=== PATIENT | female | born 1950 | race Caucasian/White ===

== ENCOUNTER → 2022-05-13 14:55 | Outpatient (CLI) | payer OTHER, SELFPAY ==
--- NOTE | 2022-05-13 14:57 | DI.RAD.S_ITS ---
PROCEDURE: XR FEMUR RT MIN 2V INDICATIONS: right leg pain and hip weakness after groundlevel fall TECHNIQUE: 4 views of the femur were acquired. COMPARISON: None. FINDINGS: Bones: Acute right femoral neck fracture is seen with superior migration of proximal femoral shaft in relation to femoral head. No mid to distal femoral fracture. Right hip and right knee joint osteoarthritic changes are seen. No suspicious bony lesions. Soft tissues: No suspicious soft tissue calcifications or masses. IMPRESSION: Acute displaced right femoral neck fracture. No mid to distal right femoral fracture is seen. Dictated by: Kory Ellsworth M.D. on 05/13/2022 at 16:17 Approved by: Kory Ellsworth M.D. on 05/13/2022 at 16:18
--- NOTE | 2022-05-13 14:57 | DI.RAD.S_ITS ---
PROCEDURE: XR HIP W PEL IF DONE RT 2V INDICATIONS: right leg pain and hip weakness after groundlevel fall TECHNIQUE: AP pelvis with lateral view(s) of the right hip(s). COMPARISON: None. FINDINGS: Bones: Acute right femoral neck fracture is seen with superior migration of femoral shaft in relation to femoral head. Bilateral hip joint osteoarthritic changes are seen. No evidence of avascular necrosis of femoral head. Pelvic ring appears intact. No suspicious bony lesions. Soft tissues: The visualized bowel gas pattern is normal. No suspicious soft tissue calcifications. IMPRESSION: Acute displaced right femoral neck fracture as above. Dictated by: Kory Ellsworth M.D. on 05/13/2022 at 16:18 Approved by: Kory Ellsworth M.D. on 05/13/2022 at 16:18
[2022-05-13 16:44] LABS: Alanine Aminotransferase 18 IU/L (<35); Albumin 3.8 g/dL (3.5-5.0); Albumin Globulin Ratio 1.3 (1.0-2.8); Alkaline Phosphatase 126 U/L (38-126); Aspartate Aminotransferase 29 IU/L (14-36); BUN Creatinine Ratio 36.1 (6-22); Bilirubin Total 0.6 mg/dL (0.2-1.3); Blood Urea Nitrogen 26 mg/dL (7-17); Calcium 10.5 mg/dL (8.4-10.2); Carbon Dioxide 33 mmol/L (22-32); Chloride 85 mmol/L (98-107); Estimated Glomerular Filt Rate > 60 mL/min (>60); Globulin 2.9 g/dL (1.7-4.1); Glucose 104 mg/dL (80-110); HEMOLYSIS < 15 (0-50); Potassium 4.1 mmol/L (3.4-5.1); Sodium 127 mmol/L (137-145); Total Protein 6.7 g/dL (6.3-8.2)
== END ==
PROVIDERS: PCP Student in an Organized Health Care Education/Training Program; Referring Provider Family Medicine; Visit Provider Family Medicine
DX: S72.091A Other fracture of head and neck of right femur, initial encounter for closed fracture (principal); I16.0 Hypertensive urgency; M79.604 Pain in right leg; W18.30XA Fall on same level, unspecified, initial encounter
CPT/HCPCS: 36415; 73502; 73552; 80053

== ENCOUNTER 2022-05-16 10:01 | Inpatient (IN) | payer OTHER, SELFPAY ==
[2022-05-16] VITALS (20 sets, daily range): BP systolic 145–218; BP diastolic 68–107; PULSE 71–99; RESP 16–19; TEMP 36.3–36.7; O2SAT 93–97; BMI 20.9; BMI 26.4
--- NOTE | 2022-05-16 10:10 | DI.RAD.S_ITS ---
PROCEDURE: XR HIP W PEL IF DONE RT 2V INDICATIONS: fall 04/25 with right hip pain TECHNIQUE: 2 views of the hip were acquired. COMPARISON: [facility], , XR HIP W PEL IF DONE RT 2V, 05/13/2022, 15:10. FINDINGS: Bones: Right femoral neck fracture with superior migration of the femoral shaft is similar to the prior study on 05/13/2022. The left hip is unchanged. Rightward curvature of the lumbar spine. Soft tissues: No suspicious soft tissue calcifications or masses. Calcifications of the aorta are seen. IMPRESSION: Acute displaced right femoral neck fracture similar to prior study. Dictated by: Syed Leiva M.D. on 05/16/2022 at 10:54 Approved by: Syed Leiva M.D. on 05/16/2022 at 10:56
--- NOTE | 2022-05-16 10:16 | ED_ITS ---
HPI - Fall General Chief Complaint: Fall Stated Complaint: rt hip pain Time Seen by Provider: 05/16/22 10:07 Source: patient Mode of arrival: Wheelchair History of Present Illness HPI Narrative: 72-year-old female presenting with right hip pain in the setting of fall several weeks prior to presentation. Patient reports series initially ambulatory on her hip, and then became unable to ambulate approximately 1-2 weeks after the initial fall. Patient has been attempting to ambulate with family support helping her with transfers. Patient was evaluated in the outpatient setting where x-rays were obtained on 06/10/2022, this did show acute intertrochanteric hip fracture, patient was reportedly in her vehicle when she was called about these results, patient and family elected to go home and it is unclear why this decision was made. Patient reports pain localized to the right hip with attempts at movement. Related Data Home Medications Medication Instructions Recorded Confirmed ibuprofen 200 mg tablet 400 mg PO DAILY 05/13/22 05/16/22 Previous Rx's Medication Instructions Recorded lidocaine 5 % topical patch 1 patch topical DAILY #30 ea 05/13/22 Allergies Allergy/AdvReac Type Severity Reaction Status Date / Time wool Allergy Mild Rash Verified 05/16/22 10:10 codeine AdvReac Intermediate Gastrointestinal Verified 05/16/22 10:10 Upset Patient History Medical History Paralysis Vision disorder Surgical History No pertinent past surgical history Family History Mother Diabetes mellitus Hyperthyroidism Father CAD (coronary artery disease) Social History household members: spouse Smoking Status: Current every day smoker Tobacco: How many years used: 40 quit status: considering quitting (I'm trying ) alcohol intake: current substance use type: does not use Smoking Status: Current every day smoker alcohol intake frequency: holidays/special occasions only Substance Use Type: does not use Exam Narrative Exam Narrative: Vitals reviewed. Nursing note reviewed Constitutional: interactive HENT: Moist mucous membranes EYES: No scleral icterus NECK: no masses CV: Well perfused peripherally, no cyanosis present PULM: Unlabored respirations, symmetric chest rise ABD: Non-distended MS: Right hip with pain on palpation to the lateral and anterior aspect, sensation intact to light touch over the right lower extremity SKIN: Warm and dry. PSYCH: Appropriate affect NEURO: Follows simple commands, moves extremities, interactive with exam Initial Vital Signs Initial Vital Signs: Vital Signs Temperature 97.8 F 05/16/22 10:05 Pulse Rate 94 H 05/16/22 10:05 Respiratory Rate 16 05/16/22 10:05 Blood Pressure 212/107 H 05/16/22 10:05 Pulse Oximetry 97 05/16/22 10:05 Oxygen Delivery Method Room Air 05/16/22 10:05 Course Orders Ordered: ED Orders 05/17/22 05:38 Complete Blood Count AUTO DIFF DAILY Comprehensive Metabolic Panel DAILY Hemoglobin A1C% w Est Avg Glu Routine Magnesium DAILY 05/18/22 05:00 Complete Blood Count AUTO DIFF DAILY Comprehensive Metabolic Panel DAILY Magnesium DAILY 05/19/22 05:00 Complete Blood Count AUTO DIFF DAILY Comprehensive Metabolic Panel DAILY Magnesium DAILY Acetaminophen (Acetaminophen 325 Mg Tablet) 975 mg PO Q8H PRN PRN Reason: Pain, Mild (1-3) Last Admin: 05/17/22 04:49 Dose: 975 mg Documented By: AA Fentanyl (Fentanyl 100 Mcg/2 Ml Inj) 0 mcg IV Q5MIN PRN PRN Reason: Pain, Severe (7-10) Hydromorphone HCl (Hydromorphone 0.5 Mg Inj) 0.5 mg IV Q1H PRN PRN Reason: Pain, Severe (7-10) Hydromorphone HCl (Hydromorphone 2 Mg Inj) 0 mg IV Q5MIN PRN PRN Reason: Pain, Mild (1-3) Lactated Ringer's (Lactated Ringers) 1,000 mls @ 42 mls/hr IV CONT KIMBERLY Last Admin: 05/17/22 09:22 Dose: 42 mls/hr Documented By: Infusion: 05/17/22 09:22 Dose: 42 mls/hr Documented By: Admin: 05/17/22 07:57 Dose: 42 mls/hr Documented By: CG Lactated Ringer's (Lactated Ringers) 1,000 mls @ 120 mls/hr IV CONT KIMBERLY Naloxone HCl (Naloxone 0.4 Mg/Ml Vial) 0.2 mg IV Q2MIN PRN PRN Reason: Opiate Reversal Nicotine (Nicotine 21 Mg Patch) 21 mg TOP DAILY KIMBERLY Last Admin: 05/16/22 15:32 Dose: 21 mg Documented By: VU Ondansetron HCl (Ondansetron 4 Mg/2 Ml Inj) 4 mg IV Q8HR PRN PRN Reason: Nausea And Vomiting Ondansetron HCl (Ondansetron 4 Mg/2 Ml Inj) 4 mg IV NOW PRN PRN Reason: Nausea And Vomiting Oxycodone HCl (Oxycodone Ir 5 Mg Tablet) 5 mg PO Q4HR PRN PRN Reason: Pain, Moderate (4-6) Last Admin: 05/17/22 04:49 Dose: 5 mg Documented By: Admin: 05/16/22 17:45 Dose: 5 mg Documented By: VU Oxycodone HCl (Oxycodone Ir 5 Mg Tablet) 5 mg PO PACUNOW PRN PRN Reason: Mild or moderate pain Discontinued Medications Bupivacaine HCl/Epinephrine Bitart (Bupivacaine 0.25% W/ Epi 30 Ml Vial) 60 ml INJ INTRA-OP ONE Stop: 05/17/22 08:59 Last Admin: 05/17/22 09:02 Dose: 50 ml Documented By: NATACHA Bupivacaine Liposome (Bupivacaine Liposome 266 Mg/20 Ml Vial) 266 mg INJ NOW ONE Stop: 05/17/22 08:56 Last Admin: 05/17/22 08:55 Dose: 266 mg Documented By: NATACHA Epinephrine HCl (Epinephrine 1 Mg/Ml) 1 mg IRR NOW ONE Stop: 05/17/22 09:00 Last Admin: 05/17/22 09:01 Dose: 1 mg Documented By: NATACHA Hydromorphone HCl (Hydromorphone 0.5 Mg Inj) 0.5 mg IV NOW ONE Stop: 05/16/22 10:30 Last Admin: 05/16/22 11:29 Dose: Not Given Documented By: ISIDRO Sodium Chloride (Normal Saline 0.9%) 500 mls @ 1,000 mls/hr IV BOLUS ONE Stop: 05/16/22 12:21 Last Infusion: 05/16/22 13:27 Dose: 0 mls/hr Documented By: Admin: 05/16/22 12:31 Dose: 1,000 mls/hr Documented By: AYAZ Sodium Chloride (Normal Saline 0.9%) 1,000 mls @ 100 mls/hr IV CONT KIMBERLY Last Infusion: 05/16/22 14:22 Dose: 0 mls/hr Documented By: Admin: 05/16/22 13:27 Dose: 100 mls/hr Documented By: AYAZ Vancomycin HCl (Vancomycin) 1,000 mg in 200 mls @ 200 mls/hr IV NOW ONE Stop: 05/17/22 09:00 Last Infusion: 05/17/22 08:54 Dose: 0 mls/hr Documented By: Admin: 05/17/22 08:01 Dose: 200 mls/hr Documented By: ALTAGRACIA Cefazolin Sodium/Dextrose (Ancef) 100 mls @ 200 mls/hr IV NOW ONE Stop: 05/17/22 09:25 Last Infusion: 05/17/22 08:34 Dose: 0 mls/hr Documented By: Admin: 05/17/22 08:24 Dose: 200 mls/hr Documented By: GLORIA Tranexamic Acid 1,000 mg/ (Sodium Chloride) 100 mls @ 200 mls/hr IV INTRA-OP ONE Stop: 05/17/22 09:28 Last Infusion: 05/17/22 08:45 Dose: 0 mls/hr Documented By: Admin: 05/17/22 08:40 Dose: 200 mls/hr Documented By: GLORIA Metoprolol Tartrate (Metoprolol Ir 25 Mg Tablet) 25 mg PO NOW ONE Stop: 05/16/22 14:16 Last Admin: 05/16/22 15:03 Dose: 25 mg Documented By: VU Potassium Chloride (Potassium Chloride 20 Meq Tab) 40 meq PO Q6H [facility] Stop: 05/16/22 22:31 Last Admin: 05/16/22 22:37 Dose: 40 meq Documented By: Admin: 05/16/22 16:35 Dose: 40 meq Documented By: VU Vital Signs Vital signs: Vital Signs - 8 hr 05/16/22 10:05 Temperature 97.8 F Pulse Rate 94 H Respiratory Rate 16 Blood Pressure 212/107 H Pulse Oximetry 97 Oxygen Delivery Method Room Air MDM - Fall Lab Data 05/17/22 05:38 05/17/22 05:38 Labs: Lab Results 05/16/22 05/16/22 05/16/22 Range/Units 11:16 11:16 11:16 WBC 16.7 H (4.5-11.0) X10^3/uL RBC 4.67 (4.0-5.2) X10^6/uL Hgb 13.5 (12.0-16.0) g/dL Hct 40.1 (36-46) % MCV 86.0 (80-100) fL MCH 29.0 (26-34) PG MCHC 33.6 (30-36) % RDW 13.9 (11.6-14.8) % Plt Count 667 H (150-400) X10^3/uL Neut % (Auto) 82.6 H (50-75) % Lymph % (Auto) 11.3 L (25-40) % [place] % (Auto) 4.9 (3-14) % Eos % (Auto) 0.6 L (2-4) % Baso % (Auto) 0.6 (0-2) % Neut # (Auto) 45513 H (1901-1034) /uL Lymph # (Auto) 1900 (1707-1100) /uL [place] # (Auto) 800 (0-900) /uL Eos # (Auto) 100 (0-450) /uL Baso # (Auto) 100 (0-100) /uL Sodium 125 L (137-145) mmol/L Potassium 3.0 L (3.4-5.1) mmol/L Chloride 84 L (98-107) mmol/L Carbon Dioxide 37 H (22-32) mmol/L BUN 23 H (7-17) mg/dL Creatinine 0.61 (0.52-1.04) mg/dL Estimated GFR > 60 (>60) mL/min BUN/Creatinine Ratio 37.7 H (6-22) Glucose 97 (80-110) mg/dL Calcium 10.0 (8.4-10.2) mg/dL Total Bilirubin 0.7 (0.2-1.3) mg/dL AST 29 (14-36) IU/L ALT 16 (<35) IU/L Alkaline Phosphatase 123 (38-126) U/L Total Creatine Kinase 53 (30-135) U/L Total Protein 6.9 (6.3-8.2) g/dL Albumin 4.0 (3.5-5.0) g/dL Globulin 2.9 (1.7-4.1) g/dL Albumin/Globulin Ratio 1.4 (1.0-2.8) SARS-CoV-2 (PCR) (Negative) Influenza A (RT-PCR) (NEGATIVE) Influenza B (RT-PCR) (NEGATIVE) RSV (PCR) (Negative) 05/16/22 Range/Units 11:16 WBC (4.5-11.0) X10^3/uL RBC (4.0-5.2) X10^6/uL Hgb (12.0-16.0) g/dL Hct (36-46) % MCV (80-100) fL MCH (26-34) PG MCHC (30-36) % RDW (11.6-14.8) % Plt Count (150-400) X10^3/uL Neut % (Auto) (50-75) % Lymph % (Auto) (25-40) % [place] % (Auto) (3-14) % Eos % (Auto) (2-4) % Baso % (Auto) (0-2) % Neut # (Auto) (3741-8997) /uL Lymph # (Auto) (7361-4034) /uL [place] # (Auto) (0-900) /uL Eos # (Auto) (0-450) /uL Baso # (Auto) (0-100) /uL Sodium (137-145) mmol/L Potassium (3.4-5.1) mmol/L Chloride (98-107) mmol/L Carbon Dioxide (22-32) mmol/L BUN (7-17) mg/dL Creatinine (0.52-1.04) mg/dL Estimated GFR (>60) mL/min BUN/Creatinine Ratio (6-22) Glucose (80-110) mg/dL Calcium (8.4-10.2) mg/dL Total Bilirubin (0.2-1.3) mg/dL AST (14-36) IU/L ALT (<35) IU/L Alkaline Phosphatase (38-126) U/L Total Creatine Kinase (30-135) U/L Total Protein (6.3-8.2) g/dL Albumin (3.5-5.0) g/dL Globulin (1.7-4.1) g/dL Albumin/Globulin Ratio (1.0-2.8) SARS-CoV-2 (PCR) Negative (Negative) Influenza A (RT-PCR) Flu a negative (NEGATIVE) Influenza B (RT-PCR) Flu b negative (NEGATIVE) RSV (PCR) Negative (Negative) MDM Narrative Medical decision making narrative: 72-year-old female presenting several weeks after fall with progressive difficulty in ability to mobilize, patient has not been able to mobilize i ndependently for at least 1 week, recent x-rays in the outpatient setting showed acute intertrochanteric right hip fracture. On presentation, vital signs notable for hypertension, physical exam notable for alert and interactive 72-year-old female who was in moderate pain, reassuring distal neurovascular exam of the right hip. Pain controlled with IV hydromorphone. Discussed case with Orthopedic surgery on-call, agree with plan for admission and facilitate further management. Discussed case with hospital medicine team who agreed with plan for admission to facilitate further management. Patient is subsequently admitted in stable condition. Discharge Plan Departure Patient Disposition: Admitted As Inpatient Clinical Impression: Closed fracture of right hip Admit Date/Time: 05/16/22 11:30 Admit Provider: Hans Polanco
--- NOTE | 2022-05-16 10:27 | DI.RAD.S_ITS ---
PROCEDURE: XR CHEST 1V INDICATIONS: pre op TECHNIQUE: One view of the chest was acquired. COMPARISON: None. FINDINGS: Surgical changes and devices: None. Lungs and pleura: Lungs are clear. No pleural effusions or pneumothorax. Mediastinum: Mediastinal contours appear normal. Heart size is normal. Bones and chest wall: Rightward curvature of the thoracolumbar spine. No suspicious bony lesions. Overlying soft tissues appear unremarkable. IMPRESSION: No acute cardiopulmonary abnormality. Dictated by: Syed Leiva M.D. on 05/16/2022 at 10:56 Approved by: Syed Leiva M.D. on 05/16/2022 at 10:56
--- NOTE | 2022-05-16 10:31 | PC.NURSE ---
pt fell apr 25. states at first she was able to walk but then needed to use a walker and then eventually had to use wheelchair to get around. pain has been getting worse. seen at [facility] on fridaymay 13 and told to go to the emergency room but wanted a couple days at home before coming in. pt states she feels numbness and tingling in her feet bilaterally but she is unable to lift her right leg off the bed without using her arms to do so. pt instructed to not move her leg while she is here.
[2022-05-16 11:25] LABS: Add Manual Diff / Slide Review NO; Basophils Absolute Auto 100 /uL (0-100); Basophils Percent Auto 0.6 % (0-2); Eosinophils Absolute Auto 100 /uL (0-450); Eosinophils Percent Auto 0.6 % (2-4); Hematocrit 40.1 % (36-46); Hemoglobin 13.5 g/dL (12.0-16.0); Lymphocytes Absolute Auto 1900 /uL (1100-4500); Lymphocytes Percent Auto 11.3 % (25-40); Mean Corpuscular HGB Conc 33.6 % (30-36); Monocytes Absolute Auto 800 /uL (0-900); Monocytes Percent Auto 4.9 % (3-14); Neutrophils Absolute Auto 13800 /uL (1500-7000); Neutrophils Percent Auto 82.6 % (50-75); Platelet Count 667 X10^3/uL (150-400); Red Blood Cell Count 4.67 X10^6/uL (4.0-5.2); Red Cell Distribution Width 13.9 % (11.6-14.8); White Blood Cell Count 16.7 X10^3/uL (4.5-11.0)
[2022-05-16 11:35] LABS: Creatine Kinase 53 U/L (30-135)
[2022-05-16 11:36] LABS: Alanine Aminotransferase 16 IU/L (<35); Albumin Globulin Ratio 1.4 (1.0-2.8); Alkaline Phosphatase 123 U/L (38-126); Aspartate Aminotransferase 29 IU/L (14-36); BUN Creatinine Ratio 37.7 (6-22); Bilirubin Total 0.7 mg/dL (0.2-1.3); Blood Urea Nitrogen 23 mg/dL (7-17); Carbon Dioxide 37 mmol/L (22-32); Chloride 84 mmol/L (98-107); Estimated Glomerular Filt Rate > 60 mL/min (>60); Globulin 2.9 g/dL (1.7-4.1); Glucose 97 mg/dL (80-110); HEMOLYSIS < 15 (0-50); Sodium 125 mmol/L (137-145); Total Protein 6.9 g/dL (6.3-8.2)
[2022-05-16 12:10] LABS: COVID-19 CEPHEID 4-PLEX PCR Negative (Negative); Influenza A - CEPHEID Flu A NEGATIVE (NEGATIVE); Influenza B - CEPHEID Flu B NEGATIVE (NEGATIVE); Respiratory Syncytial Virus Negative (Negative)
[2022-05-16] MEDS: SODIUM CHLORIDE 0.9% 500 ML 1000 ML IV (12:31)
[2022-05-16] MEDS: SODIUM CHLORIDE 0.9% 1,000 ML 100 ML IV (13:27)
--- NOTE | 2022-05-16 13:52 | PC.NURSE ---
Addendum entered by Nahid Calle R.N. 05/16/22 14:03: Provider called this RN back. Provider to put new orders in. Original Note: Pt blood pressure elevated. Pt denies any pain and denies taking any blood pressure medications at home. Attempted 3 times to call provider regarding patient vitals. Left message with coordinator to have provider call.
[2022-05-16 14:05] LABS: Sodium Urine Random 58 mmol/L (30-90)
[2022-05-16 14:11] LABS: Appearance Urine UA CLEAR; Bilirubin Urine UA NEGATIVE (NEGATIVE); Color Urine UA YELLOW; Glucose Urine UA NEGATIVE (Negative); Ketones Urine UA 1+ (NEGATIVE); Leukocyte Esterase Urine UA NEGATIVE (NEGATIVE); Nitrite Urine UA NEGATIVE (Negative); Occult Blood Urine UA NEGATIVE (Negative); Protein Urine UA NEGATIVE (Negative); Specific Gravity Urine UA 1.015 (1.000-1.035); Urobilinogen Urine UA 0.2 E.U./dL (0.2); pH Urine UA 6.5 (4.5-8.0)
[2022-05-16 14:14] LABS: Bacteria Urine None Seen; Culture Indicated Urine Cult Not Indicated; RBC Urine None Seen (0-5/HPF); Urine Comments Microscopic Normal; WBC Urine None Seen (0-5/HPF)
[2022-05-16] MEDS: METOPROLOL IR 25 MG TABLET PO (15:03)
[2022-05-16] MEDS: NICOTINE 21 MG PATCH TOP (15:32)
--- NOTE | 2022-05-16 15:33 | P.CONS_ITS ---
History of Present Illness Consult details Date Patient Seen: 05/16/22 Time Patient Seen: 15:00 Chief complaint: rt hip pain Narrative: 72-year-old female who was admitted today due to right hip pain. Patient gives a history of falling on the 25 of April. Ever since that fall she is had pain and difficulty ambulating. Has been getting around with a walker. Due to the persistent pain to the right hip patient was seen in clinic where x-rays at that time showed a completely displaced femoral neck fracture. That was done on the 13 of May. Due to this finding they were told to go to the emergency room but instead went back home. Patient has continued to have pain to the hip but states that she still has been able to get around using a walker. But due to the continued pain she was brought into the emergency room today and was admitted due to a displaced femoral neck fracture. Patient states that before the fall on the she was ambulating well and did not require any ambulatory devices. Meds Home Medications and Allergies Home Medications Medication Instructions Recorded Confirmed Type ibuprofen 200 mg tablet 400 mg PO DAILY 05/13/22 05/16/22 History lidocaine 5 % topical patch 1 patch topical DAILY #30 ea 05/13/22 05/16/22 Rx Allergies Allergy/AdvReac Type Severity Reaction Status Date / Time wool Allergy Mild Rash Verified 05/16/22 10:10 codeine AdvReac Intermediate Gastrointestinal Verified 05/16/22 10:10 Upset Exam Vital Signs (past 8 hours): - 05/16/22 10:05 05/16/22 10:09 05/16/22 10:09 Temperature 97.8 F Pulse Rate 94 H 96 H Respiratory Rate 16 Blood Pressure 212/107 H 212/107 H Pulse Oximetry 97 96 Oxygen Delivery Method Room Air 05/16/22 10:30 05/16/22 10:30 05/16/22 11:00 Temperature Pulse Rate 88 88 Respiratory Rate Blood Pressure 218/102 H Pulse Oximetry 94 93 Oxygen Delivery Method 05/16/22 11:30 05/16/22 12:00 05/16/22 12:30 Temperature Pulse Rate 88 88 89 Respiratory Rate Blood Pressure Pulse Oximetry 93 95 96 Oxygen Delivery Method 05/16/22 13:00 05/16/22 13:30 05/16/22 13:38 Temperature Pulse Rate 89 93 H Respiratory Rate Blood Pressure 215/102 H Pulse Oximetry 95 95 Oxygen Delivery Method 05/16/22 13:38 05/16/22 13:39 05/16/22 13:39 Temperature Pulse Rate 99 H 96 H Respiratory Rate Blood Pressure 214/103 H Pulse Oximetry 95 95 Oxygen Delivery Method Oxygen Delivery Method Room Air Narrative Exam Narrative: On physical exam this is a frail looking 72-year-old female but is alert and oriented x3 and does not seem to be in any apparent distress. Right lower extremity does show some shortening and malrotation but patient did not have any significant pain with gentle range of motion of the hip. Compartments are soft. No sign of any knee or ankle swelling or instability. Pedal pulses. Left lower extremity free of any abnormalities. No sign of any abnormalities to bilateral upper extremities. Objective Labs 05/16/22 11:16 05/16/22 11:16 Labs: Laboratory Results - last 24 hr 05/16/22 05/16/22 05/16/22 11:16 11:16 11:16 WBC 16.7 H RBC 4.67 Hgb 13.5 Hct 40.1 MCV 86.0 MCH 29.0 MCHC 33.6 RDW 13.9 Plt Count 667 H Neut % (Auto) 82.6 H Lymph % (Auto) 11.3 L [place] % (Auto) 4.9 Eos % (Auto) 0.6 L Baso % (Auto) 0.6 Neut # (Auto) 75037 H Lymph # (Auto) 1900 [place] # (Auto) 800 Eos # (Auto) 100 Baso # (Auto) 100 Sodium 125 L Potassium 3.0 L Chloride 84 L Carbon Dioxide 37 H BUN 23 H Creatinine 0.61 Estimated GFR > 60 BUN/Creatinine Ratio 37.7 H Glucose 97 Calcium 10.0 Total Bilirubin 0.7 AST 29 ALT 16 Alkaline Phosphatase 123 Total Creatine Kinase 53 Total Protein 6.9 Albumin 4.0 Globulin 2.9 Albumin/Globulin Ratio 1.4 Urine Color Urine Appearance Urine pH Ur Specific [place] Urine Protein Urine Glucose (UA) Urine Ketones Urine Occult Blood Urine Nitrate Urine Bilirubin Urine Urobilinogen Ur Leukocyte Esterase Urine RBC Urine WBC Urine Bacteria Ur Culture Indicated? Micro UA Comment Ur Random Sodium SARS-CoV-2 (PCR) Influenza A (RT-PCR) Influenza B (RT-PCR) RSV (PCR) 05/16/22 05/16/22 05/16/22 11:16 13:25 13:25 WBC RBC Hgb Hct MCV MCH MCHC RDW Plt Count Neut % (Auto) Lymph % (Auto) [place] % (Auto) Eos % (Auto) Baso % (Auto) Neut # (Auto) Lymph # (Auto) [place] # (Auto) Eos # (Auto) Baso # (Auto) Sodium Potassium Chloride Carbon Dioxide BUN Creatinine Estimated GFR BUN/Creatinine Ratio Glucose Calcium Total Bilirubin AST ALT Alkaline Phosphatase Total Creatine Kinase Total Protein Albumin Globulin Albumin/Globulin Ratio Urine Color Yellow Urine Appearance Clear Urine pH 6.5 Ur Specific [place] 1.015 Urine Protein Negative Urine Glucose (UA) Negative Urine Ketones 1+ H Urine Occult Blood Negative Urine Nitrate Negative Urine Bilirubin Negative Urine Urobilinogen 0.2 Ur Leukocyte Esterase Negative Urine RBC None seen Urine WBC None seen Urine Bacteria None seen Ur Culture Indicated? Cult not indicated Micro UA Comment Microscopic normal Ur Random Sodium 58 SARS-CoV-2 (PCR) Negative Influenza A (RT-PCR) Flu a negative Influenza B (RT-PCR) Flu b negative RSV (PCR) Negative PFSH Medical History Paralysis Vision disorder Family History Mother Diabetes mellitus Social History household members: spouse Tobacco & Substance Use Smoking Status: Current every day smoker Tobacco: How many years used: 40 quit status: considering quitting (I'm trying ) alcohol intake: current substance use type: does not use Assessment & Plan Assessment & Plan narrative: Patient with a subacute right femoral neck fracture that most likely occurred when she fell on the 25 of April. Due to the injury this is something that would require surgical treatment. Most likely doris arthroplasty. This was discussed with the patient and her who was present in the room today. Once we have a better idea of timeframe patient will then need to be NPO but it is okay for patient to eat today. No plan on any surgical intervention today. Time Spent With Patient Critical Care time: I spent a total of [] minutes of critical care time on this patient's care today; this time is exclusive of procedural time.
--- NOTE | 2022-05-16 16:22 | P.HP_ITS ---
History of Present Illness History of Present Illness Date Patient Seen: 05/16/22 Time Patient Seen: 16:22 Chief complaint: rt hip pain Narrative: This is a 72 year old female with no known PMH who was referred to the ER today by her PCP. Patient had fallen on 04/25/22, went to see PCP due to continued R hip pain on 05/13. Imaging was ordered but at the time there was minimal concern for fracture. XR did reveal a displaced R femoral neck fracture so she was referred here. Her BP at that visit was 180/106. She denies chest pain, palpitations, shortness of breath. She states she cannot walk more than a few blocks but this is primarily due to leg discomfort. When asked to further clarify this, she was unable to specify whether the pain is in her legs, hips, calves, or feet and simply stated it's been so long I can't remember. In the emergency room, the patient was hypertensive, but the remainder of her vital signs were unremarkable. Laboratory evaluation was notable for a mild leukocytosis with WBC 16.7, elevated platelet count at 667, sodium of 125, potassium 3.0, carbon dioxide of 37 assess was unremarkable, urine sodium was 58, COVID, flu, and RSV were negative. Patient was admitted for further management with Orthopedic consultation for her right femoral neck fracture. Patient History Medical History Paralysis Vision disorder Surgical History No pertinent past surgical history Family & Social History Family History Mother Diabetes mellitus Hyperthyroidism Father CAD (coronary artery disease) Social History: household members spouse Safety & Behavioral: Feels Safe in Current Yes Environment Been Physically Hurt or No Threatened By a Person Tobacco & Substance use: Tobacco type cigarettes Smoking Status Current every day smoker alcohol intake current alcohol intake frequency holiday/special occasion Substance Use Type does not use Meds Home Medications and Allergies Home Medications Medication Instructions Recorded Confirmed Type ibuprofen 200 mg tablet 400 mg PO DAILY 05/13/22 05/16/22 History lidocaine 5 % topical patch 1 patch topical DAILY #30 ea 05/13/22 05/16/22 Rx Allergies Allergy/AdvReac Type Severity Reaction Status Date / Time wool Allergy Mild Rash Verified 05/16/22 10:10 codeine AdvReac Intermediate Gastrointestinal Verified 05/16/22 10:10 Upset Review of Systems Review of Systems Narrative: All other systems reviewed with the patient and are negative unless otherwise stated. Exam Vital Signs (past 8 hours): - 05/16/22 10:05 05/16/22 10:09 05/16/22 10:09 Temperature 97.8 F Pulse Rate 94 H 96 H Respiratory Rate 16 Blood Pressure 212/107 H 212/107 H Pulse Oximetry 97 96 Oxygen Delivery Method Room Air Oxygen Flow Rate 05/16/22 10:30 05/16/22 10:30 05/16/22 11:00 Temperature Pulse Rate 88 88 Respiratory Rate Blood Pressure 218/102 H Pulse Oximetry 94 93 Oxygen Delivery Method Oxygen Flow Rate 05/16/22 11:30 05/16/22 12:00 05/16/22 12:30 Temperature Pulse Rate 88 88 89 Respiratory Rate Blood Pressure Pulse Oximetry 93 95 96 Oxygen Delivery Method Oxygen Flow Rate 05/16/22 13:00 05/16/22 13:30 05/16/22 13:38 Temperature Pulse Rate 89 93 H Respiratory Rate Blood Pressure 215/102 H Pulse Oximetry 95 95 Oxygen Delivery Method Oxygen Flow Rate 05/16/22 13:38 05/16/22 13:39 05/16/22 13:39 Temperature Pulse Rate 99 H 96 H Respiratory Rate Blood Pressure 214/103 H Pulse Oximetry 95 95 Oxygen Delivery Method Oxygen Flow Rate 05/16/22 14:35 Temperature 97.7 F Pulse Rate 89 Respiratory Rate 16 Blood Pressure 210/99 H Pulse Oximetry 94 Oxygen Delivery Method Oxygen Flow Rate 0 Oxygen Delivery Method Room Air Oxygen Flow Rate 0 Narrative Exam Narrative: General:? Patient is well developed and well nourished, in no distress at this time. HEENT:? Normocephalic, atraumatic, extraocular muscles intact, oral pharynx is clear and mucous membranes are moist. Neck: supple and symmetric, trachea is midline, no cervical adenopathy. Negative for JVD Chest:? Normal AP diameter and contour without kyphoscoliosis, no tachypnea, equal chest rise bilaterally. Lungs:? CTA b/l no wheezing rhonchi or rales. Cardio:?RRR no m/r/g. Abdomen: S NT ND. No CVA tenderness. Musculoskeletal:? Muscle strength and tone are equal within normal limits, no deformity. Extremities: No edema or joint effusions. No cyanosis or clubbing. Skin:? Pale,? Warm to touch,dry and intact without rashes, ulcerations or petechiae.? Neuro:? Alert and orientated x3,? sensation to touch intact in all extremities, no gross deficits noted of cranial nerves. Psych:? Patient has a well-kept appearance, appropriate affect, mental status attitude thought context and judgment are appropriate for age. Objective ECG Impression: Sinus rhythm with LVH as interpreted by me. No acute ischemia. Labs 05/16/22 11:16 05/16/22 11:16 Labs: Laboratory Results - last 24 hr 05/16/22 05/16/22 05/16/22 11:16 11:16 11:16 WBC 16.7 H RBC 4.67 Hgb 13.5 Hct 40.1 MCV 86.0 MCH 29.0 MCHC 33.6 RDW 13.9 Plt Count 667 H Neut % (Auto) 82.6 H Lymph % (Auto) 11.3 L [place] % (Auto) 4.9 Eos % (Auto) 0.6 L Baso % (Auto) 0.6 Neut # (Auto) 82724 H Lymph # (Auto) 1900 [place] # (Auto) 800 Eos # (Auto) 100 Baso # (Auto) 100 Sodium 125 L Potassium 3.0 L Chloride 84 L Carbon Dioxide 37 H BUN 23 H Creatinine 0.61 Estimated GFR > 60 BUN/Creatinine Ratio 37.7 H Glucose 97 Calcium 10.0 Total Bilirubin 0.7 AST 29 ALT 16 Alkaline Phosphatase 123 Total Creatine Kinase 53 Total Protein 6.9 Albumin 4.0 Globulin 2.9 Albumin/Globulin Ratio 1.4 Urine Color Urine Appearance Urine pH Ur Specific [place] Urine Protein Urine Glucose (UA) Urine Ketones Urine Occult Blood Urine Nitrate Urine Bilirubin Urine Urobilinogen Ur Leukocyte Esterase Urine RBC Urine WBC Urine Bacteria Ur Culture Indicated? Micro UA Comment Ur Random Sodium SARS-CoV-2 (PCR) Influenza A (RT-PCR) Influenza B (RT-PCR) RSV (PCR) 05/16/22 05/16/22 05/16/22 11:16 13:25 13:25 WBC RBC Hgb Hct MCV MCH MCHC RDW Plt Count Neut % (Auto) Lymph % (Auto) [place] % (Auto) Eos % (Auto) Baso % (Auto) Neut # (Auto) Lymph # (Auto) [place] # (Auto) Eos # (Auto) Baso # (Auto) Sodium Potassium Chloride Carbon Dioxide BUN Creatinine Estimated GFR BUN/Creatinine Ratio Glucose Calcium Total Bilirubin AST ALT Alkaline Phosphatase Total Creatine Kinase Total Protein Albumin Globulin Albumin/Globulin Ratio Urine Color Yellow Urine Appearance Clear Urine pH 6.5 Ur Specific [place] 1.015 Urine Protein Negative Urine Glucose (UA) Negative Urine Ketones 1+ H Urine Occult Blood Negative Urine Nitrate Negative Urine Bilirubin Negative Urine Urobilinogen 0.2 Ur Leukocyte Esterase Negative Urine RBC None seen Urine WBC None seen Urine Bacteria None seen Ur Culture Indicated? Cult not indicated Micro UA Comment Microscopic normal Ur Random Sodium 58 SARS-CoV-2 (PCR) Negative Influenza A (RT-PCR) Flu a negative Influenza B (RT-PCR) Flu b negative RSV (PCR) Negative Assessment & Plan Assessment & Plan narrative: 1. R femoral neck fracture, pathologic - appreciate orthopedic consultation, plan for OR timing not clear at the moment - pain control with oral meds for now, IV when NPO 2. Hyponatremia, acute possibly on chronic - recent lab work with PCP showed Na of 127, Na 125 here. Urine sodium at 58, unclear volume status. Consider SIADH. Urine osm pending. - will check TSH, continue IV fluids for now and continue to trend. 3. Hypertensive urgency - some LVH on EKG, no evidence of acute ischemia and otherwise asymptomatic. - start laury/arb after surgery - for now start metoprolol 25 mg BID, will likely need additional agents. She reports controlled pain but elevated BP may be in setting of her fracture. 4. Metabolic alkalosis - suspect probable underlying COPD with hypercarbia given smoking history. May also be from mild dehydration but will continue to follow response to fluids. - No symptoms at this time, consider ABG if confusion or dyspnea. 5. Hypokalemia - repleted with oral, no EKG changes, will continue to follow. 6. Tobacco Use - nicotine patch ordered Code: full, surrogate decision maker is the patient's spouse DVT: SCDs prior to surgery I have utilized all available immediate resources to obtain, update, or review the patient's current medications. I have reviewed patient's primary care previous notes, ER documentations, vitals, labs, and imaging. Discussed with ER provider, and additional history from patient's spouse. Dispo: admitted as inpatient, stay is expected to exceed two midnights. Time Spent With Patient Critical Care time: I spent a total of [] minutes of critical care time on this patient's care today; this time is exclusive of procedural time. Quality VTE Deep Vein Thrombosis/Pulmonary Embolism Present on Admission: No
--- NOTE | 2022-05-16 16:22 | PC.NURSE ---
Addendum entered by Nita Chaudhary R.N. 05/16/22 19:12: Patients blood pressure down to 180s/87 Original Note: Patient admitted for r.sanjay hiip from a fall on 04/25. When getting pass down from the float RN, he states that patient was crawling around on the floor because she was unable to ambulate. She smokes a half pack of cigarettes per day but does not drink. Patient is on a general diet as they will not be able to do her surgery today. She is alert and oriented x4. Her is in the room with her visiting. Patients blood pressure was 224/100s. is aware and 25mg of metoprolol was given. Will recheck her blood pressure in about 45 minutes.
[2022-05-16] MEDS: POTASSIUM CHLORIDE 20 MEQ TAB 40 MEQ PO ×2 (16:35→22:37)
[2022-05-16] MEDS: OXYCODONE IR 5 MG TABLET PO (17:45)
[2022-05-16 17:47] LABS: Blood Urea Nitrogen 18 mg/dL (7-17); Calcium 9.1 mg/dL (8.4-10.2); Carbon Dioxide 36 mmol/L (22-32); Chloride 86 mmol/L (98-107); Estimated Glomerular Filt Rate > 60 mL/min (>60); Glucose 116 mg/dL (80-110); HEMOLYSIS < 15 (0-50); Potassium 2.9 mmol/L (3.4-5.1); Sodium 125 mmol/L (137-145)
[2022-05-17] VITALS (23 sets, daily range): BP systolic 128–199; BP diastolic 67–96; PULSE 65–89; RESP 11–19; TEMP 36.1–37.6; O2SAT 91–99; BMI 26.4
[2022-05-17] MEDS: ACETAMINOPHEN 325 MG TABLET 975 MG PO (04:49)
[2022-05-17] MEDS: OXYCODONE IR 5 MG TABLET PO (04:49)
[2022-05-17 05:56] LABS: Add Manual Diff / Slide Review NO; Basophils Absolute Auto 100 /uL (0-100); Basophils Percent Auto 0.9 % (0-2); Eosinophils Absolute Auto 200 /uL (0-450); Eosinophils Percent Auto 1.8 % (2-4); Hematocrit 36.1 % (36-46); Hemoglobin 12.2 g/dL (12.0-16.0); Lymphocytes Absolute Auto 2200 /uL (1100-4500); Lymphocytes Percent Auto 16.4 % (25-40); Mean Corpuscular HGB Conc 33.9 % (30-36); Mean Corpuscular Hemoglobin 29.1 PG (26-34); Mean Corpuscular Volume 85.9 fL (80-100); Monocytes Absolute Auto 800 /uL (0-900); Neutrophils Absolute Auto 10000 /uL (1500-7000); Neutrophils Percent Auto 74.9 % (50-75); Platelet Count 569 X10^3/uL (150-400); Red Cell Distribution Width 13.7 % (11.6-14.8); White Blood Cell Count 13.3 X10^3/uL (4.5-11.0)
[2022-05-17 06:09] LABS: Alanine Aminotransferase 14 IU/L (<35); Albumin 3.1 g/dL (3.5-5.0); Albumin Globulin Ratio 1.1 (1.0-2.8); Alkaline Phosphatase 98 U/L (38-126); Aspartate Aminotransferase 25 IU/L (14-36); BUN Creatinine Ratio 28.1 (6-22); Bilirubin Total 0.5 mg/dL (0.2-1.3); Blood Urea Nitrogen 16 mg/dL (7-17); Calcium 9.1 mg/dL (8.4-10.2); Carbon Dioxide 32 mmol/L (22-32); Chloride 92 mmol/L (98-107); Estimated Glomerular Filt Rate > 60 mL/min (>60); Globulin 2.7 g/dL (1.7-4.1); Glucose 83 mg/dL (80-110); HEMOLYSIS < 15 (0-50); Magnesium 1.8 mg/dL (1.6-2.3); Potassium 4.3 mmol/L (3.4-5.1); Sodium 128 mmol/L (137-145); Total Protein 5.8 g/dL (6.3-8.2)
[2022-05-17 06:32] LABS: Hemoglobin A1C% w Est Avg Glu 5.3 % (4.0-6.0)
[2022-05-17 07:01] LABS: TSH w/ Reflex to FT4 2.67 uIU/mL (0.47-4.68)
--- NOTE | 2022-05-17 07:49 | PM.PREOP ---
Pre-operative Note COVID-19 COVID-19 status: Negative Interval Note History & Physical reviewed/Exam performed by Physician: Yes Changes to H&P: No
[2022-05-17] MEDS: LACTATED RINGERS 1,000 ML 42 ML IV ×2 (07:57→09:22)
[2022-05-17] MEDS: VANCOMYCIN 1,000 MG/200 ML PIGGYBACK 200 MG IV (08:01)
[2022-05-17] MEDS: CEFAZOLIN 2 GM/100 ML PREMIX 100 ML IV ×3 (08:24→23:43)
--- NOTE | 2022-05-17 08:24 | PM.OP.1 ---
Operative Date/Time/Diagnoses Date of procedure: 05/17/22 Time of procedure: 08:25 Pre-op diagnosis: right hip fracture femoral neck Post-op diagnosis: same Procedure & Clinicians Procedure: right hip Unipolar Same procedure as scheduled: Yes Indications: The patient fell and continued having ongoing right hip pain. It became progressively incapacitating and eventually she came to the emergency room where she was noted to have a right femoral neck fracture. She is brought to the operating room for a right hip partial versus total hip replacement. The risks, benefits and alternatives to surgery were discussed with the patient prior to proceeding. Risks discussed included, but were not limited to, failure to relieve pain, leg length discrepancy, dislocation, stiffness, infection, nerve damage, deep venous thrombosis, pulmonary embolism, stroke, coma, heart attack, permanent paralysis and , as well as the potential need for eventual revision of the prosthetic. Surgeon: Debbie Arauz Ink Technician: Quiana Ochoa Anesthesia Type: Spinal and Sedation Operative Notes Findings: Comminuted right displaced femoral neck fracture, very soft bone, minimal acetabular wear Closure Type: primary Specimen(s): none sent Prosthetic devices, grafts, tissues, transplants, or devices: Arauz and nephew size 13 synergy standard offset, +0, 43 mm head, small distal cement restrictor, 11 mm centralizer Estimated Blood Loss (mL): 150 Blood products transfused: none Procedure in detail: The patient was seen in the pre-operative area, where the patient identified the right hip as the operative site and this was marked with my initials. The patient received pre-operative antibiotics and was taken to the operating room and placed on the operative table in the supine position after satisfactory anesthesia. A multimedia educational specialist out was performed. Patient was placed in the lateral decubitus position and all bony prominences were carefully padded and the arms were appropriately position. The right lower extremity was prepared from the ankle to the iliac crest with ChloroPrep in the usual fashion and draped through sterile drapes. The hip was approached through posterolateral approach. Dissection was carried out down through skin and subcutaneous tissues. The fascia was opened. Gelpi retractors were placed. A Charnley retractor was placed. A small amount of inflamed bursa was resected. The piriformis was identified and protected. The other short external rotators and capsule were carefully stripped from the posterior aspect of the femur. They were tagged and carefully retracted. The femoral neck was brought up and an osteotomy was made of the residual femoral neck approximately 1 fingerbreadth above the lesser trochanter. The head was removed without difficulty. It was carefully sized. There was moderate debris in the capsule. The hip was meticulously irrigated and some capsular debris in bone fragments were meticulously removed. The acetabulum was meticulously irrigated with normal saline. There were [mild] changes in the acetabulum. The acetabulum was carefully protected with an E tape. The canal was opened with a box cutting osteotome, followed by a T-handled reamer and a lateralizing reamer. The tapered reamers were then used, followed by sequential broaching. A trial head and neck were then placed and the hip relocated and checked for leg length and stability. The patient was stable in the position of sleep, of squatting, and could be put through a range of motion with 45 degrees internal rotation without dislocation. At 90 degrees flexion, internal rotation to 80? was possible before dislocation. This was felt to be satisfactory and the appropriate components were opened, and the trials were removed. The femoral canal was sized and a distal cement restrictor was placed. The bone was meticulously cleaned with pulse lavage. The canal was packed with vaginal packing with epinephrine. Antibiotics cement was mixed and carefully pressurized into the femoral canal. The femoral component was placed without difficulty. A repeat trial reduction showed good range of motion and stability. We did a brief Betadine soak after the cement had hardened. Patient had good range of motion and stability. The final head and neck were placed after carefully irrigating the wound. The capsulomuscular flap was then repaired to the greater trochanter though an awl hole using the tag sutures. The short external rotators were repaired with nonabsorbable sutures. A deep drain was placed and brought out anteriorly. The fascia tabatha was closed with Vicryl. A subcutaneous drain was placed. The subcutaneous layer was closed with a barbed suture, and the skin with a running 3-0 V-Lock suture and surgical glue. An Aquacel Ag dressing was applied and the patient was taken to recovery having tolerated the procedure well. Complications: none Post-operative Condition: stable Disposition: Acute Care Plan for aftercare: The patient will be maintained on a standard total hip replacement protocol with weight bearing as tolerated and posterior hip precautions. The patient will receive Aspirin and sequential compression devices for DVT prophylaxis. The patient will be discharged home when safe for the home environment.
[2022-05-17] MEDS: TRANEXAMIC ACID 1,000 MG in SODIUM CHLORIDE 0.9% 100 ML 200 MG IV ×2 (08:40→10:00)
--- NOTE | 2022-05-17 08:48 | SUR.OPER ---
Lateral on padded OR bed. Gel axillary roll. Arms secured on padded armboard with pillow supporting top arm. Padded hip positioner braces x4 - anterior and posterior chest and pelvis. Additional gel pad used anterior pelvis. Gel pad under bottom leg from knee to foot and secured with tape over sheet. Pt positioned per direction and supervision of Dr Arauz.
[2022-05-17] MEDS: BUPIVACAINE LIPOSOME 266 MG/20 ML VIAL INJ (08:55)
[2022-05-17] MEDS: EPINEPHrine 1 MG/ML IRR (09:01)
[2022-05-17] MEDS: BUPIVACAINE 0.25% W/ EPI 30 ML VIAL 60 ML INJ (09:02)
--- NOTE | 2022-05-17 10:24 | SUR.PHASEI ---
Received to PACU after spinal anesthesia. Airway patent, self maintained. Report from GEGE Johnson and CONRAD Dunn.
--- NOTE | 2022-05-17 10:28 | DI.RAD.S_ITS ---
PROCEDURE: XR HIP W PEL IF DONE RT 2V INDICATIONS: postop TECHNIQUE: AP pelvis and lateral view of the right hip acquired. COMPARISON: [facility], [facility], XR HIP W PEL IF DONE RT 2V, 05/16/2022, 10:32. FINDINGS: Bones: Patient is status post right hip arthroplasty, with hardware components in expected positions. The hip joint appears congruent. The visualized bony structures appear intact. Soft tissues: Overlying postoperative changes are noted. No suspicious soft tissue densities. IMPRESSION: Expected appearance of right hip arthroplasty. Dictated by: Vik Blood M.D. on 05/17/2022 at 11:00 Approved by: Vik Blood M.D. on 05/17/2022 at 11:00
[2022-05-17] MEDS: LABETALOL 20 MG/4 ML SYRINGE 5 MG IV (10:54)
--- NOTE | 2022-05-17 11:10 | SUR.PHASEI ---
Report called to Della Solano. Patient transferred to the floor by Emelina Mcintoshures with patient.
--- NOTE | 2022-05-17 12:32 | CM.DANOTE ---
Initial DCP Assessment Note Pt is a 72 yo female, resident at [facility], arrives via w/c w/rt hip pain no known PMH who was referred to the ER today by her PCP. Patient had fallen on 04/25/22, went to see PCP due to continued R hip pain on 05/13. Imaging was ordered but at the time there was minimal concern for fracture. XR did reveal a displaced R femoral neck fracture so she was referred here. Patient went to the OR for hip repair today PCP: Unknown at this time Payer: Blayne SABA Reviewed chart, initial DCP assessment note completed w/information available on the chart, patient in the OR today. 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 No History Provided By Patient,Medical Record Prior Living Arrangements House Household Members spouse Type of transporation used prior to Drives own vehicle admit Independent with ADL's Not Assessed Is patient alert and oriented? Not Assessed Comment Unknown, will need to assess needs post operatively and after therapy evals
[2022-05-17] MEDS: ACETAMINOPHEN 325 MG TABLET 650 MG PO ×3 (13:04→23:44)
[2022-05-17] MEDS: IBUPROFEN 400 MG TABLET PO ×3 (13:04→23:43)
[2022-05-17] MEDS: LACTATED RINGERS 1,000 ML 125 ML IV (14:04)
--- NOTE | 2022-05-17 15:19 | PM.PN.1 ---
Subjective Subjective Interval history: Patient seen shortly after return from OR. Doing well without complaints thus far. Exam Vital Signs (past 8 hours): - 05/17/22 07:52 05/17/22 10:13 05/17/22 10:18 Temperature 99.6 F 97.7 F Pulse Rate 85 78 79 Respiratory Rate 16 12 13 Blood Pressure 191/86 H 128/68 137/67 Pulse Oximetry 97 92 91 Oxygen Delivery Method Room Air Room Air Room Air Oxygen Flow Rate 05/17/22 10:23 05/17/22 10:28 05/17/22 10:38 Temperature 97.7 F Pulse Rate 77 77 77 Respiratory Rate 16 16 Blood Pressure 166/77 H 169/81 H 172/76 H Pulse Oximetry 97 97 Oxygen Delivery Method Nasal Cannula Nasal Cannula Oxygen Flow Rate 2 2 05/17/22 10:58 05/17/22 11:03 05/17/22 11:07 Temperature 97.3 F L Pulse Rate 70 65 65 Respiratory Rate 14 14 11 L Blood Pressure 188/79 H 168/67 H 165/78 H Pulse Oximetry 99 93 93 Oxygen Delivery Method Nasal Cannula Room Air Room Air Oxygen Flow Rate 2 05/17/22 10:43 05/17/22 10:48 05/17/22 10:53 Temperature Pulse Rate 77 76 76 Respiratory Rate 15 Blood Pressure 186/81 H 186/84 H 199/83 H Pulse Oximetry 98 Oxygen Delivery Method Nasal Cannula Oxygen Flow Rate 2 05/17/22 11:35 05/17/22 11:43 05/17/22 11:40 Temperature 97.7 F 97.1 F L Pulse Rate 89 66 Respiratory Rate 16 16 Blood Pressure 194/96 H 172/80 H Pulse Oximetry 94 96 Oxygen Delivery Method Room Air Nasal Cannula Oxygen Flow Rate 0 05/17/22 12:01 05/17/22 13:35 05/17/22 14:25 Temperature Pulse Rate 70 74 72 Respiratory Rate 16 18 18 Blood Pressure 169/78 H 192/72 H 168/84 H Pulse Oximetry 92 93 96 Oxygen Delivery Method Oxygen Flow Rate 0 0 0 Oxygen Delivery Method Room Air,Nasal Cannula Oxygen Flow Rate 0 Narrative Exam Narrative: General:? Patient is well developed and well nourished, in no distress at this time.Slightly groggy. HEENT:? Normocephalic, atraumatic, extraocular muscles intact, oral pharynx is clear and mucous membranes are moist. Neck: supple and symmetric, trachea is midline, no cervical adenopathy. Negative for JVD Chest:? Normal AP diameter and contour without kyphoscoliosis, no tachypnea, equal chest rise bilaterally. Lungs:? CTA b/l no wheezing rhonchi or rales. Cardio:?RRR no m/r/g. Abdomen: S NT ND. No CVA tenderness. Musculoskeletal:? Muscle strength and tone are equal within normal limits, no deformity. Extremities: No edema or joint effusions. No cyanosis or clubbing. Skin:? Pale,? Warm to touch,dry and intact without rashes, ulcerations or petechiae.? Neuro:? Alert and orientated x3,? sensation to touch intact in all extremities, no gross deficits noted of cranial nerves. Psych:? Patient has a well-kept appearance, appropriate affect, mental status attitude thought context and judgment are appropriate for age. Objective Labs 05/17/22 05:38 05/17/22 05:38 Labs: Laboratory Results - last 24 hr 05/16/22 05/17/22 05/17/22 17:28 05:38 05:38 WBC 13.3 H RBC 4.20 Hgb 12.2 Hct 36.1 MCV 85.9 MCH 29.1 MCHC 33.9 RDW 13.7 Plt Count 569 H Neut % (Auto) 74.9 Lymph % (Auto) 16.4 L [place] % (Auto) 6.0 Eos % (Auto) 1.8 L Baso % (Auto) 0.9 Neut # (Auto) 78343 H Lymph # (Auto) 2200 [place] # (Auto) 800 Eos # (Auto) 200 Baso # (Auto) 100 Sodium 125 L 128 L Potassium 2.9 L 4.3 D Chloride 86 L 92 L Carbon Dioxide 36 H 32 BUN 18 H 16 Creatinine 0.58 0.57 Estimated GFR > 60 > 60 BUN/Creatinine Ratio 31.0 H 28.1 H Glucose 116 H 83 Hemoglobin A1c Calcium 9.1 9.1 Magnesium 1.8 Total Bilirubin 0.5 AST 25 ALT 14 Alkaline Phosphatase 98 Total Protein 5.8 L Albumin 3.1 L Globulin 2.7 Albumin/Globulin Ratio 1.1 TSH 05/17/22 05/17/22 05:38 05:38 WBC RBC Hgb Hct MCV MCH MCHC RDW Plt Count Neut % (Auto) Lymph % (Auto) [place] % (Auto) Eos % (Auto) Baso % (Auto) Neut # (Auto) Lymph # (Auto) [place] # (Auto) Eos # (Auto) Baso # (Auto) Sodium Potassium Chloride Carbon Dioxide BUN Creatinine Estimated GFR BUN/Creatinine Ratio Glucose Hemoglobin A1c 5.3 Calcium Magnesium Total Bilirubin AST ALT Alkaline Phosphatase Total Protein Albumin Globulin Albumin/Globulin Ratio TSH 2.67 [facility] Medical History Paralysis Vision disorder Surgical History No pertinent past surgical history Family History Mother Diabetes mellitus Hyperthyroidism Father CAD (coronary artery disease) Social History household members: spouse Smoking Status: Current every day smoker Tobacco: How many years used: 40 quit status: considering quitting (I'm trying ) alcohol intake: current substance use type: does not use Assessment & Plan Assessment & Plan narrative: 1. R femoral neck fracture, pathologic - appreciate orthopedic consultation, plan for OR timing not clear at the moment - pain control with oral meds for now, IV when NPO 2. Hyponatremia, likely chronic - recent lab work with PCP showed Na of 127, Na 125 on admit. Urine sodium at 58, unclear volume status. Likely SIADH. Improved to 128 today. - TSH within normal limits - no additional management necessary at this time. 3. Hypertensive urgency - some LVH on EKG, no evidence of acute ischemia and otherwise asymptomatic. - start lisinopril 10 mg daily today. - prior to surgery started metoprolol 25 mg BID given LVH on EKG. 4. Metabolic alkalosis, improved - suspect probable underlying COPD with hypercarbia given smoking history. May also be from mild dehydration but will continue to follow response to fluids. - No symptoms at this time, consider ABG if confusion or dyspnea. 5. Hypokalemia - repleted with oral, no EKG changes, will continue to follow. 6. Tobacco Use - nicotine patch ordered Code: full, surrogate decision maker is the patient's spouse DVT: SCDs prior to surgery Dispo: inpatient, pending PT/OT but suspect will likely need SNF I have utilized all available immediate resources to obtain, update, or review the patient's current medications. Dispo: admitted as inpatient, stay is expected to exceed two midnights. Time Spent With Patient Critical Care time: I spent a total of [] minutes of critical care time on this patient's care today; this time is exclusive of procedural time. Quality VTE Deep Vein Thrombosis/Pulmonary Embolism Present on Admission: No
[2022-05-17] MEDS: lisinopriL 10 MG TABLET PO (16:13)
--- NOTE | 2022-05-17 19:03 | PC.NURSE ---
Post op ortho: pt sleepy on return from surgery, doesn't have much of an appetite but did eat a little bit. Had spinal back in OR, can move toes now but still has sensation changes from spinal. No pain, scheduled meds have been effective. Repositioned and sleeping, bed alarm is on, however she is using call light.
[2022-05-17] MEDS: DOCUSATE 100 MG CAPSULE PO (21:16)
[2022-05-17] MEDS: ASPIRIN EC 81 MG TABLET PO (21:16)
[2022-05-18] VITALS (13 sets, daily range): BP systolic 108–196; BP diastolic 54–91; PULSE 70–78; RESP 16–20; TEMP 36.1–37.3; O2SAT 91–98
[2022-05-18] MEDS: LABETALOL 20 MG/4 ML SYRINGE 5 MG IV (04:34)
--- NOTE | 2022-05-18 04:55 | PC.NURSE ---
Addendum entered by Lanette Gutierrez R.N. 05/18/22 05:36: BP after Labetalol on Lf arm was 147/81. Patient denies any chest discomfort or SOB Original Note: Patient resting in bed during the night. Has owens w/ clear yellow urine. Tolerating water well and will be SL after fluids complete. HR in the 76. SBP 180s-190s so IVP Labetalol given. Will recheck bp in 30min. Rt hip pain controlled well with Tylenol and Ibuprofen.
[2022-05-18 06:54] LABS: Add Manual Diff / Slide Review NO; Basophils Absolute Auto 0 /uL (0-100); Basophils Percent Auto 0.2 % (0-2); Eosinophils Absolute Auto 0 /uL (0-450); Eosinophils Percent Auto 0.2 % (2-4); Hematocrit 32.6 % (36-46); Hemoglobin 11.1 g/dL (12.0-16.0); Lymphocytes Absolute Auto 1700 /uL (1100-4500); Lymphocytes Percent Auto 7.8 % (25-40); Mean Corpuscular HGB Conc 34.2 % (30-36); Mean Corpuscular Volume 84.9 fL (80-100); Monocytes Absolute Auto 1000 /uL (0-900); Monocytes Percent Auto 4.6 % (3-14); Neutrophils Absolute Auto 19000 /uL (1500-7000); Neutrophils Percent Auto 87.2 % (50-75); Platelet Count 542 X10^3/uL (150-400); Red Blood Cell Count 3.84 X10^6/uL (4.0-5.2); Red Cell Distribution Width 13.6 % (11.6-14.8); White Blood Cell Count 21.7 X10^3/uL (4.5-11.0)
[2022-05-18 07:01] LABS: Alanine Aminotransferase 12 IU/L (<35); Albumin 2.5 g/dL (3.5-5.0); Albumin Globulin Ratio 1.1 (1.0-2.8); Alkaline Phosphatase 86 U/L (38-126); Aspartate Aminotransferase 28 IU/L (14-36); BUN Creatinine Ratio 23.7 (6-22); Bilirubin Total 0.3 mg/dL (0.2-1.3); Blood Urea Nitrogen 14 mg/dL (7-17); Calcium 8.4 mg/dL (8.4-10.2); Carbon Dioxide 30 mmol/L (22-32); Chloride 85 mmol/L (98-107); Estimated Glomerular Filt Rate > 60 mL/min (>60); Globulin 2.3 g/dL (1.7-4.1); Glucose 89 mg/dL (80-110); HEMOLYSIS < 15 (0-50); Magnesium 1.4 mg/dL (1.6-2.3); Potassium 4.3 mmol/L (3.4-5.1); Total Protein 4.8 g/dL (6.3-8.2)
[2022-05-18 07:24] LABS: Sodium 116 mmol/L (137-145)
[2022-05-18] MEDS: lisinopriL 10 MG TABLET PO (08:50)
[2022-05-18] MEDS: ASPIRIN EC 81 MG TABLET PO ×2 (08:50→22:18)
[2022-05-18] MEDS: OXYCODONE IR 5 MG TABLET PO (08:51)
[2022-05-18] MEDS: LIDOCAINE PATCH 1 EACH ADH..PATCH TOP (08:52)
--- NOTE | 2022-05-18 09:34 | P.PN_ITS ---
Subjective Subjective Interval history: This is a 72 year old female with no known PMH who was referred to the ER today by her PCP. Patient had fallen on 04/25/22, went to see PCP due to continued R hip pain on 05/13. Imaging was ordered but at the time there was minimal concern for fracture. XR did reveal a displaced R femoral neck fracture so she was referred to [facility]. Her BP at that visit was 180/106. She denies chest pain, palpitations, shortness of breath. In the emergency room, the patient was hypertensive, but the remainder of her vital signs were unremarkable.? Laboratory evaluation was notable for a mild leukocytosis with WBC 16.7, elevated platelet count at 667, sodium of 125, potassium 3.0, carbon dioxide of 37 assess was unremarkable, urine sodium was 58, COVID, flu, and RSV were negative.? Patient was admitted for further management with Orthopedic consultation for her right femoral neck fracture. Patient is one day post op right hip hemiarthroplasty. Patient is feeling dizzy and a little confused per her admission. Exam Vital Signs (past 8 hours): - 05/18/22 04:34 05/18/22 04:00 05/18/22 05:35 Temperature 98.2 F Pulse Rate 78 78 78 Respiratory Rate 18 Blood Pressure 196/91 H 196/91 H 147/81 H Pulse Oximetry 97 97 Oxygen Flow Rate 0 05/18/22 05:40 Temperature Pulse Rate 78 Respiratory Rate Blood Pressure 147/81 H Pulse Oximetry Oxygen Flow Rate Oxygen Delivery Method Room Air,Nasal Cannula Oxygen Flow Rate 0 Narrative Exam Narrative: General:? Patient is well developed and well nourished, in no distress at this time. HEENT:? Normocephalic, atraumatic, extraocular muscles intact, oral pharynx is clear and mucous membranes are moist. Neck: supple and symmetric, trachea is midline, no cervical adenopathy. Negative for JVD Chest:? Normal AP diameter and contour without kyphoscoliosis, no tachypnea, equal chest rise bilaterally. Lungs:? CTA b/l no wheezing rhonchi or rales. Cardio:?RRR no m/r/g. Abdomen: S NT ND. No CVA tenderness. Musculoskeletal:? Muscle strength and tone are equal within normal limits, no deformity. tenderness right hip. Postop dressing right hip. Extremities: No edema or joint effusions. No cyanosis or clubbing. Skin:? Pale,? Warm to touch,dry and intact without rashes, ulcerations or petechiae.? Neuro:? Alert and orientated x3,? sensation to touch intact in all extremities, no gross deficits noted of cranial nerves. Psych:? Patient has a well-kept appearance, appropriate affect, mental status attitude thought context and judgment are appropriate for age. Objective Labs 05/18/22 05:35 05/18/22 05:35 Labs: Laboratory Results - last 24 hr 05/18/22 05/18/22 05:35 05:35 WBC 21.7 H D RBC 3.84 L Hgb 11.1 L Hct 32.6 L MCV 84.9 MCH 29.0 MCHC 34.2 RDW 13.6 Plt Count 542 H Neut % (Auto) 87.2 H Lymph % (Auto) 7.8 L [place] % (Auto) 4.6 Eos % (Auto) 0.2 L Baso % (Auto) 0.2 Neut # (Auto) 28753 H Lymph # (Auto) 1700 [place] # (Auto) 1000 H Eos # (Auto) 0 Baso # (Auto) 0 Sodium 116 L* D Potassium 4.3 Chloride 85 L Carbon Dioxide 30 BUN 14 Creatinine 0.59 Estimated GFR > 60 BUN/Creatinine Ratio 23.7 H Glucose 89 Calcium 8.4 Magnesium 1.4 L Total Bilirubin 0.3 AST 28 ALT 12 Alkaline Phosphatase 86 Total Protein 4.8 L Albumin 2.5 L Globulin 2.3 Albumin/[facility] 1.1 [facility] Medical History Paralysis Vision disorder Surgical History No pertinent past surgical history Family History Mother Diabetes mellitus Hyperthyroidism Father CAD (coronary artery disease) Social History household members: spouse Smoking Status: Current every day smoker Tobacco: How many years used: 40 quit status: considering quitting (I'm trying ) alcohol intake: current substance use type: does not use Assessment & Plan Assessment & Plan narrative: 1. R femoral neck fracture, pathologic ?- one day post op hemiarthroplasty ?- pain control with oral meds adequate 2. Hyponatremia, acute possibly on chronic. Increased post op consistent with SIADH increased with IV fluids surrounding surgery ?- recent lab work showed Na 116 today. Stop IV fluids, fluid restriction, recheck electrolytes at 1300h today, consider hypertonic saline ?- TSH is normal 3. Hypertensive urgency on presentation, currently controlled. ?- some LVH on EKG, no evidence of acute ischemia and otherwise asymptomatic on presentation ?- started laury/arb after surgery as appropriate, on lisinopril only now ? 4. Metabolic alkalosis ?- suspect probable underlying COPD with hypercarbia given smoking history on presentation. May also be from mild dehydration but will continue to follow response to fluids. ?- No symptoms at this time 5. Hypokalemia ?- repleted with oral, no EKG changes, will continue to follow. 6. Tobacco Use ?- nicotine patch ordered Code: full, surrogate decision maker is the patient's spouse DVT: SCDs prior to surgery/post surgery enoxaparen 40 mg subcut daily added SDM is spouse. ? Time Spent With Patient Critical Care time: I spent a total of [] minutes of critical care time on this patient's care today; this time is exclusive of procedural time. Quality VTE Deep Vein Thrombosis/Pulmonary Embolism Present on Admission: No
[2022-05-18] MEDS: MAGNESIUM SULFATE 2 GM/50 ML PIGGYBACK IV (10:09)
[2022-05-18] MEDS: OXYCODONE IR 10 MG TABLET PO ×2 (10:22→13:41)
--- NOTE | 2022-05-18 11:00 | PM.PNPO.1 ---
Subjective Subjective Date Patient Seen: 05/18/22 Time Patient Seen: 09:30 Interval history: Patient is resting comfortably in bed this morning. She states that her pain is well controlled with medication at this time. She is looking forward to working with physical therapy. States that she would like to go home upon discharge from hospital. Her is available to assist her and she has no stairs to get into her home. Exam Vital Signs (past 8 hours): - 05/18/22 04:34 05/18/22 04:00 05/18/22 05:35 Temperature 98.2 F Pulse Rate 78 78 78 Respiratory Rate 18 Blood Pressure 196/91 H 196/91 H 147/81 H Pulse Oximetry 97 97 Oxygen Flow Rate 0 05/18/22 05:40 05/18/22 08:00 Temperature 97.4 F L Pulse Rate 78 72 Respiratory Rate 18 Blood Pressure 147/81 H 144/74 H Pulse Oximetry 94 Oxygen Flow Rate 0 Oxygen Delivery Method Room Air,Nasal Cannula Oxygen Flow Rate 0 Narrative Exam Narrative: Awake, alert, and oriented. Intraoperative Aquacel clean, dry, and intact. Strength and sensation intact to bilateral lower extremities. Bilateral calf soft, compressible, nontender with no palpable cords or masses. Torrez catheter in place with adequate UOP. Objective Labs 05/18/22 05:35 05/18/22 05:35 Labs: Laboratory Results - last 24 hr 05/18/22 05/18/22 05:35 05:35 WBC 21.7 H D RBC 3.84 L Hgb 11.1 L Hct 32.6 L MCV 84.9 MCH 29.0 MCHC 34.2 RDW 13.6 Plt Count 542 H Neut % (Auto) 87.2 H Lymph % (Auto) 7.8 L [place] % (Auto) 4.6 Eos % (Auto) 0.2 L Baso % (Auto) 0.2 Neut # (Auto) 65078 H Lymph # (Auto) 1700 [place] # (Auto) 1000 H Eos # (Auto) 0 Baso # (Auto) 0 Sodium 116 L* D Potassium 4.3 Chloride 85 L Carbon Dioxide 30 BUN 14 Creatinine 0.59 Estimated GFR > 60 BUN/Creatinine Ratio 23.7 H Glucose 89 Calcium 8.4 Magnesium 1.4 L Total Bilirubin 0.3 AST 28 ALT 12 Alkaline Phosphatase 86 Total Protein 4.8 L Albumin 2.5 L Globulin 2.3 Albumin/Globulin Ratio 1.1 PFSH Medical History Paralysis Vision disorder Surgical History No pertinent past surgical history Family History Mother Diabetes mellitus Hyperthyroidism Father CAD (coronary artery disease) Social History household members: spouse Smoking Status: Current every day smoker Tobacco: How many years used: 40 quit status: considering quitting (I'm trying ) alcohol intake: current substance use type: does not use Assessment & Plan Post-op Postoperative Procedures: Procedures Operation Date: 05/17/22 08:30 Actual Procedure Side Surgeon p Hip Hemiarthroplasty Right Debbie Arauz MD Postoperative day: 1 Postoperative status narrative: Patient progressing as expected after surgery. Postoperative plan narrative: Plan to work with physical therapy today and assess disposition. Patient strongly prefers to go home with her and states that her home has no stairs to enter and is adequately prepared for her postoperative rehabilitation. She will follow up with Orthopedics 2 weeks after surgery. Dressing should remain clean, dry, and intact until this time. Quality VTE Deep Vein Thrombosis/Pulmonary Embolism Present on Admission: No
[2022-05-18] MEDS: ACETAMINOPHEN 325 MG TABLET 650 MG PO (12:51)
[2022-05-18] MEDS: IBUPROFEN 400 MG TABLET PO (12:51)
--- NOTE | 2022-05-18 13:19 | PT.IIE ---
Current Diagnoses Fracture of unspecified part of neck of right femur, initial encounter for closed fracture (05/16/22) Surgery Performed Operation Date: 05/17/22 08:30 Actual Procedures p Hip Hemiarthroplasty(Right) - Debbie Arauz MD Surgical History (Last Reviewed 05/18/22 @ 11:02 by Ivonne Abdalla PA-C) No pertinent past surgical history Medical History (Last Reviewed 05/18/22 @ 11:02 by Ivonne Abdalla PA-C) Paralysis Vision disorder Physical Therapy Inpatient Evaluation/Re-Eval M1 PT/OT-IP Prior Functional Status Start: 05/18/22 13:03 Freq: NEEDED Status: Active Protocol: Document 05/18/22 13:03 [facility] (Rec: 05/18/22 13:19 [facility] [id number]) Medical Review Prior Functional Status Medical History Reviewed Yes Diet/Fluid Consistency Regular Mobility and Gait pt has been ambulating with fww due to fractured R hip Social History Household Members spouse Living Arrangements House Number of Floors (Floors) One Floor Number of Stairs To Enter/Railing? none Home Environment Standard Height Toilet Home Equipment Front Wheel Walker M2 PT-IP Current Condition Start: 05/18/22 13:03 Freq: NEEDED Status: Active Protocol: Document 05/18/22 13:03 [facility] (Rec: 05/18/22 13:19 [facility] [id number]) Physical Therapy Current Condition Current Condition Evaluation Date 05/18/22 Treatment Diagnosis Right total hip replacement following femoral neck fracture Onset Date 04/25/22 M3 PT-IP Subjective Start: 05/18/22 13:03 Freq: NEEDED Status: Active Protocol: Document 05/18/22 13:03 [facility] (Rec: 05/18/22 13:19 [facility] [id number]) Subjective Physical Therapy Visit Type Type Initial Evaluation Visit Start Time 12:00 Visit Stop Time 12:45 Total Visit Minutes 45 Physical Therapy Visit Comments Patient Comments pt reports she would like to work with PT, she has been feeling dizzy, no complaints of pain at rest Therapy Pain Assessment Pain When Pain Assessed During Mobility Pain Present Pain Present Denied Pain M4 PT-IP Mobility and Gait Start: 05/18/22 13:03 Freq: NEEDED Status: Active Protocol: Document 05/18/22 13:03 [facility] (Rec: 05/18/22 13:19 [facility] [id number]) PT-Bed Mobility Assessment Rolling Type of Rolling Roll to Right Level of Assist Moderate Assistance Supine to Sit Supine to Sit Moderate Assistance Sit to Supine Sit to Supine Maximum Assistance Scooting Scooting to Edge of Bed Moderate Assistance Scooting Up and Down in Bed Maximum Assistance PT-Transfer Assessment Sit to and From Stand Sit to and from Stand Moderate Assistance Equipment Transfer Assistive Device Gait Belt,Front Wheeled Walker Orthotic/Prosthetic Devices or Brace: No Comments Mobility Comments Sydni required mod A for help with right leg for bed mobility and transfer to sitting at the edge of the bed . She needs verbal cues to avoid right hip IR. She was mod A for standing with fww. She perfomed sit-stand 2 xms and reported increased dizzyness each time. She requested to return to bed following standing due to increased dizzyness. Sydni was max A for sit to supine and for positioning in bed. Nursing was informed of increased dizzyness with transfer. PT-Balance Assessment Sitting Balance and Reactions Static Sitting Balance Ability Good Dynamic Sitting Balance Ability Good Standing Balance and Reactions Static Standing Balance Ability Fair Dynamic Standing Balance Ability Fair M5 PT-IP Objective Assessments Start: 05/18/22 13:03 Freq: NEEDED Status: Active Protocol: Document 05/18/22 13:03 [facility] (Rec: 05/18/22 13:19 [facility] [id number]) Orientation Orientation/Cognition Level of Alertness Alert Gross Range of Motion Upper Extremity ROM Assessment Within Functional Limits Lower Extremity ROM Assessment Right Impaired Strength Upper Extremity Strength Assessment Within Functional Limits Lower Extremity Strength Assessment Left Impaired M6 PT-IP Treatment Start: 05/18/22 13:03 Freq: NEEDED Status: Active Protocol: Document 05/18/22 13:03 [facility] (Rec: 05/18/22 13:19 [facility] [id number]) Physical Therapy Treatment Exercises Exercises Ankle Pumps,Gluteal Sets,Quad Sets,Heel Slides Knee ROM Measurement 70 Education Education Provided Precautions,Weight Bearing Status,Post-Op Packet,Safety M7 PT-IP Assessment and Plan Start: 05/18/22 13:03 Freq: NEEDED Status: Active Protocol: Document 05/18/22 13:03 [facility] (Rec: 05/18/22 13:19 [facility] [id number]) PT Summary Assessment and Plan Potential Rehabilitation Potential Good Status of Condition at Evaluation Evolving Summary Impairments Pain,ROM,Strength,Balance,Bed Mobility,Transfers,Gait, Activity Tolerance Assessment Summary 72 year old female who fell and fractured her right femoral neck on 04/25/22. She underwent a posterior hip replacement 05/17/22. She has posterior hip precautions for the right hip. She was educated on her posterior hip precautions but did need reminders today not to IR the right hip in sitting. Pt has been dizzy with electrolyte imbalance and today upon standing with FWW her dizzyness increased. She is mod A for bed mobility and transfers. She was able to perform sit-stand x 2 and dizzyness increased. She requested to return to bed at that time. Nursing as informed . Pt was given ice on her right hip and warm blanket was placed. Her call light was left within reach. Goals Bed Mobility Goal Contact Guard Assistance Transfer Goal Contact Guard Assistance Gait Goal Contact Guard Assistance Gait Distance 50 Frequency of Treatment Frequency Of Treatment Twice a Day Treatment Plan Physical Therapy Treatment Plan Bed Mobility Training,Transfer Training,Gait Training, Therapeutic Exercise,Post Op Education Precautions Posterior Hip Precautions No Hip Flexion > 90 degrees,No Hip Internal Rotation,No Hip Adduction Weight Bearing Status Weight Bearing Status Weight Bear as Tolerated Recommendations To Nursing Amount of Assist Needed 1 Person Assist Discharge Recommendations PT Discharge Recommendations Home with Assistance Other Discharge Recommendations pt would like to return home with her upon discharge Transportation Needs at Discharge Private Vehicle
[2022-05-18 13:37] LABS: Carbon Dioxide 30 mmol/L (22-32); Chloride 83 mmol/L (98-107); HEMOLYSIS < 15 (0-50); Potassium 4.1 mmol/L (3.4-5.1)
[2022-05-18 13:39] LABS: Sodium 114 mmol/L (137-145)
--- NOTE | 2022-05-18 14:07 | CM.DPNOTE ---
Discharge Planning Note: 72 year old s/p R GLORIA on 05/17/22. She lives here in [place] in an apartment with her spouse Timmy who is supportive. Her blood count and electrolytes have been abnormal and causing some altered mentation. She is a daily smoker. She is refusing SNF even though she would benefit. PT evaluated today and patient experienced dizziness, see notes. PT recommend home with assistance. They will need some equipment in home will review HH options with them. Plan: Discuss Home Health with patient and spouse. When medically cleared, discharge home to care of spouse. Zoie Snyder RN/DCP
--- NOTE | 2022-05-18 19:40 | PC.NURSE ---
Post-op ortho/Alt lytes: made aware of pt's sodium level x2. Pt has been taking in water in large amts until fluid restriction started. She reports she is dying of thirst by this maurice, again instructed as to why fluid restriction was important. She is unhappy with same. Also received mag rider for mag of 1.4. On attempt to get pt oob she was very shaky and dizzy. Was unable to get to the chair. This could be caused from the low sodium and pt instructed to call with any concerns or signs of low sodium twitching, feeling confused, ect. Pt is still oriented. No sxs of being twitchy or seizures type act seen. Pt is resting quietly at this time.
[2022-05-18 20:39] LABS: BUN Creatinine Ratio 18.9 (6-22); Blood Urea Nitrogen 14 mg/dL (7-17); Calcium 8.5 mg/dL (8.4-10.2); Carbon Dioxide 30 mmol/L (22-32); Chloride 85 mmol/L (98-107); Estimated Glomerular Filt Rate > 60 mL/min (>60); Glucose 72 mg/dL (80-110); HEMOLYSIS < 15 (0-50); Potassium 4.3 mmol/L (3.4-5.1)
[2022-05-18 20:43] LABS: Sodium 116 mmol/L (137-145)
--- NOTE | 2022-05-18 21:40 | DI.RAD.S_ITS ---
PROCEDURE: XR CHEST 1V INDICATIONS: central line placement TECHNIQUE: One view of the chest was acquired. COMPARISON: [facility], CR, XR CHEST 1V, 05/16/2022, 10:32. FINDINGS: Surgical changes and devices: Central line from right-sided internal jugular approach extends into the atrial caval junction and likely into the superior right atrium.. Lungs and pleura: Lungs are clear. No pleural effusions or pneumothorax. Mediastinum: Mediastinal contours appear normal. Heart size is normal. Bones and chest wall: No suspicious bony lesions. Overlying soft tissues appear unremarkable. IMPRESSION: No pneumothorax, unusually low positioning of the central line as noted. Dictated by: Cesar Sterling M.D. on 05/18/2022 at 22:06 Approved by: Cesar Sterling M.D. on 05/18/2022 at 22:07
--- NOTE | 2022-05-18 21:43 | PM.PROC.1 ---
Procedures Date/Time Date of procedure: 05/18/22 Time of procedure: 21:15 Central Line Placement Time out performed: Yes Patient placed on monitor/pulse ox: Yes MD prep: mask, gown and gloves Central line prep: Chlorhexidine scrub and sterile drapes applied Local anesthesia used: lidocaine 1% Amount of anesthesia used (ml): 5 Ultrasound used for placement: Yes Central line lumen inserted: triple Post procedure: sutured in place, good blood return, all ports aspirated, flushed, capped and sterile dressing applied Post procedure x-ray: other (Ordered. Will review.) Patient tolerated procedure: well and no complications Complications: none
--- NOTE | 2022-05-18 21:49 | PC.NURSE ---
Patient with low sodium level. Labs redrawn and results still low was 114 now 116. Central line being placed by and patient being transferred to ICU for NS 3% gtt. Patient awake, oriented and without complaints.
[2022-05-18] MEDS: DOCUSATE 100 MG CAPSULE PO (22:18)
[2022-05-18] MEDS: TRAZODONE 50 MG TABLET 25 MG PO (22:18)
--- NOTE | 2022-05-18 22:35 | DI.RAD.S_ITS ---
PROCEDURE: XR CHEST 1V INDICATIONS: central line placement TECHNIQUE: One view of the chest was acquired. COMPARISON: [facility], , XR CHEST 1V, 05/18/2022, 21:41. [facility], CR, XR CHEST 1V, 05/16/2022, 10:32. FINDINGS: Surgical changes and devices: Central line has been withdrawn to a normal position in the distal SVC.. Lungs and pleura: Lungs are clear. No pleural effusions or pneumothorax. Mediastinum: Mediastinal contours appear normal. Heart size is normal. Bones and chest wall: No suspicious bony lesions. Overlying soft tissues appear unremarkable. IMPRESSION: No pneumothorax central repositioning. Normal tip position this time. Dictated by: Cesar Sterling M.D. on 05/18/2022 at 23:00 Approved by: Cesar Sterling M.D. on 05/18/2022 at 23:00
[2022-05-18] MEDS: SODIUM CHLORIDE 3 % 500 ML 20 ML IV (23:17)
[2022-05-19] VITALS (25 sets, daily range): BP systolic 90–158; BP diastolic 49–80; PULSE 74–91; RESP 12–33; TEMP 36.5–37.2; O2SAT 92–99
--- NOTE | 2022-05-19 01:47 | PM.CN.EICU ---
History of Present Illness Consult details IF CAMERA ACTIVATED, patient seen via real-time interactive audiovisual communication: Camera activated Date Patient Seen: 05/19/22 Chief complaint: rt hip pain Consent obtained for tele-polystyrene bead molder care: Yes Patient Location: ICU Provider location (State): [place] Other participants/roles: REMIGIO Samuel Narrative: 72 y.o. female who is POD #2 from R hip hemiarthroplasty due to a mechanical fall. Patient has a history of chronic hypoNa+, admission Na+ was 125; value had been 127 @ PCP. PMHx also notable for active tobacco abuse and COPD. Upgraded to ICU status 3/4 PM for worsening hypoNa+ of 116. Started on 3% NaCl by REMIGIO Samuel at 20 mL/hr with serial sodiums. Patient did not have a seizure or any mental status change. FORMERLY [facility], [facility] Medical History Paralysis Vision disorder Surgical History No pertinent past surgical history Family History Mother Diabetes mellitus Hyperthyroidism Father CAD (coronary artery disease) Social History household members: spouse Smoking Status: Current every day smoker Tobacco: How many years used: 40 quit status: considering quitting (I'm trying ) alcohol intake: current substance use type: does not use Current Medications Current Medications Medications: Home Medications ibuprofen 200 mg tablet 400 mg PO DAILY 05/13/22 [History Confirmed 05/16/22] lidocaine 5 % topical patch 1 patch topical DAILY #30 ea 05/13/22 [Rx Confirmed 05/16/22] oxycodone 5 mg tablet 5 mg PO Q4-6H PRN Pain, Moderate (4-6) #40 tabs 05/18/22 [Rx] Visit Medications (administered) Generic Name Dose Route Start Last Admin Trade Name Freq PRN Reason Stop Dose Admin Acetaminophen 650 mg 05/17/22 12:01 05/18/22 23:51 Acetaminophen 325 Mg Tablet PO Not Given Q6HR KIMBERLY Aspirin 81 mg 05/17/22 21:00 05/18/22 22:18 Aspirin Ec 81 Mg Tablet PO 81 mg BID KIMBERLY Administration Docusate Sodium 100 mg 05/17/22 21:00 05/18/22 22:18 Docusate 100 Mg Capsule PO 100 mg BID KIMBERLY Administration Sodium Chloride 500 mls @ 20 mls/hr 05/18/22 21:00 05/18/22 23:17 Hypertonic Saline 3% IV 20 mls/hr CONT KIMBERLY Administration Labetalol HCl 5 mg 05/17/22 10:05 05/18/22 04:34 Labetalol 20 Mg/4 Ml Syringe IV 5 mg PRN PRN Administration SBP>180 Protocol Lidocaine 1 each 05/18/22 09:00 05/18/22 08:52 Lidocaine Patch 1 Each Adh..Patch TOP 1 each DAILY KIMBERLY Administration Lidocaine 1 each 05/17/22 21:00 05/18/22 22:21 Remove Lidocaine Patch TOP Not Given BEDTIME KIMBERLY Lisinopril 10 mg 05/17/22 15:20 05/18/22 08:50 Lisinopril 10 Mg Tablet PO 10 mg DAILY KIMBERLY Administration Oxycodone HCl 10 mg 05/17/22 12:01 05/18/22 13:41 Oxycodone Ir 10 Mg Tablet PO 10 mg Q3HR PRN Administration Pain, Severe (7-10) Oxycodone HCl 5 mg 05/17/22 12:01 05/18/22 08:51 Oxycodone Ir 5 Mg Tablet PO 5 mg Q3HR PRN Administration Pain, Moderate (4-6) Trazodone HCl 25 mg 05/18/22 21:00 05/18/22 22:18 Trazodone 50 Mg Tablet PO 25 mg BEDTIME KIMBERLY Administration Review of Systems Review of Systems Narrative: Not performed as patient was sleeping Exam Vital Signs (past 8 hours): - 05/18/22 20:00 05/18/22 22:05 05/18/22 22:05 Temperature 99.2 F Pulse Rate 71 77 Respiratory Rate 20 Blood Pressure 108/54 L 110/58 L Pulse Oximetry 91 92 Oxygen Delivery Method Oxygen Flow Rate 0 05/18/22 22:06 05/18/22 22:06 05/18/22 22:27 Temperature Pulse Rate 76 Respiratory Rate Blood Pressure 114/61 Pulse Oximetry 92 Oxygen Delivery Method Room Air Oxygen Flow Rate 05/18/22 23:00 05/18/22 23:29 05/18/22 23:33 Temperature 97.0 F L Pulse Rate 72 74 Respiratory Rate Blood Pressure Pulse Oximetry 96 91 Oxygen Delivery Method Oxygen Flow Rate 05/18/22 23:33 05/19/22 00:00 05/19/22 00:00 Temperature Pulse Rate 77 Respiratory Rate Blood Pressure 118/57 L 134/70 Pulse Oximetry 98 Oxygen Delivery Method Oxygen Flow Rate 05/19/22 00:00 Temperature Pulse Rate Respiratory Rate Blood Pressure Pulse Oximetry Oxygen Delivery Method Oxygen Flow Rate 2 Oxygen Delivery Method Room Air Oxygen Flow Rate 2 Const General: comfortable Resp Effort & Inspection: normal respiratory effort (on RA ) Objective Labs 05/18/22 05:35 05/18/22 20:32 Labs: Laboratory Results - last 24 hr 05/18/22 05/18/22 05/18/22 05:35 05:35 13:18 WBC 21.7 H D RBC 3.84 L Hgb 11.1 L Hct 32.6 L MCV 84.9 MCH 29.0 MCHC 34.2 RDW 13.6 Plt Count 542 H Neut % (Auto) 87.2 H Lymph % (Auto) 7.8 L [place] % (Auto) 4.6 Eos % (Auto) 0.2 L Baso % (Auto) 0.2 Neut # (Auto) 01475 H Lymph # (Auto) 1700 [place] # (Auto) 1000 H Eos # (Auto) 0 Baso # (Auto) 0 Sodium 116 L* D 114 L* Potassium 4.3 4.1 Chloride 85 L 83 L Carbon Dioxide 30 30 BUN 14 Creatinine 0.59 Estimated GFR > 60 BUN/Creatinine Ratio 23.7 H Glucose 89 Calcium 8.4 Magnesium 1.4 L Total Bilirubin 0.3 AST 28 ALT 12 Alkaline Phosphatase 86 Total Protein 4.8 L Albumin 2.5 L Globulin 2.3 Albumin/Globulin Ratio 1.1 05/18/22 20:32 WBC RBC Hgb Hct MCV MCH MCHC RDW Plt Count Neut % (Auto) Lymph % (Auto) Cecil % (Auto) Eos % (Auto) Baso % (Auto) Neut # (Auto) Lymph # (Auto) Cecil # (Auto) Eos # (Auto) Baso # (Auto) Sodium 116 L* Potassium 4.3 Chloride 85 L Carbon Dioxide 30 BUN 14 Creatinine 0.74 Estimated GFR > 60 BUN/Creatinine Ratio 18.9 Glucose 72 L Calcium 8.5 Magnesium Total Bilirubin AST ALT Alkaline Phosphatase Total Protein Albumin Globulin Albumin/Globulin Ratio Assessment & Plan Assessment and plan (1) Closed fracture of right hip: Qualifiers: Encounter type: sequela Qualified Code(s): S72.001S - Fracture of unspecified part of neck of right femur, sequela Status: Acute Plan: -As per orthopedics (2) Tobacco abuse: Status: Acute Plan: -Consider nicotine patch (3) Hyponatremia: Problem details: Acute on chronic. TSH was normal. Given random urine Na+ of 58, suspect SIADH Status: Acute Plan: -Check AM cortisol -Spoke w/ REMIGIO Jimmie; she plans to check Na+ after 5 hours of 3% NaCl @ 20 mL/hr Time Spent With Patient Critical Care time: I spent a total of 15 minutes of time on this patient's care today.
[2022-05-19 04:57] LABS: Add Manual Diff / Slide Review NO; Basophils Absolute Auto 100 /uL (0-100); Basophils Percent Auto 0.4 % (0-2); Eosinophils Absolute Auto 100 /uL (0-450); Eosinophils Percent Auto 0.9 % (2-4); Hematocrit 35.5 % (36-46); Hemoglobin 11.9 g/dL (12.0-16.0); Lymphocytes Absolute Auto 2000 /uL (1100-4500); Lymphocytes Percent Auto 11.8 % (25-40); Mean Corpuscular HGB Conc 33.6 % (30-36); Mean Corpuscular Hemoglobin 28.6 PG (26-34); Mean Corpuscular Volume 85.1 fL (80-100); Monocytes Absolute Auto 600 /uL (0-900); Monocytes Percent Auto 3.5 % (3-14); Neutrophils Absolute Auto 13700 /uL (1500-7000); Neutrophils Percent Auto 83.4 % (50-75); Platelet Count 668 X10^3/uL (150-400); Red Blood Cell Count 4.18 X10^6/uL (4.0-5.2); Red Cell Distribution Width 13.9 % (11.6-14.8); White Blood Cell Count 16.5 X10^3/uL (4.5-11.0)
[2022-05-19 05:18] LABS: Alanine Aminotransferase 11 IU/L (<35); Albumin 2.6 g/dL (3.5-5.0); Alkaline Phosphatase 88 U/L (38-126); Aspartate Aminotransferase 29 IU/L (14-36); BUN Creatinine Ratio 24.1 (6-22); Bilirubin Total 0.4 mg/dL (0.2-1.3); Blood Urea Nitrogen 13 mg/dL (7-17); Calcium 8.8 mg/dL (8.4-10.2); Carbon Dioxide 31 mmol/L (22-32); Chloride 95 mmol/L (98-107); Estimated Glomerular Filt Rate > 60 mL/min (>60); Globulin 2.5 g/dL (1.7-4.1); Glucose 65 mg/dL (80-110); HEMOLYSIS 29 (0-50); Magnesium 2.1 mg/dL (1.6-2.3); Potassium 4.1 mmol/L (3.4-5.1); Sodium 127 mmol/L (137-145); Total Protein 5.1 g/dL (6.3-8.2)
[2022-05-19] MEDS: DEXTROSE 5% WATER 1,000 ML 200 ML IV (07:17)
[2022-05-19] MEDS: DESMOPRESSIN 4 MCG/ML AMPUL 1 MCG IV (07:37)
--- NOTE | 2022-05-19 09:01 | PM.PN.1 ---
Subjective Subjective Interval history: This is a 72 year old female with no known PMH who was referred to the ER today by her PCP. Patient had fallen on 04/25/22, went to see PCP due to continued R hip pain on 05/13. Imaging was ordered but at the time there was minimal concern for fracture. XR did reveal a displaced R femoral neck fracture so she was referred to [facility]. Her BP at that visit was 180/106. She denies chest pain, palpitations, shortness of breath. In the emergency room, the patient was hypertensive, but the remainder of her vital signs were unremarkable.? Laboratory evaluation was notable for a mild leukocytosis with WBC 16.7, elevated platelet count at 667, sodium of 125, potassium 3.0, carbon dioxide of 37 assess was unremarkable, urine sodium was 58, COVID, flu, and RSV were negative.? Patient was admitted for further management with Orthopedic consultation for her right femoral neck fracture. Patient is two days post op right hip hemiarthroplasty. Patient's dizziness and confusion has subsided from yesterday. In the interim patient was given 3% feeling had correction of her hyponatremia to a level that was too high this morning at 127. Already this morning in regards that lab, patient provided D5W intravenously and desmopressin. Tele concession cashier treatment is appreciated. Will be monitored throughout the day for chemistry panel to ensure stabilization of the sodium. Exam Vital Signs (past 8 hours): - 05/19/22 02:00 05/19/22 02:00 05/19/22 03:00 Pulse Rate 79 81 Respiratory Rate Blood Pressure 122/59 L Pulse Oximetry 95 95 Oxygen Delivery Method 05/19/22 04:50 05/19/22 07:00 05/19/22 08:00 Pulse Rate 91 H Respiratory Rate 15 Blood Pressure 141/73 H Pulse Oximetry 96 Oxygen Delivery Method Nasal Cannula 05/19/22 08:00 Pulse Rate 86 Respiratory Rate 16 Blood Pressure Pulse Oximetry 93 Oxygen Delivery Method Oxygen Delivery Method Nasal Cannula Oxygen Flow Rate 2 Narrative Exam Narrative: General:? Patient is well developed and well nourished, in no distress at this time. HEENT:? Normocephalic, atraumatic, extraocular muscles intact, oral pharynx is clear and mucous membranes are moist. Neck: supple and symmetric, trachea is midline, no cervical adenopathy. Negative for JVD Chest:? Normal AP diameter and contour without kyphoscoliosis, no tachypnea, equal chest rise bilaterally. Lungs:? CTA b/l no wheezing rhonchi or rales. Cardio:?RRR no m/r/g. Abdomen: S NT ND. No CVA tenderness. Musculoskeletal:? Muscle strength and tone are equal within normal limits, no deformity. tenderness right hip. Postop dressing right hip. Extremities: No edema or joint effusions. No cyanosis or clubbing. And trimmed nails of the feet. Tenderness right hip. Skin:? Pale,? Warm to touch,dry and intact without rashes, ulcerations or petechiae.? Neuro:? Alert and orientated x3,? sensation to touch intact in all extremities, no gross deficits noted of cranial nerves. Psych:? Patient has a well-kept appearance, appropriate affect, mental status attitude thought context and judgment are appropriate for age. Objective Labs 05/19/22 04:20 05/19/22 04:20 Labs: Laboratory Results - last 24 hr 05/18/22 05/18/22 05/19/22 13:18 20:32 04:20 WBC 16.5 H RBC 4.18 Hgb 11.9 L Hct 35.5 L MCV 85.1 MCH 28.6 MCHC 33.6 RDW 13.9 Plt Count 668 H Neut % (Auto) 83.4 H Lymph % (Auto) 11.8 L [place] % (Auto) 3.5 Eos % (Auto) 0.9 L Baso % (Auto) 0.4 Neut # (Auto) 51077 H Lymph # (Auto) 2000 [place] # (Auto) 600 Eos # (Auto) 100 Baso # (Auto) 100 Sodium 114 L* 116 L* Potassium 4.1 4.3 Chloride 83 L 85 L Carbon Dioxide 30 30 BUN 14 Creatinine 0.74 Estimated GFR > 60 BUN/Creatinine Ratio 18.9 Glucose 72 L Calcium 8.5 Magnesium Total Bilirubin AST ALT Alkaline Phosphatase Total Protein Albumin Globulin Albumin/Globulin Ratio 05/19/22 04:20 WBC RBC Hgb Hct MCV MCH MCHC RDW Plt Count Neut % (Auto) Lymph % (Auto) [place] % (Auto) Eos % (Auto) Baso % (Auto) Neut # (Auto) Lymph # (Auto) [place] # (Auto) Eos # (Auto) Baso # (Auto) Sodium 127 L D Potassium 4.1 Chloride 95 L Carbon Dioxide 31 BUN 13 Creatinine 0.54 Estimated GFR > 60 BUN/Creatinine Ratio 24.1 H Glucose 65 L Calcium 8.8 Magnesium 2.1 Total Bilirubin 0.4 AST 29 ALT 11 Alkaline Phosphatase 88 Total Protein 5.1 L Albumin 2.6 L Globulin 2.5 Albumin/Globulin Ratio 1.0 PFSH Medical History Paralysis Vision disorder Surgical History No pertinent past surgical history Family History Mother Diabetes mellitus Hyperthyroidism Father CAD (coronary artery disease) Social History household members: spouse Smoking Status: Current every day smoker Tobacco: How many years used: 40 quit status: considering quitting (I'm trying ) alcohol intake: current substance use type: does not use Assessment & Plan Assessment & Plan narrative: 1. R femoral neck fracture, pathologic ?- one day post op hemiarthroplasty ?- pain control with oral meds adequate 2. Hyponatremia, acute possibly on chronic. Increased post op consistent with SIADH increased with IV fluids surrounding surgery ?- recent lab work showed Na 116 today. Stop IV fluids, fluid restriction, recheck electrolytes? at 1300h today, consider hypertonic saline, post initation of hypertonic saline, measured Na this am 127 nd therfore given IV D5W and desmopressin, electrolytes being followed. ?- TSH is normal 3. Hypertensive urgency on presentation, currently controlled. ?- some LVH on EKG, no evidence of acute ischemia and otherwise asymptomatic on presentation ?- started laury/arb after surgery as appropriate, on lisinopril only now ? 4. Metabolic alkalosis on initial assessment by hospitalist ?- suspect probable underlying COPD with hypercarbia given smoking history on presentation. May also be from mild dehydration but will continue to follow response to fluids. ?- No symptoms at this time 5. Hypokalemia ?- repleted with oral, no EKG changes, will continue to follow. 6. Tobacco Use ?- nicotine patch not ordered, and if patient is having symptoms Code: full, surrogate decision maker is the patient's spouse DVT: SCDs prior to surgery/post surgery enoxaparen 40 mg subcut daily added SDM is spouse. Time Spent With Patient Critical Care time: I spent a total of [] minutes of critical care time on this patient's care today; this time is exclusive of procedural time. Quality VTE Deep Vein Thrombosis/Pulmonary Embolism Present on Admission: No
[2022-05-19 09:11] LABS: Sodium 123 mmol/L (137-145)
--- NOTE | 2022-05-19 09:40 | P.TELICUPN_ITS ---
Subjective Subjective IF CAMERA ACTIVATED, patient seen via real-time interactive audiovisual communication: Camera activated Date Patient Seen: 05/19/22 Consent obtained for tele-watchmaker apprentice care: Yes Patient Location: ICU Provider location (State): [place] Other participants/roles: Bedside RN, hospitalist, and Kimberly Samuel Interval history: Recieved 100 mL HTS. Repeat Na 127. Ordered 1 liter D5W bolus and 2 mcg of DDAVP. Repeat Na down to 123. UOP ~2 liters overnight. Patient is awake and following commands. No complaints. Current Medications Current Medications Medications: Home Medications ibuprofen 200 mg tablet 400 mg PO DAILY 05/13/22 [History Confirmed 05/16/22] lidocaine 5 % topical patch 1 patch topical DAILY #30 ea 05/13/22 [Rx Confirmed 05/16/22] oxycodone 5 mg tablet 5 mg PO Q4-6H PRN Pain, Moderate (4-6) #40 tabs 05/18/22 [Rx] Visit Medications (administered) Generic Name Dose Route Start Last Admin Trade Name Freq PRN Reason Stop Dose Admin Acetaminophen 650 mg 05/17/22 12:01 05/19/22 06:40 Acetaminophen 325 Mg Tablet PO Not Given Q6HR KIMBERLY Aspirin 81 mg 05/17/22 21:00 05/18/22 22:18 Aspirin Ec 81 Mg Tablet PO 81 mg BID KIMBERLY Administration Docusate Sodium 100 mg 05/17/22 21:00 05/19/22 08:00 Docusate 100 Mg Capsule PO Not Given BID KIMBERLY Dextrose 1,000 mls @ 200 mls/hr 05/19/22 07:06 05/19/22 07:17 Dextrose 5% Water IV 05/19/22 12:05 200 mls/hr CONT ONE Administration Labetalol HCl 5 mg 05/17/22 10:05 05/18/22 04:34 Labetalol 20 Mg/4 Ml Syringe IV 5 mg PRN PRN Administration SBP>180 Protocol Lidocaine 1 each 05/18/22 09:00 05/18/22 08:52 Lidocaine Patch 1 Each Adh..Patch TOP 1 each DAILY KIMBERLY Administration Lidocaine 1 each 05/17/22 21:00 05/18/22 22:21 Remove Lidocaine Patch TOP Not Given BEDTIME KIMBERLY Lisinopril 10 mg 05/17/22 15:20 05/18/22 08:50 Lisinopril 10 Mg Tablet PO 10 mg DAILY KIMBERLY Administration Oxycodone HCl 10 mg 05/17/22 12:01 05/18/22 13:41 Oxycodone Ir 10 Mg Tablet PO 10 mg Q3HR PRN Administration Pain, Severe (7-10) Oxycodone HCl 5 mg 05/17/22 12:01 05/18/22 08:51 Oxycodone Ir 5 Mg Tablet PO 5 mg Q3HR PRN Administration Pain, Moderate (4-6) Trazodone HCl 25 mg 05/18/22 21:00 05/18/22 22:18 Trazodone 50 Mg Tablet PO 25 mg BEDTIME KIMBERLY Administration Objective Labs 05/19/22 04:20 05/19/22 08:56 Labs: Laboratory Results - last 24 hr 05/18/22 05/18/22 05/19/22 13:18 20:32 04:20 WBC 16.5 H RBC 4.18 Hgb 11.9 L Hct 35.5 L MCV 85.1 MCH 28.6 MCHC 33.6 RDW 13.9 Plt Count 668 H Neut % (Auto) 83.4 H Lymph % (Auto) 11.8 L [place] % (Auto) 3.5 Eos % (Auto) 0.9 L Baso % (Auto) 0.4 Neut # (Auto) 47992 H Lymph # (Auto) 2000 [place] # (Auto) 600 Eos # (Auto) 100 Baso # (Auto) 100 Sodium 114 L* 116 L* Potassium 4.1 4.3 Chloride 83 L 85 L Carbon Dioxide 30 30 BUN 14 Creatinine 0.74 Estimated GFR > 60 BUN/Creatinine Ratio 18.9 Glucose 72 L Calcium 8.5 Magnesium Total Bilirubin AST ALT Alkaline Phosphatase Total Protein Albumin Globulin Albumin/Globulin Ratio 05/19/22 05/19/22 04:20 08:56 WBC RBC Hgb Hct MCV MCH MCHC RDW Plt Count Neut % (Auto) Lymph % (Auto) [place] % (Auto) Eos % (Auto) Baso % (Auto) Neut # (Auto) Lymph # (Auto) [place] # (Auto) Eos # (Auto) Baso # (Auto) Sodium 127 L D 123 L Potassium 4.1 Chloride 95 L Carbon Dioxide 31 BUN 13 Creatinine 0.54 Estimated GFR > 60 BUN/Creatinine Ratio 24.1 H Glucose 65 L Calcium 8.8 Magnesium 2.1 Total Bilirubin 0.4 AST 29 ALT 11 Alkaline Phosphatase 88 Total Protein 5.1 L Albumin 2.6 L Globulin 2.5 Albumin/Globulin Ratio 1.0 Exam Vital Signs (past 8 hours): - 05/19/22 02:00 05/19/22 02:00 05/19/22 03:00 Pulse Rate 79 81 Respiratory Rate Blood Pressure 122/59 L Pulse Oximetry 95 95 Oxygen Delivery Method 05/19/22 04:50 05/19/22 07:00 05/19/22 08:00 Pulse Rate 91 H Respiratory Rate 15 Blood Pressure 141/73 H Pulse Oximetry 96 Oxygen Delivery Method Nasal Cannula 05/19/22 08:00 Pulse Rate 86 Respiratory Rate 16 Blood Pressure Pulse Oximetry 93 Oxygen Delivery Method Oxygen Delivery Method Nasal Cannula Oxygen Flow Rate 2 Narrative Exam Narrative: NAD. Awake and following commands. Quality TeleICU VTE Deep Vein Thrombosis/Pulmonary Embolism Present on Admission: No Assessment & Plan Assessment and plan (1) Hyponatremia: Problem details: Acute on chronic. TSH was normal. Given random urine Na+ of 58, suspect SIADH Status: Acute Plan: -- Considered multifactorial due to osmostat reset, SIADH, and hypovolemia. -- Na shot up to 127 but down to 123 -- D5W decrease to 50 mL/hr -- Repeat Na 11 am -- Cont trending Na every 4 hours -- Monitor UOP; if UOP more than 200 mL then may need additional DDAVP vs increase D5W infusion rate -- Goal Na 122-124 by 8 pm tonight (2) Closed fracture of right hip: Qualifiers: Encounter type: sequela Qualified Code(s): S72.001S - Fracture of unspecified part of neck of right femur, sequela Status: Acute Plan: -- s/p right hemiarthroplasty POD 3 -- Pain control -- PT/OT consultation -- Fall precaution (3) Asymptomatic hypertensive urgency: Status: Acute Plan: -- Goal SBP < 140 -- On lisinopril Time Spent With Patient Critical Care time: I spent a total of 35 minutes of critical care time on this patient's care today; this time is exclusive of procedural time.
[2022-05-19 11:07] LABS: Cortisol AM (Before 10AM) 17.8 ug/dL (4.46-22.7)
[2022-05-19] MEDS: ASPIRIN EC 81 MG TABLET PO ×2 (11:13→20:54)
[2022-05-19] MEDS: lisinopriL 10 MG TABLET PO (11:14)
[2022-05-19] MEDS: ENOXAPARIN 40 MG/0.4 ML SYRINGE SUBCUT (11:14)
[2022-05-19 11:19] LABS: Sodium 122 mmol/L (137-145)
--- NOTE | 2022-05-19 11:32 | P.PN_ITS ---
Subjective Subjective Interval history: Patient is postoperative day 2. Of a hip hemiarthroplasty. Patient has yet to get out of bed due to medical issues. Exam Vital Signs (past 8 hours): - 05/19/22 04:50 05/19/22 07:00 05/19/22 08:00 Temperature Pulse Rate 91 H Respiratory Rate 15 Blood Pressure 141/73 H Pulse Oximetry 96 Oxygen Delivery Method Nasal Cannula 05/19/22 08:00 05/19/22 08:00 05/19/22 09:00 Temperature 99.0 F Pulse Rate 86 82 Respiratory Rate 16 15 Blood Pressure Pulse Oximetry 93 93 Oxygen Delivery Method 05/19/22 10:00 05/19/22 10:00 05/19/22 11:00 Temperature Pulse Rate 77 80 Respiratory Rate 21 16 Blood Pressure 115/69 Pulse Oximetry 95 96 Oxygen Delivery Method Oxygen Delivery Method Nasal Cannula Oxygen Flow Rate 2 Narrative Exam Narrative: Patient's dressing is clean and dry. Able to dorsiflex and plantar flex the toes and ankles. Palpable pedal pulses. Nontender to palpation to the posterior aspect bilateral calves. Objective Labs 05/19/22 04:20 05/19/22 11:00 Labs: Laboratory Results - last 24 hr 05/18/22 05/18/22 05/19/22 13:18 20:32 04:20 WBC 16.5 H RBC 4.18 Hgb 11.9 L Hct 35.5 L MCV 85.1 MCH 28.6 MCHC 33.6 RDW 13.9 Plt Count 668 H Neut % (Auto) 83.4 H Lymph % (Auto) 11.8 L [place] % (Auto) 3.5 Eos % (Auto) 0.9 L Baso % (Auto) 0.4 Neut # (Auto) 66403 H Lymph # (Auto) 2000 [place] # (Auto) 600 Eos # (Auto) 100 Baso # (Auto) 100 Sodium 114 L* 116 L* Potassium 4.1 4.3 Chloride 83 L 85 L Carbon Dioxide 30 30 BUN 14 Creatinine 0.74 Estimated GFR > 60 BUN/Creatinine Ratio 18.9 Glucose 72 L Calcium 8.5 Magnesium Total Bilirubin AST ALT Alkaline Phosphatase Total Protein Albumin Globulin Albumin/Globulin Ratio Cortisol AM Sample 05/19/22 05/19/22 05/19/22 04:20 08:56 08:56 WBC RBC Hgb Hct MCV MCH MCHC RDW Plt Count Neut % (Auto) Lymph % (Auto) [place] % (Auto) Eos % (Auto) Baso % (Auto) Neut # (Auto) Lymph # (Auto) [place] # (Auto) Eos # (Auto) Baso # (Auto) Sodium 127 L D 123 L Potassium 4.1 Chloride 95 L Carbon Dioxide 31 BUN 13 Creatinine 0.54 Estimated GFR > 60 BUN/Creatinine Ratio 24.1 H Glucose 65 L Calcium 8.8 Magnesium 2.1 Total Bilirubin 0.4 AST 29 ALT 11 Alkaline Phosphatase 88 Total Protein 5.1 L Albumin 2.6 L Globulin 2.5 Albumin/Globulin Ratio 1.0 Cortisol AM Sample 17.8 05/19/22 11:00 WBC RBC Hgb Hct MCV MCH MCHC RDW Plt Count Neut % (Auto) Lymph % (Auto) [place] % (Auto) Eos % (Auto) Baso % (Auto) Neut # (Auto) Lymph # (Auto) [place] # (Auto) Eos # (Auto) Baso # (Auto) Sodium 122 L Potassium Chloride Carbon Dioxide BUN Creatinine Estimated GFR BUN/Creatinine Ratio Glucose Calcium Magnesium Total Bilirubin AST ALT Alkaline Phosphatase Total Protein Albumin Globulin Albumin/Globulin Ratio Cortisol AM Sample FORMERLY [facility] Medical History Paralysis Vision disorder Surgical History No pertinent past surgical history Family History Mother Diabetes mellitus Hyperthyroidism Father CAD (coronary artery disease) Social History household members: spouse Smoking Status: Current every day smoker Tobacco: How many years used: 40 quit status: considering quitting (I'm trying ) alcohol intake: current substance use type: does not use Assessment & Plan Post-op Postoperative Procedures: Procedures Operation Date: 05/17/22 08:30 Actual Procedure Side Surgeon p Hip Hemiarthroplasty Right Debbie Arauz MD Postoperative day: 2 Postoperative status narrative: Patient postoperative day 2. Of a right hip hemiarthroplasty. When patient is medically cleared they can start working on getting her up and getting her moving with physical therapy. Quality VTE Deep Vein Thrombosis/Pulmonary Embolism Present on Admission: No
[2022-05-19 13:40] LABS: BUN Creatinine Ratio 22.9 (6-22); Blood Urea Nitrogen 11 mg/dL (7-17); Carbon Dioxide 30 mmol/L (22-32); Chloride 91 mmol/L (98-107); Estimated Glomerular Filt Rate > 60 mL/min (>60); Glucose 96 mg/dL (80-110); HEMOLYSIS < 15 (0-50); Potassium 3.7 mmol/L (3.4-5.1); Sodium 120 mmol/L (137-145)
--- NOTE | 2022-05-19 15:44 | CM.DPNOTE ---
Discharge Planning Notes: Patient in ICU related to Na+ issues. Spouse not in during meeting with patient. Discussed HH with patient, she was initially resistive. Follow up when spouse in room. Patient states son lives with them and could be helpful as well. She has somewhat altered mentation at this time possibly due to decreased Na+ Plan: Follow up with patient/spouse regarding HH if patient returns home (refuses SNF) Zoie Snyder RN/DCP
[2022-05-19 16:42] LABS: BUN Creatinine Ratio 24.5 (6-22); Blood Urea Nitrogen 12 mg/dL (7-17); Calcium 8.3 mg/dL (8.4-10.2); Carbon Dioxide 30 mmol/L (22-32); Chloride 90 mmol/L (98-107); Estimated Glomerular Filt Rate > 60 mL/min (>60); Glucose 79 mg/dL (80-110); HEMOLYSIS 27 (0-50); Potassium 4.3 mmol/L (3.4-5.1); Sodium 121 mmol/L (137-145)
[2022-05-19] MEDS: OXYCODONE IR 5 MG TABLET PO (16:55)
[2022-05-19] MEDS: ACETAMINOPHEN 325 MG TABLET 650 MG PO (16:55)
--- NOTE | 2022-05-19 20:51 | PM.ICURNDS ---
- :: This patient was seen via real time interactive two-way audiovisual telecommunication. patient is resting comfrtably in bed. repeat bmp just drawn, last one was 121 , and remains within limits. should continue to trend Na and add salt tabs if neccesary, cont fluid restriction.
[2022-05-19] MEDS: TRAZODONE 50 MG TABLET 25 MG PO (20:53)
[2022-05-19] MEDS: DOCUSATE 100 MG CAPSULE PO (20:53)
[2022-05-19 21:09] LABS: BUN Creatinine Ratio 24.1 (6-22); Blood Urea Nitrogen 13 mg/dL (7-17); Carbon Dioxide 31 mmol/L (22-32); Chloride 90 mmol/L (98-107); Estimated Glomerular Filt Rate > 60 mL/min (>60); Glucose 75 mg/dL (80-110); HEMOLYSIS < 15 (0-50); Potassium 4.1 mmol/L (3.4-5.1); Sodium 121 mmol/L (137-145)
--- NOTE | 2022-05-19 21:37 | PC.NURSE ---
Addendum entered by Rose Marie Ward R.N. 05/20/22 06:06: Patient removing oxygen multiple times despite being informed of low saturations. O2 sat staying above 85% at present time. Original Note: Patient with decreasing O2 sat to 60's while asleep. Patient placed on 2L n/c with O2 sats increasing to 95-99%. will decrease if no further desatting noted throughout shift.
[2022-05-20] VITALS (32 sets, daily range): BP systolic 88–178; BP diastolic 51–81; PULSE 70–90; RESP 7–45; TEMP 36.2; O2SAT 90–98
[2022-05-20 00:53] LABS: BUN Creatinine Ratio 24.5 (6-22); Blood Urea Nitrogen 13 mg/dL (7-17); Carbon Dioxide 31 mmol/L (22-32); Chloride 89 mmol/L (98-107); Estimated Glomerular Filt Rate > 60 mL/min (>60); Glucose 70 mg/dL (80-110); Sodium 120 mmol/L (137-145)
[2022-05-20 00:55] LABS: Calcium 7.9 mg/dL (8.4-10.2); HEMOLYSIS < 15 (0-50); Potassium 3.9 mmol/L (3.4-5.1)
[2022-05-20] MEDS: OXYCODONE IR 10 MG TABLET PO ×4 (02:15→18:33)
[2022-05-20 05:16] LABS: BUN Creatinine Ratio 26.1 (6-22); Blood Urea Nitrogen 12 mg/dL (7-17); Calcium 7.8 mg/dL (8.4-10.2); Carbon Dioxide 32 mmol/L (22-32); Chloride 91 mmol/L (98-107); Estimated Glomerular Filt Rate > 60 mL/min (>60); Glucose 72 mg/dL (80-110); HEMOLYSIS < 15 (0-50); Potassium 3.8 mmol/L (3.4-5.1); Sodium 120 mmol/L (137-145)
--- NOTE | 2022-05-20 08:41 | P.PN_ITS ---
Subjective Subjective Interval history: Patient feels well and is eager to proceed with physical therapy and get on with the postop rehabilitation. No new concerns from nursing or the patient. Exam Vital Signs (past 8 hours): - 05/20/22 01:00 05/20/22 01:00 05/20/22 02:00 Pulse Rate 81 82 Respiratory Rate 18 25 H Blood Pressure 178/81 H Pulse Oximetry 98 93 05/20/22 02:02 05/20/22 02:02 05/20/22 03:00 Pulse Rate 82 Respiratory Rate 20 Blood Pressure 126/68 137/60 Pulse Oximetry 94 05/20/22 03:00 05/20/22 04:00 05/20/22 04:00 Pulse Rate 79 78 Respiratory Rate 14 11 L Blood Pressure 114/55 L Pulse Oximetry 97 98 05/20/22 05:00 05/20/22 05:00 05/20/22 06:00 Pulse Rate 78 Respiratory Rate 13 Blood Pressure 122/58 L 177/80 H Pulse Oximetry 92 05/20/22 06:00 05/20/22 07:00 05/20/22 07:00 Pulse Rate 83 86 Respiratory Rate 15 15 Blood Pressure 160/79 H Pulse Oximetry 93 93 Oxygen Delivery Method Nasal Cannula Oxygen Flow Rate 2 Narrative Exam Narrative: General:? Patient is well developed and well nourished, in no distress at this time. HEENT:? Normocephalic, atraumatic, extraocular muscles intact, oral pharynx is clear and mucous membranes are moist. Neck: supple and symmetric, trachea is midline, no cervical adenopathy. Negative for JVD Chest:? Normal AP diameter and contour without kyphoscoliosis, no tachypnea, equal chest rise bilaterally. Lungs:? CTA b/l no wheezing rhonchi or rales. Cardio:?RRR no m/r/g. Abdomen: S NT ND. No CVA tenderness. Musculoskeletal:? Muscle strength and tone are equal within normal limits, no deformity. tenderness right hip. Postop dressing right hip. Extremities: No edema or joint effusions. No cyanosis or clubbing.? And trimmed nails of the feet.? Tenderness right hip. Skin:? Pale,? Warm to touch,dry and intact without rashes, ulcerations or petechiae.? Neuro:? Alert and orientated x3,? sensation to touch intact in all extremities, no gross deficits noted of cranial nerves. Psych:? Patient has a well-kept appearance, appropriate affect, mental status attitude thought context and judgment are appropriate for age. Objective Labs 05/19/22 04:20 05/20/22 05:00 Labs: Laboratory Results - last 24 hr 05/19/22 05/19/22 05/19/22 08:56 08:56 11:00 Sodium 123 L 122 L Potassium Chloride Carbon Dioxide BUN Creatinine Estimated GFR BUN/Creatinine Ratio Glucose Calcium Cortisol AM Sample 17.8 05/19/22 05/19/22 05/19/22 13:00 16:15 20:42 Sodium 120 L 121 L 121 L Potassium 3.7 4.3 4.1 Chloride 91 L 90 L 90 L Carbon Dioxide 30 30 31 BUN 11 12 13 Creatinine 0.48 L 0.49 L 0.54 Estimated GFR > 60 > 60 > 60 BUN/Creatinine Ratio 22.9 H 24.5 H 24.1 H Glucose 96 79 L 75 L Calcium 8.0 L 8.3 L 8.0 L Cortisol AM Sample 05/20/22 05/20/22 00:30 05:00 Sodium 120 L 120 L Potassium 3.9 3.8 Chloride 89 L 91 L Carbon Dioxide 31 32 BUN 13 12 Creatinine 0.53 0.46 L Estimated GFR > 60 > 60 BUN/Creatinine Ratio 24.5 H 26.1 H Glucose 70 L 72 L Calcium 7.9 L 7.8 L Cortisol AM Sample FORMERLY [facility], [facility] Medical History Paralysis Vision disorder Surgical History No pertinent past surgical history Family History Mother Diabetes mellitus Hyperthyroidism Father CAD (coronary artery disease) Social History household members: spouse Smoking Status: Current every day smoker Tobacco: How many years used: 40 quit status: considering quitting (I'm trying ) alcohol intake: current substance use type: does not use Assessment & Plan Assessment & Plan narrative: 1. R femoral neck fracture ?- day 3 post op hemiarthroplasty ?- pain control with oral meds adequate -proceed with postop physical therapy 2. Hyponatremia, acute possibly on chronic. Increased post op consistent with SI ADH increased with IV fluids surrounding surgery ?- recent lab work showed Na 120 today. Initiated on sodium chloride tablets today. ?- TSH is normal -receiving BMP lab tests every 4 hours. 3. Hypertensive urgency on presentation, currently improved controlled at 160/79. ?- some LVH on EKG, no evidence of acute ischemia and otherwise asymptomatic on presentation ?- started laury/arb after surgery as appropriate, on lisinopril only now. We will start arb medication with amlodipine. ? 4. Metabolic alkalosis on initial assessment by hospitalist ?- suspect probable underlying COPD with hypercarbia given smoking history on presentation. May also be from mild dehydration but will continue to follow response to fluids. ?- No symptoms at this time 5. Hypokalemia ?- repleted with oral, no EKG changes, will continue to follow. Stable today with potassium 3.8. 6. Tobacco Use ?- nicotine patch not ordered, and if patient is having symptoms consider ordering. Code: full, surrogate decision maker is the patient's spouse DVT: SCDs prior to surgery/post surgery enoxaparen 40 mg subcut daily added SDM is spouse. Time Spent With Patient Critical Care time: I spent a total of [] minutes of critical care time on this patient's care today; this time is exclusive of procedural time. Quality VTE Deep Vein Thrombosis/Pulmonary Embolism Present on Admission: No
--- NOTE | 2022-05-20 08:52 | PM.PN.1 ---
Exam Vital Signs (past 8 hours): - 05/20/22 01:00 05/20/22 01:00 05/20/22 02:00 Pulse Rate 81 82 Respiratory Rate 18 25 H Blood Pressure 178/81 H Pulse Oximetry 98 93 05/20/22 02:02 05/20/22 02:02 05/20/22 03:00 Pulse Rate 82 Respiratory Rate 20 Blood Pressure 126/68 137/60 Pulse Oximetry 94 05/20/22 03:00 05/20/22 04:00 05/20/22 04:00 Pulse Rate 79 78 Respiratory Rate 14 11 L Blood Pressure 114/55 L Pulse Oximetry 97 98 05/20/22 05:00 05/20/22 05:00 05/20/22 06:00 Pulse Rate 78 Respiratory Rate 13 Blood Pressure 122/58 L 177/80 H Pulse Oximetry 92 05/20/22 06:00 05/20/22 07:00 05/20/22 07:00 Pulse Rate 83 86 Respiratory Rate 15 15 Blood Pressure 160/79 H Pulse Oximetry 93 93 Oxygen Delivery Method Nasal Cannula Oxygen Flow Rate 2 Objective Labs 05/19/22 04:20 05/20/22 05:00 Labs: Laboratory Results - last 24 hr 05/19/22 05/19/22 05/19/22 08:56 08:56 11:00 Sodium 123 L 122 L Potassium Chloride Carbon Dioxide BUN Creatinine Estimated GFR BUN/Creatinine Ratio Glucose Calcium Cortisol AM Sample 17.8 05/19/22 05/19/22 05/19/22 13:00 16:15 20:42 Sodium 120 L 121 L 121 L Potassium 3.7 4.3 4.1 Chloride 91 L 90 L 90 L Carbon Dioxide 30 30 31 BUN 11 12 13 Creatinine 0.48 L 0.49 L 0.54 Estimated GFR > 60 > 60 > 60 BUN/Creatinine Ratio 22.9 H 24.5 H 24.1 H Glucose 96 79 L 75 L Calcium 8.0 L 8.3 L 8.0 L Cortisol AM Sample 05/20/22 05/20/22 00:30 05:00 Sodium 120 L 120 L Potassium 3.9 3.8 Chloride 89 L 91 L Carbon Dioxide 31 32 BUN 13 12 Creatinine 0.53 0.46 L Estimated GFR > 60 > 60 BUN/Creatinine Ratio 24.5 H 26.1 H Glucose 70 L 72 L Calcium 7.9 L 7.8 L Cortisol AM Sample PFSH Medical History Paralysis Vision disorder Surgical History No pertinent past surgical history Family History Mother Diabetes mellitus Hyperthyroidism Father CAD (coronary artery disease) Social History household members: spouse Smoking Status: Current every day smoker Tobacco: How many years used: 40 quit status: considering quitting (I'm trying ) alcohol intake: current substance use type: does not use Assessment & Plan Time Spent With Patient Critical Care time: I spent a total of [] minutes of critical care time on this patient's care today; this time is exclusive of procedural time. Quality VTE Deep Vein Thrombosis/Pulmonary Embolism Present on Admission: No
[2022-05-20] MEDS: lisinopriL 10 MG TABLET PO (09:03)
[2022-05-20] MEDS: DOCUSATE 100 MG CAPSULE PO ×2 (09:04→21:05)
[2022-05-20] MEDS: AMLODIPINE 5 MG TABLET PO (09:04)
[2022-05-20] MEDS: ENOXAPARIN 40 MG/0.4 ML SYRINGE SUBCUT (09:04)
[2022-05-20] MEDS: ASPIRIN EC 81 MG TABLET PO ×2 (09:04→21:05)
[2022-05-20] MEDS: SODIUM CHLORIDE 1,000 MG TABLET 1000 MG PO ×2 (09:04→21:05)
[2022-05-20] MEDS: polyethylene glycoL 3350 17 GM POWD.PACK PO (09:05)
[2022-05-20] MEDS: LIDOCAINE PATCH 1 EACH ADH..PATCH TOP (09:05)
--- NOTE | 2022-05-20 09:27 | P.TELICUPN_ITS ---
Subjective Subjective IF CAMERA ACTIVATED, patient seen via real-time interactive audiovisual communication: Camera activated Date Patient Seen: 05/20/22 Consent obtained for tele-pharmaceutical officer care: Yes Patient Location: ICU Provider location (State): [place] Other participants/roles: Tracey MARTINES Interval history: No acute issues overnight. Na 120. Patient is sitting up in bed eating breakfast. Ordered 1 gram salt tablet BID. Current Medications Current Medications Medications: Home Medications ibuprofen 200 mg tablet 400 mg PO DAILY 05/13/22 [History Confirmed 05/16/22] lidocaine 5 % topical patch 1 patch topical DAILY #30 ea 05/13/22 [Rx Confirmed 05/16/22] oxycodone 5 mg tablet 5 mg PO Q4-6H PRN Pain, Moderate (4-6) #40 tabs 05/18/22 [Rx] Visit Medications (administered) Generic Name Dose Route Start Last Admin Trade Name Freq PRN Reason Stop Dose Admin Acetaminophen 650 mg 05/17/22 12:01 05/20/22 06:04 Acetaminophen 325 Mg Tablet PO Not Given Q6HR KIMBERLY Amlodipine Besylate 5 mg 05/20/22 09:00 05/20/22 09:04 Amlodipine 5 Mg Tablet PO 5 mg DAILY KIMBERLY Administration Aspirin 81 mg 05/17/22 21:00 05/20/22 09:04 Aspirin Ec 81 Mg Tablet PO 81 mg BID KIMBERLY Administration Docusate Sodium 100 mg 05/17/22 21:00 05/20/22 09:04 Docusate 100 Mg Capsule PO 100 mg BID KIMBERLY Administration Enoxaparin Sodium 40 mg 05/19/22 09:00 05/20/22 09:04 Enoxaparin 40 Mg/0.4 Ml Syringe SUBCUT 40 mg DAILY KIMBERLY Administration Labetalol HCl 5 mg 05/17/22 10:05 05/18/22 04:34 Labetalol 20 Mg/4 Ml Syringe IV 5 mg PRN PRN Administration SBP>180 Protocol Lidocaine 1 each 05/18/22 09:00 05/20/22 09:05 Lidocaine Patch 1 Each Adh..Patch TOP 1 each DAILY KIMBERLY Administration Lidocaine 1 each 05/17/22 21:00 05/19/22 20:54 Remove Lidocaine Patch TOP Not Given BEDTIME KIMBERLY Lisinopril 10 mg 05/17/22 15:20 05/20/22 09:03 Lisinopril 10 Mg Tablet PO 10 mg DAILY KIMBERLY Administration Oxycodone HCl 10 mg 05/17/22 12:01 05/20/22 09:05 Oxycodone Ir 10 Mg Tablet PO 10 mg Q3HR PRN Administration Pain, Severe (7-10) Oxycodone HCl 5 mg 05/17/22 12:01 05/19/22 16:55 Oxycodone Ir 5 Mg Tablet PO 5 mg Q3HR PRN Administration Pain, Moderate (4-6) Polyethylene Glycol 17 gm 05/17/22 12:01 05/20/22 09:05 Polyethylene Glycol 3350 17 Gm Powd.Pack PO 17 gm DAILY PRN Administration Constipation Sodium Chloride 1,000 mg 05/20/22 07:25 05/20/22 09:04 Sodium Chloride 1,000 Mg Tablet PO 1,000 mg BID KIMBERLY Administration Trazodone HCl 25 mg 05/18/22 21:00 05/19/22 20:53 Trazodone 50 Mg Tablet PO 25 mg BEDTIME KIMBERLY Administration Objective Labs 05/19/22 04:20 05/20/22 05:00 Labs: Laboratory Results - last 24 hr 05/19/22 05/19/22 05/19/22 08:56 11:00 13:00 Sodium 122 L 120 L Potassium 3.7 Chloride 91 L Carbon Dioxide 30 BUN 11 Creatinine 0.48 L Estimated GFR > 60 BUN/Creatinine Ratio 22.9 H Glucose 96 Calcium 8.0 L Cortisol AM Sample 17.8 05/19/22 05/19/22 05/20/22 16:15 20:42 00:30 Sodium 121 L 121 L 120 L Potassium 4.3 4.1 3.9 Chloride 90 L 90 L 89 L Carbon Dioxide 30 31 31 BUN 12 13 13 Creatinine 0.49 L 0.54 0.53 Estimated GFR > 60 > 60 > 60 BUN/Creatinine Ratio 24.5 H 24.1 H 24.5 H Glucose 79 L 75 L 70 L Calcium 8.3 L 8.0 L 7.9 L Cortisol AM Sample 05/20/22 05:00 Sodium 120 L Potassium 3.8 Chloride 91 L Carbon Dioxide 32 BUN 12 Creatinine 0.46 L Estimated GFR > 60 BUN/Creatinine Ratio 26.1 H Glucose 72 L Calcium 7.8 L Cortisol AM Sample Exam Vital Signs (past 8 hours): - 05/20/22 02:00 05/20/22 02:02 05/20/22 02:02 Pulse Rate 82 82 Respiratory Rate 25 H 20 Blood Pressure 126/68 Pulse Oximetry 93 94 05/20/22 03:00 05/20/22 03:00 05/20/22 04:00 Pulse Rate 79 Respiratory Rate 14 Blood Pressure 137/60 114/55 L Pulse Oximetry 97 05/20/22 04:00 05/20/22 05:00 05/20/22 05:00 Pulse Rate 78 78 Respiratory Rate 11 L 13 Blood Pressure 122/58 L Pulse Oximetry 98 92 05/20/22 06:00 05/20/22 06:00 05/20/22 07:00 Pulse Rate 83 Respiratory Rate 15 Blood Pressure 177/80 H 160/79 H Pulse Oximetry 93 05/20/22 07:00 Pulse Rate 86 Respiratory Rate 15 Blood Pressure Pulse Oximetry 93 Oxygen Delivery Method Nasal Cannula Oxygen Flow Rate 2 Narrative Exam Narrative: NAD Sitting up eating breakfast. Quality TeleICU VTE Deep Vein Thrombosis/Pulmonary Embolism Present on Admission: No Assessment & Plan Assessment and plan (1) Hyponatremia: Problem details: Acute on chronic. TSH was normal. Given random urine Na+ of 58, suspect SIADH Status: Acute Plan: -- Na 120 -- On fluid restriction <1.5 liters daily -- Added salt tablet 1 gram BID -- Trend BMP every 4 hours -- If Na remains unchange then will consider HTS 20cc X 1 hr (2) Closed fracture of right hip: Qualifiers: Encounter type: sequela Qualified Code(s): S72.001S - Fracture of unspecified part of neck of right femur, sequela Status: Acute Plan: -- Pain control -- Seek early mobility -- PT/OT -- On lovenox 40 mg SQ daily (3) Asymptomatic hypertensive urgency: Status: Acute Plan: -- On lisinopril 10 mg daily -- Goal SBP < 140 -- Pain control as above Time Spent With Patient Critical Care time: I spent a total of 32 minutes of critical care time on this patient's care today; this time is exclusive of procedural time.
--- NOTE | 2022-05-20 09:29 | DIET.CONS2 ---
Dietary Inpatient Consultation Note Admission Date: 05/16/2022 11:30 Nursing requests higher sodium food choices for pt. Pt states she is a healthy eater and dislikes salty foods. Pt may benefit from salt tablet Rx in place of high sodium foods for better compliance. Diet: 05/17/22 Lunch General (Regular) Diet Diet Modifications: General (Regular) Diet Diet Modifications: 05/18/22 Lunch Fluid Restriction Diet Diet Modifications: May Advance Diet as Tolerated: No Safety Tray needed?: No Total fluid amount: 1,000 Amount allotted to patient trays: 0 Free water included in total: Yes Fluid in addition to trays: [id number] amount: 600 [id number] amount: 400 Fluid Restriction Diet Diet Modifications: Total fluid amount: 1,000 Amount allotted to patient trays: 500 Free water included in total: Yes Fluid in addition to trays: 5254-5117 amount: 250 [id number] amount: 250 Nutrition Percent Meal Consumed 50% 05/19/22 17:41 Percent Meal Consumed 25% 05/19/22 13:30 Percent Meal Consumed 5 05/19/22 09:44 Electronically Signed by: Shavonne Calero 05/20/22 09:29 Clinical Dietitian [address] [address]
[2022-05-20 09:43] LABS: BUN Creatinine Ratio 21.7 (6-22); Blood Urea Nitrogen 10 mg/dL (7-17); Calcium 8.1 mg/dL (8.4-10.2); Carbon Dioxide 31 mmol/L (22-32); Chloride 90 mmol/L (98-107); Estimated Glomerular Filt Rate > 60 mL/min (>60); Glucose 76 mg/dL (80-110); HEMOLYSIS < 15 (0-50); Potassium 3.7 mmol/L (3.4-5.1); Sodium 121 mmol/L (137-145)
--- NOTE | 2022-05-20 11:14 | PT.IPTN ---
Current Diagnoses Hypo-osmolality and hyponatremia (05/16/22) Hypertensive urgency (05/16/22) Fracture of unspecified part of neck of right femur, initial encounter for closed fracture (05/16/22) Fracture of unspecified part of neck of right femur, sequela (05/16/22) Tobacco use (05/16/22) Surgery Performed Operation Date: 05/17/22 08:30 Actual Procedures p Hip Hemiarthroplasty(Right) - Debbie Arauz MD Physical Therapy Treatment Note M2 PT-IP Current Condition Start: 05/18/22 13:03 Freq: NEEDED Status: Active Protocol: Document 05/20/22 10:54 SP (Rec: 05/20/22 11:42 SP [id number]) Physical Therapy Current Condition Current Condition Evaluation Date 05/18/22 Treatment Diagnosis Right total hip replacement following femoral neck fracture Onset Date 04/25/22 M3 PT-IP Subjective Start: 05/18/22 13:03 Freq: NEEDED Status: Active Protocol: Document 05/20/22 10:54 SP (Rec: 05/20/22 11:42 SP [id number]) Subjective Physical Therapy Visit Type Type Treatment Note Visit Start Time 10:54 Visit Stop Time 11:14 Total Visit Minutes 20 Notes Vitals during tx: elevated supine: BP 121/64 HR 89 SaO2 93% on RA Seated up in bed: BP 172/74 Supine: 163/74 HR 87 SaO2 93% on RA Number of COUNTER TENDER Visits 1 Physical Therapy Visit Comments Patient Comments Pt willing to work with therapy. Patient Goals Hoping to sit up without dizziness Therapy Pain Assessment Pain When Pain Assessed During Mobility Pain Present Pain Present Pain Reported Location right hip Scale Used low-mid during mobility Description With Movement Pain Behaviors Facial Grimacing Pain Management Techniques Distraction,Modification of Treatment,Re-positioning, Timing of Activity with Medications M4 PT-IP Mobility and Gait Start: 05/18/22 13:03 Freq: NEEDED Status: Active Protocol: Document 05/20/22 10:54 SP (Rec: 05/20/22 11:42 SP [id number]) PT-Bed Mobility Assessment Supine to Sit Supine to Sit Maximum Assistance,1 Person Assistance Sit to Supine Sit to Supine Moderate Assistance,Maximum Assistance,1 Person Assistance ,Bedrails Scooting Scooting to Edge of Bed Maximum Assistance Scooting Up and Down in Bed Maximum Assistance PT-Transfer Assessment Comments Mobility Comments Pleasant woman, she did not recall R hip precautions. reviewed HOs, verbalized understanding. Instructed pt in post-op exercies: AP AROM, Heel slides AAROM first couple reps, able self perform 3 reps, QS & GS 5 sec hold x5, hip abd AROM small range good tolerance report low-mid R hip pain but ok. HOB flat>sit Max A for trunk righting support self LEs to EOB self w/tactile cues each LE. Max A for trunk support initial scoot toward EOB, unable complete fully due to progressed dizziness it's rolling. Min A for sitting balance and heavy BUE self support on bed while maintaining precautions no >90 deg hip flexion. Noted increase in BP 172/74 ( systolic increased by 50), COUNTER TENDER assisted pt return to supine Max A for trunk and BLE support center in bed and notified nursing, reduced more once supine 163/74. Max A x2 scoot up in bed. Nursing requested modified supine to R for skin integrity safety, COUNTER TENDER provided 2 pillows between BLEs to maintain precautions no crossing legs. Pt had call light and all needs in reach, nurse in room when left. Gait Assessment Comments Gait Comments Unable to complete at this time. Stair Climbing Assessment Comments Stair Climbing Comments no stair to assess PT-Balance Assessment Sitting Balance and Reactions Static Sitting Balance Ability Fair Dynamic Sitting Balance Ability Poor Comments Other Balance Tests/Deviations/Treatment Sitting balance Mod> CGA. : M5 PT-IP Objective Assessments Start: 05/18/22 13:03 Freq: NEEDED Status: Active Protocol: Document 05/18/22 13:03 AMH (Rec: 05/18/22 13:19 AMH [id number]) Orientation Orientation/Cognition Level of Alertness Alert Gross Range of Motion Upper Extremity ROM Assessment Within Functional Limits Lower Extremity ROM Assessment Right Impaired Strength Upper Extremity Strength Assessment Within Functional Limits Lower Extremity Strength Assessment Left Impaired M6 PT-IP Treatment Start: 05/18/22 13:03 Freq: NEEDED Status: Active Protocol: Document 05/20/22 10:54 SP (Rec: 05/20/22 11:42 SP [id number]) Physical Therapy Treatment Exercises Exercises Ankle Pumps,Gluteal Sets,Quad Sets,Heel Slides,Supine Hip Abduction Knee ROM Measurement AROM L knee flexion approx 70 deg. Education Education Provided Precautions,Weight Bearing Status,Post-Op Packet,Safety M7 PT-IP Assessment and Plan Start: 05/18/22 13:03 Freq: NEEDED Status: Active Protocol: Document 05/20/22 10:54 SP (Rec: 05/20/22 11:42 SP [id number]) PT Summary Assessment and Plan Potential Rehabilitation Potential Good Status of Condition at Evaluation Evolving Summary Impairments Pain,ROM,Strength,Balance,Bed Mobility,Transfers,Gait, Activity Tolerance Progress Towards Goals Slow Progress due to Pain,Slow Progress due to Medical Issues,Slow Progress due to Activity Tolerance Assessment Summary Pt required positive encouragement for mobility and good response to premedication. Pt limited in mobility due to hypertension w / Symptoms of dizziness progressively worsened. Max A x1 for bed mobility, Mod>CGA sitting balance in bed. Pt will require SNF for progressed strength and mobility. Will continue to asses progress. Goals Bed Mobility Goal Contact Guard Assistance Transfer Goal Contact Guard Assistance Gait Goal Contact Guard Assistance Gait Distance 50 Frequency of Treatment Frequency Of Treatment Twice a Day Treatment Plan Physical Therapy Treatment Plan Bed Mobility Training,Transfer Training,Gait Training, Therapeutic Exercise,Post Op Education Other Recommendations and Next Treatment post op ex, review precautions Focus , bed mob, transfers and gait w/ FWW chair follow if able Precautions Posterior Hip Precautions No Hip Flexion > 90 degrees,No Hip Internal Rotation,No Hip Adduction Other Precautions Pt no recall of precautions, reviewed post op packet HEP and precautions. Weight Bearing Status Weight Bearing Status Weight Bear as Tolerated Recommendations To Nursing Amount of Assist Needed 1 Person Assist Discharge Recommendations PT Discharge Recommendations SNF Rehab Other Discharge Recommendations pt would like to return home with her upon discharge Transportation Needs at Discharge Private Vehicle,Wheelchair/ Cabulance
--- NOTE | 2022-05-20 11:45 | PM.PNPO.1 ---
Subjective Subjective Date Patient Seen: 05/20/22 Time Patient Seen: 07:30 Interval history: Patient is resting comfortably in bed this morning. She states that she is having no pain, but when she does it is well controlled with medication. She complains that it is hard to get comfortable in her hospital bed and did not sleep much last night. For this reason she is unsure she will have enough energy to work with physical therapy today. Exam Vital Signs (past 8 hours): - 05/20/22 04:00 05/20/22 04:00 05/20/22 05:00 Pulse Rate 78 Respiratory Rate 11 L Blood Pressure 114/55 L 122/58 L Pulse Oximetry 98 Oxygen Delivery Method 05/20/22 05:00 05/20/22 06:00 05/20/22 06:00 Pulse Rate 78 83 Respiratory Rate 13 15 Blood Pressure 177/80 H Pulse Oximetry 92 93 Oxygen Delivery Method 05/20/22 07:00 05/20/22 07:00 05/20/22 07:00 Pulse Rate 86 Respiratory Rate 15 Blood Pressure 160/79 H Pulse Oximetry 93 Oxygen Delivery Method Room Air 05/20/22 08:00 05/20/22 08:00 05/20/22 09:00 Pulse Rate 90 89 Respiratory Rate 19 24 Blood Pressure 169/80 H Pulse Oximetry 92 92 Oxygen Delivery Method 05/20/22 09:01 05/20/22 09:01 05/20/22 10:00 Pulse Rate 90 Respiratory Rate 35 H Blood Pressure 134/71 117/55 L Pulse Oximetry 94 Oxygen Delivery Method 05/20/22 10:00 05/20/22 10:56 05/20/22 10:56 Pulse Rate 82 85 Respiratory Rate 14 15 Blood Pressure 121/64 Pulse Oximetry 95 94 Oxygen Delivery Method 05/20/22 11:00 05/20/22 11:00 05/20/22 11:07 Pulse Rate 85 87 Respiratory Rate 19 41 H Blood Pressure 174/72 H Pulse Oximetry 94 94 Oxygen Delivery Method 05/20/22 11:07 Pulse Rate Respiratory Rate Blood Pressure 163/74 H Pulse Oximetry Oxygen Delivery Method Oxygen Delivery Method Room Air Oxygen Flow Rate 2 Narrative Exam Narrative: Pleasant 72-year-old female. Awake, alert, and oriented. Well-healing wound to right anterior hip clean and dry with no surrounding erythema, swelling, or discharge. Strength and sensation intact to bilateral extremities. Bilateral calves soft and compressible with no palpable cords or masses, some mild pain with palpation. Objective Labs 05/19/22 04:20 05/20/22 09:00 Labs: Laboratory Results - last 24 hr 05/19/22 05/19/22 05/19/22 13:00 16:15 20:42 Sodium 120 L 121 L 121 L Potassium 3.7 4.3 4.1 Chloride 91 L 90 L 90 L Carbon Dioxide 30 30 31 BUN 11 12 13 Creatinine 0.48 L 0.49 L 0.54 Estimated GFR > 60 > 60 > 60 BUN/Creatinine Ratio 22.9 H 24.5 H 24.1 H Glucose 96 79 L 75 L Calcium 8.0 L 8.3 L 8.0 L 05/20/22 05/20/22 05/20/22 00:30 05:00 09:00 Sodium 120 L 120 L 121 L Potassium 3.9 3.8 3.7 Chloride 89 L 91 L 90 L Carbon Dioxide 31 32 31 BUN 13 12 10 Creatinine 0.53 0.46 L 0.46 L Estimated GFR > 60 > 60 > 60 BUN/Creatinine Ratio 24.5 H 26.1 H 21.7 Glucose 70 L 72 L 76 L Calcium 7.9 L 7.8 L 8.1 L PFSH Medical History Paralysis Vision disorder Surgical History No pertinent past surgical history Family History Mother Diabetes mellitus Hyperthyroidism Father CAD (coronary artery disease) Social History household members: spouse Smoking Status: Current every day smoker Tobacco: How many years used: 40 quit status: considering quitting (I'm trying ) alcohol intake: current substance use type: does not use Assessment & Plan Post-op Postoperative Procedures: Procedures Operation Date: 05/17/22 08:30 Actual Procedure Side Surgeon p Hip Hemiarthroplasty Right Debbie Arauz MD Postoperative day: 3 Postoperative status narrative: Patient is slow to progress after right hip hemiarthroplasty due to multiple medical issues requiring ICU admission and treatment. Postoperative plan narrative: Appreciate continued management of existing medical issues by ICU team. Plan to work with physical therapy when able and cleared to participate. Quality VTE Deep Vein Thrombosis/Pulmonary Embolism Present on Admission: No
[2022-05-20 13:57] LABS: BUN Creatinine Ratio 21.7 (6-22); Blood Urea Nitrogen 10 mg/dL (7-17); Calcium 8.4 mg/dL (8.4-10.2); Carbon Dioxide 30 mmol/L (22-32); Chloride 91 mmol/L (98-107); Estimated Glomerular Filt Rate > 60 mL/min (>60); Glucose 80 mg/dL (80-110); HEMOLYSIS 26 (0-50); Sodium 123 mmol/L (137-145)
[2022-05-20] MEDS: ACETAMINOPHEN 325 MG TABLET 650 MG PO ×2 (14:08→18:33)
--- NOTE | 2022-05-20 14:54 | PT.IPTN ---
Current Diagnoses Hypo-osmolality and hyponatremia (05/16/22) Hypertensive urgency (05/16/22) Fracture of unspecified part of neck of right femur, initial encounter for closed fracture (05/16/22) Fracture of unspecified part of neck of right femur, sequela (05/16/22) Tobacco use (05/16/22) Surgery Performed Operation Date: 05/17/22 08:30 Actual Procedures p Hip Hemiarthroplasty(Right) - Debbie Arauz MD Physical Therapy Treatment Note M2 PT-IP Current Condition Start: 05/18/22 13:03 Freq: NEEDED Status: Active Protocol: Document 05/20/22 10:54 SP (Rec: 05/20/22 11:42 SP [id number]) Physical Therapy Current Condition Current Condition Evaluation Date 05/18/22 Treatment Diagnosis Right total hip replacement following femoral neck fracture Onset Date 04/25/22 M3 PT-IP Subjective Start: 05/18/22 13:03 Freq: NEEDED Status: Active Protocol: Document 05/20/22 14:42 BC (Rec: 05/20/22 14:54 BC [id number]) Subjective Physical Therapy Visit Type Type Treatment Note Visit Start Time 13:55 Visit Stop Time 14:20 Total Visit Minutes 25 Physical Therapy Visit Comments Patient Comments Pt initially not agreeable but nsng support and encouragement. Patient Goals To be more comfortable Therapy Pain Assessment Pain When Pain Assessed During Mobility Pain Present Pain Present Pain Reported Location right hip Intensity 4 Description Aching M4 PT-IP Mobility and Gait Start: 05/18/22 13:03 Freq: NEEDED Status: Active Protocol: Document 05/20/22 14:42 BC (Rec: 05/20/22 14:54 BC [id number]) PT-Bed Mobility Assessment Supine to Sit Supine to Sit Minimal Assistance,1 Person Assistance Sit to Supine Sit to Supine Bedrails Scooting Scooting to Edge of Bed Moderate Assistance PT-Transfer Assessment Sit to and From Stand Sit to and from Stand Minimal Assistance Equipment Transfer Assistive Device Gait Belt,Front Wheeled Walker Orthotic/Prosthetic Devices or Brace: No Transfers Transfer Destination Chair Transfer Technique Stand Pivot Transfer Ability Level of Assist Minimal Assistance Comments Mobility Comments Pt does not recall hip precautions. Needs assist for transfer and THP safety. Once seated EOB her bp is stable at 111/80. Pt denies dizziness. Pt needs min A for bed mobility, sit to stand transfer x3 reps and stand pivot transfer. She is WB through RLE without buckling in leg. She states I can't really feel where my R leg is Gait Assessment Gait Gait Assistance Required: Contact Guard Assist,Minimum Assistance Distance (Feet) 5 Assistive Devices Assistive Device Gait Belt,Front Wheeled Walker Gait Deviations General Gait Pattern Decreased Stride Length, Decreased Feet Clearance, Flexed Trunk,Step-to Gait Factors Limiting Gait Function Factors Limiting Gait Function Decreased Activity Tolerance, Decreased Strength,Limited Range of Motion,Pain,Poor Balance Comments Gait Comments Gait with chair follow ~5' before Pt reports fatigue. She was able to ambulate with step to gait pattern. Cues and assist for walker mgmt. Pt maintaining her own balance and strength during RLE stance phases. Stair Climbing Assessment Comments Stair Climbing Comments no stair to assess PT-Balance Assessment Sitting Balance and Reactions Static Sitting Balance Ability Fair Dynamic Sitting Balance Ability Poor Standing Balance and Reactions Static Standing Balance Ability Fair Dynamic Standing Balance Ability Fair Comments Other Balance Tests/Deviations/Treatment Sitting balance SBA : M5 PT-IP Objective Assessments Start: 05/18/22 13:03 Freq: NEEDED Status: Active Protocol: Document 05/18/22 13:03 [facility] (Rec: 05/18/22 13:19 [facility] [id number]) Orientation Orientation/Cognition Level of Alertness Alert Gross Range of Motion Upper Extremity ROM Assessment Within Functional Limits Lower Extremity ROM Assessment Right Impaired Strength Upper Extremity Strength Assessment Within Functional Limits Lower Extremity Strength Assessment Left Impaired M6 PT-IP Treatment Start: 05/18/22 13:03 Freq: NEEDED Status: Active Protocol: Document 05/20/22 14:42 BC (Rec: 05/20/22 14:54 [id number]) Physical Therapy Treatment Education Education Provided Precautions,Weight Bearing Status,Safety Other Treatments Other Treatment Performed Reviewed THPs during bed and sit<>stand transfers. Educated on WBAT on RLE during gait and step to gait pattern . M7 PT-IP Assessment and Plan Start: 05/18/22 13:03 Freq: NEEDED Status: Active Protocol: Document 05/20/22 14:42 BC (Rec: 05/20/22 14:54 [id number]) PT Summary Assessment and Plan Potential Rehabilitation Potential Good Status of Condition at Evaluation Evolving Summary Impairments Pain,ROM,Strength,Balance,Bed Mobility,Transfers,Gait, Activity Tolerance Progress Towards Goals Progressing Toward Goals Assessment Summary Pt agreeable to PT with nsng support/encouragement. BP is stable sitting up at 111/80. She denies dizziness. Pt was able to transfer sit<>stand x3 reps with min A and VC's on technique. Once standing she completed stand pivot transfer to recliner. Rested for several minutes and then able to ambulate 5' with FWW and chair follow. At end of session Pt remained in recliner with all needs in reach and nsng aware. Recommend transfer back via stand pivot with FWW and 1PA. Discharge recommendation remains SNF for daily therapy. Goals Bed Mobility Goal Contact Guard Assistance Transfer Goal Contact Guard Assistance Gait Goal Contact Guard Assistance Gait Distance 50 Frequency of Treatment Frequency Of Treatment Twice a Day Treatment Plan Physical Therapy Treatment Plan Bed Mobility Training,Transfer Training,Gait Training, Therapeutic Exercise,Post Op Education Other Recommendations and Next Treatment post op ex, review precautions Focus , bed mob, transfers and gait w/ FWW chair follow if able Precautions Posterior Hip Precautions No Hip Flexion > 90 degrees,No Hip Internal Rotation,No Hip Adduction Other Precautions Pt does not recall THPs Weight Bearing Status Weight Bearing Status Weight Bear as Tolerated Recommendations To Nursing Amount of Assist Needed 1 Person Assist Discharge Recommendations PT Discharge Recommendations SNF Rehab Other Discharge Recommendations pt would like to return home with her upon discharge Transportation Needs at Discharge Private Vehicle,Wheelchair/ Cabulance
[2022-05-20 17:30] LABS: BUN Creatinine Ratio 20.4 (6-22); Blood Urea Nitrogen 11 mg/dL (7-17); Calcium 8.3 mg/dL (8.4-10.2); Carbon Dioxide 29 mmol/L (22-32); Chloride 90 mmol/L (98-107); Estimated Glomerular Filt Rate > 60 mL/min (>60); Glucose 84 mg/dL (80-110); HEMOLYSIS 18 (0-50); Potassium 3.9 mmol/L (3.4-5.1); Sodium 120 mmol/L (137-145)
--- NOTE | 2022-05-20 17:51 | PM.EVENT ---
Event Note Event Note (Rapid Response, Code, or fall): Repeat Na 120 -> start hypertonic saline 20 cc/hr X 1 hr. Cont trending BMP every 4 hours. D/w bedside RN and pharmacist.
[2022-05-20] MEDS: SODIUM CHLORIDE 3% IV (18:33)
--- NOTE | 2022-05-20 20:15 | PM.ICURNDS ---
- Date Patient Seen: 05/20/22 Time Patient Seen: 20:15 :: This patient was seen via real time interactive two-way audiovisual telecommunication. Note: NO acute issues today. Na level drifted down to 120 from 123. Received 20 mL of hypertonic saline. Pending repeat BMP at 9 pm. Follow up results. Goal Na 126 by tomorrow morning. D/w RN at bedside.
[2022-05-20] MEDS: TRAZODONE 50 MG TABLET 25 MG PO (21:05)
[2022-05-20 21:07] LABS: BUN Creatinine Ratio 18.2 (6-22); Blood Urea Nitrogen 10 mg/dL (7-17); Calcium 8.2 mg/dL (8.4-10.2); Carbon Dioxide 30 mmol/L (22-32); Chloride 90 mmol/L (98-107); Estimated Glomerular Filt Rate > 60 mL/min (>60); Glucose 89 mg/dL (80-110); HEMOLYSIS < 15 (0-50); Potassium 3.7 mmol/L (3.4-5.1); Sodium 121 mmol/L (137-145)
--- NOTE | 2022-05-20 21:17 | PC.NURSE ---
Addendum entered by Rose Marie Ward R.N. 05/20/22 21:25: Dr. Gaston calling back and new orders noted. will continue to monitor NA. Original Note: results of na called to Dr. Gsaton awaiting return phone call.
[2022-05-20 21:34] LABS: Osmolality Urine 242 mOsmol/kg (.)
[2022-05-21] VITALS (18 sets, daily range): BP systolic 81–163; BP diastolic 47–86; PULSE 65–88; RESP 9–30; TEMP 36–36.9; O2SAT 92–96
[2022-05-21] MEDS: ACETAMINOPHEN 325 MG TABLET 650 MG PO ×3 (00:06→17:45)
[2022-05-21] MEDS: OXYCODONE IR 10 MG TABLET PO (00:06)
[2022-05-21 01:19] LABS: Blood Urea Nitrogen 9 mg/dL (7-17); Calcium 8.2 mg/dL (8.4-10.2); Carbon Dioxide 30 mmol/L (22-32); Chloride 93 mmol/L (98-107); Estimated Glomerular Filt Rate > 60 mL/min (>60); Glucose 69 mg/dL (80-110); HEMOLYSIS < 15 (0-50); Potassium 3.6 mmol/L (3.4-5.1); Sodium 123 mmol/L (137-145)
[2022-05-21 05:28] LABS: BUN Creatinine Ratio 19.6 (6-22); Blood Urea Nitrogen 10 mg/dL (7-17); Calcium 8.6 mg/dL (8.4-10.2); Carbon Dioxide 29 mmol/L (22-32); Chloride 93 mmol/L (98-107); Estimated Glomerular Filt Rate > 60 mL/min (>60); Glucose 75 mg/dL (80-110); HEMOLYSIS < 15 (0-50); Potassium 3.7 mmol/L (3.4-5.1); Sodium 124 mmol/L (137-145)
[2022-05-21] MEDS: ENOXAPARIN 40 MG/0.4 ML SYRINGE SUBCUT (08:58)
[2022-05-21] MEDS: polyethylene glycoL 3350 17 GM POWD.PACK PO (08:58)
[2022-05-21] MEDS: DOCUSATE 100 MG CAPSULE PO (08:59)
[2022-05-21] MEDS: ASPIRIN EC 81 MG TABLET PO ×2 (08:59→20:27)
[2022-05-21] MEDS: AMLODIPINE 5 MG TABLET PO (08:59)
[2022-05-21] MEDS: lisinopriL 10 MG TABLET PO (08:59)
[2022-05-21] MEDS: SODIUM CHLORIDE 1,000 MG TABLET 1000 MG PO ×3 (08:59→20:27)
--- NOTE | 2022-05-21 09:18 | PT.IPTN ---
Current Diagnoses Hypo-osmolality and hyponatremia (05/16/22) Hypertensive urgency (05/16/22) Fracture of unspecified part of neck of right femur, initial encounter for closed fracture (05/16/22) Fracture of unspecified part of neck of right femur, sequela (05/16/22) Tobacco use (05/16/22) Surgery Performed Operation Date: 05/17/22 08:30 Actual Procedures p Hip Hemiarthroplasty(Right) - Debbie Arauz MD Physical Therapy Treatment Note M2 PT-IP Current Condition Start: 05/18/22 13:03 Freq: NEEDED Status: Active Protocol: Document 05/21/22 08:50 SP (Rec: 05/21/22 11:59 SP [id number]) Physical Therapy Current Condition Current Condition Evaluation Date 05/18/22 Treatment Diagnosis Right total hip replacement following femoral neck fracture Onset Date 04/25/22 M3 PT-IP Subjective Start: 05/18/22 13:03 Freq: NEEDED Status: Active Protocol: Document 05/21/22 08:50 SP (Rec: 05/21/22 11:59 SP [id number]) Subjective Physical Therapy Visit Type Type Treatment Note Visit Start Time 08:50 Visit Stop Time 09:18 Total Visit Minutes 28 Notes Vitals: supine 117/66 HR 85 SaO2 93% onRA Nurse provided assist for Cardiac lines as needed during mobilitiy and providing meds when arrived. arrived end tx, set up CGT to assess if pt mobilize with , states has a w/c she can utilize for mobility if needed car into house. Number of BENEFITS PROCESSOR Visits 2 Physical Therapy Visit Comments Patient Comments Pt agreeable to working with therapy. Patient Goals WAnted to go home with to assist her. Therapy Pain Assessment Pain When Pain Assessed During Mobility Pain Present Pain Present Pain Reported Location right hip Scale Used none- low R hip Description With Movement Pain Behaviors Facial Grimacing Pain Management Techniques Distraction,Modification of Treatment,Re-positioning, Timing of Activity with Medications M4 PT-IP Mobility and Gait Start: 05/18/22 13:03 Freq: NEEDED Status: Active Protocol: Document 05/21/22 08:50 SP (Rec: 05/21/22 11:59 SP [id number]) PT-Bed Mobility Assessment Supine to Sit Supine to Sit Contact Guard Assistance, Minimal Assistance,1 Person Assistance Scooting Scooting to Edge of Bed Contact Guard Assistance Scooting Up and Down in Bed Maximum Assistance PT-Transfer Assessment Sit to and From Stand Sit to and from Stand Contact Guard Assistance, Minimal Assistance,1 Person Assistance,Use of Upper Extremities Equipment Transfer Assistive Device Gait Belt,Front Wheeled Walker Orthotic/Prosthetic Devices or Brace: No Transfers Transfer Destination Chair Transfer Technique Stand Pivot Transfer Ability Level of Assist Contact Guard Assistance, Minimal Assistance,1 Person Assistance,Use of Upper Extremities Comments Mobility Comments Pt did not recall precautions, provided HO to read stated not fully understanding why needing to be aware after education, requires Max cues for maintaining. HOB flat heavy BUE on bed to come to sitting and scoot to EOB CG/ Min A for trunk support. STS hand over hand and verbal cues for proper hand placement, SPT bed>chair, cued full back and proper hand placement slow descent Min A. Pt stated unable to progress further, really tired and can't do any more. BENEFITS PROCESSOR recommending SNF vs HHPT 07/10 with to assist available for pm tx. WIll continue to assess progress. Gait Assessment Gait Gait Assistance Required: Contact Guard Assist,Minimum Assistance Distance (Feet) 3 Assistive Devices Assistive Device Gait Belt,Front Wheeled Walker Orthotic/Prosthetic Devices or Brace: No Gait Deviations General Gait Pattern Antalgic,Decreased Stride Length,Decreased Feet Clearance,Flexed Trunk,Narrow Based Gait,Step-to Gait Factors Limiting Gait Function Factors Limiting Gait Function Decreased Activity Tolerance, Decreased Strength,Difficulty Following Directions,Limited Range of Motion,Pain,Poor Balance,Poor Safety Awareness Comments Gait Comments cued upright posture, wt shfit between BLEs for stabililty awareness pre gait. FWW full pivot with her. Stair Climbing Assessment Comments Stair Climbing Comments no stair to assess PT-Balance Assessment Sitting Balance and Reactions Static Sitting Balance Ability Good Dynamic Sitting Balance Ability Fair Standing Balance and Reactions Static Standing Balance Ability Fair Dynamic Standing Balance Ability Poor Device Used FWW M5 PT-IP Objective Assessments Start: 05/18/22 13:03 Freq: NEEDED Status: Active Protocol: Document 05/18/22 13:03 [facility] (Rec: 05/18/22 13:19 [facility] [id number]) Orientation Orientation/Cognition Level of Alertness Alert Gross Range of Motion Upper Extremity ROM Assessment Within Functional Limits Lower Extremity ROM Assessment Right Impaired Strength Upper Extremity Strength Assessment Within Functional Limits Lower Extremity Strength Assessment Left Impaired M6 PT-IP Treatment Start: 05/18/22 13:03 Freq: NEEDED Status: Active Protocol: Document 05/21/22 08:50 SP (Rec: 05/21/22 11:59 SP [id number]) Physical Therapy Treatment Exercises Exercises Ankle Pumps,Gluteal Sets,Quad Sets,Heel Slides,Supine Hip Abduction Knee ROM Measurement AROM L knee flexion approx 50 deg. Education Education Provided Precautions,Weight Bearing Status,Post-Op Packet,Safety Other Treatments Other Treatment Performed Reviewed THPs during bed and sit<>stand transfers. Educated on WBAT on RLE during gait and step to gait pattern . M7 PT-IP Assessment and Plan Start: 05/18/22 13:03 Freq: NEEDED Status: Active Protocol: Document 05/21/22 08:50 SP (Rec: 05/21/22 11:59 SP [id number]) PT Summary Assessment and Plan Potential Rehabilitation Potential Good Status of Condition at Evaluation Evolving Summary Impairments Pain,ROM,Strength,Balance,Bed Mobility,Transfers,Gait, Activity Tolerance Progress Towards Goals Progressing Toward Goals,Slow Progress due to Pain,Slow Progress due to Activity Tolerance Assessment Summary Pt poor/no recall to precautions and why needed to maintain, Max verbal/tactil cues for mobility positioning HP and body positioning w/ FWW CG/ MIn A. Low endurance/ strength standing w/ FWW at this time, unable progress passed transfers. bed mob CG/ Min A. BENEFITS PROCESSOR recommending SNF vs HHPT 07/10 with to assist available for pm tx. REcommend nursing provide transfer support to BSC to increase functional activity tolerance between PT treaments . TIme spent provided feedback to nursing, pt and end tx importance of mobility and not tolerating, recommend snf for increasd time spent with therapists to progress before going home. Goals Bed Mobility Goal Contact Guard Assistance Transfer Goal Contact Guard Assistance Gait Goal Contact Guard Assistance Gait Distance 50 Frequency of Treatment Frequency Of Treatment Twice a Day Treatment Plan Physical Therapy Treatment Plan Bed Mobility Training,Transfer Training,Gait Training, Therapeutic Exercise,Post Op Education Other Recommendations and Next Treatment CGT with at 1330 today Focus , check precautions, bed mob, tranfers, gait further distance w/ FWW chair follow if able/tolerate. Precautions Posterior Hip Precautions No Hip Flexion > 90 degrees,No Hip Internal Rotation,No Hip Adduction Other Precautions Pt does not recall THPs Weight Bearing Status Weight Bearing Status Weight Bear as Tolerated Recommendations To Nursing Amount of Assist Needed 1 Person Assist Discharge Recommendations PT Discharge Recommendations Home with 24/ Assist Available,Home Health,SNF Rehab,Home vs SNF Other Discharge Recommendations pt would like to return home with her upon discharge, depends on CGT 1330 if safe/able Equipment Needed for Home Before check if need of shower chair. Discharge Pt has FWW and w/c to use. Transportation Needs at Discharge Private Vehicle,Wheelchair/ Cabulance
--- NOTE | 2022-05-21 10:22 | PC.NURSE ---
Day shift: Clarified fluid restriction order with Dr. Polanco: 1,000 mL a day is the limit, 600 [id number] and 400 [id number]
--- NOTE | 2022-05-21 10:42 | PM.PNPO.1 ---
Subjective Subjective Date Patient Seen: 05/21/22 Time Patient Seen: 10:43 Interval history: Patient denies pain. No fever chills. No nausea vomiting. Exam Vital Signs (past 8 hours): - 05/21/22 03:00 05/21/22 03:00 05/21/22 04:00 Temperature 97.3 F L Pulse Rate 67 Respiratory Rate 9 L Blood Pressure 97/54 L 142/67 H Pulse Oximetry 95 Oxygen Delivery Method 05/21/22 04:00 05/21/22 05:00 05/21/22 05:00 Temperature Pulse Rate 73 79 Respiratory Rate 11 L 21 Blood Pressure 131/69 Pulse Oximetry 94 94 Oxygen Delivery Method 05/21/22 06:00 05/21/22 06:00 05/21/22 07:00 Temperature Pulse Rate 79 Respiratory Rate 14 Blood Pressure 163/74 H 120/63 Pulse Oximetry 94 Oxygen Delivery Method 05/21/22 07:00 05/21/22 08:56 05/21/22 08:59 Temperature 97.7 F Pulse Rate 83 86 Respiratory Rate 13 Blood Pressure 117/66 Pulse Oximetry 94 Oxygen Delivery Method 05/21/22 09:42 05/21/22 09:00 05/21/22 09:00 Temperature Pulse Rate 87 Respiratory Rate 30 H Blood Pressure 145/70 H Pulse Oximetry 92 Oxygen Delivery Method Room Air 05/21/22 10:00 Temperature Pulse Rate 76 Respiratory Rate 16 Blood Pressure Pulse Oximetry Oxygen Delivery Method Oxygen Delivery Method Room Air Oxygen Flow Rate 2 Narrative Exam Narrative: 72-year-old female sitting in bedside chair in no apparent distress. Dressing is clean, dry and intact. Motor functions intact bilateral lower extremities. Sensation grossly intact to light touch bilateral lower extremities. Const General: cooperative and comfortable Orientation: alert Resp Effort & Inspection: normal respiratory effort and able to speak in complete sentences Objective Labs 05/19/22 04:20 05/21/22 05:00 Labs: Laboratory Results - last 24 hr 05/16/22 05/20/22 05/20/22 13:25 13:16 17:06 Sodium 123 L 120 L Potassium 4.0 3.9 Chloride 91 L 90 L Carbon Dioxide 30 29 BUN 10 11 Creatinine 0.46 L 0.54 Estimated GFR > 60 > 60 BUN/Creatinine Ratio 21.7 20.4 Glucose 80 84 Calcium 8.4 8.3 L Urine Osmolality 242 05/20/22 05/21/22 05/21/22 20:46 01:03 05:00 Sodium 121 L 123 L 124 L Potassium 3.7 3.6 3.7 Chloride 90 L 93 L 93 L Carbon Dioxide 30 30 29 BUN 10 9 10 Creatinine 0.55 0.53 0.51 L Estimated GFR > 60 > 60 > 60 BUN/Creatinine Ratio 18.2 17.0 19.6 Glucose 89 69 L 75 L Calcium 8.2 L 8.2 L 8.6 Urine Osmolality PFS Medical History Paralysis Vision disorder Surgical History No pertinent past surgical history Family History Mother Diabetes mellitus Hyperthyroidism Father CAD (coronary artery disease) Social History household members: spouse Smoking Status: Current every day smoker Tobacco: How many years used: 40 quit status: considering quitting (I'm trying ) alcohol intake: current substance use type: does not use Assessment & Plan Post-op Postoperative Procedures: Procedures Operation Date: 05/17/22 08:30 Actual Procedure Side Surgeon p Hip Hemiarthroplasty Right Debbie Arauz MD Postoperative day: 4 Postoperative status narrative: Patient progressing slowly status post right hip hemiarthroplasty secondary to multiple medical issues requiring ICU admission Postoperative plan narrative: Weight-bearing as tolerated, posterior hip precautions Follow-up with Earnestine Saunders [facility] Orth[facility] 2 weeks Quality VTE Deep Vein Thrombosis/Pulmonary Embolism Present on Admission: No
--- NOTE | 2022-05-21 14:45 | P.PN_ITS ---
Subjective Subjective Interval history: Patient with controlled pain today, no complaints, sodium improved to 124. If dropping again will need repeat studies. Exam Vital Signs (past 8 hours): - 05/21/22 07:00 05/21/22 07:00 05/21/22 08:56 Temperature 97.7 F Pulse Rate 83 Respiratory Rate 13 Blood Pressure 120/63 Pulse Oximetry 94 Oxygen Delivery Method Oxygen Flow Rate 05/21/22 08:59 05/21/22 09:42 05/21/22 09:00 Temperature Pulse Rate 86 Respiratory Rate Blood Pressure 117/66 145/70 H Pulse Oximetry Oxygen Delivery Method Room Air Oxygen Flow Rate 05/21/22 09:00 05/21/22 10:00 05/21/22 11:00 Temperature Pulse Rate 87 76 76 Respiratory Rate 30 H 16 24 Blood Pressure Pulse Oximetry 92 Oxygen Delivery Method Oxygen Flow Rate 05/21/22 12:00 05/21/22 12:00 Temperature 98.4 F Pulse Rate 76 78 Respiratory Rate 11 L 22 Blood Pressure 111/56 L Pulse Oximetry 96 Oxygen Delivery Method Oxygen Flow Rate 0 Oxygen Delivery Method Room Air Oxygen Flow Rate 0 Narrative Exam Narrative: General:? Patient is well developed and well nourished, in no distress at this time. HEENT:? Normocephalic, atraumatic, extraocular muscles intact, oral pharynx is clear and mucous membranes are moist. Neck: supple and symmetric, trachea is midline, no cervical adenopathy. Negative for JVD Chest:? Normal AP diameter and contour without kyphoscoliosis, no tachypnea, equal chest rise bilaterally. Lungs:? CTA b/l no wheezing rhonchi or rales. Cardio:?RRR no m/r/g. Abdomen: S NT ND. No CVA tenderness. Musculoskeletal:? Muscle strength and tone are equal within normal limits, no deformity. tenderness right hip. Postop dressing right hip. Extremities: No edema or joint effusions. No cyanosis or clubbing.? And trimmed nails of the feet.? Tenderness right hip. Skin:? Pale,? Warm to touch,dry and intact without rashes, ulcerations or petechiae.? Neuro:? Alert and orientated x3,? sensation to touch intact in all extremities, no gross deficits noted of cranial nerves. Psych:? Patient has a well-kept appearance, appropriate affect, mental status attitude thought context and judgment are appropriate for age. Objective Labs 05/19/22 04:20 05/21/22 05:00 Labs: Laboratory Results - last 24 hr 05/16/22 05/20/22 05/20/22 13:25 17:06 20:46 Sodium 120 L 121 L Potassium 3.9 3.7 Chloride 90 L 90 L Carbon Dioxide 29 30 BUN 11 10 Creatinine 0.54 0.55 Estimated GFR > 60 > 60 BUN/Creatinine Ratio 20.4 18.2 Glucose 84 89 Calcium 8.3 L 8.2 L Urine Osmolality 242 05/21/22 05/21/22 01:03 05:00 Sodium 123 L 124 L Potassium 3.6 3.7 Chloride 93 L 93 L Carbon Dioxide 30 29 BUN 9 10 Creatinine 0.53 0.51 L Estimated GFR > 60 > 60 BUN/Creatinine Ratio 17.0 19.6 Glucose 69 L 75 L Calcium 8.2 L 8.6 Urine Osmolality PFSH Medical History Paralysis Vision disorder Surgical History No pertinent past surgical history Family History Mother Diabetes mellitus Hyperthyroidism Father CAD (coronary artery disease) Social History household members: spouse Smoking Status: Current every day smoker Tobacco: How many years used: 40 quit status: considering quitting (I'm trying ) alcohol intake: current substance use type: does not use Assessment & Plan Assessment & Plan narrative: 1. R femoral neck fracture ?- s/p hemiarthroplasty ?- pain control with oral meds adequate -proceed with postop physical therapy 2. Hyponatremia, acute possibly on chronic. Increased post op consistent with SI ADH increased with IV fluids surrounding surgery ?- recent lab work showed Na 124 today. Initiated on sodium chloride tablets, fluid restriction ?- TSH is normal - continue BMP q12 today. 3. Hypertensive urgency on presentation, currently improved controlled at 160/79. ?- some LVH on EKG, no evidence of acute ischemia and otherwise asymptomatic on presentation ?- continue lisinopril and amlodipine. ? 4. Metabolic alkalosis on initial assessment by hospitalist ?- suspect probable underlying COPD with hypercarbia given smoking history on presentation. May also be from mild dehydration but will continue to follow response to fluids. ?- No symptoms at this time 5. Hypokalemia ?- repleted with oral, no EKG changes, will continue to follow. Stable today with potassium 3.8. 6. Tobacco Use ?- nicotine patch not ordered, and if patient is having symptoms consider ordering. Code: full, surrogate decision maker is the patient's spouse DVT: SCDs prior to surgery/post surgery enoxaparen 40 mg subcut daily added SDM is spouse. Time Spent With Patient Critical Care time: I spent a total of [] minutes of critical care time on this patient's care today; this time is exclusive of procedural time. Quality VTE Deep Vein Thrombosis/Pulmonary Embolism Present on Admission: No
--- NOTE | 2022-05-21 15:21 | PT.IPTN ---
Current Diagnoses Hypo-osmolality and hyponatremia (05/16/22) Hypertensive urgency (05/16/22) Fracture of unspecified part of neck of right femur, initial encounter for closed fracture (05/16/22) Fracture of unspecified part of neck of right femur, sequela (05/16/22) Tobacco use (05/16/22) Surgery Performed Operation Date: 05/17/22 08:30 Actual Procedures p Hip Hemiarthroplasty(Right) - Debbie Arauz MD Physical Therapy Treatment Note M2 PT-IP Current Condition Start: 05/18/22 13:03 Freq: NEEDED Status: Active Protocol: Document 05/21/22 08:50 SP (Rec: 05/21/22 11:59 SP [id number]) Physical Therapy Current Condition Current Condition Evaluation Date 05/18/22 Treatment Diagnosis Right total hip replacement following femoral neck fracture Onset Date 04/25/22 M3 PT-IP Subjective Start: 05/18/22 13:03 Freq: NEEDED Status: Active Protocol: Document 05/21/22 14:44 LJ (Rec: 05/21/22 15:21 LJ [id number]) Subjective Physical Therapy Visit Type Type Treatment Note Visit Start Time 14:00 Visit Stop Time 14:30 Total Visit Minutes 30 Notes in room. Initial CGT Number of [employer] Visits 2 Physical Therapy Visit Comments Patient Comments Pt agreeable to working with therapy. Patient Goals WAnted to go home with to assist her. Therapy Pain Assessment Pain When Pain Assessed During Mobility Pain Present Pain Present Pain Reported Location right hip Scale Used none- low R hip Description With Movement Pain Behaviors Facial Grimacing Pain Management Techniques Distraction,Modification of Treatment,Re-positioning, Timing of Activity with Medications M4 PT-IP Mobility and Gait Start: 05/18/22 13:03 Freq: NEEDED Status: Active Protocol: Document 05/21/22 14:44 LJ (Rec: 05/21/22 15:21 LJ [id number]) PT-Bed Mobility Assessment Supine to Sit Supine to Sit Contact Guard Assistance, Minimal Assistance,1 Person Assistance Scooting Scooting to Edge of Bed Contact Guard Assistance Scooting Up and Down in Bed Maximum Assistance PT-Transfer Assessment Sit to and From Stand Sit to and from Stand Contact Guard Assistance, Minimal Assistance,1 Person Assistance,Use of Upper Extremities Equipment Transfer Assistive Device Gait Belt,Front Wheeled Walker Orthotic/Prosthetic Devices or Brace: No Transfers Transfer Destination Bed,Bedside Commode Transfer Technique ambulated Transfer Ability Level of Assist Contact Guard Assistance, Minimal Assistance,1 Person Assistance,Use of Upper Extremities Comments Mobility Comments Pt unable to recall precautions despite cueing. Min-CGA sit>stand from chair. Took 3 steps to bed using FWW with CGA. Therapist managing lines. Pt sat on bed SBA then scooted back on bed. Pt wanting to lay down. Therapist instructed pt to stand and scoot to foot of bed to simulate setup at home where she could sit in a WC. Pt sidestepped to foot of bed then sat. Pt sidestepped again toward HOB and sat. Pt sat on EOB several minutes discussing need to be able to ambulate far enough at home to be able to make it to a BSC. Pt then instructed to stand and sidestep to foot of bed again and transfer to BSC to simulate home situation. assisting CGA-Johnnie. Pt sat on BSC several minutes then instructed to stand again and sidestep to HOB. Pt again assisted by and therapist managing lines. Pt had BM while sidestepping back to HOB. Pt stopped assisting at this time. Pt sat on bed Johnnie and nsg entered room. MaxA x2 to get pt back into bed. She was unable to lift LEs. Pt was scooted to HOB MaxA x2. Nsg in room cleaning up pt and BM on floor and BSC. Gait Assessment Gait Gait Assistance Required: Contact Guard Assist,Minimum Assistance Distance (Feet) 8 Assistive Devices Assistive Device Gait Belt,Front Wheeled Walker Orthotic/Prosthetic Devices or Brace: No Gait Deviations General Gait Pattern Antalgic,Decreased Stride Length,Decreased Feet Clearance,Flexed Trunk,Narrow Based Gait,Step-to Gait Factors Limiting Gait Function Factors Limiting Gait Function Decreased Activity Tolerance, Decreased Strength,Difficulty Following Directions,Limited Range of Motion,Pain,Poor Balance,Poor Safety Awareness Comments Gait Comments Uses FWW with flexed trunk. Demonstrates impulsivity with sit>stand>gait without pausing to get balance pre gait Stair Climbing Assessment Comments Stair Climbing Comments no stair to assess PT-Balance Assessment Sitting Balance and Reactions Static Sitting Balance Ability Good Dynamic Sitting Balance Ability Fair Standing Balance and Reactions Static Standing Balance Ability Fair Dynamic Standing Balance Ability Poor Device Used FWW M5 PT-IP Objective Assessments Start: 05/18/22 13:03 Freq: NEEDED Status: Active Protocol: Document 05/18/22 13:03 AMH (Rec: 05/18/22 13:19 AMH [id number]) Orientation Orientation/Cognition Level of Alertness Alert Gross Range of Motion Upper Extremity ROM Assessment Within Functional Limits Lower Extremity ROM Assessment Right Impaired Strength Upper Extremity Strength Assessment Within Functional Limits Lower Extremity Strength Assessment Left Impaired M6 PT-IP Treatment Start: 05/18/22 13:03 Freq: NEEDED Status: Active Protocol: Document 05/21/22 14:44 LJ (Rec: 05/21/22 15:21 LJ [id number]) Physical Therapy Treatment Education Education Provided Precautions,Weight Bearing Status,Post-Op Packet,Safety Other Treatments Other Treatment Performed Emphasized precautions but pt and unaware when she is not adhering to them M7 PT-IP Assessment and Plan Start: 05/18/22 13:03 Freq: NEEDED Status: Active Protocol: Document 05/21/22 14:44 LJ (Rec: 05/21/22 15:21 LJ [id number]) PT Summary Assessment and Plan Potential Rehabilitation Potential Good Status of Condition at Evaluation Evolving Summary Impairments Pain,ROM,Strength,Balance,Bed Mobility,Transfers,Gait, Activity Tolerance Progress Towards Goals Progressing Toward Goals,Slow Progress due to Pain,Slow Progress due to Activity Tolerance Assessment Summary Pt and unable to recall precautions. Low tolerance for mobility. Discussed importance of pt being able to mobilize at home more than she is doing at the hospital. stating he in has many responsibilities and appears he is not home much of the day. She will need SNF at this time to improve functional mobility, strength, and gait. Will conduct CGT tomorrow at 1330. Goals Bed Mobility Goal Contact Guard Assistance Transfer Goal Contact Guard Assistance Gait Goal Contact Guard Assistance Gait Distance 50 Frequency of Treatment Frequency Of Treatment Twice a Day Treatment Plan Physical Therapy Treatment Plan Bed Mobility Training,Transfer Training,Gait Training, Therapeutic Exercise,Post Op Education Other Recommendations and Next Treatment CGT with at 1330 Focus tomorrow, check precautions, bed mob, tranfers, gait further distance w/ FWW chair follow if able/tolerate. Precautions Posterior Hip Precautions No Hip Flexion > 90 degrees,No Hip Internal Rotation,No Hip Adduction Other Precautions Pt does not recall THPs Weight Bearing Status Weight Bearing Status Weight Bear as Tolerated Recommendations To Nursing Amount of Assist Needed 1 Person Assist Discharge Recommendations PT Discharge Recommendations SNF Rehab Other Discharge Recommendations pt unsafe to return home with PLOF and memory Equipment Needed for Home Before attempted to fit Discharge shower chair in bath tub but unable due to small bath tub. Transportation Needs at Discharge Private Vehicle,Wheelchair/ Cabulance
[2022-05-21] MEDS: TRAZODONE 50 MG TABLET 25 MG PO (20:26)
[2022-05-22] VITALS: BP 149/74; PULSE 78; RESP 20; TEMP 36.4; O2SAT 95
[2022-05-22 04:00] VITALS: BP 168/83; PULSE 86; RESP 18; TEMP 36.7; O2SAT 98
[2022-05-22 05:22] LABS: BUN Creatinine Ratio 21.6 (6-22); Blood Urea Nitrogen 11 mg/dL (7-17); Calcium 8.8 mg/dL (8.4-10.2); Carbon Dioxide 30 mmol/L (22-32); Chloride 97 mmol/L (98-107); Estimated Glomerular Filt Rate > 60 mL/min (>60); Glucose 64 mg/dL (80-110); HEMOLYSIS < 15 (0-50); Potassium 3.5 mmol/L (3.4-5.1); Sodium 130 mmol/L (137-145)
[2022-05-22] MEDS: ACETAMINOPHEN 325 MG TABLET 650 MG PO (06:03)
--- NOTE | 2022-05-22 07:14 | PM.PNPO.1 ---
Subjective Subjective Date Patient Seen: 05/22/22 Time Patient Seen: 07:14 Interval history: Lying in bed, comfortable. Would like to go home with son and rather than SNF. Exam Vital Signs (past 8 hours): - 05/22/22 00:00 05/22/22 04:00 Temperature 97.5 F L 98.0 F Pulse Rate 78 86 Respiratory Rate 20 18 Blood Pressure 149/74 H 168/83 H Pulse Oximetry 95 98 Oxygen Delivery Method Room Air Oxygen Flow Rate 0 Narrative Exam Narrative: 5/5 strength in hip flexors, quadriceps, hamstrings, DF, PF, EHL on right. Calf soft, compressible, nontender and without palpable cords or masses. Aquacel dressing CDI. Objective Labs 05/19/22 04:20 05/22/22 04:20 Labs: Laboratory Results - last 24 hr 05/22/22 04:20 Sodium 130 L Potassium 3.5 Chloride 97 L Carbon Dioxide 30 BUN 11 Creatinine 0.51 L Estimated GFR > 60 BUN/Creatinine Ratio 21.6 Glucose 64 L Calcium 8.8 PFSH Medical History Paralysis Vision disorder Surgical History No pertinent past surgical history Family History Mother Diabetes mellitus Hyperthyroidism Father CAD (coronary artery disease) Social History household members: spouse Smoking Status: Current every day smoker Tobacco: How many years used: 40 quit status: considering quitting (I'm trying ) alcohol intake: current substance use type: does not use Assessment & Plan Post-op Assessment and plan (1) Status post hip hemiarthroplasty: Assessment and Plan narrative: Follow up w/ orthopedic surgery 10-14 days postop. Leave Aquacel dressing in place until f/u in office. WBAT to right leg, posterior hip precautions. Currently receiving both ASA 81 mg BID and enoxaparin; discharge VTE prophylaxis per hospitalist service. Postoperative Procedures: Procedures Operation Date: 05/17/22 08:30 Actual Procedure Side Surgeon p Hip Hemiarthroplasty Right Debbie Arauz MD Postoperative day: 5 Quality VTE Deep Vein Thrombosis/Pulmonary Embolism Present on Admission: No
--- NOTE | 2022-05-22 07:58 | PT.IPTN ---
Current Diagnoses Hypo-osmolality and hyponatremia (05/16/22) Hypertensive urgency (05/16/22) Fracture of unspecified part of neck of right femur, initial encounter for closed fracture (05/16/22) Fracture of unspecified part of neck of right femur, sequela (05/16/22) Tobacco use (05/16/22) Presence of unspecified artificial hip joint (05/16/22) Surgery Performed Operation Date: 05/17/22 08:30 Actual Procedures p Hip Hemiarthroplasty(Right) - Debbie Arauz MD Physical Therapy Treatment Note M2 PT-IP Current Condition Start: 05/18/22 13:03 Freq: NEEDED Status: Active Protocol: Document 05/22/22 07:38 SP (Rec: 05/22/22 08:17 SP [id number]) Physical Therapy Current Condition Current Condition Evaluation Date 05/18/22 Treatment Diagnosis Right total hip replacement following femoral neck fracture Onset Date 04/25/22 M3 PT-IP Subjective Start: 05/18/22 13:03 Freq: NEEDED Status: Active Protocol: Document 05/22/22 07:38 SP (Rec: 05/22/22 08:17 SP [id number]) Subjective Physical Therapy Visit Type Type Treatment Note Visit Start Time 07:38 Visit Stop Time 07:58 Total Visit Minutes 20 Notes HYpertensive initially: Supine 175/81 HR 83 95% onRA postmobility: 158/78 w/ + SOB. Number of AMMONIUM NITRATE CRYSTALLIZER Visits 3 Physical Therapy Visit Comments Patient Comments Pt agreeable to working with therapy Patient Goals WAnted to go home with to assist her but with decreased endurance today agreeable to SNF get stronger. Therapy Pain Assessment Pain When Pain Assessed During Mobility Pain Present Pain Present Denied Pain M4 PT-IP Mobility and Gait Start: 05/18/22 13:03 Freq: NEEDED Status: Active Protocol: Document 05/22/22 07:38 SP (Rec: 05/22/22 08:17 SP [id number]) PT-Bed Mobility Assessment Supine to Sit Supine to Sit Contact Guard Assistance, Minimal Assistance,1 Person Assistance Scooting Scooting to Edge of Bed Contact Guard Assistance, Moderate Assistance PT-Transfer Assessment Sit to and From Stand Sit to and from Stand Contact Guard Assistance, Minimal Assistance,1 Person Assistance,Use of Upper Extremities Equipment Transfer Assistive Device Gait Belt,Front Wheeled Walker Orthotic/Prosthetic Devices or Brace: No Transfers Transfer Destination Chair Transfer Technique ambulated Transfer Ability Level of Assist Contact Guard Assistance, Minimal Assistance,1 Person Assistance,Use of Upper Extremities Comments Mobility Comments Pt couldn't recall precautions , cues maintain throughout mobility. Instructed post op ex wtih verbal and visual with HOs and demo to complete properly. Sup>sit HOB flat CG/ Min A trunk righting, scoot EOB CG>Mod via transfer pad, tired out partial way required added support. Needed seated rest EOB, STS CG/ MIn A cues proper hand placement throughout, SPT bed>Chair cue back up fully with FWW Min A slow sit. Required seated rest breath/ tiring recovery. 3 x STS before tired and needed rest, cues for full stand /sit and use BUEs on chair arms. Gait to sink and back w/ FWW CG/Min A noted little trunk sways but no LOB. Pt returned to chair + SOB and stated I am really tired and can't do anymore. Pt had call light and all needs in reach with chair alarm donned before left . AMMONIUM NITRATE CRYSTALLIZER discussed with pt, reviewed last tx notes and discussion AMMONIUM NITRATE CRYSTALLIZER Merle martino am and had challenge with his own stabililty/stand tolerance while trying to assist her and why AMMONIUM NITRATE CRYSTALLIZER had to provided needed assist during tx, pt reported didnt realize he wasn't able to help her as thought, pt stated welcoming to go to SNF to get stronger before going home. AMMONIUM NITRATE CRYSTALLIZER continues to will require SNF for further strengthening and increase independance in mobililty. Gait Assessment Gait Gait Assistance Required: Contact Guard Assist,Minimum Assistance Distance (Feet) 10 Assistive Devices Assistive Device Gait Belt,Front Wheeled Walker Orthotic/Prosthetic Devices or Brace: No Gait Deviations General Gait Pattern Antalgic,Decreased Stride Length,Decreased Feet Clearance,Flexed Trunk,Narrow Based Gait,Step-to Gait Factors Limiting Gait Function Factors Limiting Gait Function Decreased Activity Tolerance, Decreased Strength,Difficulty Following Directions,Limited Range of Motion,Pain,Poor Balance,Poor Safety Awareness, Respiratory Distress Comments Gait Comments Pt Stair Climbing Assessment Comments Stair Climbing Comments no stair to assess PT-Balance Assessment Sitting Balance and Reactions Static Sitting Balance Ability Good Dynamic Sitting Balance Ability Fair Standing Balance and Reactions Static Standing Balance Ability Good Dynamic Standing Balance Ability Fair Device Used FWW M5 PT-IP Objective Assessments Start: 05/18/22 13:03 Freq: NEEDED Status: Active Protocol: Document 03/04/23 13:03 AMH (Rec: 05/18/22 13:19 AMH [id number]) Orientation Orientation/Cognition Level of Alertness Alert Gross Range of Motion Upper Extremity ROM Assessment Within Functional Limits Lower Extremity ROM Assessment Right Impaired Strength Upper Extremity Strength Assessment Within Functional Limits Lower Extremity Strength Assessment Left Impaired M6 PT-IP Treatment Start: 05/18/22 13:03 Freq: NEEDED Status: Active Protocol: Document 05/22/22 07:38 SP (Rec: 05/22/22 08:17 SP [id number]) Physical Therapy Treatment Exercises Exercises Ankle Pumps,Gluteal Sets,Quad Sets,Heel Slides,Supine Hip Abduction Knee ROM Measurement AROM L knee flexion approx 90 deg. Education Education Provided Precautions,Weight Bearing Status,Post-Op Packet,Safety Other Treatments Other Treatment Performed Emphasized precautions but pt unaware when she is not adhering to them M7 PT-IP Assessment and Plan Start: 05/18/22 13:03 Freq: NEEDED Status: Active Protocol: Document 05/22/22 07:38 SP (Rec: 05/22/22 08:17 SP [id number]) PT Summary Assessment and Plan Potential Rehabilitation Potential Good Status of Condition at Evaluation Evolving Summary Impairments Pain,ROM,Strength,Balance,Bed Mobility,Transfers,Gait, Activity Tolerance Progress Towards Goals Progressing Toward Goals,Slow Progress due to Pain,Slow Progress due to Activity Tolerance Assessment Summary Pt require CG- Mod A for bedmob, CG/ MIn A for STS and SPT bed>chair and short distance gait w/ FWW, low endurance standing mobiltiy and requires frequent rest. Poor recall to HEP, precautions and cues to maintain. She will need SNF to progress strength and functional mobility. Goals Bed Mobility Goal Contact Guard Assistance Transfer Goal Contact Guard Assistance Gait Goal Contact Guard Assistance Gait Distance 50 Frequency of Treatment Frequency Of Treatment Twice a Day Treatment Plan Physical Therapy Treatment Plan Bed Mobility Training,Transfer Training,Gait Training, Therapeutic Exercise,Post Op Education Other Recommendations and Next Treatment CGT with at 1330 Focus tomorrow05/22, check precautions , bed mob, tranfers, gait further distance w/ FWW chair follow if able/tolerate. Precautions Posterior Hip Precautions No Hip Flexion > 90 degrees,No Hip Internal Rotation,No Hip Adduction Other Precautions Pt does not recall THPs Weight Bearing Status Weight Bearing Status Weight Bear as Tolerated Recommendations To Nursing Amount of Assist Needed 1 Person Assist Discharge Recommendations PT Discharge Recommendations SNF Rehab Other Discharge Recommendations pt unsafe to return home with PLOF and memory Transportation Needs at Discharge Private Vehicle,Wheelchair/ Cabulance
[2022-05-22 08:00] VITALS: BP 114/58; PULSE 78; RESP 21; TEMP 36.4; O2SAT 95
[2022-05-22 08:32] VITALS: BP 140/58; PULSE 78
[2022-05-22] MEDS: SODIUM CHLORIDE 1,000 MG TABLET 1000 MG PO (08:32)
[2022-05-22] MEDS: AMLODIPINE 5 MG TABLET PO (08:32)
[2022-05-22] MEDS: lisinopriL 10 MG TABLET PO (08:32)
[2022-05-22] MEDS: ASPIRIN EC 81 MG TABLET PO (08:32)
[2022-05-22] MEDS: ENOXAPARIN 40 MG/0.4 ML SYRINGE SUBCUT (08:33)
[2022-05-22] MEDS: POTASSIUM CHLORIDE 20 MEQ TAB 40 MEQ PO (09:40)
--- NOTE | 2022-05-22 10:24 | PM.DS.1 ---
History of Present Illness History of Present Illness Date Patient Seen: 05/22/22 Time Patient Seen: 10:24 Chief complaint: rt hip pain Narrative: This is a 72 year old female with no known PMH who was referred to the ER today by her PCP. Patient had fallen on 04/25/22, went to see PCP due to continued R hip pain on 05/13. Imaging was ordered but at the time there was minimal concern for fracture. XR did reveal a displaced R femoral neck fracture so she was referred here. Her BP at that visit was 180/106. She denies chest pain, palpitations, shortness of breath. She states she cannot walk more than a few blocks but this is primarily due to leg discomfort. When asked to further clarify this, she was unable to specify whether the pain is in her legs, hips, calves, or feet and simply stated it's been so long I can't remember. In the emergency room, the patient was hypertensive, but the remainder of her vital signs were unremarkable. Laboratory evaluation was notable for a mild leukocytosis with WBC 16.7, elevated platelet count at 667, sodium of 125, potassium 3.0, carbon dioxide of 37 assess was unremarkable, urine sodium was 58, COVID, flu, and RSV were negative. Patient was admitted for further management with Orthopedic consultation for her right femoral neck fracture. Discharge Providers Provider Date of admission: 05/16/22 11:30 Discharge Date: 05/22/22 Primary care physician: Doctor Gio MD Consults: 05/16/22 11:52 Consult to Orthopedic Surgery Routine Comment: Consulting Provider: Fracisco Foy Reason for consultation: femoral neck fracture Has provider been notified: Yes 05/17/22 12:01 Consult to Discharge Planning Routine Comment: Consult to Physical Therapy Evaluate & Treat Comment: Physician Instructions: post op GLORIA protocol 05/18/22 20:52 Consult to Physician Routine Comment: Consulting Provider: Justin Sarabia Reason for consultation: Central line placement for severe hyponatremia Has provider been notified: Yes 05/18/22 20:53 Consult to Tele-predictive maintenance specialist Routine Comment: Consulting Provider: Mary Tele-intensivists Reason for consultation: [employer]r [employer]per services Discharge provider: Hans Polanco DO Summary Hospital Course Discharge Diagnosis: 1. R femoral neck fracture 2. Hyponatremia, acute possibly on chronic. Increased post op consistent with SIADH increased with IV fluids surrounding surgery. 3. Hypertensive urgency on presentation, currently improved controlled at 160/79. 4. Metabolic alkalosis 5. Hypokalemia 6. Tobacco Use Hospital Course: This is a 72 year old female with no known PMH who presented to the emergency room with a R femoral nek fracture. Initial labs were notable for a mild hyponatremia, likely SIADH based on urine sodium and osmloality. She received fluids as a part of usual care during her R hemiarthroplasty with orthopedic surgery. After surgery patient developed worsening hyponatremia requiring transfer to the ICU for hypertonic saline. She had improvement in her sodium to 124 with hypertonic boluses. Fluid restriction and salt tablets were started, and patient continued to improve, to 130 on the day of discharge. She was also found to have hypertension, and was started on amlodipine and lisinopril with improvement. I recommend patient follow up with her primary care providers as an outpatient for further evaluation of a possible underlying etiology for her SIADH. I would also recommend outpatient pulmonary function testing given metabolic alkalosis present on admission. She was advised to restrict free water intake at home to at most 1 to 1.5L per day. Patient refused SNF placement after PT / OT evaluations reccommended such, so patient was discharged home with home health. Time Spent with Patient Time spent: Greater than 30 minutes Exam Vital Signs (past 8 hours): - 05/22/22 04:00 05/22/22 07:00 05/22/22 08:00 Temperature 98.0 F 97.5 F L Pulse Rate 86 78 Respiratory Rate 18 21 Blood Pressure 168/83 H 114/58 L Pulse Oximetry 98 95 Oxygen Delivery Method Room Air Oxygen Flow Rate 0 05/22/22 08:32 Temperature Pulse Rate 78 Respiratory Rate Blood Pressure 140/58 L Pulse Oximetry Oxygen Delivery Method Oxygen Flow Rate Oxygen Delivery Method Room Air Oxygen Flow Rate 0 Narrative Exam Narrative: General:? Patient is well developed and well nourished, in no distress at this time. HEENT:? Normocephalic, atraumatic, extraocular muscles intact, oral pharynx is clear and mucous membranes are moist. Neck: supple and symmetric, trachea is midline, no cervical adenopathy. Negative for JVD Chest:? Normal AP diameter and contour without kyphoscoliosis, no tachypnea, equal chest rise bilaterally. Lungs:? CTA b/l no wheezing rhonchi or rales. Cardio:?RRR no m/r/g. Abdomen: S NT ND. No CVA tenderness. Musculoskeletal:? Muscle strength and tone are equal within normal limits, no deformity. tenderness right hip. Postop dressing right hip. Extremities: No edema or joint effusions. No cyanosis or clubbing.? And trimmed nails of the feet.? Tenderness right hip. Skin:? Pale,? Warm to touch,dry and intact without rashes, ulcerations or petechiae.? Neuro:? Alert and orientated x3,? sensation to touch intact in all extremities, no gross deficits noted of cranial nerves. Psych:? Patient has a well-kept appearance, appropriate affect, mental status attitude thought context and judgment are appropriate for age. Objective Labs 05/19/22 04:20 05/22/22 04:20 Labs: Laboratory Results - last 24 hr 05/22/22 04:20 Sodium 130 L Potassium 3.5 Chloride 97 L Carbon Dioxide 30 BUN 11 Creatinine 0.51 L Estimated GFR > 60 BUN/Creatinine Ratio 21.6 Glucose 64 L Calcium 8.8 PFSH Medical History Paralysis Vision disorder Surgical History No pertinent past surgical history Family History Mother Diabetes mellitus Hyperthyroidism Father CAD (coronary artery disease) Social History household members: spouse Smoking Status: Current every day smoker Tobacco: How many years used: 40 quit status: considering quitting (I'm trying ) alcohol intake: current substance use type: does not use Discharge Plan Discharge Plan Patient Disposition: Home Health Service Provider Discharge Comment: You were admitted to the hospital with a hip fracture that was repaired by orthopedic surgery. Please follow up with them in the clinic per their instructions. I do recommend you check in with your primary care provider for your low sodium levels to further evaluate for possible underlying conditions that can pre-dispose you to low sodium. Continue to limit water intake to only 1-1.5 L per day. Discharge orders & Medications Prescriptions: New acetaminophen 325 mg Tablet 650 mg PO Q6HR Qty: 120 0RF oxycodone 5 mg Tablet 5 mg PO Q4-6H PRN (Reason: Pain, Moderate (4-6)) Qty: 40 0RF ondansetron 4 mg Tablet,Disintegrating 4 mg PO Q4HR PRN (Reason: Nausea) Qty: 10 0RF amlodipine [Norvasc] 5 mg Tablet 5 mg PO DAILY 30 Days Qty: 30 0RF aspirin 81 mg Tablet,Delayed Release (Dr/Ec) 81 mg PO BID 40 Days Qty: 80 0RF lisinopril 10 mg Tablet 10 mg PO DAILY 30 Days Qty: 30 0RF sodium chloride 1,000 mg Tablet,Soluble 1,000 mg PO TID 30 Days Qty: 90 0RF Continued ibuprofen 200 mg tablet 400 mg PO DAILY lidocaine 5 % adhesive patch,medicated 1 patch topical DAILY Qty: 30 0RF Rx Instructions: leave on most painful area for up to 12 hrs Follow up/Referrals: Doctor Powers MD [Primary Care Provider] - Debbie Arauz MD [Physician] - 05/29/22 1:20 pm (Appt:05/29 @ 1:20 check in @ 1:00 w/ AJay thibodeaux @ [facility] ) Diet/Activity/Treatments Diet: Diet as Tolerated Activity: Up and walking, weight-bearing as tolerated. Posterior hip precautions. Cold/Heat Therapy: Ice to hip as needed Skin/Wound/Dressing Care Report to your healthcare provider any signs of infection, such as:: chills, fever, night sweats, increased pain, unusual drainage and unusual redness Dressing: May shower with Aquacel dressing on. Keep dressing clean, dry, and intact until 2 week follow-up orthopedics. If dressing becomes wet please call our office for dressing change. Visit Report/Discharge Packet Instructions: DI for Hip Replacement Stand Alone Forms: Patient Portal/API, Stroke Signs & Symptoms, Surgery Discharge Discharge Data Primary Care Provider: Doctor Gio Quality VTE Deep Vein Thrombosis/Pulmonary Embolism Present on Admission: No
--- NOTE | 2022-05-22 11:40 | CM.DPC ---
DCP Discharge Home with HH Per MD, pt medically stable to d/c today. Per Ortho PA, pt medically stable to discharge today and pt confirms her preference is home with spouse and son and HH. Per BARREL ROLLER, pt able to transfer and ambulate with walker and yesterday spouse was bedside for some CG training but some noted concerns for pt and spouse to recall precautions from her hip surgery. BARREL ROLLER feels pt would benefit from SNF for safety for precautions and pt expressing possible willingness for SNF stay. Pt has [facility] for insurance and would need auth for SNF and would need [employer] contracted SNF. SW made initial referral to [facility], and [facility] as they are contracted with pt's insurance for review. SW met bedside with pt and explained role and discussed discharge options and SNF and pt confirms that she does not want to d/c to SNF and preference is home with spouse and son assist and HH. Pt shown HH Choice list via paper and ipad and pt has no HH preference and spouse will be bedside later today for further CG training with PT. DULCE MARIA made [facility] referral based on Vendor Calendar and called [facility] with new referral and [facility] and orders completed and scanned. Plan: Patient to d/c home via spouse POV this afternoon with new [facility] referral made. WEI Vega
[2022-05-22 12:00] VITALS: BP 98/63; PULSE 80; RESP 20; TEMP 36.3; O2SAT 95
--- NOTE | 2022-05-22 13:30 | PT.IPTN ---
Current Diagnoses Hypo-osmolality and hyponatremia (05/16/22) Hypertensive urgency (05/16/22) Fracture of unspecified part of neck of right femur, initial encounter for closed fracture (05/16/22) Fracture of unspecified part of neck of right femur, sequela (05/16/22) Tobacco use (05/16/22) Presence of unspecified artificial hip joint (05/16/22) Surgery Performed Operation Date: 05/17/22 08:30 Actual Procedures p Hip Hemiarthroplasty(Right) - Debbie Arauz MD Physical Therapy Treatment Note M2 PT-IP Current Condition Start: 05/18/22 13:03 Freq: NEEDED Status: Active Protocol: Document 05/22/22 13:17 SP (Rec: 05/22/22 13:51 SP [id number]) Physical Therapy Current Condition Current Condition Evaluation Date 05/18/22 Treatment Diagnosis Right total hip replacement following femoral neck fracture Onset Date 04/25/22 M3 PT-IP Subjective Start: 05/18/22 13:03 Freq: NEEDED Status: Active Protocol: Document 05/22/22 13:17 SP (Rec: 05/22/22 13:51 SP [id number]) Subjective Physical Therapy Visit Type Type Treatment Note Visit Start Time 13:17 Visit Stop Time 13:30 Total Visit Minutes 13 Notes CGT with Pt and completed. Number of DIRECTOR OF ONLINE MERCHANDISING Visits 4 Physical Therapy Visit Comments Patient Comments Pt agreeable to working with therapy Patient Goals WAnted to go home with and son to assist her Therapy Pain Assessment Pain When Pain Assessed During Mobility Pain Present Pain Present Denied Pain M4 PT-IP Mobility and Gait Start: 05/18/22 13:03 Freq: NEEDED Status: Active Protocol: Document 05/22/22 13:17 SP (Rec: 05/22/22 13:51 SP [id number]) PT-Transfer Assessment Sit to and From Stand Sit to and from Stand Contact Guard Assistance, Minimal Assistance,1 Person Assistance,Use of Upper Extremities Equipment Transfer Assistive Device Gait Belt,Front Wheeled Walker Orthotic/Prosthetic Devices or Brace: No Transfers Transfer Destination Chair,Wheelchair Transfer Technique ambulated w/ FWW Transfer Ability Level of Assist Contact Guard Assistance, Minimal Assistance,1 Person Assistance,Use of Upper Extremities Comments Mobility Comments Pt not recall precautions, recalls 2/3, missed no hip flexion>90 deg, DIRECTOR OF ONLINE MERCHANDISING referred to HOs for recall. Pt impulsive STS, Mod cues and ed importance use gait belt unstead of grabbing pt arm to assist mobility. Assist don gait belt pt trunk . DIRECTOR OF ONLINE MERCHANDISING and redirected pt safety hand placement not pull from FWW but push from chair and reach back sit, need at times hand over hand cues. STS CGA SPT approx 4 ft w/FWW chair>w/c cues for pivot full w/ FWW until feel chair behind knees then reach, pt stated wasnt sure when to sit oh need feel chair. DIRECTOR OF ONLINE MERCHANDISING cued give support at gait belt due to forgets and stands back watching her. Pt rested in w/c then, STS/ SPT use FWW back to chair with all same safety cues to pt and . stated has busy schedule and will out of the house but son in w/c can help pt if needed, pt agreed thinks son is capable. DIRECTOR OF ONLINE MERCHANDISING continued recommendation SNF vs 07/10 HHPT but pt/ adament going home and she can stay in w/c while out . states has BSC and shower bench to large in bathroom Pt will just wash up until steadier on feet to stand shower. Gait Assessment Gait Gait Assistance Required: Contact Guard Assist,Minimum Assistance Distance (Feet) 10 Assistive Devices Assistive Device Gait Belt,Front Wheeled Walker Orthotic/Prosthetic Devices or Brace: No Gait Deviations General Gait Pattern Antalgic,Decreased Stride Length,Decreased Feet Clearance,Flexed Trunk,Narrow Based Gait,Step-to Gait Factors Limiting Gait Function Factors Limiting Gait Function Decreased Activity Tolerance, Decreased Strength,Difficulty Following Directions,Limited Range of Motion,Pain,Poor Balance,Poor Safety Awareness, Respiratory Distress Comments Gait Comments see mobility comments: step over step patterning w/ FWW, little trunk sways, no LOB cued contact/ min support needed via gait belt. Stair Climbing Assessment Comments Stair Climbing Comments no stair to assess PT-Balance Assessment Sitting Balance and Reactions Static Sitting Balance Ability Good Dynamic Sitting Balance Ability Fair Standing Balance and Reactions Static Standing Balance Ability Good Dynamic Standing Balance Ability Fair Device Used FWW M5 PT-IP Objective Assessments Start: 05/18/22 13:03 Freq: NEEDED Status: Active Protocol: Document 05/18/22 13:03 [facility] (Rec: 05/18/22 13:19 [facility] [id number]) Orientation Orientation/Cognition Level of Alertness Alert Gross Range of Motion Upper Extremity ROM Assessment Within Functional Limits Lower Extremity ROM Assessment Right Impaired Strength Upper Extremity Strength Assessment Within Functional Limits Lower Extremity Strength Assessment Left Impaired M6 PT-IP Treatment Start: 05/18/22 13:03 Freq: NEEDED Status: Active Protocol: Document 05/22/22 13:17 SP (Rec: 05/22/22 13:51 SP [id number]) Physical Therapy Treatment Education Education Provided Precautions,Weight Bearing Status,Post-Op Packet,Safety Other Treatments Other Treatment Performed Emphasized precautions but pt unaware when she is not adhering to them. recalled 2/3 precautions, see mobility comments. M7 PT-IP Assessment and Plan Start: 05/18/22 13:03 Freq: NEEDED Status: Active Protocol: Document 05/22/22 13:17 SP (Rec: 05/22/22 13:51 SP [id number]) PT Summary Assessment and Plan Potential Rehabilitation Potential Good Status of Condition at Evaluation Evolving Summary Impairments Pain,ROM,Strength,Balance,Bed Mobility,Transfers,Gait, Activity Tolerance Progress Towards Goals Progressing Toward Goals,Slow Progress due to Activity Tolerance Assessment Summary Pt refused bed mob with trng. Pt requires max cues for safety mobility with FWW, requires cues for safety support via gait belt and cuing pt maintaining precautions. Pt requries Cg/ Min A w/FWW. Pt/ refuse SNF recommendation, prefer HHPT w/07/10. Goals Bed Mobility Goal Contact Guard Assistance Transfer Goal Contact Guard Assistance Gait Goal Contact Guard Assistance Gait Distance 50 Frequency of Treatment Frequency Of Treatment Twice a Day Treatment Plan Physical Therapy Treatment Plan Bed Mobility Training,Transfer Training,Gait Training, Therapeutic Exercise,Post Op Education Other Recommendations and Next Treatment bed mob, tranfers, gait Focus further distance w/ FWW chair follow if able/tolerate. Precautions Posterior Hip Precautions No Hip Flexion > 90 degrees,No Hip Internal Rotation,No Hip Adduction Other Precautions Pt does not recall THPs, see mobility comments Weight Bearing Status Weight Bearing Status Weight Bear as Tolerated Recommendations To Nursing Amount of Assist Needed Standby Assistance Discharge Recommendations PT Discharge Recommendations Home with 07/10 Assist Available,Home Health,SNF Rehab Other Discharge Recommendations Pt unsafemobility, cues to pt and due to memory. Transportation Needs at Discharge Private Vehicle,Wheelchair/ Cabulance
--- NOTE | 2022-05-22 13:48 | PC.NURSE ---
patient dc teaching done by nurse at bedside with spouse present. All questions and concerns were addressed. Patient aware of new medications sent to pharm. Patient leaves in stable condition alert and orientated, VSS. IV removed w/ no difficulty. Escorted via wheelchair to private vehicle, accompanied by spouse.
== END 2022-05-22 13:45 | disposition home health service (06) | DRG 522 ==
LOC: ED 10:15 → AC 11:49 → ICU 05-18 21:56
PROVIDERS: Emergency Medicine; Internal Medicine Critical Care Medicine; Internal Medicine Pulmonary Disease; Neuromusculoskeletal Medicine, Sports Medicine; Nurse Practitioner Family; Orthopaedic Surgery; Admitting Provider Internal Medicine; Emergency Provider Emergency Medicine; Referring Provider Emergency Medicine; Visit Provider Internal Medicine
PROC: 0SRR0JZ Replacement of Right Hip Joint, Femoral Surface with Synthetic Substitute, Open Approach (ICD-10-PCS; CPT 27125; principal; 2022-05-17 08:30)
DX: S72.001A Fracture of unspecified part of neck of right femur, initial encounter for closed fracture (principal); E87.3 Alkalosis; E22.2 Syndrome of inappropriate secretion of antidiuretic hormone; I16.0 Hypertensive urgency; F17.210 Nicotine dependence, cigarettes, uncomplicated; E87.6 Hypokalemia; W18.30XA Fall on same level, unspecified, initial encounter; Z20.822 Contact with and (suspected) exposure to COVID-19
CPT/HCPCS: 0241U; 36415; 71045; 73502; 73552; 80048; 80051; 80053; 81001; 82533; 82550; 83036; 83735; 83935; 84295; 84300; 84443; 85025; 93005; 97110; 97116; 97161; 97530; 99284; 99291; C1776; C9290; J0171; J0690; J1100; J1650; J2405; J2704; J3010; J3475

== ENCOUNTER 2022-06-12 13:31 | Observation (INO) | payer OTHER, SELFPAY ==
[2022-05-16 14:56] VITALS: BMI 26.4
[2022-06-12] VITALS (48 sets, daily range): BP systolic 77–218; BP diastolic 43–110; PULSE 75–91; RESP 9–44; TEMP 36.3; O2SAT 88–100; BMI 20.2
--- NOTE | 2022-06-12 | DI.RAD.S_ITS ---
PROCEDURE: XR HIP RT 1V INDICATIONS: POST REDUCTION TECHNIQUE: 1 views of the hip were acquired. COMPARISON: [facility], CR, XR HIP W PEL IF DONE RT 2V, 06/12/2022, 14:17. FINDINGS: Bones: Single view demonstrates AP anatomic alignment of previous right hip arthroplasty dislocation. Hardware appears intact. No visualized fracture. No suspicious bony lesions. The visualized pelvic ring appears intact. Soft tissues: No suspicious soft tissue calcifications or masses. IMPRESSION: Apparent reduction with good anatomic alignment evaluated on only AP view. Dictated by: Lalitha Serna M.D. on 06/12/2022 at 18:44 Approved by: Lalitha Serna M.D. on 06/12/2022 at 18:44
--- NOTE | 2022-06-12 14:15 | DI.RAD.S_ITS ---
PROCEDURE: XR HIP W PEL IF DONE RT 2V INDICATIONS: fall 2 days ago .right hip pain TECHNIQUE: AP pelvis and lateral view of the right hip acquired. COMPARISON: [facility], CR, XR HIP W PEL IF DONE RT 2V, 05/17/2022, 10:18. [facility], CR, XR HIP W PEL IF DONE RT 2V, 05/16/2022, 10:32. FINDINGS: Bones: Patient is status post right hip arthroplasty. There is interval superior and anterior dislocation of right femoral head compartment in relation to right acetabulum. No gross acute fracture is seen. Soft tissues: No suspicious soft tissue densities. IMPRESSION: Prior right hip arthroplasty with superior and anterior dislocation at right hip joint as above. No gross hardware loosening is seen. No acute fracture is noted. Dictated by: Kory Ellsworth M.D. on 06/12/2022 at 14:34 Approved by: Kory Ellsworth M.D. on 06/12/2022 at 14:36
--- NOTE | 2022-06-12 14:47 | PC.NURSE ---
INSTRUMENTATION INSTRUCTOR Note: Terence called this INSTRUMENTATION INSTRUCTOR stating that they need a stretcher for the pt. general maintenance technician throught it was not good for the pt to get back into a wheelchair because of broken hip. This INSTRUMENTATION INSTRUCTOR brought over a spare stretcher from ER and got the pt into [place] till further examination.
--- NOTE | 2022-06-12 15:41 | ED.LOWEXIN ---
HPI - Extremity Injury (Lower) General Chief Complaint: Extremity Injury, Lower Stated Complaint: t-2 rt hip post op injury Time Seen by Provider: 06/12/22 15:25 Source: patient Mode of arrival: Family Vehicle History of Present Illness HPI Narrative: This is a 72-year-old female with complaint of right hip pain. Patient states 2 days ago she bent over and felt pain. She is been trying to walk on it she states it is painful. She has some chronic numbness tingling in both feet she states no new changes. Patient states no recent falls or injuries. She had her hip replaced by Dr. Arauz here May 14. She has not had any prior dislocations. She states she takes medication for blood pressure, she denies current blood thinners such as aspirin or Plavix or warfarin. Patient states she is had no other cardiac surgeries. No stents. She states no known medical allergies other than codeine she states makes her nauseated and vomit. Patient states she is never been hospitalized except for when she delivered her babies and had her hip replacement. Patient states she occasional alcohol, positive for tobacco, no T illicit. Patient states her last meal was at was PBJ, coffee cream and sugar. Related Data Home Medications Medication Instructions Recorded Confirmed ibuprofen 200 mg tablet 400 mg PO DAILY 05/13/22 05/16/22 Previous Rx's Medication Instructions Recorded lidocaine 5 % topical patch 1 patch topical DAILY #30 ea 05/13/22 acetaminophen 325 mg tablet 650 mg PO Q6HR #120 tabs 05/18/22 ondansetron 4 mg disintegrating 4 mg PO Q4HR PRN Nausea #10 tabs 05/18/22 tablet oxycodone 5 mg tablet 5 mg PO Q4-6H PRN Pain, Moderate 05/18/22 (4-6) #40 tabs amlodipine 5 mg tablet (Norvasc) 5 mg PO DAILY 30 days #30 tabs 05/22/22 aspirin 81 mg tablet,delayed 81 mg PO BID 40 days #80 tabs 05/22/22 release lisinopril 10 mg tablet 10 mg PO DAILY 30 days #30 tabs 05/22/22 sodium chloride 1,000 mg soluble 1,000 mg PO TID 30 days #90 tabs 05/22/22 tablet Allergies Allergy/AdvReac Type Severity Reaction Status Date / Time wool Allergy Mild Rash Verified 05/16/22 10:10 codeine AdvReac Intermediate Gastrointestinal Verified 05/16/22 10:10 Upset Review of Systems Review of Systems ROS Unobtainable: All systems reviewed & are unremarkable except as noted in HPI and below Patient History Medical History Paralysis Vision disorder Surgical History No pertinent past surgical history Family History Mother Diabetes mellitus Hyperthyroidism Father CAD (coronary artery disease) Social History household members: spouse Smoking Status: Current every day smoker Tobacco: How many years used: 40 quit status: considering quitting (I'm trying ) alcohol intake: current substance use type: does not use Smoking Status: Current every day smoker tobacco type: cigarettes alcohol intake frequency: holidays/special occasions only Substance Use Type: does not use Exam Narrative Exam Narrative: GENERAL: Alert and oriented x three, elderly female in mild distress. HEENT: Head normocephalic, atraumatic, EOMI, pupils reactive, face symmetric, moist mucous membranes NECK: Supple, full range of motion CARDIOVASCULAR: Regular rate and rhythm without murmurs, rubs or gallops. RESPIRATORY: Breath sounds equal bilaterally, no wheezes rales or rhonchi. ABDOMEN: Soft, nontender. Normoactive bowel sounds all 4 quadrants. No guarding or rebound, rigidity, no mass : No CVA tenderness EXTREMITIES: Decreased range of motion of the right hip no obvious bruising or skin breakdown, patient does not have movement of the hip but has normal movement at the knee and foot. Patient is shortened and externally rotated on the right. She has cap refill less than 2 seconds bilaterally. She does have a little abrasion over the dorsum of her foot but no more erythema or drainage. No clubbing or edema. Neurovascularly intact NEUROLOGICAL: Cranial nerves II through XII grossly intact. Moving all extremities SKIN: Warm, dry, no petechiae, no rashes or lesions other than noted above. Initial Vital Signs Initial Vital Signs: Vital Signs Temperature 97.3 F L 06/12/22 14:10 Pulse Rate 85 06/12/22 14:10 Respiratory Rate 20 06/12/22 14:10 Blood Pressure 116/62 06/12/22 14:10 Pulse Oximetry 98 06/12/22 14:10 Oxygen Delivery Method Room Air 06/12/22 14:10 Procedures Orthopedic Joint Reduction Joint #1: Side: right Joint Reduction Location: hip Analgesia: procedural sedation Technique used: traction/counter-traction and other (Patient was fully flexed almost to the chest with internal external rotation and traction, once or twice there felt like some movement into the joint but then popped back out.) Post-reduction neuro exam: intact and no change Post-reduction vascular: intact and no change Post Reduction X-Ray Obtained: Yes Post Reduction X-Ray Results: not reduced Procedural Sedation Consent signed: Yes Time out performed: Yes Indication: fracture/dislocation reduction ASA Class: II Mallampati Airway Classification: Class II (dentures in place) Time of Last PO Intake: 12:00 Preparation: environmental monitoring technician applied, pulse oximeter, capnometry used, supplemental O2 applied, suction/airway equipment at bedside and IV secured IV Propofol dose (mg): 100 ED Sedation Level: Moderate (Concious) Patient Tolerated Procedure: Well Complications: hypotension (Patient had some hypoventilation and hypoxia required chin thrust with some BVM, patient also had a drop in blood pressure likely from the propofol improved with small amount of fluid and normalized after 1 recheck) Course Orders Ordered: ED Orders 06/12/22 14:15 XR hip w pel if done RT 2V Stat 06/12/22 16:00 COVID19 -Nasal RAPID Stat 06/12/22 17:09 XR hip LT 1V Stat Morphine Sulfate (Morphine 2 Mg/Ml Inj) 2 mg IV Q2HR PRN PRN Reason: Pain, Moderate (4-6) Last Admin: 06/12/22 19:16 Dose: 2 mg Discontinued Medications Lidocaine (Lidocaine Patch 1 Each Adh..Patch) 1 each TOP NOW ONE Stop: 06/12/22 15:26 Last Admin: 06/12/22 15:59 Dose: Not Given Documented By: JAYDA Oxycodone/Acetaminophen (Oxycodone/Acetaminophen 5/325 Tablet) 1 tab PO NOW ONE Stop: 06/12/22 15:26 Last Admin: 06/12/22 15:59 Dose: Not Given Documented By: JAYDA Propofol (Propofol 200 Mg/20 Ml Vial) 45 mg 1 mg/kg (45 mg) IV NOW ONE Stop: 06/12/22 16:32 Last Admin: 06/12/22 17:01 Dose: 45 mg Documented By: GAURAV Vital Signs Vital signs: Vital Signs - 8 hr 06/12/22 14:10 06/12/22 15:48 06/12/22 15:49 Temperature 97.3 F L Pulse Rate 85 89 89 Respiratory Rate 20 Blood Pressure 116/62 Pulse Oximetry 98 96 97 Oxygen Delivery Method Room Air Oxygen Flow Rate 06/12/22 15:49 06/12/22 16:00 06/12/22 16:00 Temperature Pulse Rate 89 Respiratory Rate Blood Pressure 180/81 H 170/77 H Pulse Oximetry 96 Oxygen Delivery Method Oxygen Flow Rate 06/12/22 16:30 06/12/22 16:30 06/12/22 16:55 Temperature Pulse Rate 89 77 Respiratory Rate 18 Blood Pressure 164/78 H Pulse Oximetry 97 Oxygen Delivery Method Room Air Oxygen Flow Rate 06/12/22 16:45 06/12/22 16:45 06/12/22 16:50 Temperature Pulse Rate 89 88 Respiratory Rate 15 Blood Pressure 153/78 H Pulse Oximetry 97 97 Oxygen Delivery Method Oxygen Flow Rate 06/12/22 16:50 06/12/22 16:55 06/12/22 16:55 Temperature Pulse Rate 86 Respiratory Rate 17 Blood Pressure 147/74 H 158/77 H Pulse Oximetry 97 Oxygen Delivery Method Oxygen Flow Rate 06/12/22 17:00 06/12/22 17:00 06/12/22 17:06 Temperature Pulse Rate 87 Respiratory Rate 19 Blood Pressure 169/82 H 95/55 L Pulse Oximetry 98 Oxygen Delivery Method Oxygen Flow Rate 06/12/22 17:06 06/12/22 17:09 06/12/22 17:09 Temperature Pulse Rate 78 75 Respiratory Rate 44 H 33 H Blood Pressure 77/43 L Pulse Oximetry 95 88 L Oxygen Delivery Method Ambu Bag Oxygen Flow Rate 2 06/12/22 17:10 06/12/22 17:10 06/12/22 17:11 Temperature Pulse Rate 79 78 Respiratory Rate 27 H 28 H Blood Pressure 123/65 Pulse Oximetry 100 100 Oxygen Delivery Method Oxygen Flow Rate 06/12/22 17:11 06/12/22 17:15 06/12/22 17:15 Temperature Pulse Rate 77 Respiratory Rate 29 H Blood Pressure 119/61 110/60 Pulse Oximetry 99 Oxygen Delivery Method Oxygen Flow Rate 06/12/22 17:20 06/12/22 17:20 06/12/22 17:25 Temperature Pulse Rate 78 79 Respiratory Rate 19 17 Blood Pressure 112/60 Pulse Oximetry 92 93 Oxygen Delivery Method Room Air Oxygen Flow Rate 06/12/22 17:25 06/12/22 17:30 06/12/22 17:30 Temperature Pulse Rate 83 Respiratory Rate 31 H Blood Pressure 127/65 132/60 Pulse Oximetry 94 Oxygen Delivery Method Oxygen Flow Rate 06/12/22 17:35 06/12/22 17:35 06/12/22 17:40 Temperature Pulse Rate 80 80 Respiratory Rate 18 18 Blood Pressure 137/68 Pulse Oximetry 97 96 Oxygen Delivery Method Oxygen Flow Rate 06/12/22 17:40 06/12/22 17:46 06/12/22 17:46 Temperature Pulse Rate 83 Respiratory Rate 25 H Blood Pressure 132/68 155/70 H Pulse Oximetry 99 Oxygen Delivery Method Oxygen Flow Rate 06/12/22 17:50 06/12/22 17:50 06/12/22 18:00 Temperature Pulse Rate 83 Respiratory Rate 18 Blood Pressure 156/73 H 173/79 H Pulse Oximetry 95 Oxygen Delivery Method Oxygen Flow Rate 06/12/22 18:00 06/12/22 18:05 06/12/22 18:05 Temperature Pulse Rate 87 85 Respiratory Rate 24 16 Blood Pressure 156/70 H Pulse Oximetry 97 94 Oxygen Delivery Method Oxygen Flow Rate 06/12/22 18:10 06/12/22 18:10 06/12/22 18:15 Temperature Pulse Rate 87 90 Respiratory Rate 24 28 H Blood Pressure 187/85 H Pulse Oximetry 97 95 Oxygen Delivery Method Oxygen Flow Rate 06/12/22 18:15 06/12/22 18:20 06/12/22 18:20 Temperature Pulse Rate 89 Respiratory Rate 13 Blood Pressure 182/101 H 180/83 H Pulse Oximetry 97 Oxygen Delivery Method Oxygen Flow Rate 06/12/22 18:23 06/12/22 18:23 06/12/22 18:25 Temperature Pulse Rate 79 79 Respiratory Rate 22 19 Blood Pressure 117/58 L Pulse Oximetry 94 100 Oxygen Delivery Method Oxygen Flow Rate 06/12/22 18:25 06/12/22 18:30 06/12/22 18:32 Temperature Pulse Rate 82 80 Respiratory Rate 20 9 L Blood Pressure 126/63 Pulse Oximetry 100 100 Oxygen Delivery Method Oxygen Flow Rate 06/12/22 18:32 06/12/22 18:35 06/12/22 18:35 Temperature Pulse Rate 76 Respiratory Rate 15 Blood Pressure 218/98 H 174/77 H Pulse Oximetry 100 Oxygen Delivery Method Oxygen Flow Rate 06/12/22 18:40 06/12/22 18:40 06/12/22 18:45 Temperature Pulse Rate 83 87 Respiratory Rate 39 H 39 H Blood Pressure 214/98 H Pulse Oximetry 100 96 Oxygen Delivery Method Oxygen Flow Rate 06/12/22 18:45 06/12/22 18:50 06/12/22 18:50 Temperature Pulse Rate 85 Respiratory Rate 29 H Blood Pressure 173/65 H 142/66 H Pulse Oximetry 97 Oxygen Delivery Method Oxygen Flow Rate 06/12/22 18:55 06/12/22 18:55 06/12/22 19:00 Temperature Pulse Rate 84 Respiratory Rate 23 Blood Pressure 156/74 H 171/110 H Pulse Oximetry 96 Oxygen Delivery Method Oxygen Flow Rate 06/12/22 19:00 06/12/22 19:05 06/12/22 19:05 Temperature Pulse Rate 86 89 Respiratory Rate 33 H 34 H Blood Pressure 169/91 H Pulse Oximetry 95 96 Oxygen Delivery Method Oxygen Flow Rate MDM - Extremity Injury (Lower) Lab Data Labs: Lab Results 06/12/22 Range/Units 16:00 SARS-CoV-2 (PCR) Negative (Negative) Point of Care Testing Test Results Not applicable Imaging Data Extremity x-ray #1: Radiologist's Impression: [address] [address] XRay Report Signed Patient: Sydni Jones MR#: [id number] : 1950 Acct:[id number] Age/Sex: 72 / F Date of Service: 06/12/22 Loc: ED Accession Number: [id number] ?? Procedure: XR hip w pel if done RT 2V Ordering Provider: Marilyn Sol D.O. PROCEDURE:? XR HIP W PEL IF DONE RT 2V ? INDICATIONS:? fall 2 days ago .right hip pain ? TECHNIQUE:? AP pelvis and lateral view of the right hip acquired.? ? COMPARISON:? [facility], [facility], XR HIP W PEL IF DONE RT 2V, 05/17/2022, 10:18.? [facility], CR, XR HIP W PEL IF DONE RT 2V, 05/16/2022, 10:32. ? FINDINGS:? ? Bones:? Patient is status post right hip arthroplasty.? There is interval superior and anterior dislocation of right femoral head compartment in relation to right acetabulum.? No gross acute fracture is seen. ? Soft tissues:? No suspicious soft tissue densities.? ? ? IMPRESSION:? Prior right hip arthroplasty with superior and anterior dislocation at right hip joint as above.? No gross hardware loosening is seen.? No acute fracture is noted.? ? Dictated by: Kory Ellsworth M.D. on 06/12/2022 at 14:34 ? ? Approved by: Kory Ellsworth M.D. on 06/12/2022 at 14:36?? MDM Narrative Medical decision making narrative: This is a 72-year-old female who presents with complaint of right hip pain for 2 days after bending over and feeling pain. She does not endorse any sort of fall. She had hemiarthroplasty every 28 MI at our facility with Dr. Arauz. Patient is neurovascularly intact. It has been [address] Arauz, Dr. Ellsworth who is on-call was in the OR she kindly reviewed patient's films. She feels patient is appropriate for attempted reduction here in the department by myself. Discussed that if it was not going in to contact Dr. Ellsworth and will go from there. Attempted procedural sedation and reduction. Patient was difficult to get relaxed enough for the procedure without developing apnea and requiring chin lift and patient did have some hypotension from the propofol. Was given a small fluid bolus recovered after 1 blood pressure. Several attempts without any success there was some movement but it seemed to pop in and out. Patient is felt to probably require deeper sedation then appropriate in the emergency department and I spoke with Dr. Delgadillo who is on-call with Orthopedic surgery. He is reviewing images he will speak with Dr. Arauz call back with plan. Updated patient and family. Dr. Ellsworth will attempt reduction in the department, Dr. Sarabia from anesthesia is present to perform. Patient was reduced successfully in the department. Plan to observe if patient's appropriate for discharge home after observation can DC home per Dr. Ellsworth with hip dislocation precautions. Discussed can do a knee immobilizer if needed to help encouraged patient not to move in ways that would incur recurrent dislocation. Dr. Ellsworth also notes that the patient requires observation overnight after anesthesia. Patient is requiring 1-2 L of oxygen afterwards. On recheck patient is neurovascularly intact but is having more pain than pre procedure. Discussed with Dr. Ellsworth: if patient continues to be neurovascularly intact does not require additional imaging. Discussed with Dr. York/Bart and accepted for observation with neurochecks overnight and to be seen by orthopedic surgery tomorrow. Discharge Plan Departure Patient Disposition: Admitted as Observation Clinical Impression: Closed dislocation of right hip Activity Restrictions/Additional Instructions: Follow-up with orthopedic surgery. Follow-up with orthopedic surgery, call to set up an appointment in the next week. Who going to want to avoid movements such as bending of the hip with flexion of the knee and/or rotation at the same time. Continue to wear your knee immobilizer until your follow-up with orthopedic surgery this will help prevent recurrent dislocation.? Your doctor will give you safety precautions to keep your hip centred in its socket during the healing period. Be sure to follow these precautions. Keep your knees and toes pointed forward when you sit in a chair, walk, or stand. Do not sit with your legs crossed. Do not bend at the waist more than 90?. Be careful when leaning or when moving in bed to keep your legs as straight ahead as possible. If you have a hip brace, wear it as directed. Do not remove it unless your doctor says you can. If you remove the brace to shower, be extremely careful. Follow hip precautions to limit hip movement. Rest your hip as much as you can. You will need to change your activities to avoid movements that irritate the hip. If your hip is swollen, put ice or a cold pack on it for 10 to 20 minutes at a time. Try to do this every 1 to 2 hours for the next 3 days (when you are awake) or until the swelling goes down. Put a thin cloth between the ice and your skin. Please return for recurrent symptoms, increasing pain, numbness, tingling or weakness or other new or concerning changes. Prescriptions: No Action ibuprofen 200 mg tablet 400 mg PO DAILY lidocaine 5 % adhesive patch,medicated 1 patch topical DAILY Qty: 30 0RF Rx Instructions: leave on most painful area for up to 12 hrs acetaminophen 325 mg Tablet 650 mg PO Q6HR Qty: 120 0RF oxycodone 5 mg Tablet 5 mg PO Q4-6H PRN (Reason: Pain, Moderate (4-6)) Qty: 40 0RF ondansetron 4 mg Tablet,Disintegrating 4 mg PO Q4HR PRN (Reason: Nausea) Qty: 10 0RF amlodipine [Norvasc] 5 mg Tablet 5 mg PO DAILY 30 Days Qty: 30 0RF aspirin 81 mg Tablet,Delayed Release (Dr/Ec) 81 mg PO BID 40 Days Qty: 80 0RF lisinopril 10 mg Tablet 10 mg PO DAILY 30 Days Qty: 30 0RF sodium chloride 1,000 mg Tablet,Soluble 1,000 mg PO TID 30 Days Qty: 90 0RF Referrals: Miscellaneous,Doctor, MD [Primary Care Provider] -
[2022-06-12 16:22] LABS: COVID19 -Nasal RAPID Negative (Negative)
[2022-06-12] MEDS: propofoL 200 MG/20 ML VIAL 45 MG IV (17:01)
--- NOTE | 2022-06-12 17:09 | DI.RAD.S_ITS ---
PROCEDURE: XR HIP LT 1V INDICATIONS: post reduction TECHNIQUE: 1 views of the hip were acquired. COMPARISON: [facility], [facility], XR HIP W PEL IF DONE RT 2V, 06/12/2022, 14:17. FINDINGS: Single view of the pelvis demonstrates continued dislocation of the right hip arthroplasty superiorly. Hardware appears intact. No gross osseous fracture. IMPRESSION: Relatively unchanged appearance of right hip dislocation. Dictated by: Lalitha Serna M.D. on 06/12/2022 at 17:25 Approved by: Lalitha Serna M.D. on 06/12/2022 at 17:26
--- NOTE | 2022-06-12 18:36 | PM.CN ---
History of Present Illness Consult details Date Patient Seen: 06/12/22 Time Patient Seen: 18:10 Chief complaint: t-2 rt hip post op injury Reason for consult: Right hip pain Requesting provider: Marilyn Sol Narrative: Ms. Jones is 3 1/2 weeks post right hip hemiarthroplasty for femoral neck fx. She was bending down to put on pants today and sustained right hip dislocation. ER assessed the patient and attampted close reduction w/o success. Orthopedic service was consulted. Meds Home Medications and Allergies Home Medications Medication Instructions Recorded Confirmed Type ibuprofen 200 mg tablet 400 mg PO DAILY 05/13/22 05/16/22 History lidocaine 5 % topical patch 1 patch topical DAILY #30 ea 05/13/22 05/16/22 Rx acetaminophen 325 mg tablet 650 mg PO Q6HR #120 tabs 05/18/22 Rx ondansetron 4 mg disintegrating 4 mg PO Q4HR PRN Nausea #10 tabs 05/18/22 Rx tablet oxycodone 5 mg tablet 5 mg PO Q4-6H PRN Pain, Moderate 05/18/22 Rx (4-6) #40 tabs amlodipine 5 mg tablet (Norvasc) 5 mg PO DAILY 30 days #30 tabs 05/22/22 Rx aspirin 81 mg tablet,delayed 81 mg PO BID 40 days #80 tabs 05/22/22 Rx release lisinopril 10 mg tablet 10 mg PO DAILY 30 days #30 tabs 05/22/22 Rx sodium chloride 1,000 mg soluble 1,000 mg PO TID 30 days #90 tabs 05/22/22 Rx tablet Allergies Allergy/AdvReac Type Severity Reaction Status Date / Time wool Allergy Mild Rash Verified 05/16/22 10:10 codeine AdvReac Intermediate Gastrointestinal Verified 05/16/22 10:10 Upset Exam Vital Signs (past 8 hours): - 06/12/22 14:10 06/12/22 15:48 06/12/22 15:49 Temperature 97.3 F L Pulse Rate 85 89 89 Respiratory Rate 20 Blood Pressure 116/62 Pulse Oximetry 98 96 97 Oxygen Delivery Method Room Air Oxygen Flow Rate 06/12/22 15:49 06/12/22 16:00 06/12/22 16:00 Temperature Pulse Rate 89 Respiratory Rate Blood Pressure 180/81 H 170/77 H Pulse Oximetry 96 Oxygen Delivery Method Oxygen Flow Rate 06/12/22 16:30 06/12/22 16:30 06/12/22 16:55 Temperature Pulse Rate 89 77 Respiratory Rate 18 Blood Pressure 164/78 H Pulse Oximetry 97 Oxygen Delivery Method Room Air Oxygen Flow Rate 06/12/22 16:45 06/12/22 16:45 06/12/22 16:50 Temperature Pulse Rate 89 88 Respiratory Rate 15 Blood Pressure 153/78 H Pulse Oximetry 97 97 Oxygen Delivery Method Oxygen Flow Rate 06/12/22 16:50 06/12/22 16:55 06/12/22 16:55 Temperature Pulse Rate 86 Respiratory Rate 17 Blood Pressure 147/74 H 158/77 H Pulse Oximetry 97 Oxygen Delivery Method Oxygen Flow Rate 06/12/22 17:00 06/12/22 17:00 06/12/22 17:06 Temperature Pulse Rate 87 Respiratory Rate 19 Blood Pressure 169/82 H 95/55 L Pulse Oximetry 98 Oxygen Delivery Method Oxygen Flow Rate 06/12/22 17:06 06/12/22 17:09 06/12/22 17:09 Temperature Pulse Rate 78 75 Respiratory Rate 44 H 33 H Blood Pressure 77/43 L Pulse Oximetry 95 88 L Oxygen Delivery Method Ambu Bag Oxygen Flow Rate 2 06/12/22 17:10 06/12/22 17:10 06/12/22 17:11 Temperature Pulse Rate 79 78 Respiratory Rate 27 H 28 H Blood Pressure 123/65 Pulse Oximetry 100 100 Oxygen Delivery Method Oxygen Flow Rate 06/12/22 17:11 06/12/22 17:15 06/12/22 17:15 Temperature Pulse Rate 77 Respiratory Rate 29 H Blood Pressure 119/61 110/60 Pulse Oximetry 99 Oxygen Delivery Method Oxygen Flow Rate 06/12/22 17:20 06/12/22 17:20 06/12/22 17:25 Temperature Pulse Rate 78 79 Respiratory Rate 19 17 Blood Pressure 112/60 Pulse Oximetry 92 93 Oxygen Delivery Method Room Air Oxygen Flow Rate 06/12/22 17:25 06/12/22 17:30 06/12/22 17:30 Temperature Pulse Rate 83 Respiratory Rate 31 H Blood Pressure 127/65 132/60 Pulse Oximetry 94 Oxygen Delivery Method Oxygen Flow Rate 06/12/22 17:35 06/12/22 17:35 06/12/22 17:40 Temperature Pulse Rate 80 80 Respiratory Rate 18 18 Blood Pressure 137/68 Pulse Oximetry 97 96 Oxygen Delivery Method Oxygen Flow Rate 06/12/22 17:40 06/12/22 17:46 06/12/22 17:46 Temperature Pulse Rate 83 Respiratory Rate 25 H Blood Pressure 132/68 155/70 H Pulse Oximetry 99 Oxygen Delivery Method Oxygen Flow Rate Oxygen Delivery Method Room Air Oxygen Flow Rate 2 Extrem Other: Right leg is shortened and internally rotated. well perfused and neurologically intact on exam. Objective Imaging x-ray: My impression: AP pelvis x-ray: dislocated right hip hemiarthroplasty Labs Labs: Laboratory Results - last 24 hr 06/12/22 16:00 SARS-CoV-2 (PCR) Negative PFSH Medical History Paralysis Vision disorder Surgical History No pertinent past surgical history Family History Mother Diabetes mellitus Hyperthyroidism Father CAD (coronary artery disease) Social History household members: spouse Tobacco & Substance Use Smoking Status: Current every day smoker Tobacco: How many years used: 40 quit status: considering quitting (I'm trying ) alcohol intake: current substance use type: does not use Assessment & Plan Assessment & Plan narrative: After discussing with patient risks and benefits of closed reduction under sedation, informed consent was obtained. Patient was close reducted in the ER under anesthesia. Patient will be discharged to home once criteria is met for discharge. Patient will be placed into a knee immobilizer and follow strict hip precautions.
--- NOTE | 2022-06-12 18:42 | PM.OP.1 ---
Operative Date/Time/Diagnoses Date of procedure: 06/12/22 Time of procedure: 18:30 Pre-op diagnosis: 1. Right hip dislocation s/p hemiarthroplasty Post-op diagnosis: same Procedure & Clinicians Procedure: Right hip close reduction under anesthesia Same procedure as scheduled: Yes Indications: Ms. Jones is 3 1/2 weeks s/p right hip hemiarthroplasty. She sustained dislocation today after bending down to put on pants. She has x-ray showing dislocation of her right hip. Patient is reduced under anesthesia emergently. Surgeon: Sukhi Marcum Click Yes if Unassisted: No Anesthesia Type: General Operative Notes Estimated Blood Loss (mL): 0 Procedure in detail: Patient was identified in the preoperative area. Informed consent was obtained and placed in the chart. The affected leg was marked. General anesthesia was given to the patient. Patient's affected hip was flexed internally rotated and was then put in traction. While in traction the hip was slowly extended external rotated. A clunk was felt during this maneuver. X-ray was used to confirm the hip was reduced in the desired position. Patient tolerated the procedure well I was placed into abduction pillow. Patient was woken up from anesthesia w/o issues. There were no complications. Complications: none Post-operative Condition: stable Plan for aftercare: Discharge to home
[2022-06-12] MEDS: MORPHINE 2 MG/ML INJ IV (19:16)
--- NOTE | 2022-06-12 21:15 | PM.HP.1 ---
History of Present Illness History of Present Illness Date Patient Seen: 06/12/22 Time Patient Seen: 20:00 Chief complaint: t-2 rt hip post op injury Narrative: Ms. Jones is a 72W with PMH recent right hip replacement in April 2022, hyponatremia, hypertension who presents to the hospital with right hip pain. She states she felt pain two days ago in her hip when she bent over. She was trying to walk on her leg but with significant difficulty. She has chronic bilateral leg numbness. In the ED workup was done, vitals notable for afebrile, blood pressure 110s/80s. Hip xray showed right hip dislocation. This was attempted to be reduced in the ED, but unable to be done. Orthopedic surgery was consulted and reduced her hip in the OR. Afterwards she did have periods of low oxygen sats and was placed on nasal cannula. She had hiop pain afterwards. ED discussed with orthopedic surgery who did not recommend imaging but recommended observation for pain control. [facility] Medical History Paralysis Vision disorder Surgical History No pertinent past surgical history Family History Mother Diabetes mellitus Hyperthyroidism Father CAD (coronary artery disease) Social History household members: spouse Smoking Status: Current every day smoker Tobacco: How many years used: 40 quit status: considering quitting (I'm trying ) alcohol intake: current substance use type: does not use Meds Home Medications and Allergies Home Medications Medication Instructions Recorded Confirmed Type ibuprofen 200 mg tablet 400 mg PO DAILY 05/13/22 06/12/22 History lidocaine 5 % topical patch 1 patch topical DAILY #30 ea 05/13/22 06/12/22 Rx acetaminophen 325 mg tablet 650 mg PO Q6HR #120 tabs 05/18/22 06/12/22 Rx ondansetron 4 mg disintegrating 4 mg PO Q4HR PRN Nausea #10 tabs 05/18/22 06/12/22 Rx tablet oxycodone 5 mg tablet 5 mg PO Q4-6H PRN Pain, Moderate 05/18/22 06/12/22 Rx (4-6) #40 tabs amlodipine 5 mg tablet (Norvasc) 5 mg PO DAILY 30 days #30 tabs 05/22/22 06/12/22 Rx aspirin 81 mg tablet,delayed 81 mg PO BID 40 days #80 tabs 05/22/22 06/12/22 Rx release lisinopril 10 mg tablet 10 mg PO DAILY 30 days #30 tabs 05/22/22 06/12/22 Rx sodium chloride 1,000 mg soluble 1,000 mg PO TID 30 days #90 tabs 05/22/22 06/12/22 Rx tablet Allergies Allergy/AdvReac Type Severity Reaction Status Date / Time wool Allergy Mild Rash Verified 05/16/22 10:10 codeine AdvReac Intermediate Gastrointestinal Verified 05/16/22 10:10 Upset Review of Systems Review of Systems Narrative: 14 systems reviewed and negative aside from what is noted in HPI Exam Vital Signs (past 8 hours): - 06/12/22 14:10 06/12/22 15:48 06/12/22 15:49 Temperature 97.3 F L Pulse Rate 85 89 89 Respiratory Rate 20 Blood Pressure 116/62 Pulse Oximetry 98 96 97 Oxygen Delivery Method Room Air Oxygen Flow Rate 06/12/22 15:49 06/12/22 16:00 06/12/22 16:00 Temperature Pulse Rate 89 Respiratory Rate Blood Pressure 180/81 H 170/77 H Pulse Oximetry 96 Oxygen Delivery Method Oxygen Flow Rate 06/12/22 16:30 06/12/22 16:30 06/12/22 16:55 Temperature Pulse Rate 89 77 Respiratory Rate 18 Blood Pressure 164/78 H Pulse Oximetry 97 Oxygen Delivery Method Room Air Oxygen Flow Rate 06/12/22 16:45 06/12/22 16:45 06/12/22 16:50 Temperature Pulse Rate 89 88 Respiratory Rate 15 Blood Pressure 153/78 H Pulse Oximetry 97 97 Oxygen Delivery Method Oxygen Flow Rate 06/12/22 16:50 06/12/22 16:55 06/12/22 16:55 Temperature Pulse Rate 86 Respiratory Rate 17 Blood Pressure 147/74 H 158/77 H Pulse Oximetry 97 Oxygen Delivery Method Oxygen Flow Rate 06/12/22 17:00 06/12/22 17:00 06/12/22 17:06 Temperature Pulse Rate 87 Respiratory Rate 19 Blood Pressure 169/82 H 95/55 L Pulse Oximetry 98 Oxygen Delivery Method Oxygen Flow Rate 06/12/22 17:06 06/12/22 17:09 06/12/22 17:09 Temperature Pulse Rate 78 75 Respiratory Rate 44 H 33 H Blood Pressure 77/43 L Pulse Oximetry 95 88 L Oxygen Delivery Method Ambu Bag Oxygen Flow Rate 2 06/12/22 17:10 06/12/22 17:10 06/12/22 17:11 Temperature Pulse Rate 79 78 Respiratory Rate 27 H 28 H Blood Pressure 123/65 Pulse Oximetry 100 100 Oxygen Delivery Method Oxygen Flow Rate 06/12/22 17:11 06/12/22 17:15 06/12/22 17:15 Temperature Pulse Rate 77 Respiratory Rate 29 H Blood Pressure 119/61 110/60 Pulse Oximetry 99 Oxygen Delivery Method Oxygen Flow Rate 06/12/22 17:20 06/12/22 17:20 06/12/22 17:25 Temperature Pulse Rate 78 79 Respiratory Rate 19 17 Blood Pressure 112/60 Pulse Oximetry 92 93 Oxygen Delivery Method Room Air Oxygen Flow Rate 06/12/22 17:25 06/12/22 17:30 06/12/22 17:30 Temperature Pulse Rate 83 Respiratory Rate 31 H Blood Pressure 127/65 132/60 Pulse Oximetry 94 Oxygen Delivery Method Oxygen Flow Rate 06/12/22 17:35 06/12/22 17:35 06/12/22 17:40 Temperature Pulse Rate 80 80 Respiratory Rate 18 18 Blood Pressure 137/68 Pulse Oximetry 97 96 Oxygen Delivery Method Oxygen Flow Rate 06/12/22 17:40 06/12/22 17:46 06/12/22 17:46 Temperature Pulse Rate 83 Respiratory Rate 25 H Blood Pressure 132/68 155/70 H Pulse Oximetry 99 Oxygen Delivery Method Oxygen Flow Rate 06/12/22 17:50 06/12/22 17:50 06/12/22 18:00 Temperature Pulse Rate 83 Respiratory Rate 18 Blood Pressure 156/73 H 173/79 H Pulse Oximetry 95 Oxygen Delivery Method Oxygen Flow Rate 06/12/22 18:00 06/12/22 18:05 06/12/22 18:05 Temperature Pulse Rate 87 85 Respiratory Rate 24 16 Blood Pressure 156/70 H Pulse Oximetry 97 94 Oxygen Delivery Method Oxygen Flow Rate 06/12/22 18:10 06/12/22 18:10 06/12/22 18:15 Temperature Pulse Rate 87 90 Respiratory Rate 24 28 H Blood Pressure 187/85 H Pulse Oximetry 97 95 Oxygen Delivery Method Oxygen Flow Rate 06/12/22 18:15 06/12/22 18:20 06/12/22 18:20 Temperature Pulse Rate 89 Respiratory Rate 13 Blood Pressure 182/101 H 180/83 H Pulse Oximetry 97 Oxygen Delivery Method Oxygen Flow Rate 06/12/22 18:23 06/12/22 18:23 06/12/22 18:25 Temperature Pulse Rate 79 79 Respiratory Rate 22 19 Blood Pressure 117/58 L Pulse Oximetry 94 100 Oxygen Delivery Method Oxygen Flow Rate 06/12/22 18:25 06/12/22 18:30 06/12/22 18:32 Temperature Pulse Rate 82 80 Respiratory Rate 20 9 L Blood Pressure 126/63 Pulse Oximetry 100 100 Oxygen Delivery Method Oxygen Flow Rate 06/12/22 18:32 06/12/22 18:35 06/12/22 18:35 Temperature Pulse Rate 76 Respiratory Rate 15 Blood Pressure 218/98 H 174/77 H Pulse Oximetry 100 Oxygen Delivery Method Oxygen Flow Rate 06/12/22 18:40 06/12/22 18:40 06/12/22 18:45 Temperature Pulse Rate 83 87 Respiratory Rate 39 H 39 H Blood Pressure 214/98 H Pulse Oximetry 100 96 Oxygen Delivery Method Oxygen Flow Rate 06/12/22 18:45 06/12/22 18:50 06/12/22 18:50 Temperature Pulse Rate 85 Respiratory Rate 29 H Blood Pressure 173/65 H 142/66 H Pulse Oximetry 97 Oxygen Delivery Method Oxygen Flow Rate 06/12/22 18:55 06/12/22 18:55 06/12/22 19:00 Temperature Pulse Rate 84 Respiratory Rate 23 Blood Pressure 156/74 H 171/110 H Pulse Oximetry 96 Oxygen Delivery Method Oxygen Flow Rate 06/12/22 19:00 06/12/22 19:05 06/12/22 19:05 Temperature Pulse Rate 86 89 Respiratory Rate 33 H 34 H Blood Pressure 169/91 H Pulse Oximetry 95 96 Oxygen Delivery Method Oxygen Flow Rate 06/12/22 19:10 06/12/22 19:16 06/12/22 19:16 Temperature Pulse Rate 91 H Respiratory Rate 33 H Blood Pressure 164/92 H 121/75 Pulse Oximetry 94 Oxygen Delivery Method Oxygen Flow Rate 06/12/22 19:20 06/12/22 19:20 06/12/22 19:30 Temperature Pulse Rate 91 H 89 Respiratory Rate 25 H 19 Blood Pressure 185/84 H Pulse Oximetry 90 L 88 L Oxygen Delivery Method Oxygen Flow Rate 06/12/22 19:37 06/12/22 19:40 06/12/22 19:40 Temperature Pulse Rate 87 86 Respiratory Rate 28 H 16 Blood Pressure 138/69 Pulse Oximetry 94 95 Oxygen Delivery Method Nasal Cannula Oxygen Flow Rate 2 06/12/22 20:00 06/12/22 20:00 06/12/22 20:20 Temperature Pulse Rate 86 84 Respiratory Rate 21 17 Blood Pressure 150/74 H Pulse Oximetry 96 97 Oxygen Delivery Method Nasal Cannula Oxygen Flow Rate 2 06/12/22 20:20 06/12/22 20:30 06/12/22 20:50 Temperature 97.3 F L Pulse Rate 85 89 Respiratory Rate 19 16 Blood Pressure 144/67 H 164/78 H Pulse Oximetry 96 97 Oxygen Delivery Method Oxygen Flow Rate 2 Oxygen Delivery Method Nasal Cannula Oxygen Flow Rate 2 Narrative Exam Narrative: GEN: no acute distress HEENT: moist mucous membranes, PERRL NECK: trachea midline, no JVD PULM: clear bilaterally, no wheezes, rhonchi, rales CV: regular rate and rhythm, no murmurs ABD: soft, nontender, nondistended, no organomegaly EXT: warm and well perfused, with no edema NEURO: awake, alert, oriented, with no focal deficits Objective Labs Labs: Laboratory Results - last 24 hr 06/12/22 16:00 SARS-CoV-2 (PCR) Negative Assessment & Plan Assessment & Plan narrative: 1. Hip pain s/p closed reduction of dislocated hip -reduced in OR by orthopedic surgeon -neurovascularly intact -knee immobilizer per ortho -activity as tolerated -ortho rec obs patient due to pain -PT consult in AM -ordered pain medications for pain control 2. History of R hip fracture -PT consult in AM -continue pain medications 3. History of hyponatremia -possibly secondary to SIADH -currently asymptomatic I have discussed plan and obtained history from the patient. I have discussed plan of care with bedside nurse and ED physician. I have reviewed labs, xray imaging. Quality VTE Deep Vein Thrombosis/Pulmonary Embolism Present on Admission: No MIPS - Meds 'Current medications' to include all prescriptions, [id number] products, herbals, cannabis/cannabidiol products, and vitamin/mineral/dietary (nutritional) supplements. I have utilized all available resources to obtain, update, or review the patient?s current medications. [If Yes, STOP here]: Yes
--- NOTE | 2022-06-12 22:19 | PC.NURSE ---
Admitted to room 223, oriented to her room. Instructed to call for assistance if she needed to get up OOB. Call light with in reach & bed alarm activated. Denies pain @ this time. Will cont. POC & monitor.
--- NOTE | 2022-06-13 01:25 | PC.NURSE ---
C/O pain due to her knee brace. Requested to take her knee brace off & declined Oxycodone 5 mg. States'I don't need any pain pill now, after the brace out I have no pain. Requested to take off her oxygen, in RA SPO2 93-96%. Will cont. POC & monitor.
[2022-06-13 05:01] LABS: Hematocrit 31.2 % (36-46); Hemoglobin 10.6 g/dL (12.0-16.0); Mean Corpuscular HGB Conc 33.8 % (30-36); Mean Corpuscular Hemoglobin 29.6 PG (26-34); Mean Corpuscular Volume 87.5 fL (80-100); Platelet Count 516 X10^3/uL (150-400); Red Blood Cell Count 3.57 X10^6/uL (4.0-5.2); Red Cell Distribution Width 15.4 % (11.6-14.8); White Blood Cell Count 9.2 X10^3/uL (4.5-11.0)
[2022-06-13 05:06] LABS: BUN Creatinine Ratio 18.8 (6-22); Blood Urea Nitrogen 9 mg/dL (7-17); Carbon Dioxide 28 mmol/L (22-32); Chloride 102 mmol/L (98-107); Estimated Glomerular Filt Rate > 60 mL/min (>60); Glucose 79 mg/dL (80-110); HEMOLYSIS 42 (0-50); Potassium 3.6 mmol/L (3.4-5.1); Sodium 132 mmol/L (137-145)
[2022-06-13 06:00] VITALS: BP 183/86; PULSE 96; RESP 18; TEMP 36.4; O2SAT 96
[2022-06-13] MEDS: SODIUM CHLORIDE 0.9% FLUSH 10 ML IV (08:19)
[2022-06-13] MEDS: LIDOCAINE PATCH 1 EACH ADH..PATCH TOP (08:19)
[2022-06-13 09:02] VITALS: BP 181/90; PULSE 91; RESP 17; TEMP 36.7; O2SAT 95
[2022-06-13] MEDS: OXYCODONE IR 5 MG TABLET PO (11:39)
[2022-06-13 12:00] VITALS: BP 181/90; PULSE 91; RESP 17; TEMP 36.6; O2SAT 95
--- NOTE | 2022-06-13 12:13 | CM.DANOTE ---
DCP Assessment: Patient is a 72 yr old famale who had dislocated her recent surgical hip repair. Hip was relocated and patient stayed overnight to manage pain. CM met with patient and her at the bedside and explained role. patient stated understanding and was A&O x4 during meeting. Patients states she is independent at her baseline but has been needing help with dressing from her and when she attempted to do it herself her hip dislocated. Patient lives in a single level home here in [place] with her . Currently uses [facility], PT and OT services and would like to continue with that. CM periodontal assistant Marjorie called Miguel Angel with [facility] to let him know patient looks to be DC home today. patients states he will be providing transportation home for the patient today when she is medically ready for DC. Insurance: [employer] MCR and selfpay Plan HOme with and resumption of [facility] PT and OT Dai alegria RNsurveyor mine Discharge Planning/Care Management CM Discharge Assessment Start: 06/13/22 12:07 Freq: Status: Active Protocol: Document 06/13/22 12:07 (Rec: 06/13/22 12:12 [id number]) Discharge Planning Assessment Assigned Business Technology Architect Dai Alegria RNmanager fast food DPOA/Assigned Designee Name Timmy brand- Spouse Advance Directives? No History Provided By Patient,Family Member,Medical Record Has Patient been admitted in last 30 Yes days? Comment Patient was last here forGLF with FX hip surgery and Dc 05/22- readmitted this time for dislocation of surgical hip Prior Living Arrangements Apartment/Condo Household Members spouse Type of transporation used prior to Relies on Others admit Independent with ADL's No: need assistance with dressing Is patient alert and oriented? Yes Caregiver for Another No Community Services used prior to Physical Therapy,Occupational admission: Therapy,Home Health Nurse DME Already Rented / Owned Wheelchair,FWW / Walker Patient/Family Preference Home with Home Health Barriers to Discharge No Comment plan to DC home with [facility] reinstated Discharge Plan Home with Home Health Community Services Physical Therapy,Occupational Therapy,Home Health Nurse Transportation Arrangement Patients will provide transport home in there van Referrals Initiated Home Health If patient plan is home with home health Yes: resumption of HH : Has signed face to face form been completed? Medicare Choice List Provided Yes Medicare choice list reviewed on patient electronic tablet with SNF/HH Preference [facility] Whiteboard Updated in Patient Room with Yes name and ext. # of Business Technology Architect Review Status In Process Next Review Type Continued Stay Review
--- NOTE | 2022-06-13 12:25 | CM.DPNOTE ---
Spoke to Miguel Angel and he emailed me back that no new order is needed for this patient. The RN is scheduled to see pt. 06/14 the date pt. is to be discharged. He will keep her on their RN schedule. Marjorie Correa CM Assist.
[2022-06-13 12:45] VITALS: BP 110/70; PULSE 67
--- NOTE | 2022-06-13 14:00 | PT.IIE ---
Current Diagnoses Unspecified dislocation of right hip, initial encounter (06/12/22) Surgical History (Last Reviewed 06/12/22 @ 21:15 by Onofre Arriaga MD) No pertinent past surgical history Medical History (Last Reviewed 06/12/22 @ 21:15 by Onofre Arriaga MD) Paralysis Vision disorder Physical Therapy Inpatient Evaluation/Re-Eval M1 PT/OT-IP Prior Functional Status Start: 06/13/22 08:13 Freq: NEEDED Status: Active Protocol: Document 06/13/22 11:33 TH (Rec: 06/13/22 11:59 TH [id number]) Medical Review Prior Functional Status Medical History Reviewed Yes: Close hip dislocation right, s/p right hip hemiarthroplasty, DM, CAD Mobility and Gait IND with walker since hip surgery Activities of Daily Living and IADL's IND, needs help with dressing lower half of body since hip surgery Prior Functional Level (Other details) IND Social History Household Members spouse Living Arrangements Apartment/Condo Number of Floors (Floors) One Floor Number of Stairs To Enter/Railing? No steps to entrance Home Environment High Toilet,Tub/Shower Home Equipment Front Wheel Walker,Shower Seat without Backrest Employment Status Retired Additional Social History Comment Pt will have at home to assist. She is aware she will need assist with dressing and other ADLs M1 PT/OT-IP Prior Functional Status Start: 06/13/22 10:25 Freq: NEEDED Status: Active Protocol: Document 06/13/22 11:33 TH (Rec: 06/13/22 11:59 TH [id number]) Medical Review Prior Functional Status Medical History Reviewed Yes: Close hip dislocation right, s/p right hip hemiarthroplasty, DM, CAD Mobility and Gait IND with walker since hip surgery Activities of Daily Living and IADL's IND, needs help with dressing lower half of body since hip surgery Prior Functional Level (Other details) IND Social History Household Members spouse Living Arrangements Apartment/Condo Number of Floors (Floors) One Floor Number of Stairs To Enter/Railing? No steps to entrance Home Environment High Toilet,Tub/Shower Home Equipment Front Wheel Walker,Shower Seat without Backrest Employment Status Retired Additional Social History Comment Pt will have at home to assist. She is aware she will need assist with dressing and other ADLs M2 PT-IP Current Condition Start: 06/13/22 08:13 Freq: NEEDED Status: Active Protocol: Document 06/13/22 11:33 TH (Rec: 06/13/22 11:59 TH [id number]) Physical Therapy Current Condition Current Condition Evaluation Date 06/13/22 Treatment Diagnosis S/p right hip reduction after r hip dislocation M3 PT-IP Subjective Start: 06/13/22 08:13 Freq: NEEDED Status: Active Protocol: Document 06/13/22 11:33 TH (Rec: 06/13/22 11:59 TH [id number]) Subjective Physical Therapy Visit Type Type Initial Evaluation Visit Start Time 10:30 Visit Stop Time 11:00 Total Visit Minutes 30 Notes Pt's present Physical Therapy Visit Comments Patient Comments Pt reported r knee immobilizer very uncomfortable Patient Goals Go home Therapy Pain Assessment Pain When Pain Assessed During Mobility Pain Present Pain Present Pain Reported Location right hip Intensity 4 Scale Used Numeric (0 - 10) Description Aching Pain Behaviors Facial Grimacing Pain Management Techniques Timing of Activity with Medications M4 PT-IP Mobility and Gait Start: 06/13/22 08:13 Freq: NEEDED Status: Active Protocol: Document 06/13/22 11:33 TH (Rec: 06/13/22 11:59 TH [id number]) PT-Bed Mobility Assessment Rolling Level of Assist Independent Supine to Sit Supine to Sit Independent Scooting Scooting to Edge of Bed Contact Guard Assistance PT-Transfer Assessment Sit to and From Stand Sit to and from Stand Contact Guard Assistance Equipment Transfer Assistive Device Front Wheeled Walker Transfers Transfer Destination Chair Transfer Technique Turn steps to the right 180 degrees ro hgelp maintain precuations Transfer Ability Level of Assist Contact Guard Assistance Comments Mobility Comments Required MOD cuing for ER RLE with turning right / recommmended pt turn right when turning to chair to prevent IR if turning to the left Gait Assessment Gait Gait Assistance Required: Standby Assistance Distance (Feet) 6 Able to Maintain Weight Bearing Status Yes During Gait Assistive Devices Assistive Device Front Wheeled Walker Orthotic/Prosthetic Devices or Brace: Yes Gait Deviations General Gait Pattern Antalgic Comments Gait Comments Pt required cues to remember precautions Stair Climbing Assessment Comments Stair Climbing Comments No stairs at home PT-Balance Assessment Sitting Balance and Reactions Static Sitting Balance Ability Normal Dynamic Sitting Balance Ability Good Standing Balance and Reactions Static Standing Balance Ability Normal Dynamic Standing Balance Ability Good M5 PT-IP Objective Assessments Start: 06/13/22 08:13 Freq: NEEDED Status: Active Protocol: Document 06/13/22 11:33 TH (Rec: 06/13/22 11:59 TH [id number]) Orientation Orientation/Cognition Level of Alertness Alert Orientation Name,Place,Situation Safety Awareness Understands Safety Issues Comments Requires reminding for no IR R HIP Gross Range of Motion Upper Extremity ROM Assessment Within Functional Limits Lower Extremity ROM Assessment Right Impaired Strength Upper Extremity Strength Assessment Within Functional Limits Lower Extremity Strength Assessment Right Impaired M6 PT-IP Treatment Start: 06/13/22 08:13 Freq: NEEDED Status: Active Protocol: Document 06/13/22 11:33 TH (Rec: 06/13/22 11:59 TH [id number]) Physical Therapy Treatment Exercises Exercises Ankle Pumps Equipment Issued Equipment Type and Company Knee immobilizer/ per nursing a new order was placed for Hip abduction brace: pt will need eduction for don/doff brace M7 PT-IP Assessment and Plan Start: 06/13/22 08:13 Freq: NEEDED Status: Active Protocol: Document 06/13/22 11:33 TH (Rec: 06/13/22 11:59 TH [id number]) PT Summary Assessment and Plan Potential Rehabilitation Potential Excellent Status of Condition at Evaluation Stable Summary Impairments Pain Assessment Summary Pt surinder need HHPT to ensure raymond is able to perform bed mobility,transfers and gait with precautions. Pt requiring cues for no R hip IR . She is aware of no bendinig past 90 and no crossing legs. Goals Bed Mobility Goal Independent Transfer Goal Independent Gait Goal Independent Gait Distance 50 feet Days to Meet Goals 5 Frequency of Treatment Frequency Of Treatment Twice a Day Treatment Plan Physical Therapy Treatment Plan Bed Mobility Training,Transfer Training,Gait Training, Therapeutic Exercise,Balance Retraining Precautions Posterior Hip Precautions No Hip Flexion > 90 degrees Other Precautions Must wear hip abduction brace Recommendations To Nursing Amount of Assist Needed 1 Person Assist Discharge Recommendations PT Discharge Recommendations Home Health Other Discharge Recommendations May need assistance for transfer into car with Post. hip precautions Transportation Needs at Discharge Private Vehicle,Wheelchair/ Cabulance
--- NOTE | 2022-06-13 14:36 | PM.DS.1 ---
History of Present Illness History of Present Illness Date Patient Seen: 06/13/22 Time Patient Seen: 12:00 Chief complaint: t-2 rt hip post op injury Narrative: Ms. Jones is a 72W with PMH recent right hip replacement in April 2022, hyponatremia, hypertension who presents to the hospital with right hip pain. She states she felt pain two days ago in her hip when she bent over. She was trying to walk on her leg but with significant difficulty. She has chronic bilateral leg numbness. In the ED workup was done, vitals notable for afebrile, blood pressure 110s/80s. Hip xray showed right hip dislocation. This was attempted to be reduced in the ED, but unable to be done. Orthopedic surgery was consulted and reduced her hip in the OR. Afterwards she did have periods of low oxygen sats and was placed on nasal cannula. She had hiop pain afterwards. ED discussed with orthopedic surgery who did not recommend imaging but recommended observation for pain control. Discharge Providers Provider Date of admission: 06/12/22 19:35 Discharge Date: 06/13/22 Primary care physician: Doctor Gio MD Consults: 06/12/22 21:05 Consult to Physical Therapy Evaluate & Treat Comment: Physician Instructions: Evaluate and Treat 06/13/22 07:19 Consult to Orthopedic Surgery Urgent Comment: Consulting Provider: Sukhi Marcum Reason for consultation: hip dislocation 06/13/22 10:18 Consult to Occupational Therapy Evaluate & Treat Comment: Physician Instructions: Evaluate and treat Discharge provider: Ross York DO Summary Hospital Course Discharge Diagnosis: 1. Hip pain s/p closed reduction of dislocated hip -reduced in OR by orthopedic surgeon -neurovascularly intact -knee immobilizer per ortho -activity as tolerated -ortho rec obs patient due to pain -cleared for home by PT -ordered pain medications for pain control, sent home with po oxycodone PRN 2. History of R hip fracture -continue pain medications -PT placed hip brace 3. History of hyponatremia -possibly secondary to SIADH -currently asymptomatic Hospital Course: Underwent recent right hip replacement with Dr. Trixie roy and discharged home, however after bending down to tie shoes at home she dislocated the hip. Taken to the OR and hip was put back into place. After waking up patient in too much pain to go home. She was admitted for one night and given pain meds. PT evaluated and a hip brace was placed. She was discharged home with a script for oxy PRN. Time Spent with Patient Time spent: Greater than 30 minutes Exam Vital Signs (past 8 hours): - 06/13/22 08:19 06/13/22 09:02 06/13/22 12:00 Temperature 98.0 F 97.9 F Pulse Rate 91 H 91 H Respiratory Rate 17 17 Blood Pressure 181/90 H 181/90 H Pulse Oximetry 95 95 Oxygen Delivery Method Room Air Oxygen Flow Rate 0 0 06/13/22 12:45 Temperature Pulse Rate 67 Respiratory Rate Blood Pressure 110/70 Pulse Oximetry Oxygen Delivery Method Oxygen Flow Rate Fraction of Inspired Oxygen 28 SaO2/FiO2 Ratio 350 Oxygen Delivery Method Room Air Oxygen Flow Rate 0 Narrative Exam Narrative: GEN: no acute distress HEENT: moist mucous membranes, PERRL NECK: trachea midline, no JVD PULM: clear bilaterally, no wheezes, rhonchi, rales CV: regular rate and rhythm, no murmurs ABD: soft, nontender, nondistended, no organomegaly EXT: warm and well perfused, with no edema NEURO: awake, alert, oriented, with no focal deficits Objective Labs 06/13/22 04:41 06/13/22 04:41 Labs: Laboratory Results - last 24 hr 06/12/22 06/13/22 06/13/22 16:00 04:41 04:41 WBC 9.2 RBC 3.57 L Hgb 10.6 L Hct 31.2 L MCV 87.5 MCH 29.6 MCHC 33.8 RDW 15.4 H Plt Count 516 H Sodium 132 L Potassium 3.6 Chloride 102 Carbon Dioxide 28 BUN 9 Creatinine 0.48 L Estimated GFR > 60 BUN/Creatinine Ratio 18.8 Glucose 79 L Calcium 9.0 SARS-CoV-2 (PCR) Negative [facility] Medical History Paralysis Vision disorder Surgical History No pertinent past surgical history Family History Mother Diabetes mellitus Hyperthyroidism Father CAD (coronary artery disease) Social History household members: spouse Smoking Status: Current every day smoker Tobacco: How many years used: 40 quit status: considering quitting (I'm trying ) alcohol intake: current substance use type: does not use Discharge Plan Discharge Plan Patient Disposition: Home Discharge orders & Medications Prescriptions: Continued ibuprofen 200 mg tablet 400 mg PO DAILY lidocaine 5 % adhesive patch,medicated 1 patch topical DAILY Qty: 30 0RF Rx Instructions: leave on most painful area for up to 12 hrs acetaminophen 325 mg Tablet 650 mg PO Q6HR Qty: 120 0RF ondansetron 4 mg Tablet,Disintegrating 4 mg PO Q4HR PRN (Reason: Nausea) Qty: 10 0RF amlodipine [Norvasc] 5 mg Tablet 5 mg PO DAILY 30 Days Qty: 30 0RF aspirin 81 mg Tablet,Delayed Release (Dr/Ec) 81 mg PO BID 40 Days Qty: 80 0RF lisinopril 10 mg Tablet 10 mg PO DAILY 30 Days Qty: 30 0RF sodium chloride 1,000 mg Tablet,Soluble 1,000 mg PO TID 30 Days Qty: 90 0RF oxycodone 5 mg Tablet 5 mg PO Q4-6H PRN (Reason: Pain, Moderate (4-6)) Qty: 20 0RF Follow up/Referrals: Sukhi Marcum MD [Physician] - Miscellaneous,MD Lila [Primary Care Provider] - Visit Report/Discharge Packet Instructions: DI for Hip Dislocation -- Adult, How to Prevent Falls, DI for Prescription Opioid Use Stand Alone Forms: Patient Portal/API, Stroke Signs & Symptoms Discharge Data Primary Care Provider: Doctor Gio Attending Provider: Onofre Arriaga Admit Date/Time: 06/12/22 19:35 Discharges patient from system. Discharge Date/Time: 06/13/22 15:03 Quality VTE Deep Vein Thrombosis/Pulmonary Embolism Present on Admission: No
--- NOTE | 2022-06-13 15:00 | OT.IP.EVAL ---
Current Diagnoses Unspecified dislocation of right hip, initial encounter (06/12/22) Past Medical History (Last Reviewed 06/12/22 @ 21:15 by Onofre Arriaga MD) Paralysis Vision disorder Surgical History (Last Reviewed 06/12/22 @ 21:15 by Onofre Arriaga MD) No pertinent past surgical history Occupational Therapy Inpatient Evaluation/Re-Eval M1 PT/OT-IP Prior Functional Status Start: 06/13/22 08:13 Freq: NEEDED Status: Discharge Protocol: Document 06/13/22 11:33 TH (Rec: 06/13/22 11:59 TH [id number]) Medical Review Prior Functional Status Medical History Reviewed Yes: Close hip dislocation right, s/p right hip hemiarthroplasty, DM, CAD Mobility and Gait IND with walker since hip surgery Activities of Daily Living and IADL's IND, needs help with dressing lower half of body since hip surgery Prior Functional Level (Other details) IND Social History Household Members spouse Living Arrangements Apartment/Condo Number of Floors (Floors) One Floor Number of Stairs To Enter/Railing? No steps to entrance Home Environment High Toilet,Tub/Shower Home Equipment Front Wheel Walker,Shower Seat without Backrest Employment Status Retired Additional Social History Comment Pt will have at home to assist. She is aware she will need assist with dressing and other ADLs M1 PT/OT-IP Prior Functional Status Start: 06/13/22 10:25 Freq: NEEDED Status: Discharge Protocol: Document 06/13/22 15:11 [facility] (Rec: 06/13/22 15:36 [facility] [id number]) Medical Review Prior Functional Status Medical History Reviewed Yes: Close hip dislocation right, s/p right hip hemiarthroplasty, DM, CAD Mobility and Gait IND with walker since hip surgery Activities of Daily Living and IADL's IND, needs help with dressing lower half of body since hip surgery Prior Functional Level (Other details) IND Social History Household Members spouse Living Arrangements Apartment/Condo Number of Floors (Floors) One Floor Number of Stairs To Enter/Railing? No steps to entrance Home Equipment Front Wheel Walker,Shower Seat without Backrest Employment Status Retired Additional Social History Comment Pt will have at home to assist. She is aware she will need assist with dressing and other ADLs M2 OT-IP Current Condition Start: 06/13/22 10:25 Freq: Status: Discharge Protocol: Document 06/13/22 15:11 [facility] (Rec: 06/13/22 15:36 [facility] [id number]) Occupational Therapy Current Condition Current Condition Evaluation Date 06/13/22 Treatment Diagnosis S/p closed reduction after right hip dislocation Diagnosis Onset Date 06/12/22 Post Operative Precautions Posterior Hip Precautions No Hip Flexion > 90 degrees,No Hip Internal Rotation,No Hip Adduction Other Precautions Right abduction brace to be set at 20 degrees for abduction and 0-80 degrees for flexion. M3 OT- IP Subjective and Pain Start: 06/13/22 10:25 Freq: Status: Discharge Protocol: Document 06/13/22 15:11 [facility] (Rec: 06/13/22 15:36 [facility] [id number]) OT- Subjective Occupational Therapy Visit Type Type Initial Evaluation Visit Start Time 10:27 Visit Stop Time 15:00 Total Visit Minutes 83 Notes Pt seen for a split treatment from [id number] and [id number] for abduction brace fitting and ADL training. 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 OT ADL-Grooming Comments OT Grooming Comments Not performed. OT ADL-Oral Care Comments Oral Care Comments Not performd no issues anticipated. OT ADL-Dressing General Eval Upper Body Dressing Ability Minimal Assistance Lower Body Dressing Ability Maximum Assistance Comments OT Dressing Comments Assist to help straighten her shirt in the back. Dependent for LB dressing for abduction brace and LB dressing needs. Pt's has been assist her with her needs. OT ADL-Toileting General Evaluation Toileting Ability Moderate Assistance Areas Needing Assistance Perform Perineal Hygiene Comments OT Toileting Comments Pt needing assist for pants management needs. Educated maybe best not to wear a brief or just wear gowns for now as pt is suppose to wear the brace at all times except for showering needs. OT ADL-Bathing Comments OT Bathing Comments Not performed. Pt states just sponges off at this time. M5 OT- IP IADL's Start: 06/13/22 10:25 Freq: Status: Discharge Protocol: Document 06/13/22 15:11 [facility] (Rec: 06/13/22 15:36 [facility] [id number]) OT-Instrumental Activities of Daily Living Home Safety Awareness Awareness of Need for Assistance at Home Decreased Awareness Home Safety Comments Pt is a bit insistent on how she moves and does her ADl and mobility needs. M6 OT- IP Functional Cognition Start: 06/13/22 10:25 Freq: Status: Discharge Protocol: Document 06/13/22 15:11 [facility] (Rec: 06/13/22 15:36 [facility] [id number]) Cognitive Factors Limiting Selfcare Function Cognitive Ability Level of Alertness Alert Patient Orientation Name,Place,Situation Attention Span Ability Capable of Focused Attention, Capable of Sustained Attention Ability to Follow Commands Able to Follow One Step Commands Safety Awareness Underestimates Need for Assistance Cognitive Comments Cognitive Assessment Comments Pt able to follow commands for ADl and mobility needs. Pt however insistent on she move n the bed and when up on her feet and needing cues to slow down and take her time. M7 OT- IP Mobility and Balance Start: 06/13/22 10:25 Freq: Status: Discharge Protocol: Document 06/13/22 15:11 [facility] (Rec: 06/13/22 15:36 [facility] [id number]) OT- Bed Mobility Assessment Supine to Sit Supine to Sit Assist Minimal Assistance Sit to Supine Sit to Supine Assist Minimal Assistance OT-Transfer Assessment Sit to and From Stand Sit to and from Stand Contact Guard Assistance Transfers Transfer Ability Minimal Assistance Technique Transfer Destination Bed,Bedside Commode,Wheelchair Transfer Technique Stand Step Pivot Devices Transfer Assistive Devices Front Wheeled Walker Comments Mobility Comments Pt able to get in and out of the bed with a little assist to help move her leg into and out of the bed. CGA to [employer]OKO to stand with FWW. OT- Balance Assessment Sitting Balance and Reactions Static Sitting Balance Ability Good Dynamic Sitting Balance Ability Fair Standing Balance and Reactions Static Standing Balance Ability Good Dynamic Standing Balance Ability Fair M8 OT- IP Objective Assessments Start: 06/13/22 10:25 Freq: Status: Discharge Protocol: Document 06/13/22 15:11 [facility] (Rec: 06/13/22 15:36 [facility] [id number]) OT-Muscle Tone Assessment Muscle Tone WNL Yes M9 OT- IP Assessment and Plan Start: 06/13/22 10:25 Freq: Status: Discharge Protocol: Document 06/13/22 15:11 [facility] (Rec: 06/13/22 15:36 [facility] [id number]) OT Summary Assessment and Plan Potential Rehabilitation Potential Good Analytic Complexity at Evaluation Moderate Summary OT Impairments Pain,Balance,Functional Mobility,Dressing,Toileting, Bathing,Toilet Transfers, Shower Transfers Progress Towards Goals Progressing Toward Goals Assessment Summary Pt MOD complexity and main barrier as to follow her hip precautions, LB dressing needs and now has been issued a abductor brace set at 20 degrees abduction and 0-80 degrees for flexion. Bank Teller able to come by however still needing adjustments as pt is small is size via heght and weight however her hips and femur seems to be a larger size. Bank Teller states to go to pt's house tomorrow to make proper adjustments. Pt to go home with her and home health. Goals Dressing Goal Moderate Assistance Toileting Goal Standby Assistance Toilet Transfer Goal Standby Assistance Days to Meet Goals 3 Frequency of Treatment Frequency Of Treatment Once a Day Treatment Plan OT Treatment Plan ADL Training,Functional Cognition Training,Functional Mobility,Patient/Family Education,Discharge Planning Discharge Recommendations OT Discharge Recommendations Home with 07/10 Assist Available,Home Health Home Equipment Needs possibly tub bench
== END 2022-06-13 15:03 | disposition home or self-care (01) ==
LOC: ED 19:32 → AC 19:36
PROVIDERS: Admitting Provider Internal Medicine; Emergency Provider Emergency Medicine; Visit Provider Internal Medicine
DX: T84.020A Dislocation of internal right hip prosthesis, initial encounter (principal); Z20.822 Contact with and (suspected) exposure to COVID-19
CPT/HCPCS: 27266; 27265; 36415; 73501; 73502; 80048; 85027; 87635; 94760; 96374; 97161; 97166; 97535; 99152; 99153; 99284; 99285; C9803; G0378; J0330; J2270; J2704

== ENCOUNTER 2022-08-10 17:44 | Inpatient (IN) | payer OTHER, SELFPAY ==
[2022-08-10 17:48] VITALS: BP 177/88; PULSE 83; RESP 19; TEMP 36.6; O2SAT 98; BMI 19.0
--- NOTE | 2022-08-10 17:59 | DI.RAD.S_ITS ---
PROCEDURE: XR HIP W PEL IF DONE LT 2V INDICATIONS: fall,hip pain TECHNIQUE: AP pelvis with lateral view(s) of the left hip(s). COMPARISON: [facility], CR, XR HIP W PEL IF DONE RT 2V, 06/12/2022, 14:17. FINDINGS: Bones: There is an intertrochanteric left hip fracture with varus deformity. There is mild medial rotation of the femoral head without definite femoroacetabular dislocation. No visible pelvic fractures. Right hip arthroplasty component appears grossly intact. Soft tissues: The visualized bowel gas pattern is normal. No suspicious soft tissue calcifications. Heavy vascular calcification is seen. IMPRESSION: Intertrochanteric left hip fracture without definite dislocation. Dictated by: Vesna Wiggins M.D. on 08/10/2022 at 17:51 Approved by: Vesan Wiggins M.D. on 08/10/2022 at 17:52
--- NOTE | 2022-08-10 18:06 | ED_ITS ---
HPI - General Adult General Chief complaint: Extremity Injury, Lower Stated complaint: Fall Time Seen by Provider: 08/10/22 18:02 Source: patient and family Mode of arrival: EMS Limitations: no limitations History of Present Illness HPI narrative: Patient is a 72-year-old male who is here for evaluation of a left hip injury. States that approximately noon today she lost her balance and fell over and landed on her left hip. No other injuries from the event. She is not on blood thinners. She is not been able to stand or walk since then. Because her symptoms were not improving she decided to come into the emergency department for evaluation. Prior to the fall she did not have chest pain or shortness of b reath nor headache. Related Data Home Medications Medication Instructions Recorded Confirmed ibuprofen 200 mg tablet 400 mg PO DAILY 05/13/22 06/12/22 Previous Rx's Medication Instructions Recorded lidocaine 5 % topical patch 1 patch topical DAILY #30 ea 05/13/22 acetaminophen 325 mg tablet 650 mg PO Q6HR #120 tabs 05/18/22 ondansetron 4 mg disintegrating 4 mg PO Q4HR PRN Nausea #10 tabs 05/18/22 tablet oxycodone 5 mg tablet 5 mg PO Q4-6H PRN Pain, Moderate 06/13/22 (4-6) #20 tabs compression stocking #1 ea 06/25/22 amlodipine 5 mg tablet 5 mg PO DAILY #90 tabs 07/16/22 Allergies Allergy/AdvReac Type Severity Reaction Status Date / Time wool Allergy Mild Rash Verified 08/10/22 18:01 codeine AdvReac Intermediate Gastrointestinal Verified 08/10/22 18:01 Upset Review of Systems Constitutional Constitutional: Reports system reviewed and no additional complaints, except as documented Cardiovascular Cardiovascular: Reports system reviewed and no additional complaints, except as documented Respiratory Respiratory: Reports system reviewed and no additional complaints, except as documented Gastrointestinal Gastrointestinal: Reports system reviewed and no additional complaints, except as documented Genitourinary Genitourinary: Reports system reviewed and no additional complaints, except as documented Integumentary/Breasts Skin/Breast: Reports system reviewed and no additional complaints, except as documented Hematologic/Lymphatic On Anticoagulants: No Patient History Medical History COPD (chronic obstructive pulmonary disease) History of fracture of right hip Hypertension, essential Paralysis Vision disorder Surgical History (Updated 08/10/22 @ 21:[address]) History of repair of hip fracture No pertinent past surgical history Family History Mother Diabetes mellitus Hyperthyroidism Father CAD (coronary artery disease) Social History household members: spouse and children Smoking Status: Current every day smoker Tobacco: How many years used: 40 quit status: considering quitting (I'm trying ) alcohol intake: current Smoking Status: Current every day smoker tobacco type: cigarettes alcohol intake frequency: holidays/special occasions only Substance Use Type: does not use Exam Initial Vital Signs Initial Vital Signs: Vital Signs Temperature 97.8 F 08/10/22 17:48 Pulse Rate 83 08/10/22 17:48 Respiratory Rate 19 08/10/22 17:48 Blood Pressure 177/88 H 08/10/22 17:48 Pulse Oximetry 98 08/10/22 17:48 Oxygen Delivery Method Room Air 08/10/22 17:48 HENMT Head: normal to inspection and atraumatic Resp Effort & Inspection: normal respiratory effort Auscultation: clear to auscultation bilaterally Cardio Rate: regular rate Rhythm: regular rhythm GI Inspection: normal to inspection and non-distended Back/Spine/Pelvis Cervical Spine: No cervical spinal tenderness Neuro General: patient alert, patient awake, patient oriented x3 and moves all extremities Extrem General: normal to inspection and capillary refill normal Other: Discomfort with palpation of the left hip. Course Orders Ordered: ED Orders 08/10/22 17:59 XR hip w pel if done LT 2V Stat 08/10/22 19:15 Basic Metabolic Panel Stat Complete Blood Count AUTO DIFF Stat Acetaminophen (Acetaminophen 325 Mg Tablet) 650 mg PO Q6H PRN PRN Reason: Fever/Mild Pain (1-3) Amlodipine Besylate (Amlodipine 5 Mg Tablet) 5 mg PO DAILY [facility] Diclofenac Sodium (Diclofenac 1% Gel 100 Gm) 1 applic TOP QID PRN PRN Reason: Pain, Mild (1-10 Hydromorphone HCl (Hydromorphone 0.5 Mg Inj) 0.5 mg IV Q4H PRN PRN Reason: Pain, Severe (4-10) Last Admin: 08/10/22 21:14 Dose: 0.5 mg Documented By: QUE Sodium Chloride (Normal Saline 0.9%) 1,000 mls @ 125 mls/hr IV CONT KIMBERLY Last Infusion: 08/10/22 20:41 Dose: 0 mls/hr Documented By: Admin: 08/10/22 19:38 Dose: 125 mls/hr Documented By: ISIDRO Dextrose/Sodium Chloride (Dextrose 5%-0.9% Ns) 1,000 mls @ 100 mls/hr IV CONT KIMBERLY Last Admin: 08/10/22 23:00 Dose: Not Given Documented By: QUE Dextrose/Sodium Chloride (Dextrose 5%-0.9% Ns) 1,000 mls @ 100 mls/hr IV CONT KIMBERLY Last Admin: 08/10/22 21:13 Dose: 100 mls/hr Documented By: QUE Labetalol HCl (Labetalol 20 Mg/4 Ml Syringe) 10 mg IV Q4HR PRN; Protocol PRN Reason: Hypertension Lidocaine (Lidocaine Patch 1 Each Adh..Patch) 1 each TOP DAILY PRN PRN Reason: Pain, 1-10 Naloxone HCl (Naloxone 0.4 Mg/Ml Vial) 0.2 mg IV Q2MIN PRN PRN Reason: Opiate Reversal Nicotine (Nicotine 14 Patch) 14 mg TOP DAILY [facility] Ondansetron HCl (Ondansetron 4 Mg/2 Ml Inj) 4 mg IV Q4HR PRN PRN Reason: Nausea And Vomiting Ondansetron HCl (Ondansetron 4 Mg Odt) 4 mg PO Q4HR PRN PRN Reason: Nausea And Vomiting Pantoprazole Sodium (Pantoprazole Dr 20 Mg Tablet) 20 mg PO 0600 [facility] Sennosides (Sennosides 8.6 Mg Tablet) 17.2 mg PO BEDTIME [facility] Last Admin: 08/10/22 21:15 Dose: Not Given Documented By: QUE Discontinued Medications Morphine Sulfate (Morphine 2 Mg/Ml Inj) 2 mg IV NOW ONE Stop: 08/10/22 19:35 Last Admin: 08/10/22 19:38 Dose: 2 mg Documented By: ISIDRO Potassium Chloride (Potassium Chloride 20 Meq Tab) 40 meq PO NOW ONE Stop: 08/10/22 20:39 Last Admin: 08/10/22 21:13 Dose: 40 meq Documented By: QUE Medical Decision Making Lab Data Lab results reviewed: Yes I reviewed the patient's lab results. 08/10/22 19:15 08/10/22 19:15 Labs: Lab Results 08/10/22 08/10/22 08/10/22 Range/Units 19:15 19:15 19:15 WBC 22.3 H (4.5-11.0) X10^3/uL RBC 4.12 (4.0-5.2) X10^6/uL Hgb 11.7 L (12.0-16.0) g/dL Hct 34.5 L (36-46) % MCV 83.8 (80-100) fL MCH 28.4 (26-34) PG MCHC 33.8 (30-36) % RDW 13.6 (11.6-14.8) % Plt Count 538 H (150-400) X10^3/uL Neut % (Auto) 85.4 H (50-75) % Lymph % (Auto) 9.3 L (25-40) % Arthur % (Auto) 4.4 (3-14) % Eos % (Auto) 0.2 L (2-4) % Baso % (Auto) 0.7 (0-2) % Neut # (Auto) 18573 H (0489-5327) /uL Lymph # (Auto) 2100 (6725-0350) /uL Arthur # (Auto) 1000 H (0-900) /uL Eos # (Auto) 0 (0-450) /uL Baso # (Auto) 100 (0-100) /uL Sodium 121 L 120 L (137-145) mmol/L Potassium 3.2 L 3.2 L (3.4-5.1) mmol/L Chloride 79 L 79 L (98-107) mmol/L Carbon Dioxide 37 H 38 H (22-32) mmol/L BUN 28 H 28 H (7-17) mg/dL Creatinine 0.94 0.96 (0.52-1.04) mg/dL Estimated GFR > 60 > 60 (>60) mL/min BUN/Creatinine Ratio 29.8 H 29.2 H (6-22) Glucose 124 H 125 H (80-110) mg/dL Lactate (0.7-2.1) mmol/L Calcium 9.6 9.5 (8.4-10.2) mg/dL Magnesium 1.9 (1.6-2.3) mg/dL Total Bilirubin 0.2 (0.2-1.3) mg/dL Conjugated Bilirubin 0.0 (0.0-0.3) md/dL Unconjugated Bilirubin 0.1 (0.0-1.1) mg/dL AST 33 (14-36) IU/L ALT 19 (<35) IU/L Alkaline Phosphatase 111 (38-126) U/L NT-Pro-B Natriuret Pep (<125) pg/mL Total Protein 6.1 L (6.3-8.2) g/dL Albumin 3.5 (3.5-5.0) g/dL Globulin 2.6 (1.7-4.1) g/dL Albumin/Globulin Ratio 1.3 (1.0-2.8) Procalcitonin (<0.5) ng/mL 08/10/22 08/10/22 08/10/22 Range/Units 19:15 19:15 19:15 WBC (4.5-11.0) X10^3/uL RBC (4.0-5.2) X10^6/uL Hgb (12.0-16.0) g/dL Hct (36-46) % MCV (80-100) fL MCH (26-34) PG MCHC (30-36) % RDW (11.6-14.8) % Plt Count (150-400) X10^3/uL Neut % (Auto) (50-75) % Lymph % (Auto) (25-40) % Arthur % (Auto) (3-14) % Eos % (Auto) (2-4) % Baso % (Auto) (0-2) % Neut # (Auto) (0707-1702) /uL Lymph # (Auto) (6060-8167) /uL Arthur # (Auto) (0-900) /uL Eos # (Auto) (0-450) /uL Baso # (Auto) (0-100) /uL Sodium (137-145) mmol/L Potassium (3.4-5.1) mmol/L Chloride (98-107) mmol/L Carbon Dioxide (22-32) mmol/L BUN (7-17) mg/dL Creatinine (0.52-1.04) mg/dL Estimated GFR (>60) mL/min BUN/Creatinine Ratio (6-22) Glucose (80-110) mg/dL Lactate 1.0 (0.7-2.1) mmol/L Calcium (8.4-10.2) mg/dL Magnesium (1.6-2.3) mg/dL Total Bilirubin (0.2-1.3) mg/dL Conjugated Bilirubin (0.0-0.3) md/dL Unconjugated Bilirubin (0.0-1.1) mg/dL AST (14-36) IU/L ALT (<35) IU/L Alkaline Phosphatase (38-126) U/L NT-Pro-B Natriuret Pep 7980 H (<125) pg/mL Total Protein (6.3-8.2) g/dL Albumin (3.5-5.0) g/dL Globulin (1.7-4.1) g/dL Albumin/Globulin Ratio (1.0-2.8) Procalcitonin 0.13 (<0.5) ng/mL Imaging Data Extremity x-ray #1: Radiologist's Impression: PROCEDURE:? XR HIP W PEL IF DONE LT 2V ? INDICATIONS:? fall,hip pain ? TECHNIQUE:? AP pelvis with lateral view(s) of the left hip(s).? ? COMPARISON:? [facility], CR, XR HIP W PEL IF DONE RT 2V, 06/12/2022, 14:17. ? FINDINGS:? ? Bones:? There is an intertrochanteric left hip fracture with varus deformity.? There is mild medial rotation of the femoral head without definite femoroacetabular dislocation.? No visible pelvic fractures.? Right hip arthroplasty component appears grossly intact. ? Soft tissues:? The visualized bowel gas pattern is normal.? No suspicious soft tissue calcifications.? Heavy vascular calcification is seen. ? ? IMPRESSION:? Intertrochanteric left hip fracture without definite dislocation. [facility] Narrative Medical decision making narrative: Patient has an intertrochanteric left hip fracture. No other injuries reported by the patient nor found on exam. No neck pain. Did not hit her head. Discussed the case with Dr. Ellsworth on-call for Orthopedic surgery who will see the patient after admission. Discussed the case with the [employer] Bayron the night hospitalist who will admit for further evaluation and treatment. I did discuss the findings of the x-ray with the patient and her . They understand the need for admission. Discharge Plan Departure Patient Disposition: Admitted As Inpatient Clinical Impression: Closed intertrochanteric fracture of left hip Admit Date/Time: 08/10/22 19:19 Admit Provider: Misa Verma
[2022-08-10 19:26] LABS: Add Manual Diff / Slide Review NO; Basophils Absolute Auto 100 /uL (0-100); Basophils Percent Auto 0.7 % (0-2); Eosinophils Absolute Auto 0 /uL (0-450); Eosinophils Percent Auto 0.2 % (2-4); Hematocrit 34.5 % (36-46); Hemoglobin 11.7 g/dL (12.0-16.0); Lymphocytes Absolute Auto 2100 /uL (1100-4500); Lymphocytes Percent Auto 9.3 % (25-40); Mean Corpuscular HGB Conc 33.8 % (30-36); Mean Corpuscular Hemoglobin 28.4 PG (26-34); Mean Corpuscular Volume 83.8 fL (80-100); Monocytes Absolute Auto 1000 /uL (0-900); Monocytes Percent Auto 4.4 % (3-14); Neutrophils Absolute Auto 19000 /uL (1500-7000); Neutrophils Percent Auto 85.4 % (50-75); Platelet Count 538 X10^3/uL (150-400); Red Blood Cell Count 4.12 X10^6/uL (4.0-5.2); Red Cell Distribution Width 13.6 % (11.6-14.8); White Blood Cell Count 22.3 X10^3/uL (4.5-11.0)
[2022-08-10] MEDS: MORPHINE 2 MG/ML INJ IV (19:38)
[2022-08-10] MEDS: SODIUM CHLORIDE 0.9% 1,000 ML 125 ML IV (19:38)
[2022-08-10 19:44] LABS: BUN Creatinine Ratio 29.8 (6-22); Blood Urea Nitrogen 28 mg/dL (7-17); Calcium 9.6 mg/dL (8.4-10.2); Carbon Dioxide 37 mmol/L (22-32); Chloride 79 mmol/L (98-107); Estimated Glomerular Filt Rate > 60 mL/min (>60); Glucose 124 mg/dL (80-110); HEMOLYSIS < 15 (0-50); Potassium 3.2 mmol/L (3.4-5.1); Sodium 121 mmol/L (137-145)
--- NOTE | 2022-08-10 19:46 | P.HP_ITS ---
History of Present Illness History of Present Illness Date Patient Seen: 08/10/22 Time Patient Seen: 19:47 Chief complaint: Fall Narrative: Ms. Jones is a 72W with H recent right hip replacement in April 2022, hyponatremia, hypertension, right hip fracture repair 05/17/[address] Davonte roy, who reports that she normally ambulates at home with a walker most of the time, around noon today she lost her balance and fell landing on left hip was brought into the ED via EMS, she has no pain while lying in bed but pain with movement. On admit patient unable to accurately contribute to HPI/ROS due to confusion, which does not appear to be her baseline per previous chart notes. Denies chest pain, shortness in breath, headache, changes in vision, difficulty swallowing, speech impairment, weakness, numbness, tingling, head injury, LOC, fever, body aches, chills, cough, recent exposure to illness, abdominal pain, nausea, vomiting, urinary incontinence/retention, dysuria, frequency, urgency, hematuria, bowel changes, constipation, incontinence, melena, rashes, recent changes to medication, illness, or trauma. No recent TBI, intracranial surgery, hemorrhage, or intracranial neoplasm. On admit patient continues to be slightly hypertensive temp 97.8?, 177/88, 83, 19, 98% on room air. And confused believes that this is her 2nd left hip fract ure, despite reeducation several times. Attempted several times to correct her she continues to be slightly confused. Does have WBC 22 with a left shift neutrophils 1900, mono 1000, HGB 11/HCT 34, PLT 538(chronic), acute on chronic hyponatremia 121, Cl 79, BUN 28, potassium 3.2, bicarb 37. Patient admitted for ground level fall resulting in pathologic left hip fracture, mild encephalopathy, neutrophilic leukocytosis, hypokalemia, moderate hyponatremia. [facility] Medical History COPD (chronic obstructive pulmonary disease) History of fracture of right hip Hypertension, essential Paralysis Vision disorder Surgical History (Updated 08/10/22 @ 21:[address]) History of repair of hip fracture No pertinent past surgical history Family History Mother Diabetes mellitus Hyperthyroidism Father CAD (coronary artery disease) Social History Smoking Status: Current every day smoker Tobacco: How many years used: 40 quit status: considering quitting (I'm trying ) alcohol intake: current Meds Home Medications and Allergies Home Medications Medication Instructions Recorded Confirmed Type ibuprofen 200 mg tablet 400 mg PO DAILY 05/13/22 06/12/22 History lidocaine 5 % topical patch 1 patch topical DAILY #30 ea 05/13/22 06/12/22 Rx acetaminophen 325 mg tablet 650 mg PO Q6HR #120 tabs 05/18/22 06/12/22 Rx ondansetron 4 mg disintegrating 4 mg PO Q4HR PRN Nausea #10 tabs 05/18/22 06/12/22 Rx tablet oxycodone 5 mg tablet 5 mg PO Q4-6H PRN Pain, Moderate 06/13/22 Rx (4-6) #20 tabs compression stocking #1 ea 06/25/22 Rx amlodipine 5 mg tablet 5 mg PO DAILY #90 tabs 07/16/22 07/16/22 Rx Allergies Allergy/AdvReac Type Severity Reaction Status Date / Time wool Allergy Mild Rash Verified 08/10/22 18:01 codeine AdvReac Intermediate Gastrointestinal Verified 08/10/22 18:01 Upset Review of Systems Review of Systems Narrative: All 12 point systems reviewed with the patient and are negative except otherwise documented. Exam Vital Signs (past 8 hours): - 08/10/22 17:48 Temperature 97.8 F Pulse Rate 83 Respiratory Rate 19 Blood Pressure 177/88 H Pulse Oximetry 98 Oxygen Delivery Method Room Air Oxygen Delivery Method Room Air Narrative Exam Narrative: General: Patient is a chronically ill-appearing, thin frail elderly female in no distress at this time. HEENT: Normocephalic, atraumatic, extraocular muscles intact, oral pharynx is clear and mucous membranes are moist. Neck is supple and symmetric, trachea is midline, no adenopathy, no thyroid enlargement, nontender, no masses palpated. Negative for JVD Chest: Normal AP diameter and contour without kyphoscoliosis, no nasal flaring, retractions, or tachypneic labored Lungs: Auscultation of all lung bajwa are clear without adventitious sounds, wheezes, rhonchi, or rales. Cardio: S1 & S2 with regular rate and rhythm without murmur, rubs, or gallops, no carotid bruit, no cardiac pulsations present. Abdomen: Soft nontender, negative for organomegaly, or masses. Bowel sounds are present in all 4 quadrants without guarding or rebound, no CVA tenderness. Musculoskeletal: Muscle strength and tone are equal within normal limits, no deformity, crepitus, effusions, cyanosis, clubbing or edema present. intact radial and pedal pulses are normal. Left Leg: Shortened with abrasion to left knee, internally rotated. Skin: Warm dry and intact without rashes, ulcerations or petechiae. Neuro: Alert and orientated to self, mild confusion, sensation to touch intact, no gross deficits noted of cranial nerves. Psych: Patient chronically ill-appearing, mild confusion. Objective Labs 08/10/22 19:15 08/10/22 19:15 Labs: Laboratory Results - last 24 hr 08/10/22 08/10/22 19:15 19:15 WBC 22.3 H RBC 4.12 Hgb 11.7 L Hct 34.5 L MCV 83.8 MCH 28.4 MCHC 33.8 RDW 13.6 Plt Count 538 H Neut % (Auto) 85.4 H Lymph % (Auto) 9.3 L [place] % (Auto) 4.4 Eos % (Auto) 0.2 L Baso % (Auto) 0.7 Neut # (Auto) 97242 H Lymph # (Auto) 2100 [place] # (Auto) 1000 H Eos # (Auto) 0 Baso # (Auto) 100 Sodium 121 L Potassium 3.2 L Chloride 79 L Carbon Dioxide 37 H BUN 28 H Creatinine 0.94 Estimated GFR > 60 BUN/Creatinine Ratio 29.8 H Glucose 124 H Calcium 9.6 Assessment & Plan Assessment & Plan narrative: Ms. Jones is a 72W with H recent right hip replacement in April 2022, hyponatremia, hypertension, right hip fracture repair 05/17/[address] Davonte roy, who presented to the ED after a ground level fall at home resulting in left hip fracture, patient was also found to have neutrophilic leukocytosis, mild hypokalemia and moderate hyponatremia on admission. Ground level fall, resulting in pathological left hip fracture, acute, present on admission * Patient had right hip fracture repair on 05/17/[address] Arauz * Patient is a half a pack a day smoker and has been advised of the increased risk of osteoporosis * Torrez placed * NPO at midnight, BS q.6 while NPO * Pain management, ice, Voltaren, lidocaine * Dr. Ellsworth orthopedics to consult tomorrow and take to the OR. * PT, OT, D/C consult scheduled for 08/12 following surgery * Patient lives with her and son. Hyponatremia, acute on chronic, present on admission * Patient's baseline Na + 120-130, suspect possible SIADH * Patient is currently asymptomatic. * Will initiate D5 NS at 100 cc/HR * Ordered urine sodium, urine osmolality * If patient's sodium worsens: consider fluid restriction, oral salt tabs, possiby adding Lasix. * Goal: increase Na+ initially- 4-6 mEq in 1st 24 hours to prevent the risk of osmotic demyelination syndrome, Na+ @[id number], but no >160. If >130 start D5W infusion. Hypokalemia, mild, present on admission * Potassium 3.2 * Ordered 40 mEq p.o. now * Trend electrolytes Encephalopathy, with neutrophilic leukocytosis, acute, present on admission * Suspect possible UTI Urine culture & blood culture ordered, procalcitonin, lactate, CXR * WBC 22, neutrophils 1900, mono 1000 * Monitor for signs of sepsis * If laboratory findings are all negative and confusion continues consider head MRI-in case patient hit her head when she fell. Tobacco abuse, acute on chronic, present on admission * half a pack a day smoker and has been advised of the increased risk of osteoporosis * Likely underlying COPD due to smoking history * Patient education regarding tobacco cessation * Nicotine patch ordered Malnutrition,moderate, acute on chronic, present on admission * BMI 19 * patient's malnutrition places them at high risk for medical and surgical complications in relation to acute illness/chronic illness. This increases the difficulty in complexity of medical management and increases the chances poor outcomes such as mortality and morbidity as well as impaired wound healing, and immune suppression. * dietary consult ordered to evaluate and implement steps to improve caloric intake and nutrition. Hypertension, essential, acute on chronic, present on admission * Elevated blood pressure on admission 177/88 * Holding amiodarone p.o. while NPO * Labetalol 10q4 give for> 180/100 x 30 min * ordered Mag, BNP Code status: Full Surrogate decision maker: Timmy Jones spouse COVID PCR:pending DVT/VTE prophylaxis: Holding VTE due to surgery, SCDs only on right Disposition: Estimated length of stay to be greater than 2 midnights as patient will be going to the OR for left hip fracture repair. I have utilized all available immediate resources to obtain, update, or review the patient's current medications. I confirmed that the patient's advanced care plan is present, Code status is documented and/or surrogate decision maker is listed in the patient's medical record. I have personally reviewed patient's chart notes from PCP, specialists, diagnostic imaging, and laboratory results.
[2022-08-10 20:13] LABS: Alanine Aminotransferase 19 IU/L (<35); Albumin 3.5 g/dL (3.5-5.0); Albumin Globulin Ratio 1.3 (1.0-2.8); Alkaline Phosphatase 111 U/L (38-126); Aspartate Aminotransferase 33 IU/L (14-36); BUN Creatinine Ratio 29.2 (6-22); Bilirubin Total 0.2 mg/dL (0.2-1.3); Bilirubin Unconjugated 0.1 mg/dL (0.0-1.1); Blood Urea Nitrogen 28 mg/dL (7-17); Calcium 9.5 mg/dL (8.4-10.2); Carbon Dioxide 38 mmol/L (22-32); Chloride 79 mmol/L (98-107); Estimated Glomerular Filt Rate > 60 mL/min (>60); Globulin 2.6 g/dL (1.7-4.1); Glucose 125 mg/dL (80-110); HEMOLYSIS < 15 (0-50); Magnesium 1.9 mg/dL (1.6-2.3); Potassium 3.2 mmol/L (3.4-5.1); Sodium 120 mmol/L (137-145); Total Protein 6.1 g/dL (6.3-8.2)
[2022-08-10 20:43] VITALS: BP 140/89; PULSE 83; RESP 18; TEMP 36.1; O2SAT 100
[2022-08-10 21:04] LABS: NT-proBNP (BNP-Adult 18+) 7980 pg/mL (<125)
[2022-08-10] MEDS: POTASSIUM CHLORIDE 20 MEQ TAB 40 MEQ PO (21:13)
[2022-08-10] MEDS: DEXTROSE 5%-0.9% NS 1,000 ML 100 ML IV (21:13)
[2022-08-10] MEDS: HYDROMORPHONE 0.5 MG INJ IV (21:14)
--- NOTE | 2022-08-10 21:49 | DI.RAD.S_ITS ---
PROCEDURE: XR CHEST 1V INDICATIONS: leukocytosis TECHNIQUE: One view of the chest was acquired. COMPARISON: [facility], CR, XR CHEST 1V, 05/18/2022, 22:38. [facility], CR, XR CHEST 1V, 05/18/2022, 21:41. FINDINGS: Surgical changes and devices: None. Lungs and pleura: Lungs are clear. No pleural effusions or pneumothorax. Mediastinum: Mediastinal contours appear normal. Heart size is normal. Bones and chest wall: No suspicious bony lesions. Scoliosis. Overlying soft tissues appear unremarkable. IMPRESSION: No acute cardiopulmonary abnormality. Dictated by: Jordon Diaz M.D. on 08/10/2022 at 22:17 Approved by: Jordon Diaz M.D. on 08/10/2022 at 22:18
[2022-08-10 21:55] VITALS: BMI 17.6
[2022-08-10 22:17] LABS: Procalcitonin 0.13 ng/mL (<0.5)
[2022-08-10 23:59] LABS: Sodium Urine Random 37 mmol/L (30-90)
[2022-08-11] VITALS (21 sets, daily range): BP systolic 93–230; BP diastolic 55–102; PULSE 62–81; RESP 11–17; TEMP 36.2–37.2; O2SAT 92–97
--- NOTE | 2022-08-11 | DI.RAD.S_ITS ---
PROCEDURE: XR HIP W PEL IF DONE LT 2V INDICATIONS: IM NAILING TECHNIQUE: Five intraoperative fluoroscopic spot views of the hip were acquired. COMPARISON: , , XR HIP W PEL IF DONE LT 2V, 08/10/2022, 18:01. FINDINGS: Intraoperative fluoroscopy demonstrates a near anatomic alignment of an intertrochanteric left hip fracture. There are femoral neck screws and an intramedullary femoral diamond. Hardware appears appropriate. No unexpected fractures. IMPRESSION: Intraoperative fluoroscopy for left hip pinning. Dictated by: Vesna Wiggins M.D. on 08/11/2022 at 13:17 Approved by: Vesna Wiggins M.D. on 08/11/2022 at 13:18
[2022-08-11 01:51] LABS: MRSA (Nasal) PCR Not Detected (Not Detect)
[2022-08-11] MEDS: LABETALOL 20 MG/4 ML SYRINGE 10 MG IV ×2 (03:28→12:54)
[2022-08-11 04:56] LABS: INR 0.9 (0.9-1.3); Prothrombin Time 10.4 SECONDS (10.1-12.7)
[2022-08-11 04:59] LABS: PTT Partial Thromboplastin Tim 25 SECONDS (26-36)
[2022-08-11 05:02] LABS: Alanine Aminotransferase 16 IU/L (<35); Albumin 3.1 g/dL (3.5-5.0); Albumin Globulin Ratio 1.3 (1.0-2.8); Alkaline Phosphatase 91 U/L (38-126); Aspartate Aminotransferase 27 IU/L (14-36); BUN Creatinine Ratio 31.7 (6-22); Bilirubin Total 0.4 mg/dL (0.2-1.3); Blood Urea Nitrogen 19 mg/dL (7-17); Carbon Dioxide 35 mmol/L (22-32); Chloride 90 mmol/L (98-107); Estimated Glomerular Filt Rate > 60 mL/min (>60); Globulin 2.3 g/dL (1.7-4.1); Glucose 135 mg/dL (80-110); HEMOLYSIS < 15 (0-50); Magnesium 1.9 mg/dL (1.6-2.3); Potassium 2.9 mmol/L (3.4-5.1); Sodium 127 mmol/L (137-145); Total Protein 5.4 g/dL (6.3-8.2)
[2022-08-11 05:07] LABS: Add Manual Diff / Slide Review NO; Basophils Absolute Auto 100 /uL (0-100); Basophils Percent Auto 0.5 % (0-2); Eosinophils Absolute Auto 100 /uL (0-450); Eosinophils Percent Auto 1.1 % (2-4); Hematocrit 30.8 % (36-46); Hemoglobin 10.4 g/dL (12.0-16.0); Lymphocytes Absolute Auto 2500 /uL (1100-4500); Lymphocytes Percent Auto 20.6 % (25-40); Mean Corpuscular HGB Conc 33.9 % (30-36); Mean Corpuscular Hemoglobin 28.5 PG (26-34); Mean Corpuscular Volume 84.2 fL (80-100); Monocytes Absolute Auto 700 /uL (0-900); Monocytes Percent Auto 5.7 % (3-14); Neutrophils Absolute Auto 8800 /uL (1500-7000); Neutrophils Percent Auto 72.1 % (50-75); Platelet Count 470 X10^3/uL (150-400); Red Blood Cell Count 3.66 X10^6/uL (4.0-5.2); Red Cell Distribution Width 13.6 % (11.6-14.8); White Blood Cell Count 12.2 X10^3/uL (4.5-11.0)
[2022-08-11] MEDS: POTASSIUM CHLORIDE IN WATER 10 MEQ/100 ML PIGGYBACK 100 MEQ IV ×4 (05:54→09:09)
[2022-08-11 06:57] LABS: COVID19 - ADMIT (NP swab/PCR) Negative (Negative)
[2022-08-11] MEDS: DEXTROSE 5%-0.9% NS 1,000 ML 100 ML IV (07:20)
[2022-08-11] MEDS: LACTATED RINGERS 1,000 ML 42 ML IV ×2 (10:00→11:22)
--- NOTE | 2022-08-11 10:09 | SUR.HOLD ---
Patient to holding area from room 226 with PACU nurse in stable condition; AAO X 3; owens catheter draining willie urine to bedside bag; Potassium Chloride infusing to IV pump. Patient chronically hypertensive at 195/99; notified Anesthesiology. Patient asymptomatic
--- NOTE | 2022-08-11 10:49 | PM.CN ---
History of Present Illness Consult details Date Patient Seen: 08/11/22 Time Patient Seen: 10:49 Chief complaint: Fall Reason for consult: left hip fracture Requesting provider: Timmy Petersen Narrative: Ms. Jones is a 72 yo F who sustained a fall and fractured her left hip. She has a displaced angulated left femur intertrochanteric fracture. Orthopedic service was consulted. Meds Home Medications and Allergies Home Medications Medication Instructions Recorded Confirmed Type ibuprofen 200 mg tablet 400 mg PO DAILY 05/13/22 06/12/22 History lidocaine 5 % topical patch 1 patch topical DAILY #30 ea 05/13/22 06/12/22 Rx acetaminophen 325 mg tablet 650 mg PO Q6HR #120 tabs 05/18/22 06/12/22 Rx ondansetron 4 mg disintegrating 4 mg PO Q4HR PRN Nausea #10 tabs 05/18/22 06/12/22 Rx tablet oxycodone 5 mg tablet 5 mg PO Q4-6H PRN Pain, Moderate 06/13/22 Rx (4-6) #20 tabs compression stocking #1 ea 06/25/22 Rx amlodipine 5 mg tablet 5 mg PO DAILY #90 tabs 07/16/22 07/16/22 Rx Allergies Allergy/AdvReac Type Severity Reaction Status Date / Time wool Allergy Mild Rash Verified 08/10/22 18:01 codeine AdvReac Intermediate Gastrointestinal Verified 08/10/22 18:01 Upset Review of Systems Review of Systems ROS: Yes All systems reviewed with the patient and are negative except as otherwise documented Exam Vital Signs (past 8 hours): - 08/11/22 03:28 08/11/22 03:58 08/11/22 07:44 Temperature 97.8 F Pulse Rate 81 65 72 Respiratory Rate 17 Blood Pressure 230/102 H 166/80 H 195/86 H Pulse Oximetry 97 Oxygen Delivery Method Oxygen Flow Rate 0 08/11/22 07:00 08/11/22 10:08 Temperature 98.9 F Pulse Rate 79 Respiratory Rate 16 Blood Pressure 195/99 H Pulse Oximetry 97 Oxygen Delivery Method Room Air Room Air Oxygen Flow Rate Oxygen Delivery Method Room Air Oxygen Flow Rate 0 Extrem Other: left leg is shortened and internally rotated. neurovascularly intact with well perfused toes. Able to move ankle and toes, sensation intact. Objective Labs 08/11/22 04:10 08/11/22 04:10 Labs: Laboratory Results - last 24 hr 08/10/22 08/10/22 08/10/22 19:15 19:15 19:15 WBC 22.3 H RBC 4.12 Hgb 11.7 L Hct 34.5 L MCV 83.8 MCH 28.4 MCHC 33.8 RDW 13.6 Plt Count 538 H Neut % (Auto) 85.4 H Lymph % (Auto) 9.3 L [place] % (Auto) 4.4 Eos % (Auto) 0.2 L Baso % (Auto) 0.7 Neut # (Auto) 99991 H Lymph # (Auto) 2100 [place] # (Auto) 1000 H Eos # (Auto) 0 Baso # (Auto) 100 PT INR APTT Sodium 121 L 120 L Potassium 3.2 L 3.2 L Chloride 79 L 79 L Carbon Dioxide 37 H 38 H BUN 28 H 28 H Creatinine 0.94 0.96 Estimated GFR > 60 > 60 BUN/Creatinine Ratio 29.8 H 29.2 H Glucose 124 H 125 H Lactate Calcium 9.6 9.5 Magnesium 1.9 Total Bilirubin 0.2 Conjugated Bilirubin 0.0 Unconjugated Bilirubin 0.1 AST 33 ALT 19 Alkaline Phosphatase 111 NT-Pro-B Natriuret Pep Total Protein 6.1 L Albumin 3.5 Globulin 2.6 Albumin/Globulin Ratio 1.3 Procalcitonin Ur Random Sodium Nasal Screen MRSA (PCR) SARS-CoV-2 (PCR) 08/10/22 08/10/22 08/10/22 19:15 19:15 19:15 WBC RBC Hgb Hct MCV MCH MCHC RDW Plt Count Neut % (Auto) Lymph % (Auto) [place] % (Auto) Eos % (Auto) Baso % (Auto) Neut # (Auto) Lymph # (Auto) [place] # (Auto) Eos # (Auto) Baso # (Auto) PT INR APTT Sodium Potassium Chloride Carbon Dioxide BUN Creatinine Estimated GFR BUN/Creatinine Ratio Glucose Lactate 1.0 Calcium Magnesium Total Bilirubin Conjugated Bilirubin Unconjugated Bilirubin AST ALT Alkaline Phosphatase NT-Pro-B Natriuret Pep 7980 H Total Protein Albumin Globulin Albumin/Globulin Ratio Procalcitonin 0.13 Ur Random Sodium Nasal Screen MRSA (PCR) SARS-CoV-2 (PCR) 08/10/22 08/11/22 08/11/22 23:44 00:15 04:10 WBC 12.2 H RBC 3.66 L Hgb 10.4 L Hct 30.8 L MCV 84.2 MCH 28.5 MCHC 33.9 RDW 13.6 Plt Count 470 H Neut % (Auto) 72.1 Lymph % (Auto) 20.6 L [place] % (Auto) 5.7 Eos % (Auto) 1.1 L Baso % (Auto) 0.5 Neut # (Auto) 8800 H Lymph # (Auto) 2500 [place] # (Auto) 700 Eos # (Auto) 100 Baso # (Auto) 100 PT INR APTT Sodium Potassium Chloride Carbon Dioxide BUN Creatinine Estimated GFR BUN/Creatinine Ratio Glucose Lactate Calcium Magnesium Total Bilirubin Conjugated Bilirubin Unconjugated Bilirubin AST ALT Alkaline Phosphatase NT-Pro-B Natriuret Pep Total Protein Albumin Globulin Albumin/Globulin Ratio Procalcitonin Ur Random Sodium 37 Nasal Screen MRSA (PCR) Not detected SARS-CoV-2 (PCR) 08/11/22 08/11/22 08/11/22 04:10 04:10 06:00 WBC RBC Hgb Hct MCV MCH MCHC RDW Plt Count Neut % (Auto) Lymph % (Auto) [place] % (Auto) Eos % (Auto) Baso % (Auto) Neut # (Auto) Lymph # (Auto) [place] # (Auto) Eos # (Auto) Baso # (Auto) PT 10.4 INR 0.9 APTT 25 L Sodium 127 L Potassium 2.9 L Chloride 90 L Carbon Dioxide 35 H BUN 19 H Creatinine 0.60 Estimated GFR > 60 BUN/Creatinine Ratio 31.7 H Glucose 135 H Lactate Calcium 9.0 Magnesium 1.9 Total Bilirubin 0.4 Conjugated Bilirubin Unconjugated Bilirubin AST 27 ALT 16 Alkaline Phosphatase 91 NT-Pro-B Natriuret Pep Total Protein 5.4 L Albumin 3.1 L Globulin 2.3 Albumin/Globulin Ratio 1.3 Procalcitonin Ur Random Sodium Nasal Screen MRSA (PCR) SARS-CoV-2 (PCR) Negative [facility] Medical History COPD (chronic obstructive pulmonary disease) History of fracture of right hip Hypertension, essential Paralysis Vision disorder Surgical History (Updated 08/10/22 @ 21:[address]-) History of repair of hip fracture No pertinent past surgical history Family History Mother Diabetes mellitus Hyperthyroidism Father CAD (coronary artery disease) Social History household members: spouse and children Tobacco & Substance Use Smoking Status: Current every day smoker Tobacco: How many years used: 40 quit status: considering quitting (I'm trying ) alcohol intake: current Assessment & Plan Assessment & Plan narrative: Ms. Jones has a displaced left femur displaced and angulated intertrochanteric fracture. Risks for surgery was discussed. Surgery risks include but not limited to bleeding, need for blood transfusion, need for additional surgery, wound infection, hardware complications, nerve/blood vessel injury, even . Patient understands and would like to proceed with surgery. I scheduled her for left femur open reduction internal fixation with a cephalomedullary device as emergency surgery today.
--- NOTE | 2022-08-11 10:53 | PM.OP.1 ---
Operative Date/Time/Diagnoses Date of procedure: 08/11/22 Time of procedure: 11:00 Pre-op diagnosis: left femur intertrochanteric fracture Post-op diagnosis: same Procedure & Clinicians Procedure: left femur open reduction internal fixation with intramedullar nailing Same procedure as scheduled: Yes Indications: Ms. Jones sustained a left hip fracture after fall. She is not able to ambulate due to her injury. After risks and benefits of surgery was discussed, patient elected to proceed with surgery. Surgeon: Sukhi Marcum Click Yes if Unassisted: Yes Anesthesia Type: General Operative Notes Closure Type: primary Prosthetic devices, grafts, tissues, transplants, or devices: [employer]uz [employer]hew Proximal femur Intertan intramedullary nail to proximal and distal locking screws and lag screws Applied: catheter Estimated Blood Loss (mL): 100 Blood products transfused: none Procedure in detail: Patient was seen in the preoperative area. Risks and benefits of the surgery was discussed with the patient. Informed consent was obtained from the patient and placed in the chart. Surgical site was marked. Patient was taken to the operative room. General anesthesia was administered. Prophylactic antibiotic was given to the patient less than 30 min before the incision was made. Patient was placed into a supine position on the fracture table. Patient's hip was then prepped and draped in the sterile fashion. Time-out was performed at this time. Using the fracture table, a closed reduction maneuver was performed to the right proximal femur fracture. This was done by distracting internally rotating and adducting the left hip. After the fracture reduction was completed and confirmed with AP and lateral C-arm imaging, Patient's hip was then prepped and draped in the sterile fashion. A 3 in incision just proximal to the greater trochanter was made on the lateral aspect of the patient's hip. Starting guidewire was inserted through the incision onto the greater trochanter. The guidewire was driven into the intramedullary canal and confirmed with AP and lateral C-arm imaging. The canal opening Reamer was used to open the canal from the proximal to distal fashion. A 10 mm 125 degree nail was assembled on the back table and inserted into the mid intramedullary canal from a proximal distal fashion. The lateral targeting guide was used to place the cephalomedullary device by placing a lateral incision after targeting guide was used to measure the location of the incision. The fascia was incised in line with skin incision the targeting guide was inserted and docked onto the lateral aspect of the lateral cortex of the proximal femur and a guidewire was drilled through the lateral cortex into the femoral head through the femoral neck in the center location on both AP and lateral imaging. Depth gauge was used to measure the length of the cephalomedullary device a 85 mm cephalomedullary piece was chosen and placed through the lateral cortex into the femoral head through the IM nail. A compression screw was then placed into the proximal femur through the femoral neck after drilling and measuring through the lateral targeting jig. The compression screw was placed manually and tight purchase was achieved using hand tightening. A distal locking screw was then placed using the same targeting guide after drilling in bicortical fashion. Depth gauge was used to measure the length. 27.5 mm screw was inserted. After all the hardware was placed, AP and lateral C-arm imaging was used to confirm placement of the hardware and reduction of the fracture. Good placement of the hardware and good reduction of the fracture was confirmed. The wound was then irrigated with sterile normal saline. The deep fascia was closed with 1-0 Vicryl, subcutaneous tissue was closed with 2-0 Vicryl and skin was closed with skin geo. Sterile dressing was applied the patient's skin and patient was woken up from sedation and transferred to recovery room stable condition. Complications: none Post-operative Condition: stable Disposition: PACU Plan for aftercare: Admit to inpatient hospital
[2022-08-11] MEDS: CEFAZOLIN 2 GM/100 ML PREMIX 100 ML IV (11:15)
--- NOTE | 2022-08-11 11:33 | SUR.OPER ---
Supine on padded Kimball table with bilateral legs secured in padded positioning boots and suspended in positioning spars, operative leg in traction per surgeon. Head on one pillow. Arm on non-operative side secured on padded armboard <90 degrees abduction. Arm on operative side padded and resting across chest then secured with tape over sheet. Padded perineal post in place per surgeon.
[2022-08-11] MEDS: BUPIVACAINE LIPOSOME 266 MG/20 ML VIAL INJ (11:46)
[2022-08-11] MEDS: BUPIVACAINE 0.5% (PF) 10 ML VIAL INJ (11:46)
[2022-08-11] MEDS: MORPHINE 2 MG/ML INJ 0.5 MG IV (13:45)
[2022-08-11 13:48] LABS: Hematocrit 30.9 % (36-46); Hemoglobin 10.3 g/dL (12.0-16.0)
[2022-08-11 14:00] LABS: HEMOLYSIS < 15 (0-50); Potassium 4.5 mmol/L (3.4-5.1)
--- NOTE | 2022-08-11 14:09 | CM.DANOTE ---
DCP: Patient is a 72yo F here recovering from left hip fracture. Surgery was 08.11.22. Patient recently fractured right hip in May 2022. Payer: [facility] Medicare and self pay PCP: Dr. Grant WASHINGTONW team entered room and introduced self and roles. Patient had just returned from surgery and was A/Ox4 however slightly sleepy. Patient was accompanied by spouse, Timmy ([phone]). Patient lives at home with spouse and son, Soham. Does not drive at baseline. Lives in apartment with no steps to get into home. Spouse reports since the initial hip fracture him and son have been helping take care of patient. Patient was in a wheelchair up until a few days ago. Patient was using walker when she fell and broke her left hip. Patient's son, Soham, lives with them and is able to help some needs, such as meal prep and shopping, but he is currently disabled. Spouse says son may not be able to help with physical assist. Patient adamantly denies wanting to go to a SNF. Patient wants to return home and resume services with [facility]. Spouse wants to be there for initial PT/OT evaluation. Spouse does martial arts training and will be here Friday/Friday morning around 0830. This author called [facility] to inform them of the plan to reinstate services and spoke with Rhonda ([phone]). This author informed Rhonda that patient may be here another day or so. She verbalized understanding and plans on reinstating services upon d/c. Dr. Velasquez talked to patient late afternoon and discussed possibility of patient going to SNF. Spouse was not in room and patient indicated she would stay open minded. Plan: when medically stable to d/c, patient will return home with family assistance and restart [facility]. CM team will fax over f2f and d/c summary to [facility] when available. Pending PT/OT recommendation, either will transport in POV or wheelchair van. WEI Gallegos Discharge Planning/Care Management CM Discharge Assessment Start: 08/11/22 14:03 Freq: Status: Active Protocol: Document 08/11/22 14:03 (Rec: 08/11/22 14:09 [id number]) Discharge Planning Assessment Assigned Travel Journalist WEI Gallegos DPCALLY/Assigned Designee Name Timmy Jones (spouse) Contact Information [phone] Advance Directives? No History Provided By Patient,Family Member,Medical Record Has Patient been admitted in last 30 No days? Comment patient was here 05/16/22 and for right hip fracture. Prior Living Arrangements Apartment/Condo Household Members spouse,children Type of transporation used prior to Relies on Others admit Independent with ADL's No: see comment Is patient alert and oriented? Yes Needs Assistance With Meal Prep,Home Chores / Shopping Comment prior to first hip fracture in May 2022, she reports being independent with ADLs. Since May hip fracture, she has needed asssitance from spouse and son. DME Already Rented / Owned Wheelchair,FWW / Walker Patient/Family Preference Home with Home Health Comment plan to DC home with [facility] reinstated Discharge Plan Home with Home Health Transportation Arrangement Pending patient progress. If able, patient will transport home with spouse. If needed, d /c shoe lay out planner will set up wheelchair transport. Referrals Initiated Home Health If patient plan is home with home health Yes: resumption of HH : Has signed face to face form been completed? SNF/HH Preference [facility]art [facility]. Whiteboard Updated in Patient Room with Yes name and ext. # of Travel Journalist Review Status In Process Next Review Type Continued Stay Review
--- NOTE | 2022-08-11 15:27 | P.PN_ITS ---
Subjective Subjective Interval history: 72-year-old female who has a history of COPD and hypertension as well as had a mechanical fall and sustained a right hip fracture status post ORIF May 17, 2022, presented to the emergency department yesterday after a mechanical fall. She was found to have a left femur intertrochanteric fracture. She was taken to the operating room today for ORIF with intramedullary nailing. Currently, she reports she feels groggy from the anesthetic she received. She denies any pain. No shortness of breath. Social work has met with her and she has hold them that she is not willing to consider a long-term facility for rehab and prefers to go home. Exam Vital Signs (past 8 hours): - 08/11/22 07:44 08/11/22 10:08 08/11/22 12:54 Temperature 97.8 F 98.9 F Pulse Rate 72 79 73 Respiratory Rate 17 16 Blood Pressure 195/86 H 195/99 H 204/100 H Pulse Oximetry 97 97 Oxygen Delivery Method Room Air Oxygen Flow Rate 0 08/11/22 12:46 08/11/22 12:50 08/11/22 12:55 Temperature 98.1 F Pulse Rate 71 72 72 Respiratory Rate 13 11 L 12 Blood Pressure 197/100 H 204/100 H 212/100 H Pulse Oximetry 94 94 95 Oxygen Delivery Method Room Air Room Air Room Air Oxygen Flow Rate 08/11/22 13:00 08/11/22 13:05 08/11/22 14:19 Temperature Pulse Rate 62 62 72 Respiratory Rate 11 L 11 L Blood Pressure 177/81 H 187/85 H 188/76 H Pulse Oximetry 97 95 Oxygen Delivery Method Room Air Room Air Oxygen Flow Rate 08/11/22 13:20 08/11/22 13:50 08/11/22 14:15 Temperature 97.2 F L 97.3 F L 97.6 F Pulse Rate 65 67 67 Respiratory Rate 16 16 16 Blood Pressure 205/87 H 191/85 H 187/83 H Pulse Oximetry 96 94 92 Oxygen Delivery Method Oxygen Flow Rate 0 0 0 08/11/22 15:20 Temperature 97.8 F Pulse Rate 68 Respiratory Rate 16 Blood Pressure 188/84 H Pulse Oximetry 96 Oxygen Delivery Method Oxygen Flow Rate 0 Oxygen Delivery Method Room Air Oxygen Flow Rate 0 Narrative Exam Narrative: GEN: Middle-aged female, drowsy but oriented x 3, NAD HEENT:NC, Face symmetric CHEST: Respiratory excursions symmetric, CTAB CV: RRR, no M/R/G ABD: Soft, NT/ND, BT present in all 4 quadrants, no organomegaly or masses EXTR: warm, well perfused, no C/C/E SKIN: warm and dry, no rash NEURO: Drowsy but oriented x 3, nonfocal Objective Labs 08/11/22 13:36 08/11/22 13:36 Labs: Laboratory Results - last 24 hr 08/10/22 08/10/22 08/10/22 19:15 19:15 19:15 WBC 22.3 H RBC 4.12 Hgb 11.7 L Hct 34.5 L MCV 83.8 MCH 28.4 MCHC 33.8 RDW 13.6 Plt Count 538 H Neut % (Auto) 85.4 H Lymph % (Auto) 9.3 L [place] % (Auto) 4.4 Eos % (Auto) 0.2 L Baso % (Auto) 0.7 Neut # (Auto) 29685 H Lymph # (Auto) 2100 [place] # (Auto) 1000 H Eos # (Auto) 0 Baso # (Auto) 100 PT INR APTT Sodium 121 L 120 L Potassium 3.2 L 3.2 L Chloride 79 L 79 L Carbon Dioxide 37 H 38 H BUN 28 H 28 H Creatinine 0.94 0.96 Estimated GFR > 60 > 60 BUN/Creatinine Ratio 29.8 H 29.2 H Glucose 124 H 125 H Lactate Calcium 9.6 9.5 Magnesium 1.9 Total Bilirubin 0.2 Conjugated Bilirubin 0.0 Unconjugated Bilirubin 0.1 AST 33 ALT 19 Alkaline Phosphatase 111 NT-Pro-B Natriuret Pep Total Protein 6.1 L Albumin 3.5 Globulin 2.6 Albumin/Globulin Ratio 1.3 Procalcitonin Ur Random Sodium Nasal Screen MRSA (PCR) SARS-CoV-2 (PCR) 08/10/22 08/10/22 08/10/22 19:15 19:15 19:15 WBC RBC Hgb Hct MCV MCH MCHC RDW Plt Count Neut % (Auto) Lymph % (Auto) [place] % (Auto) Eos % (Auto) Baso % (Auto) Neut # (Auto) Lymph # (Auto) [place] # (Auto) Eos # (Auto) Baso # (Auto) PT INR APTT Sodium Potassium Chloride Carbon Dioxide BUN Creatinine Estimated GFR BUN/Creatinine Ratio Glucose Lactate 1.0 Calcium Magnesium Total Bilirubin Conjugated Bilirubin Unconjugated Bilirubin AST ALT Alkaline Phosphatase NT-Pro-B Natriuret Pep 7980 H Total Protein Albumin Globulin Albumin/Globulin Ratio Procalcitonin 0.13 Ur Random Sodium Nasal Screen MRSA (PCR) SARS-CoV-2 (PCR) 08/10/22 08/11/22 08/11/22 23:44 00:15 04:10 WBC 12.2 H RBC 3.66 L Hgb 10.4 L Hct 30.8 L MCV 84.2 MCH 28.5 MCHC 33.9 RDW 13.6 Plt Count 470 H Neut % (Auto) 72.1 Lymph % (Auto) 20.6 L [place] % (Auto) 5.7 Eos % (Auto) 1.1 L Baso % (Auto) 0.5 Neut # (Auto) 8800 H Lymph # (Auto) 2500 [place] # (Auto) 700 Eos # (Auto) 100 Baso # (Auto) 100 PT INR APTT Sodium Potassium Chloride Carbon Dioxide BUN Creatinine Estimated GFR BUN/Creatinine Ratio Glucose Lactate Calcium Magnesium Total Bilirubin Conjugated Bilirubin Unconjugated Bilirubin AST ALT Alkaline Phosphatase NT-Pro-B Natriuret Pep Total Protein Albumin Globulin Albumin/Globulin Ratio Procalcitonin Ur Random Sodium 37 Nasal Screen MRSA (PCR) Not detected SARS-CoV-2 (PCR) 08/11/22 08/11/22 08/11/22 04:10 04:10 06:00 WBC RBC Hgb Hct MCV MCH MCHC RDW Plt Count Neut % (Auto) Lymph % (Auto) [place] % (Auto) Eos % (Auto) Baso % (Auto) Neut # (Auto) Lymph # (Auto) [place] # (Auto) Eos # (Auto) Baso # (Auto) PT 10.4 INR 0.9 APTT 25 L Sodium 127 L Potassium 2.9 L Chloride 90 L Carbon Dioxide 35 H BUN 19 H Creatinine 0.60 Estimated GFR > 60 BUN/Creatinine Ratio 31.7 H Glucose 135 H Lactate Calcium 9.0 Magnesium 1.9 Total Bilirubin 0.4 Conjugated Bilirubin Unconjugated Bilirubin AST 27 ALT 16 Alkaline Phosphatase 91 NT-Pro-B Natriuret Pep Total Protein 5.4 L Albumin 3.1 L Globulin 2.3 Albumin/Globulin Ratio 1.3 Procalcitonin Ur Random Sodium Nasal Screen MRSA (PCR) SARS-CoV-2 (PCR) Negative 08/11/22 08/11/22 13:36 13:36 WBC RBC Hgb 10.3 L Hct 30.9 L MCV MCH MCHC RDW Plt Count Neut % (Auto) Lymph % (Auto) [place] % (Auto) Eos % (Auto) Baso % (Auto) Neut # (Auto) Lymph # (Auto) [place] # (Auto) Eos # (Auto) Baso # (Auto) PT INR APTT Sodium Potassium 4.5 D Chloride Carbon Dioxide BUN Creatinine Estimated GFR BUN/Creatinine Ratio Glucose Lactate Calcium Magnesium Total Bilirubin Conjugated Bilirubin Unconjugated Bilirubin AST ALT Alkaline Phosphatase NT-Pro-B Natriuret Pep Total Protein Albumin Globulin Albumin/Globulin Ratio Procalcitonin Ur Random Sodium Nasal Screen MRSA (PCR) SARS-CoV-2 (PCR) [facility] Medical History COPD (chronic obstructive pulmonary disease) History of fracture of right hip Hypertension, essential Paralysis Vision disorder Surgical History (Updated 08/10/22 @ 21:[address]) History of repair of hip fracture No pertinent past surgical history Family History Mother Diabetes mellitus Hyperthyroidism Father CAD (coronary artery disease) Social History household members: spouse and children Smoking Status: Current every day smoker Tobacco: How many years used: 40 quit status: considering quitting (I'm trying ) alcohol intake: current Assessment & Plan Assessment & Plan narrative: 1. Left intertrochanteric hip fracture, postop day 0. From ORIF with intramedullary nailing Patient is doing well presently. Continue routine postoperative care. I did ask the patient to reconsider her thoughts about long-term facility placement as she is not fully recovered her strength from her prior hip fracture and will now be more reliant on that leg due to her current fracture. She is at a very high risk for fall which would result in potentially catastrophic complications for her. She will work with physical therapy and if they feel she is unsafe for home discharge, she states she will consider long-term. 2. Gait instability/ground level fall PT/OT consult pending. 3. Hyponatremia Sodium is improved and up to 127 today. It does appear she has some mild chronic hyponatremia with a baseline between 127 and 132. 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 4. Hypokalemia Potassium was 3.2 on arrival. Despite potassium repletion, it dropped to 2.9 this morning. She received additional repletion and her potassium this afternoon is now 4.5. 5. COPD No evidence of exacerbation. She does have a 40 pack-year smoking history. Will need to monitor for impaired respiratory status and/or encephalopathy potentially due to respiratory acidosis. She does appear to have some hypercarbia since arrival that is new compared to prior admission. 6. Tobacco dependence Nicotine patch as needed 7. Likely osteoporosis Patient will need an outpatient workup, but is high risk given to pathologic fractures in the past several months, petite stature, and ongoing tobacco dependence. 8. Normocytic anemia, acute on chronic blood loss secondary to hip fractures Prior to her fracture in May of this year, she had a normal hemoglobin. At discharge from the hospital her hemoglobin was 10.6. It was up to 11.7 on admission and is down to 10.3 this afternoon. Will continue to monitor. 9. Thrombocytosis It late count has been elevated since May. It was 667 in May of this year after her fracture. On admission last evening it was 538. Today it was improved at 470. It may be an acute phase reactant. 10. Hypertension Blood pressure significantly elevated this afternoon at 188/84. Will resume her usual home medications. Code status Full Surrogate decision maker Spouse, Timmy Jones Prophylaxis Aspirin 81 mg b.i.d. ordered per Orthopedic surgery Disposition Pending recommendations from therapies and patient's decision regarding long-term facility versus home with home health
[2022-08-11] MEDS: lisinopriL 10 MG TABLET PO (16:29)
[2022-08-11] MEDS: AMLODIPINE 5 MG TABLET PO (16:30)
[2022-08-11] MEDS: SODIUM CHLORIDE 0.9% 1,000 ML 75 ML IV (18:56)
[2022-08-11] MEDS: CEFAZOLIN VIAL 1 GM in SODIUM CHLORIDE 0.9% 100 ML IV (20:10)
[2022-08-11] MEDS: HYDROMORPHONE 0.5 MG INJ IV (23:54)
[2022-08-12] VITALS (7 sets, daily range): BP systolic 105–146; BP diastolic 52–66; PULSE 65–78; RESP 16–19; TEMP 36.3–36.9; O2SAT 93–98
[2022-08-12] MEDS: HYDROMORPHONE 0.5 MG INJ IV ×3 (01:59→22:13)
[2022-08-12] MEDS: CEFAZOLIN VIAL 1 GM in SODIUM CHLORIDE 0.9% 100 ML IV (03:19)
[2022-08-12 05:20] LABS: Add Manual Diff / Slide Review NO; Basophils Absolute Auto 100 /uL (0-100); Basophils Percent Auto 0.6 % (0-2); Eosinophils Absolute Auto 100 /uL (0-450); Eosinophils Percent Auto 0.4 % (2-4); Hemoglobin 9.4 g/dL (12.0-16.0); Lymphocytes Absolute Auto 2500 /uL (1100-4500); Lymphocytes Percent Auto 17.7 % (25-40); Mean Corpuscular HGB Conc 33.7 % (30-36); Mean Corpuscular Hemoglobin 28.6 PG (26-34); Monocytes Absolute Auto 800 /uL (0-900); Monocytes Percent Auto 5.7 % (3-14); Neutrophils Absolute Auto 10700 /uL (1500-7000); Neutrophils Percent Auto 75.6 % (50-75); Platelet Count 409 X10^3/uL (150-400); Red Blood Cell Count 3.29 X10^6/uL (4.0-5.2); Red Cell Distribution Width 13.8 % (11.6-14.8); White Blood Cell Count 14.2 X10^3/uL (4.5-11.0)
[2022-08-12] MEDS: OXYCODONE IR 5 MG TABLET PO ×3 (05:28→20:20)
[2022-08-12 05:34] LABS: Alanine Aminotransferase 14 IU/L (<35); Albumin 2.6 g/dL (3.5-5.0); Albumin Globulin Ratio 1.2 (1.0-2.8); Alkaline Phosphatase 75 U/L (38-126); Aspartate Aminotransferase 22 IU/L (14-36); Blood Urea Nitrogen 19 mg/dL (7-17); Calcium 8.8 mg/dL (8.4-10.2); Carbon Dioxide 30 mmol/L (22-32); Chloride 94 mmol/L (98-107); Estimated Glomerular Filt Rate > 60 mL/min (>60); Globulin 2.2 g/dL (1.7-4.1); Glucose 84 mg/dL (80-110); HEMOLYSIS < 15 (0-50); Sodium 126 mmol/L (137-145); Total Protein 4.8 g/dL (6.3-8.2)
[2022-08-12 05:38] LABS: Bilirubin Total < 0.1 mg/dL (0.2-1.3)
--- NOTE | 2022-08-12 06:25 | PC.NURSE ---
Credit And Loan Collections Supervisor Note-At beginning of shift patient was drowsy and forgetful, difficulty following directions, incontinent of small loose stool. By morning mentation cleared, A/Ox4. Lt hip and foot pain tx with IV Dilaudid and oxycodone per prn orders. Drsg CDI. CMS intact, does have decreased movement r/t pain.
[2022-08-12] MEDS: DOCUSATE 100 MG CAPSULE PO ×2 (08:13→20:20)
[2022-08-12] MEDS: AMLODIPINE 5 MG TABLET PO (08:13)
[2022-08-12] MEDS: ASPIRIN EC 81 MG TABLET PO ×2 (08:13→20:20)
[2022-08-12] MEDS: lisinopriL 10 MG TABLET PO (08:13)
[2022-08-12] MEDS: SODIUM CHLORIDE 0.9% 1,000 ML 75 ML IV (10:36)
--- NOTE | 2022-08-12 10:41 | OT.IP.EVAL ---
Current Diagnoses Fracture of unspecified part of neck of left femur, initial encounter for closed fracture (08/10/22) Surgery Performed Operation Date: 08/11/22 11:45 Actual Procedures p Intramedullary Nailing Femur(Left) - Sukhi Marcum MD Past Medical History (Last Reviewed 08/11/22 @ 10:50 by Sukhi Marcum MD) COPD (chronic obstructive pulmonary disease) History of fracture of right hip Hypertension, essential Paralysis Vision disorder Surgical History (Last Updated 08/10/22 @ 21:40 by Misa Verma [facility]) History of repair of hip fracture No pertinent past surgical history Occupational Therapy Inpatient Evaluation/Re-Eval M1 PT/OT-IP Prior Functional Status Start: 08/12/22 08:59 Freq: NEEDED Status: Active Protocol: Document 08/12/22 12:38 CGR (Rec: 08/12/22 13:03 CGR [id number]) Medical Review Prior Functional Status Medical History Reviewed Yes Communication Pt is an effective verbal communicator Mobility and Gait Pt was MOD I prior to her recent R hip fx and dislocation. Pt used a FWW at baseline and states that she was now ambulating at the home with a FWW since the R hip fx and dislocation. Activities of Daily Living and IADL's Pt states that prior to the R hip fx, pt was MOD I for ADLs. Since the R hip fx and dislocation pt's spouse has been assisting with dressing and she does sponge baths at the sink. Pt states that she was reaching down to pull up her socks when she dislocated her R hip. Social History Household Members spouse,children Living Arrangements Apartment/Condo Number of Floors (Floors) One Floor Number of Stairs To Enter/Railing? no stairs to enter their bottom floor apt. Home Environment High Toilet,Tub/Shower Home Equipment Front Wheel Walker,Bedside Commode,Hand Held Shower, Steam Shovel Runner Employment Status Retired Additional Social History Comment Pt lives in an apt with her and son. Son does all of the cooking. M2 OT-IP Current Condition Start: 08/12/22 12:38 Freq: Status: Active Protocol: Document 08/12/22 12:38 CGR (Rec: 08/12/22 13:03 CGR [id number]) Occupational Therapy Current Condition Current Condition Evaluation Date 08/12/22 Treatment Diagnosis L hip fx, UTI, ORIF and IM nailing 08/11 L hip Diagnosis Onset Date 08/10/22 Post Operative Precautions Posterior Hip Precautions No Hip Flexion > 90 degrees,No Hip Internal Rotation,No Hip Adduction Other Precautions Pt still with posterior hip precautions to the R hip. Weight Bearing Status Weight Bearing Status Weight Bear as Tolerated Allowed Weight Bearing Amount (enter % WBAT to BLE or #) (%) M3 OT- IP Subjective and Pain Start: 08/12/22 12:38 Freq: Status: Active Protocol: Document 08/12/22 12:38 CGR (Rec: 08/12/22 13:03 CGR [id number]) OT- Subjective Occupational Therapy Visit Type Type Initial Evaluation Visit Start Time 10:08 Visit Stop Time 10:41 Total Visit Minutes 33 Notes co-eval with p.t. OT Pain Assessment Pain When Pain Assessed During Mobility Pain Present Pain Present Pain Reported Location right hip Intensity 8 Scale Used Numeric (0 - 10) Management Techniques Distraction,Modification of Treatment,Re-positioning, Timing of Activity with Medications M4 OT- IP ADL's Start: 08/12/22 12:38 Freq: Status: Active Protocol: Document 08/12/22 12:38 CGR (Rec: 08/12/22 13:03 CGR [id number]) OT [id number] Comments OT Self-Feeding Comments not meal time OT ADL-Grooming Comments OT Grooming Comments not performed OT ADL-Oral Care Comments Oral Care Comments not performed OT ADL-Dressing Comments OT Dressing Comments not performed OT ADL-Toileting General Evaluation Toileting Ability Total Assistance Comments OT Toileting Comments pt has a owens OT ADL-Bathing Comments OT Bathing Comments not performed M5 OT- IP IADL's Start: 08/12/22 12:38 Freq: Status: Active Protocol: Document 08/12/22 12:38 CGR (Rec: 08/12/22 13:03 CGR [id number]) OT-Instrumental Activities of Daily Living Deficits IADL Deficits Identified Deficits Home Safety Awareness Awareness of Need for Assistance at Home Decreased Awareness Ability to Problem Solve Emergency Unable to Problem Solve Situations Medication Management Medication Management Caregiver Administers Money Management Money Management Caregiver Provides Assistance Meal Preparation Meal Preparation Caregiver Provides Assist Feed Management Advisor Feed Management Advisor Caregiver Provides Assist Driving Driving Comments Pt does not drive at baseline. M6 OT- IP Functional Cognition Start: 08/12/22 12:38 Freq: Status: Active Protocol: Document 08/12/22 12:38 CGR (Rec: 08/12/22 13:03 R [id number]) Cognitive Factors Limiting Selfcare Function Cognitive Ability Level of Alertness Alert Patient Orientation Name,Age,Birthday,Month,Year, Day of Week,Place,Situation Attention Span Ability Capable of Focused Attention, Capable of Sustained Attention Ability to Follow Commands Able to Follow One Step Commands with Increased Time, Able to Follow One Step Commands with Repetition Cognitive Comments Cognitive Assessment Comments Pt is oriented but may benefit from a formal cog assessment. OT- Vision and Hearing OT- Hearing Assessment OT- Hearing Assessment Hearing Impaired OT- Vision Assessment Visual Acuity Glasses All The Time M7 OT- IP Mobility and Balance Start: 08/12/22 12:38 Freq: Status: Active Protocol: Document 08/12/22 12:38 CGR (Rec: 08/12/22 13:03 R [id number]) OT- Bed Mobility Assessment Supine to Sit Supine to Sit Assist Total Assistance,2 Person Assistance Sit to Supine Sit to Supine Assist Total Assistance,2 Person Assistance OT-Transfer Assessment Sit to and From Stand Sit to and from Stand Minimal Assistance,2 Person Assistance Devices Transfer Assistive Devices Gait Belt,Front Wheeled Walker Comments Mobility Comments Pt was able to stand from bed with min a x 2 then standing balance with CGa. Pt declined further activity and requested to return to bed. OT- Gait Assessment Comments Gait Ability Comments did not occur OT- Balance Assessment Sitting Balance and Reactions Static Sitting Balance Ability Fair Dynamic Sitting Balance Ability Fair M8 OT- IP Objective Assessments Start: 08/12/22 12:38 Freq: Status: Active Protocol: Document 08/12/22 12:38 CGR (Rec: 08/12/22 13:03 R [id number]) OT Gross Range of Motion Upper Extremity Range of Motion ROM Impairments not tested, pt declined after mobility OT Strength Comments Strength Comments not tested, pt declined after mobility OT- Coordination Assessment Upper Extremity Finger to Nose Test Within Functional Limits Finger Tapping Test Within Functional Limits OT-Muscle Tone Assessment Muscle Tone WNL Yes OT Sensation Assessment Edema Edema Absent M9 OT- IP Assessment and Plan Start: 08/12/22 12:38 Freq: Status: Active Protocol: Document 08/12/22 12:38 CGR (Rec: 08/12/22 13:03 CGR [id number]) OT Summary Assessment and Plan Potential Rehabilitation Potential Good Analytic Complexity at Evaluation High Summary OT Impairments Pain,Strength,Balance, Functional Cognition, Functional Mobility,Grooming, Dressing,Toileting,Bathing, Toilet Transfers,Shower Transfers,Activity Tolerance Progress Towards Goals Slow Progress due to Pain Assessment Summary Pt presents as a high complexity evaluation s/p admit for Fall wtih L hip fx, 08/11/22 ORIF and IM nailing. Pt is WBAT to BLE and still has posterior hip precautions to the R hip. Pt would benefit from SNF upon discharge but currently is refusing SNF. Pt states that she would think about it at the end of our session after pt was unable to transfer from the bed. Given pt's history of falls and hip dislocation, pt is not a safe discharge home with family. Goals Grooming Goal Independent Dressing Goal Independent Toileting Goal Independent Bathing Goal Independent Toilet Transfer Goal Independent Shower Transfer Goal Independent Days to Meet Goals 30 Frequency of Treatment Frequency Of Treatment Once a Day Treatment Plan OT Treatment Plan ADL Training,Functional Cognition Training,Functional Mobility,Patient/Family Education,Discharge Planning Other Treatment Recommendations and Next cog assessment if agreeable, Treatment Focus ADLs in bed or chair. Discharge Recommendations OT Discharge Recommendations SNF Rehab Transportation Needs at Discharge Wheelchair/Cabulance
--- NOTE | 2022-08-12 10:41 | PT.IIE ---
Current Diagnoses Fracture of unspecified part of neck of left femur, initial encounter for closed fracture (08/10/22) Surgery Performed Operation Date: 08/11/22 11:45 Actual Procedures p Intramedullary Nailing Femur(Left) - Sukhi Marcum MD Surgical History (Last Updated 08/10/22 @ 21:40 by Misa Verma [facility]) History of repair of hip fracture No pertinent past surgical history Medical History (Last Reviewed 08/11/22 @ 10:50 by Sukhi Marcum MD) COPD (chronic obstructive pulmonary disease) History of fracture of right hip Hypertension, essential Paralysis Vision disorder Physical Therapy Inpatient Evaluation/Re-Eval M1 PT/OT-IP Prior Functional Status Start: 08/12/22 08:59 Freq: NEEDED Status: Active Protocol: Document 08/12/22 12:38 CGR (Rec: 08/12/22 13:03 CGR [id number]) Medical Review Prior Functional Status Medical History Reviewed Yes Communication Pt is an effective verbal communicator Mobility and Gait Pt was MOD I prior to her recent R hip fx and dislocation. Pt used a FWW at baseline and states that she was now ambulating at the home with a FWW since the R hip fx and dislocation. Activities of Daily Living and IADL's Pt states that prior to the R hip fx, pt was MOD I for ADLs. Since the R hip fx and dislocation pt's spouse has been assisting with dressing and she does sponge baths at the sink. Pt states that she was reaching down to pull up her socks when she dislocated her R hip. Social History Household Members spouse,children Living Arrangements Apartment/Condo Number of Floors (Floors) One Floor Number of Stairs To Enter/Railing? no stairs to enter their bottom floor apt. Home Environment High Toilet,Tub/Shower Home Equipment Front Wheel Walker,Bedside Commode,Hand Held Shower, Machine Pie Maker Employment Status Retired Additional Social History Comment Pt lives in an apt with her and son. Son does all of the cooking. M2 PT-IP Current Condition Start: 08/12/22 08:59 Freq: NEEDED Status: Active Protocol: Document 08/12/22 10:41 AW (Rec: 08/12/22 13:41 AW [id number]) Physical Therapy Current Condition Current Condition Evaluation Date 05/29/23 Treatment Diagnosis s/p ORIF L prox femur fx; frequent falls; impaired mobility and gait Onset Date months M3 PT-IP Subjective Start: 08/12/22 08:59 Freq: NEEDED Status: Active Protocol: Document 08/12/22 10:41 AW (Rec: 08/12/22 13:41 AW [id number]) Subjective Physical Therapy Visit Type Type Initial Evaluation Visit Start Time 10:04 Visit Stop Time 10:41 Total Visit Minutes 34 Notes Co-eval with OT due to pt's high pain levels and poor activity tolerance Physical Therapy Visit Comments Patient Comments Pt hopes to discharge home but is very hesitant to move out of bed today. Therapy Pain Assessment Pain When Pain Assessed During Mobility Pain Present Pain Present Pain Reported Location right hip Intensity 8 Scale Used Numeric (0 - 10) M4 PT-IP Mobility and Gait Start: 08/12/22 08:59 Freq: NEEDED Status: Active Protocol: Document 08/12/22 10:41 AW (Rec: 08/12/22 13:41 AW [id number]) PT-Bed Mobility Assessment Supine to Sit Supine to Sit Total Assistance,2 Person Assistance,Head of Bed Elevated,Bedrails Sit to Supine Sit to Supine Total Assistance,2 Person Assistance Scooting Scooting to Edge of Bed Dependent Scooting Up and Down in Bed Dependent PT-Transfer Assessment Sit to and From Stand Sit to and from Stand Minimal Assistance,2 Person Assistance,Use of Upper Extremities Equipment Transfer Assistive Device Gait Belt,Front Wheeled Walker Orthotic/Prosthetic Devices or Brace: No Transfers Transfer Destination Bed Transfer Technique sit <> stand Comments Mobility Comments Pt was lying in bed as PT and OT arrived. Educated pt on her weightbearing status and reviewed posterior hip precautions. She was dependent with total assist x 2 for bed mobility and complained of increased pain with every movement. After much encouragement, she was able to stand at EOB with min assist x 2 using the FWW. She stood with initial wide AMIRA and was able to pivot both her feet to a more appropriate AMIRA but with limited weightshifting. She was unwilling to move past the edge of the bed today. Total A x 2 for return to supine and repositioning. Gait Assessment Comments Gait Comments Pt unable at this time. PT-Balance Assessment Sitting Balance and Reactions Static Sitting Balance Ability Good Dynamic Sitting Balance Ability Fair Standing Balance and Reactions Static Standing Balance Ability Poor Dynamic Standing Balance Ability Poor Device Used FWW M5 PT-IP Objective Assessments Start: 08/12/22 08:59 Freq: NEEDED Status: Active Protocol: Document 08/12/22 10:41 AW (Rec: 08/12/22 13:41 AW [id number]) Orientation Orientation/Cognition Level of Alertness Alert Orientation Name,Date,Place,Situation Language Function Ability Hard of Hearing Safety Awareness Understands Safety Issues Memory Description No Deficits Noted Gross Range of Motion Lower Extremity ROM Assessment Left Impaired Strength Lower Extremity Strength Assessment Left Impaired Knee 3/5 Ankle 4/5 Comments Strength Comments Unable to test hip due to high pain reactivity. RLE grossly 4/5. M6 PT-IP Treatment Start: 08/12/22 08:59 Freq: NEEDED Status: Active Protocol: Document 08/12/22 10:41 AW (Rec: 08/12/22 13:41 AW [id number]) Physical Therapy Treatment Exercises Exercises Ankle Pumps,Quad Sets,Heel Slides Education Education Provided Precautions,Weight Bearing Status,Safety M7 PT-IP Assessment and Plan Start: 08/12/22 08:59 Freq: NEEDED Status: Active Protocol: Document 08/12/22 10:41 AW (Rec: 08/12/22 13:41 AW [id number]) PT Summary Assessment and Plan Potential Rehabilitation Potential Good Status of Condition at Evaluation Evolving Summary Impairments Pain,ROM,Strength,Balance,Bed Mobility,Transfers,Gait Assessment Summary Sydni is a 72 yo woman admitted after a fall at home. She sustained a left proximal femur fracture and underwent ORIF. Today is POD1. Of note, she sustained a right proximal femur fracture on 05/13/22 and underwent ORIF with hemiarthroplasty (posterior precautions) on 05/17/22. She subsequently dislocated her prosthesis in late May and had it reduced. She had HH PT and had returned to her baseline of ambulation with FWW prior to this admission. She lives with her spouse and adult son in a first floor apartment. CLOF: Pt was found resting in bed, initially refusing out of bed activity. Educated pt on the importance of early mobility post-ORIF and pt ultimately consented. She complained of increased pain with all movement and needed total assist for bed mobility. She was able to stand from the bed surface with min assist x 2. Bed surface is taller than a standard height chair. Pt tolerated standing only and was able to reposition her feet in weightbearing but could not progress to transfer , citing pain. Pt does not have sufficient support at home to support her mobility needs at this time. In the context of repeated injurious falls at home, PT recommends SNF rehab. If pt insists on going home, HH PT and increased [place] [facility] support will be needed. Goals Bed Mobility Goal Minimal Assistance Transfer Goal Standby Assistance,Front Wheeled Walker Gait Goal Standby Assistance,Front Wheel Walker Gait Distance 50 Days to Meet Goals 10 Frequency of Treatment Frequency Of Treatment Once a Day Treatment Plan Physical Therapy Treatment Plan Bed Mobility Training,Transfer Training,Gait Training, Therapeutic Exercise,Balance Retraining,Post Op Education, Discharge Planning,Hot or Cold Pack,Neuromuscular Re-ed Other Recommendations and Next Treatment transfers, gait with FWW and Focus chair follow Precautions Posterior Hip Precautions No Hip Flexion > 90 degrees,No Hip Internal Rotation,No Hip Adduction Other Precautions Pt had posterior hip precautions on 05/17/22 and dislocated on 06/13/22. Posterior precautions were maintained during this session out of an abundacnce of caution. Weight Bearing Status Weight Bearing Status Weight Bear as Tolerated Recommendations To Nursing Amount of Assist Needed 2 Person Assist Discharge Recommendations PT Discharge Recommendations SNF Rehab Transportation Needs at Discharge Wheelchair/Cabulance,Stretcher /Ambulance
--- NOTE | 2022-08-12 10:49 | P.PN_ITS ---
Subjective Subjective Date Patient Seen: 08/12/22 Time Patient Seen: 10:49 Exam Vital Signs (past 8 hours): - 08/12/22 06:41 08/12/22 07:47 08/12/22 07:51 Temperature 98.3 F Pulse Rate 73 74 Respiratory Rate 16 18 Blood Pressure 127/63 129/56 L Pulse Oximetry 97 98 Oxygen Delivery Method Room Air Oxygen Flow Rate 0 08/12/22 08:13 Temperature Pulse Rate 74 Respiratory Rate Blood Pressure 129/61 Pulse Oximetry Oxygen Delivery Method Oxygen Flow Rate Oxygen Delivery Method Room Air Oxygen Flow Rate 0 Objective Labs 08/12/22 04:25 08/12/22 04:25 Labs: Laboratory Results - last 24 hr 08/11/22 08/11/22 08/12/22 13:36 13:36 04:25 WBC 14.2 H RBC 3.29 L Hgb 10.3 L 9.4 L Hct 30.9 L 28.0 L MCV 85.0 MCH 28.6 MCHC 33.7 RDW 13.8 Plt Count 409 H Neut % (Auto) 75.6 H Lymph % (Auto) 17.7 L [place] % (Auto) 5.7 Eos % (Auto) 0.4 L Baso % (Auto) 0.6 Neut # (Auto) 58266 H Lymph # (Auto) 2500 [place] # (Auto) 800 Eos # (Auto) 100 Baso # (Auto) 100 Sodium Potassium 4.5 D Chloride Carbon Dioxide BUN Creatinine Estimated GFR BUN/Creatinine Ratio Glucose Calcium Total Bilirubin AST ALT Alkaline Phosphatase Total Protein Albumin Globulin Albumin/Globulin Ratio 08/12/22 04:25 WBC RBC Hgb Hct MCV MCH MCHC RDW Plt Count Neut % (Auto) Lymph % (Auto) [place] % (Auto) Eos % (Auto) Baso % (Auto) Neut # (Auto) Lymph # (Auto) [place] # (Auto) Eos # (Auto) Baso # (Auto) Sodium 126 L Potassium 4.0 Chloride 94 L Carbon Dioxide 30 BUN 19 H Creatinine 0.73 Estimated GFR > 60 BUN/Creatinine Ratio 26.0 H Glucose 84 Calcium 8.8 Total Bilirubin < 0.1 L AST 22 ALT 14 Alkaline Phosphatase 75 Total Protein 4.8 L Albumin 2.6 L Globulin 2.2 Albumin/Globulin Ratio 1.2 [facility] Medical History COPD (chronic obstructive pulmonary disease) History of fracture of right hip Hypertension, essential Paralysis Vision disorder Surgical History (Updated 08/10/22 @ 21:[address]) History of repair of hip fracture No pertinent past surgical history Family History Mother Diabetes mellitus Hyperthyroidism Father CAD (coronary artery disease) Social History household members: spouse and children Smoking Status: Current every day smoker Tobacco: How many years used: 40 quit status: considering quitting (I'm trying ) alcohol intake: current Assessment & Plan Assessment & Plan narrative: Patient is admitted after surgery POD#1 s/p left femur IMN for IT fx. Patient has been stable and progressing with physical therapy but with significant difficulty with balance and high fall risk per PT assessment. Rehab is being recommended by PT. Patient is neurovascularly intact on exam. Patient has no signs or symptoms of DVT. Patient's dressing is clean dry and intact. Will continue PT and medical management. D/c to rehab tomorrow once medically optimized. Patient may WBAT to LLE.
--- NOTE | 2022-08-12 11:18 | CM.DPC ---
Addendum entered by Sheila Darnell R.N. 08/12/22 12:04: Confirmed with Carmen at [facility] that she was discharged from their services in June. She will need a new referral. Face to face was already completed. Addendum entered by Sheila Darnell R.N. 08/12/22 11:57: Spoke to Idalmis at [facility], they do have beds, do take her insurance. Left a message with Sydni at [facility] as well. As indicated, did not send referrals yet without patient's permission. Addendum entered by Sheila Darnell R.N. 08/12/22 11:49: Patient has worked with P.T, pending notes. Met with patient in her room. Introduced self and role. Was informed by nursing that Dr. Marcum and nursing that patient should go to skilled. Asked patient if she feels that her spouse can manage her at home, stated, no, he can't. Asked her if this [place] Level Vial Setter can send referrals over to some of the facilities that take her insurance, said, no, not yet. Asked her if this DC Level Vial Setter can call her spouse, stated, no, he's doing his martial arts today. Updated hospitalist regarding patient, will also speak to P.T. as well. If patient is adamant about going home, she is decisional. Will call over at [facility] and [facility] to see if there are beds, as well as [facility]. Original Note: DCP Cont: Discussed patient during team rounds. Notes indicate that patient is currently under home health services. It is also noted that patient does not want skilled, but can remain open minded. If patient did go to nursing home, would need a [employer] auth, and would be either [facility], [facility], or [facility]. Would need to have some P.T notes available. At this time, P.T. is pending, they did not have therapy yesterday, but will be working with her today. Spouse has been at bedside, and is to be here for caregiver training. P: DCP to continue to follow closely and see how she does with P.T. today. Sheila Darnell RN/[place] Manager
--- NOTE | 2022-08-12 11:44 | PM.PN.1 ---
Subjective Subjective Interval history: 72-year-old female who has a history of COPD and hypertension as well as had a mechanical fall and sustained a right hip fracture status post ORIF May 17, 2022, presented to the emergency department yesterday after a mechanical fall. She was found to have a left femur intertrochanteric fracture. She was taken to the operating room yesterday for ORIF with intramedullary nailing. Likely will need SNF based on patient's presentation, but she has been resistant to this in the past. Will see how therapy goes today, either home or rehab likely tomorrow though will need auth from insurance if she is agreeable. Exam Vital Signs (past 8 hours): - 08/12/22 06:41 08/12/22 07:47 08/12/22 07:51 Temperature 98.3 F Pulse Rate 73 74 Respiratory Rate 16 18 Blood Pressure 127/63 129/56 L Pulse Oximetry 97 98 Oxygen Delivery Method Room Air Oxygen Flow Rate 0 08/12/22 08:13 Temperature Pulse Rate 74 Respiratory Rate Blood Pressure 129/61 Pulse Oximetry Oxygen Delivery Method Oxygen Flow Rate Oxygen Delivery Method Room Air Oxygen Flow Rate 0 Narrative Exam Narrative: GEN: Middle-aged female, NAD HEENT:NC, Face symmetric CHEST: Respiratory excursions symmetric, CTAB CV: RRR, no M/R/G ABD: Soft, NT/ND EXTR: warm, well perfused, no C/C/E SKIN: warm and dry, no rash Objective Labs 08/12/22 04:25 08/12/22 04:25 Labs: Laboratory Results - last 24 hr 08/11/22 08/11/22 08/12/22 13:36 13:36 04:25 WBC 14.2 H RBC 3.29 L Hgb 10.3 L 9.4 L Hct 30.9 L 28.0 L MCV 85.0 MCH 28.6 MCHC 33.7 RDW 13.8 Plt Count 409 H Neut % (Auto) 75.6 H Lymph % (Auto) 17.7 L [place] % (Auto) 5.7 Eos % (Auto) 0.4 L Baso % (Auto) 0.6 Neut # (Auto) 33299 H Lymph # (Auto) 2500 [place] # (Auto) 800 Eos # (Auto) 100 Baso # (Auto) 100 Sodium Potassium 4.5 D Chloride Carbon Dioxide BUN Creatinine Estimated GFR BUN/Creatinine Ratio Glucose Calcium Total Bilirubin AST ALT Alkaline Phosphatase Total Protein Albumin Globulin Albumin/Globulin Ratio 08/12/22 04:25 WBC RBC Hgb Hct MCV MCH MCHC RDW Plt Count Neut % (Auto) Lymph % (Auto) [place] % (Auto) Eos % (Auto) Baso % (Auto) Neut # (Auto) Lymph # (Auto) [place] # (Auto) Eos # (Auto) Baso # (Auto) Sodium 126 L Potassium 4.0 Chloride 94 L Carbon Dioxide 30 BUN 19 H Creatinine 0.73 Estimated GFR > 60 BUN/Creatinine Ratio 26.0 H Glucose 84 Calcium 8.8 Total Bilirubin < 0.1 L AST 22 ALT 14 Alkaline Phosphatase 75 Total Protein 4.8 L Albumin 2.6 L Globulin 2.2 Albumin/Globulin Ratio 1.2 [facility] Medical History COPD (chronic obstructive pulmonary disease) History of fracture of right hip Hypertension, essential Paralysis Vision disorder Surgical History (Updated 08/10/22 @ 21:[address]) History of repair of hip fracture No pertinent past surgical history Family History Mother Diabetes mellitus Hyperthyroidism Father CAD (coronary artery disease) Social History household members: spouse and children Smoking Status: Current every day smoker Tobacco: How many years used: 40 quit status: considering quitting (I'm trying ) alcohol intake: current Assessment & Plan Assessment & Plan narrative: 1. Left intertrochanteric hip fracture, postop day 1. From ORIF with intramedullary nailing Patient is doing well presently. Continue routine postoperative care. Hospitalist team did ask the patient to reconsider her thoughts about retirement facility placement as she is not fully recovered her strength from her prior hip fracture and will now be more reliant on that leg due to her current fracture. She is at a very high risk for fall which would result in potentially catastrophic complications for her. She will work with physical therapy and if they feel she is unsafe for home discharge, she states she will consider retirement. 2. Gait instability/ground level fall PT/OT consult pending. 3. Hyponatremia Sodium is improved and up to 127 today. It does appear she has some mild chronic hyponatremia with a baseline between 127 and 132. 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 - will place on 1.5 L fluid restriction. - continue to follow. 4. Hypokalemia Now improved 5. COPD No evidence of exacerbation. She does have a 40 pack-year smoking history. Will need to monitor for impaired respiratory status and/or encephalopathy potentially due to respiratory acidosis. She does appear to have some hypercarbia since arrival that is new compared to prior admission. 6. Tobacco dependence Nicotine patch as needed 7. Likely osteoporosis Patient will need an outpatient workup, but is high risk given to pathologic fractures in the past several months, petite stature, and ongoing tobacco dependence. 8. Normocytic anemia, acute on chronic blood loss secondary to hip fractures Prior to her fracture in May of this year, she had a normal hemoglobin. At discharge from the hospital her hemoglobin was 10.6. It was up to 11.7 on admission and is down to 10.3 this afternoon. Will continue to monitor. 9. Thrombocytosis It late count has been elevated since May. It was 667 in May of this year after her fracture. On admission it was 538 and has now improved. It may be an acute phase reactant. 10. Hypertension Blood pressure significantly elevated this afternoon at 188/84. Will resume her usual home medications. Code status Full Surrogate decision maker Spouse, Timmy Jones Prophylaxis Aspirin 81 mg b.i.d. ordered per Orthopedic surgery Disposition Pending recommendations from therapies and patient's decision regarding retirement facility versus home with home health Discussed with care management for additional history
--- NOTE | 2022-08-12 15:36 | PC.NURSE ---
Day shift: Pt A&OIx4, dangled at bedside with physical therapy. Discussion with surgeon Dr. Marcum, care management, and physical therapy with pt regarding rehab vs home. Pt adamantly states she will not agree to a retirement rehab visit and requested to go straight home when stable. Pt educated on the benefits of rehab and the risks involved in going home without proper re-strengthening rehab offers. Pt declines reposition at this time. Pt educated on the importance of repositioning to prevent skin breakdown. Pt continues to decline. Care ongoing, will reapproach pt for reposition.
[2022-08-13 02:00] VITALS: BP 143/67; PULSE 91; RESP 17; TEMP 36.6; O2SAT 97
[2022-08-13 04:44] LABS: Add Manual Diff / Slide Review NO; Basophils Absolute Auto 100 /uL (0-100); Basophils Percent Auto 1.1 % (0-2); Eosinophils Absolute Auto 200 /uL (0-450); Eosinophils Percent Auto 1.8 % (2-4); Hematocrit 26.9 % (36-46); Hemoglobin 9.2 g/dL (12.0-16.0); Lymphocytes Absolute Auto 2000 /uL (1100-4500); Lymphocytes Percent Auto 16.7 % (25-40); Mean Corpuscular HGB Conc 34.2 % (30-36); Mean Corpuscular Hemoglobin 28.9 PG (26-34); Mean Corpuscular Volume 84.2 fL (80-100); Monocytes Absolute Auto 700 /uL (0-900); Monocytes Percent Auto 5.6 % (3-14); Neutrophils Absolute Auto 8800 /uL (1500-7000); Neutrophils Percent Auto 74.8 % (50-75); Platelet Count 410 X10^3/uL (150-400); Red Cell Distribution Width 13.6 % (11.6-14.8); White Blood Cell Count 11.8 X10^3/uL (4.5-11.0)
[2022-08-13 04:50] LABS: Alanine Aminotransferase 9 IU/L (<35); Albumin 2.4 g/dL (3.5-5.0); Albumin Globulin Ratio 1.1 (1.0-2.8); Alkaline Phosphatase 76 U/L (38-126); Aspartate Aminotransferase 23 IU/L (14-36); BUN Creatinine Ratio 21.3 (6-22); Bilirubin Total 0.2 mg/dL (0.2-1.3); Blood Urea Nitrogen 13 mg/dL (7-17); Calcium 8.7 mg/dL (8.4-10.2); Carbon Dioxide 29 mmol/L (22-32); Chloride 99 mmol/L (98-107); Estimated Glomerular Filt Rate > 60 mL/min (>60); Globulin 2.2 g/dL (1.7-4.1); Glucose 83 mg/dL (80-110); HEMOLYSIS < 15 (0-50); Potassium 3.9 mmol/L (3.4-5.1); Sodium 128 mmol/L (137-145); Total Protein 4.6 g/dL (6.3-8.2)
[2022-08-13] MEDS: OXYCODONE IR 5 MG TABLET PO ×2 (09:02→21:31)
[2022-08-13] MEDS: AMLODIPINE 5 MG TABLET PO (09:02)
[2022-08-13] MEDS: ASPIRIN EC 81 MG TABLET PO ×2 (09:02→21:32)
[2022-08-13] MEDS: lisinopriL 10 MG TABLET PO (09:02)
[2022-08-13] MEDS: DOCUSATE 100 MG CAPSULE PO ×2 (09:02→21:32)
[2022-08-13 09:05] VITALS: BP 165/76; PULSE 83; RESP 16; TEMP 36.6; O2SAT 95
--- NOTE | 2022-08-13 10:26 | PT-IP ANOTE ---
Pt refusing to work with PT, says she already got up today. May check on her in afternoon if therapy is still here.
[2022-08-13 10:36] LABS: Osmolality, Serum 264 mOsmol/kg (280-301)
--- NOTE | 2022-08-13 10:39 | P.PN_ITS ---
Subjective Subjective Date Patient Seen: 08/13/22 Time Patient Seen: 10:39 Interval history: Mild pain left hip at rest. More moderate to severe with any movement of the left leg. Denies numbness and tingling left extremity. No fever or chills. Exam Vital Signs (past 8 hours): - 08/13/22 08:47 08/13/22 09:05 Temperature 97.9 F Pulse Rate 83 Respiratory Rate 16 Blood Pressure 165/76 H Pulse Oximetry 95 Oxygen Delivery Method Room Air Oxygen Flow Rate 0 Oxygen Delivery Method Room Air Oxygen Flow Rate 0 Narrative Exam Narrative: 72-year-old female resting comfortably in bed in no apparent distress. Dressing has scant drainage. Motor functions intact distal left lower extremity. Sensation grossly intact to light touch distal left lower extremity. Const General: cooperative and comfortable Orientation: alert Resp Effort & Inspection: normal respiratory effort and able to speak in complete sentences Objective Labs 08/13/22 04:20 08/13/22 04:20 Labs: Laboratory Results - last 24 hr 08/10/22 08/13/22 08/13/22 21:55 04:20 04:20 WBC 11.8 H RBC 3.20 L Hgb 9.2 L Hct 26.9 L MCV 84.2 MCH 28.9 MCHC 34.2 RDW 13.6 Plt Count 410 H Neut % (Auto) 74.8 Lymph % (Auto) 16.7 L [place] % (Auto) 5.6 Eos % (Auto) 1.8 L Baso % (Auto) 1.1 Neut # (Auto) 8800 H Lymph # (Auto) 2000 [place] # (Auto) 700 Eos # (Auto) 200 Baso # (Auto) 100 Sodium 128 L Potassium 3.9 Chloride 99 Carbon Dioxide 29 BUN 13 Creatinine 0.61 Estimated GFR > 60 BUN/Creatinine Ratio 21.3 Glucose 83 Serum Osmolality 264 L Calcium 8.7 Total Bilirubin 0.2 AST 23 ALT 9 Alkaline Phosphatase 76 Total Protein 4.6 L Albumin 2.4 L Globulin 2.2 Albumin/Globulin Ratio 1.1 PFSH Medical History COPD (chronic obstructive pulmonary disease) History of fracture of right hip Hypertension, essential Paralysis Vision disorder Surgical History History of repair of hip fracture No pertinent past surgical history Family History Mother Diabetes mellitus Hyperthyroidism Father CAD (coronary artery disease) Social History household members: spouse and children Smoking Status: Current every day smoker Tobacco: How many years used: 40 quit status: considering quitting (I'm trying ) alcohol intake: current Assessment & Plan Post-op Postoperative Procedures: Procedures Operation Date: 08/11/22 11:45 Actual Procedure Side Surgeon p Intramedullary Nailing Femur Left Sukhi Marcum MD Postoperative day: 2 Postoperative status narrative: Status post left femur open reduction internal fixation with intramedullary nailing on August 11, 2022. Postoperative plan narrative: Weightbearing as tolerated left lower extremity. Continue physical therapy. Follow-up with [facility] 2 weeks Discharge when stable per hospitalist
--- NOTE | 2022-08-13 10:52 | OT.IP.TRT ---
Current Diagnoses Fracture of unspecified part of neck of left femur, initial encounter for closed fracture (08/10/22) Surgery Performed Operation Date: 08/11/22 11:45 Actual Procedures p Intramedullary Nailing Femur(Left) - Sukhi Marcum MD Occupational Therapy Treatment Note M2 OT-IP Current Condition Start: 08/12/22 12:38 Freq: Status: Active Protocol: Document 08/12/22 12:38 [facility] (Rec: 08/12/22 13:03 [facility] [id number]) Occupational Therapy Current Condition Current Condition Evaluation Date 08/12/22 Treatment Diagnosis L hip fx, UTI, ORIF and IM nailing 08/11 L hip Diagnosis Onset Date 08/10/22 Post Operative Precautions Posterior Hip Precautions No Hip Flexion > 90 degrees,No Hip Internal Rotation,No Hip Adduction Other Precautions Pt still with posterior hip precautions to the R hip. Weight Bearing Status Weight Bearing Status Weight Bear as Tolerated Allowed Weight Bearing Amount (enter % WBAT to BLE or #) (%) M3 OT- IP Subjective and Pain Start: 08/12/22 12:38 Freq: Status: Active Protocol: Document 08/13/22 09:23 [facility] (Rec: 08/13/22 10:52 [facility] [id number]) OT- Subjective Occupational Therapy Visit Type Type Treatment Note Visit Start Time 09:23 Visit Stop Time 09:39 Total Visit Minutes 16 Occupational Therapy Visit Comments Patient Comments Pt agreed to get up. Pt's in the room. Patient/Caregiver Goals To go home. OT Pain Assessment Pain When Pain Assessed During Mobility Pain Present Pain Present Pain Reported Location Left Hip Intensity 10 M4 OT- IP ADL's Start: 08/12/22 12:38 Freq: Status: Active Protocol: Document 08/13/22 09:23 [facility] (Rec: 08/13/22 10:52 [facility] [id number]) OT [id number] Comments OT Self-Feeding Comments not meal time OT ADL-Grooming Comments OT Grooming Comments not performed OT ADL-Oral Care Comments Oral Care Comments not performed OT ADL-Dressing General Eval Lower Body Dressing Ability Maximum Assistance OT ADL-Toileting General Evaluation Toileting Ability Total Assistance Comments OT Toileting Comments pt has a owens OT ADL-Bathing Comments OT Bathing Comments Sponge bath more appropriate at this time. M5 OT- IP IADL's Start: 08/12/22 12:38 Freq: Status: Active Protocol: Document 08/12/22 12:38 [facility] (Rec: 08/12/22 13:03 [facility] [id number]) OT-Instrumental Activities of Daily Living Deficits IADL Deficits Identified Deficits Home Safety Awareness Awareness of Need for Assistance at Home Decreased Awareness Ability to Problem Solve Emergency Unable to Problem Solve Situations Medication Management Medication Management Caregiver Administers Money Management Money Management Caregiver Provides Assistance Meal Preparation Meal Preparation Caregiver Provides Assist Clinical Nurse Specialist Clinical Nurse Specialist Caregiver Provides Assist Driving Driving Comments Pt does not drive at baseline. M6 OT- IP Functional Cognition Start: 08/12/22 12:38 Freq: Status: Active Protocol: Document 08/13/22 09:23 [facility] (Rec: 08/13/22 10:52 [facility] [id number]) Cognitive Factors Limiting Selfcare Function Cognitive Ability Level of Alertness Alert Patient Orientation Name,Age,Birthday,Month,Year, Day of Week,Place,Situation Attention Span Ability Capable of Focused Attention, Capable of Sustained Attention Ability to Follow Commands Able to Follow One Step Commands with Increased Time, Able to Follow One Step Commands with Repetition Cognitive Comments Cognitive Assessment Comments Pt needing assist to recall her hip precautions. Pt able to follow concrete simple commands for bed mobility needs. Pt needing increased time and encouragement but able to participate in bed mobility needs. M7 OT- IP Mobility and Balance Start: 08/12/22 12:38 Freq: Status: Active Protocol: Document 08/13/22 09:23 [facility] (Rec: 08/13/22 10:52 [facility] [id number]) OT- Bed Mobility Assessment Supine to Sit Supine to Sit Assist Maximum Assistance,Total Assistance,1 Person Assistance Sit to Supine Sit to Supine Assist Maximum Assistance,Total Assistance,1 Person Assistance OT-Transfer Assessment Comments Mobility Comments Pt needing assist to help lift her LLE and move to the edge of the bed with assist to support the weight on her left leg . Pt also needing heavy use of the green pad to move her hips over to the edge of the bed. After assisting her legs to the edge of the bed, pt able to use her arms to assist to prop herself up and with help able of green pad to assist to scoot forwards. Pt states her pain in 10/10 when trying to move and decreased to 1-2 at rest. Pt getting too tired and wanting to lie back down. Able to get nursing aid to help adjust her back in bed. OT- Balance Assessment Sitting Balance and Reactions Static Sitting Balance Ability Fair Dynamic Sitting Balance Ability Fair M8 OT- IP Objective Assessments Start: 08/12/22 12:38 Freq: Status: Active Protocol: Document 08/12/22 12:38 [facility] (Rec: 08/12/22 13:03 [facility] [id number]) OT Gross Range of Motion Upper Extremity Range of Motion ROM Impairments not tested, pt declined after mobility OT Strength Comments Strength Comments not tested, pt declined after mobility OT- Coordination Assessment Upper Extremity Finger to Nose Test Within Functional Limits Finger Tapping Test Within Functional Limits OT-Muscle Tone Assessment Muscle Tone WNL Yes OT Sensation Assessment Edema Edema Absent M9 OT- IP Assessment and Plan Start: 08/12/22 12:38 Freq: Status: Active Protocol: Document 08/13/22 09:23 [facility] (Rec: 08/13/22 10:52 [facility] [id number]) OT Summary Assessment and Plan Potential Rehabilitation Potential Good Analytic Complexity at Evaluation High Summary OT Impairments Pain,Strength,Balance, Functional Cognition, Functional Mobility,Grooming, Dressing,Toileting,Bathing, Toilet Transfers,Shower Transfers,Activity Tolerance Progress Towards Goals Progressing Toward Goals,Slow Progress due to Pain,Slow Progress due to Activity Tolerance Assessment Summary Pt able to get to the edge of the bed with 1 person max/ total versus total A x2 yesterday. Pt realizes that it would be best for her to go to skilled rehab prior to going home. Pt 's present for the session and in full agreement that it would be best for pt to go to skilled rehab first before coming home. Goals Grooming Goal Independent Dressing Goal Independent Toileting Goal Independent Bathing Goal Independent Toilet Transfer Goal Independent Shower Transfer Goal Independent Days to Meet Goals 29 Frequency of Treatment Frequency Of Treatment Once a Day Treatment Plan OT Treatment Plan ADL Training,Functional Cognition Training,Functional Mobility,Patient/Family Education,Discharge Planning Discharge Recommendations OT Discharge Recommendations SNF Rehab Transportation Needs at Discharge Wheelchair/Cabulance
--- NOTE | 2022-08-13 11:07 | CM.DPC ---
Addendum entered by Sheila Darnell R.N. 08/13/22 16:41: Called [employer] [facility] to follow up with auth. Stated, she has not yet gotten auth, their systems were down, but should have by this pm, or early am. Stated that [facility] may not be able to pick patient up until about [phone], but will work on attempting to get sooner picking machine operator time. Addendum entered by Sheila Darnell R.N. 08/13/22 12:15: Asked [employer] if a time can be set for tomorrow picking machine operator, as she most likely can't accept today, hopes to have auth this afternoon. Set up time for picking machine operator tomorrow at 11:00. Original Note: DCP Cont: Discussed patient during team rounds. Occupational therapist, Kim, indicated that patient is willing to go to a nursing home facility. Met with patient and spouse, at bedside. Confirmed that she is willing to go to nursing home for some rehab, spouse in agreement, is ok with either facility in [facility]. Called [employer], she is starting auth for [employer]. She should know about auth this afternoon, will follow up with her, unclear if she can take her today, may not be until tomorrow, but will confirm and get picking machine operator time. Asking TANJA Amador oral surgery assistant, to send her over updated O.T, and P.T. notes for today. PASSR was already completed. P: DCP to work on getting patient over to [facility] , unclear if this can happen today, but if not, most likely tomorrow. Sheila Darnell RN/Laser Beam Color Scanner Operator
[2022-08-13 12:00] VITALS: BP 145/65; PULSE 88; RESP 17; TEMP 36.6; O2SAT 99
--- NOTE | 2022-08-13 12:20 | PM.PN.1 ---
Subjective Subjective Interval history: Patient denies complaints this morning, pain is controlled. No chest pain, shortness of breath, or nausea. Did decide to go to SNF, tenatively planned for tomorrow. Exam Vital Signs (past 8 hours): - 08/13/22 08:47 08/13/22 09:05 Temperature 97.9 F Pulse Rate 83 Respiratory Rate 16 Blood Pressure 165/76 H Pulse Oximetry 95 Oxygen Delivery Method Room Air Oxygen Flow Rate 0 Oxygen Delivery Method Room Air Oxygen Flow Rate 0 Narrative Exam Narrative: GEN: Middle-aged female, NAD HEENT:NC, Face symmetric CHEST: Respiratory excursions symmetric, CTAB CV: RRR, no M/R/G ABD: Soft, NT/ND EXTR: warm, well perfused, no C/C/E SKIN: warm and dry, no rash Objective Labs 08/13/22 04:20 08/13/22 04:20 Labs: Laboratory Results - last 24 hr 08/10/22 08/13/22 08/13/22 21:55 04:20 04:20 WBC 11.8 H RBC 3.20 L Hgb 9.2 L Hct 26.9 L MCV 84.2 MCH 28.9 MCHC 34.2 RDW 13.6 Plt Count 410 H Neut % (Auto) 74.8 Lymph % (Auto) 16.7 L [place] % (Auto) 5.6 Eos % (Auto) 1.8 L Baso % (Auto) 1.1 Neut # (Auto) 8800 H Lymph # (Auto) 2000 [place] # (Auto) 700 Eos # (Auto) 200 Baso # (Auto) 100 Sodium 128 L Potassium 3.9 Chloride 99 Carbon Dioxide 29 BUN 13 Creatinine 0.61 Estimated GFR > 60 BUN/Creatinine Ratio 21.3 Glucose 83 Serum Osmolality 264 L Calcium 8.7 Total Bilirubin 0.2 AST 23 ALT 9 Alkaline Phosphatase 76 Total Protein 4.6 L Albumin 2.4 L Globulin 2.2 Albumin/Globulin Ratio 1.1 PFSH Medical History COPD (chronic obstructive pulmonary disease) History of fracture of right hip Hypertension, essential Paralysis Vision disorder Surgical History History of repair of hip fracture No pertinent past surgical history Family History Mother Diabetes mellitus Hyperthyroidism Father CAD (coronary artery disease) Social History household members: spouse and children Smoking Status: Current every day smoker Tobacco: How many years used: 40 quit status: considering quitting (I'm trying ) alcohol intake: current Assessment & Plan Assessment & Plan narrative: 1. Left intertrochanteric hip fracture, postop day 1. From ORIF with intramedullary nailing Patient is doing well presently. Continue routine postoperative care. Hospitalist team did ask the patient to reconsider her thoughts about long term facility placement as she is not fully recovered her strength from her prior hip fracture and will now be more reliant on that leg due to her current fracture. She is at a very high risk for fall which would result in potentially catastrophic complications for her. - plan for SNF tomorrow. 2. Gait instability/ground level fall appreciate PT/OT consultations 3. Hyponatremia Sodium is improved and up to 128 today. It does appear she has some mild chronic hyponatremia with a baseline between 127 and 132. Previously, urine studies and osmolality was done with findings thought to be consistent with SIADH and were repeated and again consistent with SIADH. - will place on 1.5 L fluid restriction. - continue to follow. 4. Hypokalemia Now improved after repletion 5. COPD No evidence of exacerbation. She does have a 40 pack-year smoking history. 6. Tobacco dependence Nicotine patch as needed 7. Likely osteoporosis Patient will need an outpatient workup, but is high risk given to pathologic fractures in the past several months, petite stature, and ongoing tobacco dependence. 8. Normocytic anemia, acute on chronic blood loss secondary to hip fractures Prior to her fracture in May of this year, she had a normal hemoglobin. At discharge from the hospital her hemoglobin was 10.6. It was up to 11.7 on admission and is down to 10.3 this afternoon. Will continue to monitor. 9. Thrombocytosis It late count has been elevated since May. It was 667 in May of this year after her fracture. On admission it was 538 and has now improved. It may be an acute phase reactant. 10. Hypertension Blood pressure slightly elevated, suspect due to pain. Have resumed her usual home medications. Code status Full Surrogate decision maker Spouse, Timmy Jones Prophylaxis Aspirin 81 mg b.i.d. ordered per Orthopedic surgery Disposition SNF, anticipate discharge tomorrow.
--- NOTE | 2022-08-13 12:54 | PT-IP ANOTE ---
Pt refused PT this afternoon. Will check back tomorrow to see if pt will work with PT.
[2022-08-13 18:00] VITALS: BP 160/74; PULSE 88; RESP 17; TEMP 36.4; O2SAT 99
--- NOTE | 2022-08-13 18:53 | PC.NURSE ---
Patient has been unable to void post owens removal this morning. Bladder scan shows approximately 530ml urine in bladder. Dr. Polanco notified. Order to reinsert catheter received, placed without difficulty. Call light within reach, continue with plan of care.
[2022-08-13 20:00] VITALS: BP 147/68; PULSE 77; RESP 17; TEMP 36.6; O2SAT 97
[2022-08-14 02:00] VITALS: BP 117/70; PULSE 87; RESP 17; TEMP 36.4; O2SAT 94
--- NOTE | 2022-08-14 08:00 | PM.DS.1 ---
History of Present Illness History of Present Illness Date Patient Seen: 08/14/22 Time Patient Seen: 08:00 Chief complaint: Fall Narrative: Per admitting provider, Ms. Jones is a 72W with PMH recent right hip replacement in April 2022, hyponatremia, hypertension, right hip fracture repair 05/17/[address] Davonte roy, who reports that she normally ambulates at home with a walker most of the time, around noon today she lost her balance and fell landing on left hip was brought into the ED via EMS, she has no pain while lying in bed but pain with movement. On admit patient unable to accurately contribute to HPI/ROS due to confusion, which does not appear to be her baseline per previous chart notes. Denies chest pain, shortness in breath, headache, changes in vision, difficulty swallowing, speech impairment, weakness, numbness, tingling, head injury, LOC, fever, body aches, chills, cough, recent exposure to illness, abdominal pain, nausea, vomiting, urinary incontinence/retention, dysuria, frequency, urgency, hematuria, bowel changes, constipation, incontinence, melena, rashes, recent changes to medication, illness, or trauma. No recent TBI, intracranial surgery, hemorrhage, or intracranial neoplasm. On admit patient continues to be slightly hypertensive temp 97.8?, 177/88, 83, 19, 98% on room air. And confused believes that this is her 2nd left hip fracture, despite reeducation several times. Attempted several times to correct her she continues to be slightly confused. Does have WBC 22 with a left shift neutrophils 1900, mono 1000, HGB 11/HCT 34, PLT 538(chronic), acute on chronic hyponatremia 121, Cl 79, BUN 28, potassium 3.2, bicarb 37. Patient admitted for ground level fall resulting in pathologic left hip fracture, mild encephalopathy, neutrophilic leukocytosis, hypokalemia, moderate hyponatremia. 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 Left intertrochanteric hip fracture, pathologic due to osteoporosis 2. Gait instability/ground level fall 3. Hyponatremia 4. Hypokalemia 5. COPD 6. Tobacco dependence 7. Likely osteoporosis 8. Normocytic anemia, acute on chronic blood loss secondary to hip fractures 9. Thrombocytosis, reactive, resolved 10. Hypertension Hospital Course: Ms. Jones is a 72W with H recent right hip replacement in April 2022, hyponatremia, hypertension, right hip fracture repair 05/17/2002, COPD who presented after a ground level fall found to have a left femur fracture. She underwent surgical repair with orthopedics on 08/11/22. Her hospital course was uncomplicated with regards to her surgical repair, but given multiple falls and fratures within the year she was recommended for SNF for continued therapies at discharge. She did have a slight worsening of her chronic hyponatremia during the admission, she has a history of SIADH and urine studies were repeated and confirmed the etiology. Her sodium improved with a 1.5 L fluid restriction. No changes to her usual home medications are recommended at discharge, but she will be on aspirin 81 mg BID for 6 weeks for DVT prevention per orthopedics. Outpatient osteoporosis evaluation is recommended with patient's primary care provider. Time Spent with Patient Time spent: Greater than 30 minutes Exam Vital Signs (past 8 hours): - 08/14/22 02:00 Temperature 97.6 F Pulse Rate 87 Respiratory Rate 17 Blood Pressure 117/70 Pulse Oximetry 94 Oxygen Delivery Method Room Air Oxygen Flow Rate 0 Narrative Exam Narrative: GEN: Middle-aged female, NAD HEENT:NC, Face symmetric CHEST: Respiratory excursions symmetric, CTAB CV: RRR, no M/R/G ABD: Soft, NT/ND EXTR: warm, well perfused, no C/C/E SKIN: warm and dry, no rash Objective Labs 08/13/22 04:20 08/13/22 04:20 Labs: Laboratory Results - last 24 hr 08/10/22 21:55 Serum Osmolality 264 L [facility] Medical History COPD (chronic obstructive pulmonary disease) History of fracture of right hip Hypertension, essential Paralysis Vision disorder Surgical History History of repair of hip fracture No pertinent past surgical history Family History Mother Diabetes mellitus Hyperthyroidism Father CAD (coronary artery disease) Social History household members: spouse and children Smoking Status: Current every day smoker Tobacco: How many years used: 40 quit status: considering quitting (I'm trying ) alcohol intake: current Discharge Plan Discharge Plan Patient Disposition: SNF Discharge orders & Medications Prescriptions: New aspirin 81 mg Tablet,Delayed Release (Dr/Ec) 81 mg PO BID 40 Days Qty: 80 0RF docusate sodium 100 mg Capsule 100 mg PO BID 30 Days Qty: 60 0RF oxycodone 5 mg Tablet 5 mg PO Q3HR PRN (Reason: Pain, Mild (1-3)) 7 Days Qty: 30 0RF Continued (DME) compression stocking See Rx Instructions .Route .MEDSUPPLY Qty: 1 0RF Rx Instructions: As directed amlodipine 5 mg tablet 5 mg PO DAILY Qty: 90 1RF lidocaine 5 % adhesive patch,medicated 1 patch topical DAILY Qty: 30 0RF Rx Instructions: leave on most painful area for up to 12 hrs lisinopril 10 mg tablet 10 mg PO DAILY Patient Comments: TAKE ONE TABLET BY MOUTH ONE TIME DAILY acetaminophen 325 mg Tablet 650 mg PO Q6HR Qty: 120 0RF ondansetron 4 mg Tablet,Disintegrating 4 mg PO Q4HR PRN (Reason: Nausea) Qty: 10 0RF Discontinued ibuprofen 200 mg tablet 400 mg PO DAILY oxycodone 5 mg Tablet 5 mg PO Q4-6H PRN (Reason: Pain, Moderate (4-6)) Qty: 20 0RF Follow up/Referrals: Sukhi Marcum MD [Physician] - (2 weeks post op) Wolf Burns, [Primary Care Provider] - Diet/Activity/Treatments Activity: Weightbearing as tolerated left lower extremity Visit Report/Discharge Packet Instructions: DI for Hip Fracture, DI for Hip Replacement, How to Prevent Falls Stand Alone Forms: Patient Portal/API, Surgery Discharge Discharge Data Primary Care Provider: Wolf Burns Discharges patient from system. Discharge Date/Time: 08/14/22 12:01
[2022-08-14 08:49] VITALS: BP 162/73; PULSE 88; RESP 16; TEMP 36.4; O2SAT 98
[2022-08-14] MEDS: DOCUSATE 100 MG CAPSULE PO (08:57)
[2022-08-14] MEDS: ASPIRIN EC 81 MG TABLET PO (08:57)
[2022-08-14] MEDS: lisinopriL 10 MG TABLET PO (08:57)
[2022-08-14] MEDS: AMLODIPINE 5 MG TABLET PO (08:57)
--- NOTE | 2022-08-14 09:10 | CM.DPNOTE ---
Addendum entered by WEI Benavides 08/14/22 09:16: ADD: No need for an updated COVID PCR Original Note: DC Note Patient discharged to [facility] and insurance auth in place- placed call to spouse Timmy to review plan..both patient and spouse remain agreeable Therapies recommending BLS transport, discussed w/spouse and explained there is a likelihood of out of pocket cost for BLS transport, spouse stated understanding and agreement LILO Amador, kindly agreed to coordinate this discharge; completed and signed DC ppk, med list, PASRR all sent to [facility] at [facility]. 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 BLS form completed and placed on patient's chart Plan: Discharge to [facility] via BLS at [address] JW
--- NOTE | 2022-08-14 10:07 | PC.NURSE ---
Day shift: Pt removed her left hip dressing this AM. Per Dr Polanco it was replaced with new Aquacel at approx 1000. Op-sites well approximated and intact w/ no s/s of infection.
--- NOTE | 2022-08-14 10:49 | PC.NURSE ---
Day shift: Report given to Nilam at [facility] of [place] at approx 1045 and all questions answered.
--- NOTE | 2022-08-14 11:43 | PC.NURSE ---
Day shift: Pt left AC unit at approx 1150 via BLS. Going to [facility] [place] at this time. SNF packet is with S and report given to [facility] as well.
== END 2022-08-14 12:01 | DRG 480 ==
LOC: ED 19:05 → AC 19:20 → ICU 20:27
PROVIDERS: Family Medicine; Orthopaedic Surgery Orthopaedic Surgery of the Spine; Admitting Provider Nurse Practitioner Family; Emergency Provider Emergency Medicine; PCP Family Medicine; Referring Provider Emergency Medicine; Visit Provider Nurse Practitioner Family
PROC: 0QS706Z Reposition Left Upper Femur with Intramedullary Internal Fixation Device, Open Approach (ICD-10-PCS; CPT 27245; principal; 2022-08-11 11:45)
DX: M80.052A Age-related osteoporosis with current pathological fracture, left femur, initial encounter for fracture (principal); G93.41 Metabolic encephalopathy; E44.0 Moderate protein-calorie malnutrition; E87.1 Hypo-osmolality and hyponatremia; Z68.1 Body mass index [BMI] 19.9 or less, adult; E87.6 Hypokalemia; F17.210 Nicotine dependence, cigarettes, uncomplicated; I10 Essential (primary) hypertension; R26.89 Other abnormalities of gait and mobility; J44.9 Chronic obstructive pulmonary disease, unspecified; D75.839 Thrombocytosis, unspecified; Z20.822 Contact with and (suspected) exposure to COVID-19
CPT/HCPCS: 36415; 71045; 73502; 76000; 80048; 80053; 80076; 82962; 83605; 83735; 83880; 83930; 84132; 84145; 84300; 85014; 85018; 85025; 85610; 85730; 87040; 87086; 87635; 87797; 96374; 97162; 97167; 97530; 99282; 99284; C9803; C9290; J0690; J1100; J1170; J2270; J2405; J2704; J3010

== ENCOUNTER → 2022-12-06 12:27 | Outpatient (CLI) | payer OTHER, SELFPAY ==
[2022-12-06 13:11] LABS: HEMOLYSIS < 15 (0-50); Iron 16 ug/dL (37-170)
[2022-12-06 13:16] LABS: Mean Corpuscular HGB Conc 31.8 % (30-36); Mean Corpuscular Hemoglobin 22.3 PG (26-34); Mean Corpuscular Volume 70.1 fL (80-100); Platelet Count 852 X10^3/uL (150-400); Red Blood Cell Count 1.65 X10^6/uL (4.0-5.2); Red Cell Distribution Width 20.1 % (11.6-14.8); White Blood Cell Count 9.4 X10^3/uL (4.5-11.0)
[2022-12-06 13:20] LABS: Add Manual Diff / Slide Review YES; Hematocrit 11.5 % (36-46); Hemoglobin 3.7 g/dL (12.0-16.0)
[2022-12-06 13:21] LABS: Alanine Aminotransferase 20 IU/L (<35); Albumin 3.6 g/dL (3.5-5.0); Albumin Globulin Ratio 1.6 (1.0-2.8); Alkaline Phosphatase 79 U/L (38-126); Aspartate Aminotransferase 24 IU/L (14-36); BUN Creatinine Ratio 38.5 (6-22); Bilirubin Total 0.1 mg/dL (0.2-1.3); Blood Urea Nitrogen 20 mg/dL (7-17); Calcium 9.9 mg/dL (8.4-10.2); Carbon Dioxide 21 mmol/L (22-32); Chloride 95 mmol/L (98-107); Estimated Glomerular Filt Rate > 60 mL/min (>60); Globulin 2.2 g/dL (1.7-4.1); Glucose 94 mg/dL (80-110); HEMOLYSIS < 15 (0-50); Potassium 4.7 mmol/L (3.4-5.1); Sodium 123 mmol/L (137-145); Total Protein 5.8 g/dL (6.3-8.2)
[2022-12-06 13:22] LABS: Percent Iron Saturation 4 % (15-50); Total Iron Binding Capacity 452 ug/dL (265-497); Transferrin 336 mg/dL (206-381)
[2022-12-06 13:37] LABS: Anisocytosis 2+; Neutrophils Absolute Manual 7050 /uL (3000-5900); Total Cells Counted 100
[2022-12-06 13:38] LABS: Schistocytes 2+
[2022-12-06 13:43] LABS: Microcytosis 1+
[2022-12-06 13:45] LABS: Hypochromasia 2+
[2022-12-06 13:47] LABS: Polychromasia 1+
[2022-12-06 14:03] LABS: Vitamin B12 340 pg/mL (239-931)
== END ==
PROVIDERS: PCP Family Medicine; Referring Provider Family Medicine; Visit Provider Family Medicine
DX: D64.9 Anemia, unspecified (principal); I10 Essential (primary) hypertension; S72.142A Displaced intertrochanteric fracture of left femur, initial encounter for closed fracture; M79.604 Pain in right leg
CPT/HCPCS: 36415; 80053; 82607; 83540; 83550; 85007; 85025

== ENCOUNTER 2022-12-06 13:47 | Inpatient (IN) | payer OTHER, SELFPAY ==
[2022-12-06] VITALS (22 sets, daily range): BP systolic 95–173; BP diastolic 54–94; PULSE 74–94; RESP 12–26; TEMP 36.4–37.1; O2SAT 97–100; BMI 19.5
--- NOTE | 2022-12-06 14:13 | ED.RECABL ---
HPI - Recheck/Abnormal Lab/Rx General Chief Complaint: Recheck/Abnormal Lab/Rx Stated Complaint: blood count low Time Seen by Provider: 12/06/22 14:11 Source: patient Mode of arrival: Wheelchair History of Present Illness HPI narrative: 72-year-old female daily smoker with recent CVA presents from her primary care provider's office for evaluation of generalized weakness for the past few days and outpatient labs demonstrating significant anemia. She denies any vomiting or diarrhea, denies any obvious dark and tarry stools. Denies any history of the same. Denies any fever or chills. Has no chest pain but is fatigued and short of breath. Denies abdominal pain. Of note patient was seen and treated for acute stroke at [facility] in early October. Patient was found to be within tPA window and after consultation with stroke neurologist she was administered TNK. She is found to have a new complete occlusion of her right carotid artery and after consultation with vascular surgery at [facility] she is not found to be in need of acute intervention but patient should follow up with vascular in the future. She was discharged with a new prescription for Plavix Related Data Home Medications Medication Instructions Recorded Confirmed aspirin 81 mg chewable tablet 1 tab PO DAILY 10/24/22 12/06/22 Previous Rx's Medication Instructions Recorded atorvastatin 40 mg tablet 40 mg PO DAILY #90 tabs 10/24/22 clopidogrel 75 mg tablet 75 mg PO DAILY #90 tabs 10/24/22 lisinopril 10 mg tablet 10 mg PO DAILY #90 tabs 10/24/22 Allergies Allergy/AdvReac Type Severity Reaction Status Date / Time wool Allergy Mild Rash Verified 12/06/22 13:50 codeine AdvReac Intermediate Gastrointestinal Verified 12/06/22 13:50 Upset Review of Systems Review of Systems Narrative: GENERAL: see HPI HEENT: Denies sinus pain, ear pain, sore throat, difficulty swallowing, dizziness. RESPIRATORY: Denies dyspnea, cough, wheezing, hemoptysis, sputum. CARDIOVASCULAR: Denies chest pain, palpitations, orthopnea, edema, GASTROINTESTINAL: see HPI : Denies dysuria, frequency, incontinence, hematuria, urinary retention. MUSCULOSKELETAL: denies weakness, joint pain, or bony pain SKIN: Denies rash, skin lesions, or other NEUROLOGIC: see HPI PSYCHIATRIC: No concerning psychosocial issues. 12 point review of systems is negative except for those stated above Patient History Medical History Anemia Carotid stenosis with cerebral infarction less than 8 weeks ago COPD (chronic obstructive pulmonary disease) CVA (cerebral vascular accident) History of fracture of right hip Hypertension, essential Paralysis Vision disorder Surgical History History of repair of hip fracture No pertinent past surgical history Family History Mother Diabetes mellitus Hyperthyroidism Father CAD (coronary artery disease) Social History household members: spouse and children Smoking Status: Current every day smoker Tobacco: How many years used: 40 quit status: considering quitting (I'm trying ) alcohol intake: current Smoking Status: Current every day smoker tobacco type: cigarettes alcohol intake frequency: holidays/special occasions only Substance Use Type: does not use Exam Narrative Exam Narrative: GENERAL: [72] year old patient appears stated age. Thin, frail, pale. HEAD: Atraumatic. Normocephalic. EYES: Pupils equal round and reactive. Extraocular motions intact. No scleral icterus. pale conjunctiva ENT: Nose without bleeding, purulent drainage. Throat without erythema, tonsillar hypertrophy or exudate. Airway patent. NECK: Trachea midline. Non tender CARDIOVASCULAR: Regular rate and rhythm without murmurs, gallops, or rubs. RESPIRATORY: Clear to auscultation. Breath sounds equal bilaterally. No wheezes, rales, or rhonchi. GASTROINTESTINAL: Abdomen soft, non-tender, nondistended. RECTAL: dark stool, heme-positive, performed with patient permission and female nursing engineering agent EXTREMITIES: No edema or joint tenderness. BACK: Nontender without deformity or crepitance. No flank tenderness. NEURO: AOx3. SKIN: No rash or erythema of visible areas Initial Vital Signs Initial Vital Signs: Vital Signs Temperature 98.0 F 12/06/22 13:50 Pulse Rate 79 12/06/22 13:50 Respiratory Rate 18 12/06/22 13:50 Blood Pressure 115/57 L 12/06/22 13:50 Pulse Oximetry 97 12/06/22 13:50 Oxygen Delivery Method Room Air 12/06/22 13:50 Course Orders Ordered: ED Orders 12/06/22 14:10 Complete Blood Count AUTO DIFF Stat Comprehensive Metabolic Panel Stat Lipase Stat Magnesium Stat Prothrombin Time INR Stat Troponin & CK Cardiac Panel Stat Type and Screen Stat transfuse [Packed Cells] Stat Discontinued Medications Pantoprazole Sodium (Pantoprazole 40 Mg Vial) 80 mg IV NOW ONE Stop: 12/06/22 14:17 Last Admin: 12/06/22 14:48 Dose: 80 mg Documented By: LW Consultations Consultation #1: Dr. Thompson (Gen Surg) happy to be involved in consultation Vital Signs Vital signs: Vital Signs - 8 hr 12/06/22 13:50 12/06/22 14:07 12/06/22 14:09 Temperature 98.0 F Pulse Rate 79 86 Respiratory Rate 18 Blood Pressure 115/57 L 112/57 L Pulse Oximetry 97 100 Oxygen Delivery Method Room Air 12/06/22 14:09 12/06/22 14:30 12/06/22 14:30 Temperature Pulse Rate 85 83 Respiratory Rate 17 16 Blood Pressure 95/55 L Pulse Oximetry 100 100 Oxygen Delivery Method 12/06/22 15:00 12/06/22 15:00 Temperature Pulse Rate 87 Respiratory Rate 17 Blood Pressure 103/54 L Pulse Oximetry 100 Oxygen Delivery Method MDM - Recheck/Abnormal Lab/Rx Lab Data 12/06/22 14:10 12/06/22 14:10 Labs: Lab Results 12/06/22 12/06/22 12/06/22 Range/Units 14:10 14:10 14:10 WBC 10.5 (4.5-11.0) X10^3/uL RBC 1.75 L (4.0-5.2) X10^6/uL Hgb 4.0 L* (12.0-16.0) g/dL Hct 12.4 L* (36-46) % MCV 70.6 L (80-100) fL MCH 22.7 L (26-34) PG MCHC 32.1 (30-36) % RDW 20.5 H (11.6-14.8) % Plt Count 906 H (150-400) X10^3/uL Neut % (Auto) Not Reportable Lymph % (Auto) Not Reportable [place] % (Auto) Not Reportable Eos % (Auto) Not Reportable Baso % (Auto) Not Reportable Lymph # (Auto) Not Reportable [place] # (Auto) Not Reportable Baso # (Auto) Not Reportable Total Counted 100 Seg Neutrophils % 75.0 H (38-70) % Lymphocytes % (Manual) 20.0 L (25-45) % Monocytes % (Manual) 2.0 (2-11) % Eosinophils % (Manual) 2.0 (2-4) % Basophils % (Manual) 1.0 (0-1) % Neutrophils # (Manual) 7875 H (5323-6970) /uL Nucleated RBCs 1 H ( - 0) #/Diff Platelet Estimate Increased on smear RBC Morphology See below Hypochromasia 2+ H Anisocytosis 2+ H Microcytosis 1+ H Target Cells 1+ H PT 11.4 (10.1-12.7) SECONDS INR 1.0 (0.9-1.3) Sodium (137-145) mmol/L Potassium (3.4-5.1) mmol/L Chloride (98-107) mmol/L Carbon Dioxide (22-32) mmol/L BUN (7-17) mg/dL Creatinine (0.52-1.04) mg/dL Estimated GFR (>60) mL/min BUN/Creatinine Ratio (6-22) Glucose (80-110) mg/dL Calcium (8.4-10.2) mg/dL Magnesium (1.6-2.3) mg/dL Total Bilirubin (0.2-1.3) mg/dL AST (14-36) IU/L ALT (<35) IU/L Alkaline Phosphatase (38-126) U/L Total Creatine Kinase (30-135) U/L Troponin I (0.01-0.034) ng/mL Total Protein (6.3-8.2) g/dL Albumin (3.5-5.0) g/dL Globulin (1.7-4.1) g/dL Albumin/Globulin Ratio (1.0-2.8) Lipase (23-300) U/L Blood Type O Positive Antibody Screen Negative Crossmatch See Detail 12/06/22 Range/Units 14:10 WBC (4.5-11.0) X10^3/uL RBC (4.0-5.2) X10^6/uL Hgb (12.0-16.0) g/dL Hct (36-46) % MCV (80-100) fL MCH (26-34) PG MCHC (30-36) % RDW (11.6-14.8) % Plt Count (150-400) X10^3/uL Neut % (Auto) Lymph % (Auto) [place] % (Auto) Eos % (Auto) Baso % (Auto) Lymph # (Auto) [place] # (Auto) Baso # (Auto) Total Counted Seg Neutrophils % (38-70) % Lymphocytes % (Manual) (25-45) % Monocytes % (Manual) (2-11) % Eosinophils % (Manual) (2-4) % Basophils % (Manual) (0-1) % Neutrophils # (Manual) (8571-0816) /uL Nucleated RBCs ( - 0) #/Diff Platelet Estimate RBC Morphology Hypochromasia Anisocytosis Microcytosis Target Cells PT (10.1-12.7) SECONDS INR (0.9-1.3) Sodium 124 L (137-145) mmol/L Potassium 3.8 (3.4-5.1) mmol/L Chloride 93 L (98-107) mmol/L Carbon Dioxide 22 (22-32) mmol/L BUN 21 H (7-17) mg/dL Creatinine 0.56 (0.52-1.04) mg/dL Estimated GFR > 60 (>60) mL/min BUN/Creatinine Ratio 37.5 H (6-22) Glucose 103 (80-110) mg/dL Calcium 9.9 (8.4-10.2) mg/dL Magnesium 1.9 (1.6-2.3) mg/dL Total Bilirubin 0.1 L (0.2-1.3) mg/dL AST 28 (14-36) IU/L ALT 21 (<35) IU/L Alkaline Phosphatase 89 (38-126) U/L Total Creatine Kinase 44 (30-135) U/L Troponin I < 0.012 (0.01-0.034) ng/mL Total Protein 6.3 (6.3-8.2) g/dL Albumin 3.9 (3.5-5.0) g/dL Globulin 2.4 (1.7-4.1) g/dL Albumin/Globulin Ratio 1.6 (1.0-2.8) Lipase 286 (23-300) U/L Blood Type Antibody Screen Crossmatch Point of Care Testing Stool Occult Blood Positive MDM Narrative Medical decision making narrative: [72] year old patient presents withGeneralized weakness and fatigue and outpatient labs demonstrating critically low hematocrit Multiple etiologies for patient's symptoms considered including, but not limited to: [ GI bleed versus other source of anemia versus other Prior Charts reviewed in our EMR Primary Historian: patient Labs reviewed and interpreted by myself: critically low hemoglobin and hematocrit, sodium found to be in the low 120s which is at her relative baseli Consultations: Dr. Thompson (Gen Surg) happy to consult. Dr. Arriaga (Hospitalist) happy to accept on his service patient's symptoms most likely related to significantly low hematocrit. She is found to be heme-positive on rectal exam denies any other obvious sources of blood loss. She denies much in the way of any history of this and as noted above was started on Plavix relatively recently Discharge Plan Departure Patient Disposition: Admitted As Inpatient Clinical Impression: Symptomatic anemia, Acute GI bleeding Admit Date/Time: 12/06/22 15:24 Admit Provider: Onofre Arriaga
[2022-12-06 14:27] LABS: Prothrombin Time 11.4 SECONDS (10.1-12.7)
[2022-12-06 14:32] LABS: Mean Corpuscular HGB Conc 32.1 % (30-36); Mean Corpuscular Hemoglobin 22.7 PG (26-34); Mean Corpuscular Volume 70.6 fL (80-100); Platelet Count 906 X10^3/uL (150-400); Red Blood Cell Count 1.75 X10^6/uL (4.0-5.2); Red Cell Distribution Width 20.5 % (11.6-14.8); White Blood Cell Count 10.5 X10^3/uL (4.5-11.0)
[2022-12-06 14:33] LABS: Alanine Aminotransferase 21 IU/L (<35); Albumin 3.9 g/dL (3.5-5.0); Albumin Globulin Ratio 1.6 (1.0-2.8); Alkaline Phosphatase 89 U/L (38-126); Aspartate Aminotransferase 28 IU/L (14-36); BUN Creatinine Ratio 37.5 (6-22); Bilirubin Total 0.1 mg/dL (0.2-1.3); Blood Urea Nitrogen 21 mg/dL (7-17); Calcium 9.9 mg/dL (8.4-10.2); Carbon Dioxide 22 mmol/L (22-32); Chloride 93 mmol/L (98-107); Creatine Kinase 44 U/L (30-135); Estimated Glomerular Filt Rate > 60 mL/min (>60); Globulin 2.4 g/dL (1.7-4.1); Glucose 103 mg/dL (80-110); HEMOLYSIS < 15 (0-50); Lipase 286 U/L (23-300); Magnesium 1.9 mg/dL (1.6-2.3); Potassium 3.8 mmol/L (3.4-5.1); Sodium 124 mmol/L (137-145); Total Protein 6.3 g/dL (6.3-8.2)
[2022-12-06 14:34] LABS: Add Manual Diff / Slide Review YES
[2022-12-06 14:35] LABS: Hematocrit 12.4 % (36-46)
[2022-12-06 14:44] LABS: Troponin I < 0.012 ng/mL (0.01-0.034)
[2022-12-06] MEDS: PANTOPRAZOLE 40 MG VIAL 80 MG IV (14:48)
[2022-12-06 14:52] LABS: Anisocytosis 2+; Hypochromasia 2+; Microcytosis 1+; Neutrophils Absolute Manual 7875 /uL (3000-5900); Nucleated Red Blood Cells 1 #/Diff; Platelet Estimate Increased on smear; Target Cells 1+; Total Cells Counted 100
[2022-12-06 16:59] LABS: Lactate Dehydrogenase 167 U/L (120-246); Reticulocyte Count, Percent 4.2 % (1.1-2.6)
[2022-12-06] MEDS: PEG3350/SOD SULF,BICARB,CL/KCL 4,000 ML SOLUTION 2000 ML PO (20:32)
[2022-12-06] MEDS: PANTOPRAZOLE 40 MG VIAL IV (20:41)
--- NOTE | 2022-12-06 21:35 | P.HP_ITS ---
History of Present Illness History of Present Illness Date Patient Seen: 12/06/22 Time Patient Seen: 15:00 Chief complaint: blood count low Narrative: Ms. Jones is a 72W with PMH bilateral hip fractures this year, also recent CVA s/p TPA, carotid stenosis, active smoker, SIADH who presents to the hospital for weakness and anemia. She had a CVA with TPA at [facility] in early October 2022, she was ultimately discharged but started on dual antiplatelets as she had occlusion of her right carotid. Per notes vascular surgery recommended no surgical intervention and to do medical management. She has noted fatigue for the last few days which has worsened. She has noted no change in her stools. She has no abdominal pain. No vomiting. She does not think she every had a colonoscopy or endoscopy. She denies significant nsaids or alcohol. She denies weight loss. She was following up with her PCP who ordered a CBC and it was noted to have hemoglobin of 3.7. In the ED workup was done, vitals notable for afebrile, heart rate 70s, blood pressure 110s/50s, sats 97% on room air. Labs reviewed by me and notable for WBC 10.5, hgb 4.0, plts 906. Na 124, creatinine 0.56. MCV at 70, noted schistocytes on auto diff. Rectal showed brown stool and weakly guaiac positive. She was ordered for blood and PPI and admitted for further treatment. [facility] Medical History Anemia Carotid stenosis with cerebral infarction less than 8 weeks ago COPD (chronic obstructive pulmonary disease) CVA (cerebral vascular accident) History of fracture of right hip Hypertension, essential Paralysis Vision disorder Surgical History History of repair of hip fracture No pertinent past surgical history Family History Mother Diabetes mellitus Hyperthyroidism Father CAD (coronary artery disease) Social History household members: spouse and children Smoking Status: Current every day smoker Tobacco: How many years used: 40 quit status: considering quitting (I'm trying ) alcohol intake: current Meds Home Medications and Allergies Home Medications Medication Instructions Recorded Confirmed Type aspirin 81 mg chewable tablet 1 tab PO DAILY 10/24/22 12/06/22 History atorvastatin 40 mg tablet 40 mg PO DAILY #90 tabs 10/24/22 12/06/22 Rx clopidogrel 75 mg tablet 75 mg PO DAILY #90 tabs 10/24/22 12/06/22 Rx lisinopril 10 mg tablet 10 mg PO DAILY #90 tabs 10/24/22 12/06/22 Rx Allergies Allergy/AdvReac Type Severity Reaction Status Date / Time wool Allergy Mild Rash Verified 12/06/22 13:50 codeine AdvReac Intermediate Gastrointestinal Verified 12/06/22 13:50 Upset Review of Systems Review of Systems Narrative: 14 systems reviewed and negative aside from what is noted in HPI Exam Vital Signs (past 8 hours): - 12/06/22 13:50 12/06/22 14:07 12/06/22 14:09 Temperature 98.0 F Pulse Rate 79 86 Respiratory Rate 18 Blood Pressure 115/57 L 112/57 L Pulse Oximetry 97 100 Oxygen Delivery Method Room Air Oxygen Flow Rate 12/06/22 14:09 12/06/22 14:30 12/06/22 14:30 Temperature Pulse Rate 85 83 Respiratory Rate 17 16 Blood Pressure 95/55 L Pulse Oximetry 100 100 Oxygen Delivery Method Oxygen Flow Rate 12/06/22 15:00 12/06/22 15:00 12/06/22 15:31 Temperature 98.2 F Pulse Rate 87 90 Respiratory Rate 17 16 Blood Pressure 103/54 L 117/66 Pulse Oximetry 100 Oxygen Delivery Method Oxygen Flow Rate 12/06/22 15:51 12/06/22 15:30 12/06/22 15:30 Temperature 97.9 F Pulse Rate 91 H 90 Respiratory Rate 18 20 Blood Pressure 128/60 117/66 Pulse Oximetry 100 Oxygen Delivery Method Oxygen Flow Rate 12/06/22 15:52 12/06/22 15:52 12/06/22 16:00 Temperature Pulse Rate 94 H Respiratory Rate 26 H Blood Pressure 128/60 145/69 H Pulse Oximetry 97 Oxygen Delivery Method Oxygen Flow Rate 12/06/22 16:00 12/06/22 16:30 12/06/22 16:13 Temperature 98.6 F Pulse Rate 89 86 85 Respiratory Rate 21 14 16 Blood Pressure 115/59 L Pulse Oximetry 100 100 Oxygen Delivery Method Oxygen Flow Rate 12/06/22 16:13 12/06/22 16:20 12/06/22 16:20 Temperature Pulse Rate 86 Respiratory Rate 12 Blood Pressure 139/63 124/73 Pulse Oximetry 100 Oxygen Delivery Method Oxygen Flow Rate 12/06/22 16:30 12/06/22 16:30 12/06/22 16:30 Temperature Pulse Rate 82 Respiratory Rate 14 Blood Pressure 115/59 L 129/81 Pulse Oximetry 98 Oxygen Delivery Method Oxygen Flow Rate 12/06/22 16:30 12/06/22 17:00 12/06/22 17:00 Temperature Pulse Rate 84 85 Respiratory Rate 21 24 Blood Pressure 145/64 H Pulse Oximetry 99 98 Oxygen Delivery Method Oxygen Flow Rate 12/06/22 17:10 12/06/22 18:19 12/06/22 18:34 Temperature 98.0 F 97.9 F 98.0 F Pulse Rate 88 82 80 Respiratory Rate 14 16 16 Blood Pressure 168/78 H 132/64 133/63 Pulse Oximetry 100 Oxygen Delivery Method Oxygen Flow Rate 0 12/06/22 18:51 12/06/22 15:53 12/06/22 20:41 Temperature 98.0 F 98.8 F Pulse Rate 79 74 Respiratory Rate 16 17 Blood Pressure 123/59 L 160/72 H Pulse Oximetry 99 Oxygen Delivery Method Room Air Oxygen Flow Rate 12/06/22 21:09 Temperature 97.6 F Pulse Rate 78 Respiratory Rate 16 Blood Pressure 173/94 H Pulse Oximetry 97 Oxygen Delivery Method Oxygen Flow Rate Oxygen Delivery Method Room Air Oxygen Flow Rate 0 Narrative Exam Narrative: GEN: no acute distress HEENT: moist mucous membranes, pale conjunctiva CV: regular rate and rhythm, PULM clear bilaterally CV: regular rate and rhythm ABD: Soft, nonteder NEURO: awake, alert, no focal deficits Objective Labs 12/06/22 14:10 12/06/22 14:10 Labs: Laboratory Results - last 24 hr 12/06/22 12/06/22 12/06/22 14:10 14:10 14:10 WBC 10.5 RBC 1.75 L Hgb 4.0 L* Hct 12.4 L* MCV 70.6 L MCH 22.7 L MCHC 32.1 RDW 20.5 H Plt Count 906 H Neut % (Auto) Not Reportable Lymph % (Auto) Not Reportable [place] % (Auto) Not Reportable Eos % (Auto) Not Reportable Baso % (Auto) Not Reportable Lymph # (Auto) Not Reportable [place] # (Auto) Not Reportable Baso # (Auto) Not Reportable Total Counted 100 Seg Neutrophils % 75.0 H Lymphocytes % (Manual) 20.0 L Monocytes % (Manual) 2.0 Eosinophils % (Manual) 2.0 Basophils % (Manual) 1.0 Neutrophils # (Manual) 7875 H Nucleated RBCs 1 H Platelet Estimate Increased on smear RBC Morphology See below Hypochromasia 2+ H Anisocytosis 2+ H Microcytosis 1+ H Target Cells 1+ H Percent Retic PT 11.4 INR 1.0 Sodium Potassium Chloride Carbon Dioxide BUN Creatinine Estimated GFR BUN/Creatinine Ratio Glucose Calcium Magnesium Total Bilirubin AST ALT Alkaline Phosphatase Lactate Dehydrogenase Total Creatine Kinase Troponin I Total Protein Albumin Globulin Albumin/Globulin Ratio Lipase Blood Type O Positive Antibody Screen Negative Crossmatch See Detail 12/06/22 12/06/22 12/06/22 14:10 14:10 14:10 WBC RBC Hgb Hct MCV MCH MCHC RDW Plt Count Neut % (Auto) Lymph % (Auto) [place] % (Auto) Eos % (Auto) Baso % (Auto) Lymph # (Auto) [place] # (Auto) Baso # (Auto) Total Counted Seg Neutrophils % Lymphocytes % (Manual) Monocytes % (Manual) Eosinophils % (Manual) Basophils % (Manual) Neutrophils # (Manual) Nucleated RBCs Platelet Estimate RBC Morphology Hypochromasia Anisocytosis Microcytosis Target Cells Percent Retic 4.2 H PT INR Sodium 124 L Potassium 3.8 Chloride 93 L Carbon Dioxide 22 BUN 21 H Creatinine 0.56 Estimated GFR > 60 BUN/Creatinine Ratio 37.5 H Glucose 103 Calcium 9.9 Magnesium 1.9 Total Bilirubin 0.1 L AST 28 ALT 21 Alkaline Phosphatase 89 Lactate Dehydrogenase 167 Total Creatine Kinase 44 Troponin I < 0.012 Total Protein 6.3 Albumin 3.9 Globulin 2.4 Albumin/Globulin Ratio 1.6 Lipase 286 Blood Type Antibody Screen Crossmatch Assessment & Plan Assessment & Plan narrative: 1. Acute sympomatic anemia -suspect mostly likely etiology is due to GI bleeding -possibly secondary due to recent antiplatelets started six weeks ago due to CVA -however no overt bleeding -initial hemoglobin of 4 -she can not recal if ever had colonoscopy -ordered for IV PPI BID -transfuse 2u prbc, then recheck again as may need more blood given severity of anemia -NPO after midnight, start golytely prep -consult surgery for possible EGD/colonoscopy tomorrow -iron studies noted to have low iron levels, consider dc on iron -labs also noted to have schistocytes, unclear significant as was on auto diff -ordered for peripheral smear -ldh and bili normal so less likely hemolysis, but haptoglobin pending 2. History of CVA -hold asa, plavix for now 3. Chronic hyponatremia -per previous notes and records has history of SIADH -Na of 124 appears near baseline -for now is npo and no golytely prep -but after may need fluid restriction 4. Hypertension -hold lisinopril I have discussed plan and obtained history from patient. I have discussed plan of care with ED physician, surgeon, bedside nurse. I have reviewed labs, imaging. CODE: Full Proxy: Joseph Jones, spouse Quality VTE Deep Vein Thrombosis/Pulmonary Embolism Present on Admission: No MIPS - Meds 'Current medications' to include all prescriptions, [id number] products, herbals, cannabis/cannabidiol products, and vitamin/mineral/dietary (nutritional) supplements. I have utilized all available resources to obtain, update, or review the patient?s current medications. [If Yes, STOP here]: Yes
[2022-12-06 23:03] LABS: Mean Corpuscular HGB Conc 33.1 % (30-36); Mean Corpuscular Hemoglobin 25.8 PG (26-34); Mean Corpuscular Volume 77.9 fL (80-100); Platelet Count 660 X10^3/uL (150-400); Red Blood Cell Count 2.72 X10^6/uL (4.0-5.2); Red Cell Distribution Width 22.4 % (11.6-14.8); White Blood Cell Count 10.2 X10^3/uL (4.5-11.0)
[2022-12-06 23:05] LABS: Hematocrit 21.2 % (36-46)
[2022-12-06] MEDS: ACETAMINOPHEN 325 MG TABLET 650 MG PO (23:17)
[2022-12-07] VITALS (10 sets, daily range): BP systolic 145–197; BP diastolic 68–87; PULSE 72–83; RESP 14–19; TEMP 36.4–37.5; O2SAT 95–100; BMI 19.5
[2022-12-07 06:03] LABS: Mean Corpuscular HGB Conc 32.5 % (30-36); Mean Corpuscular Hemoglobin 25.2 PG (26-34); Mean Corpuscular Volume 77.6 fL (80-100); Platelet Count 686 X10^3/uL (150-400); Red Blood Cell Count 2.66 X10^6/uL (4.0-5.2); Red Cell Distribution Width 22.5 % (11.6-14.8); White Blood Cell Count 8.9 X10^3/uL (4.5-11.0)
[2022-12-07 06:05] LABS: BUN Creatinine Ratio 24.1 (6-22); Blood Urea Nitrogen 14 mg/dL (7-17); Calcium 9.6 mg/dL (8.4-10.2); Carbon Dioxide 23 mmol/L (22-32); Chloride 99 mmol/L (98-107); Estimated Glomerular Filt Rate > 60 mL/min (>60); Glucose 84 mg/dL (80-110); HEMOLYSIS < 15 (0-50); Potassium 3.8 mmol/L (3.4-5.1); Sodium 128 mmol/L (137-145)
[2022-12-07 06:39] LABS: Hemoglobin 6.7 g/dL (12.0-16.0)
[2022-12-07 06:40] LABS: Add Manual Diff / Slide Review YES; Hematocrit 20.6 % (36-46)
[2022-12-07 07:05] LABS: Neutrophils Absolute Manual 6853 /uL (3000-5900); Total Cells Counted 100
[2022-12-07 07:06] LABS: Anisocytosis 2+; Hypochromasia 1+; Microcytosis 1+; Platelet Estimate Increased on smear; Target Cells 1+
--- NOTE | 2022-12-07 07:29 | PM.PN.1 ---
Subjective Subjective Interval history: Patient didn't prep enough to complete scopes today so now rescheduled for tomorrow. Hgb 6.7 this morning so another 2 units of PRBC ordered. Exam Vital Signs (past 8 hours): - 12/06/22 23:49 12/07/22 03:45 Temperature 98.5 F 98.5 F Pulse Rate 80 72 Respiratory Rate 16 14 Blood Pressure 155/75 H 160/80 H Pulse Oximetry 98 95 Oxygen Delivery Method Room Air Oxygen Flow Rate 0 Narrative Exam Narrative: GEN: no acute distress, appears older than stated age HEENT: moist mucous membranes, pale conjunctiva CV: regular rate and rhythm, PULM clear bilaterally CV: regular rate and rhythm ABD: Soft, nonteder NEURO: awake, alert, no focal deficits Objective Labs 12/07/22 05:18 12/07/22 05:18 Labs: Laboratory Results - last 24 hr 12/06/22 12/06/22 12/06/22 14:10 14:10 14:10 WBC 10.5 RBC 1.75 L Hgb 4.0 L* Hct 12.4 L* MCV 70.6 L MCH 22.7 L MCHC 32.1 RDW 20.5 H Plt Count 906 H Neut % (Auto) Not Reportable Lymph % (Auto) Not Reportable [place] % (Auto) Not Reportable Eos % (Auto) Not Reportable Baso % (Auto) Not Reportable Lymph # (Auto) Not Reportable [place] # (Auto) Not Reportable Baso # (Auto) Not Reportable Total Counted 100 Seg Neutrophils % 75.0 H Lymphocytes % (Manual) 20.0 L Monocytes % (Manual) 2.0 Eosinophils % (Manual) 2.0 Basophils % (Manual) 1.0 Neutrophils # (Manual) 7875 H Nucleated RBCs 1 H Platelet Estimate Increased on smear RBC Morphology See below Hypochromasia 2+ H Anisocytosis 2+ H Microcytosis 1+ H Target Cells 1+ H Percent Retic PT 11.4 INR 1.0 Sodium Potassium Chloride Carbon Dioxide BUN Creatinine Estimated GFR BUN/Creatinine Ratio Glucose Calcium Magnesium Total Bilirubin AST ALT Alkaline Phosphatase Lactate Dehydrogenase Total Creatine Kinase Troponin I Total Protein Albumin Globulin Albumin/Globulin Ratio Lipase Blood Type O Positive Antibody Screen Negative Crossmatch See Detail 12/06/22 12/06/22 12/06/22 14:10 14:10 14:10 WBC RBC Hgb Hct MCV MCH MCHC RDW Plt Count Neut % (Auto) Lymph % (Auto) [place] % (Auto) Eos % (Auto) Baso % (Auto) Lymph # (Auto) [place] # (Auto) Baso # (Auto) Total Counted Seg Neutrophils % Lymphocytes % (Manual) Monocytes % (Manual) Eosinophils % (Manual) Basophils % (Manual) Neutrophils # (Manual) Nucleated RBCs Platelet Estimate RBC Morphology Hypochromasia Anisocytosis Microcytosis Target Cells Percent Retic 4.2 H PT INR Sodium 124 L Potassium 3.8 Chloride 93 L Carbon Dioxide 22 BUN 21 H Creatinine 0.56 Estimated GFR > 60 BUN/Creatinine Ratio 37.5 H Glucose 103 Calcium 9.9 Magnesium 1.9 Total Bilirubin 0.1 L AST 28 ALT 21 Alkaline Phosphatase 89 Lactate Dehydrogenase 167 Total Creatine Kinase 44 Troponin I < 0.012 Total Protein 6.3 Albumin 3.9 Globulin 2.4 Albumin/Globulin Ratio 1.6 Lipase 286 Blood Type Antibody Screen Crossmatch 12/06/22 12/07/22 12/07/22 22:50 05:18 05:18 WBC 10.2 8.9 RBC 2.72 L 2.66 L Hgb 7.0 L 6.7 L* Hct 21.2 L 20.6 L* MCV 77.9 L D 77.6 L MCH 25.8 L 25.2 L MCHC 33.1 32.5 RDW 22.4 H 22.5 H Plt Count 660 H 686 H Neut % (Auto) Not Reportable Lymph % (Auto) Not Reportable [place] % (Auto) Not Reportable Eos % (Auto) Not Reportable Baso % (Auto) Not Reportable Lymph # (Auto) Not Reportable [place] # (Auto) Not Reportable Baso # (Auto) Not Reportable Total Counted 100 Seg Neutrophils % 77.0 H Lymphocytes % (Manual) 15.0 L Monocytes % (Manual) 4.0 Eosinophils % (Manual) 3.0 Basophils % (Manual) 1.0 Neutrophils # (Manual) 6853 H Nucleated RBCs Platelet Estimate Increased on smear RBC Morphology See below Hypochromasia 1+ H Anisocytosis 2+ H Microcytosis 1+ H Target Cells 1+ H Percent Retic PT INR Sodium 128 L Potassium 3.8 Chloride 99 Carbon Dioxide 23 BUN 14 Creatinine 0.58 Estimated GFR > 60 BUN/Creatinine Ratio 24.1 H Glucose 84 Calcium 9.6 Magnesium Total Bilirubin AST ALT Alkaline Phosphatase Lactate Dehydrogenase Total Creatine Kinase Troponin I Total Protein Albumin Globulin Albumin/Globulin Ratio Lipase Blood Type Antibody Screen Crossmatch [facility] Medical History Anemia Carotid stenosis with cerebral infarction less than 8 weeks ago COPD (chronic obstructive pulmonary disease) CVA (cerebral vascular accident) History of fracture of right hip Hypertension, essential Paralysis Vision disorder Surgical History History of repair of hip fracture No pertinent past surgical history Family History Mother Diabetes mellitus Hyperthyroidism Father CAD (coronary artery disease) Social History household members: spouse and children Smoking Status: Current every day smoker Tobacco: How many years used: 40 quit status: considering quitting (I'm trying ) alcohol intake: current Assessment & Plan Assessment & Plan narrative: 1. Acute symptomatic anemia -suspect mostly likely etiology is due to GI bleeding -possibly secondary due to recent DAPT started six weeks ago due to CVA, holding -however no overt bleeding -initial hemoglobin of 4 -she can not recall if ever had colonoscopy -ordered for IV PPI BID -transfused 2u prbc, improved to 7 then dipped to 6.7 -another 2u prbc ordered -continue golytely prep -gen surg to take for EGD/colonoscopy 12/08 -iron studies noted to have low iron levels, consider dc on iron -labs also noted to have schistocytes, unclear significant as was on auto diff -ordered for peripheral smear, pending -ldh and bili normal so less likely hemolysis, but haptoglobin pending 2. History of CVA -hold asa, plavix for now 3. Chronic hyponatremia, improving -per previous notes and records has history of SIADH -Na of 124 appears near baseline -for now is npo and on golytely prep -but after may need fluid restriction -improving to 128 with fluid restriction 4. Hypertension -hold lisinopril I have discussed plan and obtained history from patient. I have discussed plan of care with ED physician, surgeon, bedside nurse. I have reviewed labs, imaging. CODE: Full Proxy: Joseph Jones, spouse Quality VTE Deep Vein Thrombosis/Pulmonary Embolism Present on Admission: No
--- NOTE | 2022-12-07 08:18 | SUR.HOLD ---
Dr Gavin notified patient only took half of prep and her hgb/hct are 6.7/20.6.
--- NOTE | 2022-12-07 09:16 | P.CONS_ITS ---
History of Present Illness Consult details Date Patient Seen: 12/07/22 Time Patient Seen: 09:17 Chief complaint: blood count low Narrative: Sydni is a 2-year-old woman who was found to be profoundly anemic. He was admitted through the ER yesterday and she received blood transfusions. She was started on dual antiplatelet therapy a few months ago for a stroke. She is a smoker. She has never had any type of endoscopy before. She has no known family history of colon cancer. She was only able to complete half of her prep last night. Meds Home Medications and Allergies Home Medications Medication Instructions Recorded Confirmed Type aspirin 81 mg chewable tablet 1 tab PO DAILY 10/24/22 12/06/22 History atorvastatin 40 mg tablet 40 mg PO DAILY #90 tabs 10/24/22 12/06/22 Rx clopidogrel 75 mg tablet 75 mg PO DAILY #90 tabs 10/24/22 12/06/22 Rx lisinopril 10 mg tablet 10 mg PO DAILY #90 tabs 10/24/22 12/06/22 Rx Allergies Allergy/AdvReac Type Severity Reaction Status Date / Time wool Allergy Mild Rash Verified 12/06/22 13:50 codeine AdvReac Intermediate Gastrointestinal Verified 12/06/22 13:50 Upset Exam Vital Signs (past 8 hours): - 12/07/22 03:45 12/07/22 08:00 12/07/22 08:32 Temperature 98.5 F 99.5 F 98.0 F Pulse Rate 72 81 73 Respiratory Rate 14 16 19 Blood Pressure 160/80 H 170/74 H 145/68 H Pulse Oximetry 95 99 Oxygen Flow Rate 0 Oxygen Delivery Method Room Air Oxygen Flow Rate 0 Const Nutritional Appearance: thin Orientation: alert and awake Objective Labs 12/07/22 05:18 12/07/22 05:18 Labs: Laboratory Results - last 24 hr 12/06/22 12/06/22 12/06/22 14:10 14:10 14:10 WBC 10.5 RBC 1.75 L Hgb 4.0 L* Hct 12.4 L* MCV 70.6 L MCH 22.7 L MCHC 32.1 RDW 20.5 H Plt Count 906 H Neut % (Auto) Not Reportable Lymph % (Auto) Not Reportable [place] % (Auto) Not Reportable Eos % (Auto) Not Reportable Baso % (Auto) Not Reportable Lymph # (Auto) Not Reportable [place] # (Auto) Not Reportable Baso # (Auto) Not Reportable Total Counted 100 Seg Neutrophils % 75.0 H Lymphocytes % (Manual) 20.0 L Monocytes % (Manual) 2.0 Eosinophils % (Manual) 2.0 Basophils % (Manual) 1.0 Neutrophils # (Manual) 7875 H Nucleated RBCs 1 H Platelet Estimate Increased on smear RBC Morphology See below Hypochromasia 2+ H Anisocytosis 2+ H Microcytosis 1+ H Target Cells 1+ H Percent Retic PT 11.4 INR 1.0 Sodium Potassium Chloride Carbon Dioxide BUN Creatinine Estimated GFR BUN/Creatinine Ratio Glucose Calcium Magnesium Total Bilirubin AST ALT Alkaline Phosphatase Lactate Dehydrogenase Total Creatine Kinase Troponin I Total Protein Albumin Globulin Albumin/Globulin Ratio Lipase Blood Type O Positive Antibody Screen Negative Crossmatch See Detail 12/06/22 12/06/22 12/06/22 14:10 14:10 14:10 WBC RBC Hgb Hct MCV MCH MCHC RDW Plt Count Neut % (Auto) Lymph % (Auto) [place] % (Auto) Eos % (Auto) Baso % (Auto) Lymph # (Auto) [place] # (Auto) Baso # (Auto) Total Counted Seg Neutrophils % Lymphocytes % (Manual) Monocytes % (Manual) Eosinophils % (Manual) Basophils % (Manual) Neutrophils # (Manual) Nucleated RBCs Platelet Estimate RBC Morphology Hypochromasia Anisocytosis Microcytosis Target Cells Percent Retic 4.2 H PT INR Sodium 124 L Potassium 3.8 Chloride 93 L Carbon Dioxide 22 BUN 21 H Creatinine 0.56 Estimated GFR > 60 BUN/Creatinine Ratio 37.5 H Glucose 103 Calcium 9.9 Magnesium 1.9 Total Bilirubin 0.1 L AST 28 ALT 21 Alkaline Phosphatase 89 Lactate Dehydrogenase 167 Total Creatine Kinase 44 Troponin I < 0.012 Total Protein 6.3 Albumin 3.9 Globulin 2.4 Albumin/Globulin Ratio 1.6 Lipase 286 Blood Type Antibody Screen Crossmatch 12/06/22 12/07/22 12/07/22 22:50 05:18 05:18 WBC 10.2 8.9 RBC 2.72 L 2.66 L Hgb 7.0 L 6.7 L* Hct 21.2 L 20.6 L* MCV 77.9 L D 77.6 L MCH 25.8 L 25.2 L MCHC 33.1 32.5 RDW 22.4 H 22.5 H Plt Count 660 H 686 H Neut % (Auto) Not Reportable Lymph % (Auto) Not Reportable [place] % (Auto) Not Reportable Eos % (Auto) Not Reportable Baso % (Auto) Not Reportable Lymph # (Auto) Not Reportable [place] # (Auto) Not Reportable Baso # (Auto) Not Reportable Total Counted 100 Seg Neutrophils % 77.0 H Lymphocytes % (Manual) 15.0 L Monocytes % (Manual) 4.0 Eosinophils % (Manual) 3.0 Basophils % (Manual) 1.0 Neutrophils # (Manual) 6853 H Nucleated RBCs Platelet Estimate Increased on smear RBC Morphology See below Hypochromasia 1+ H Anisocytosis 2+ H Microcytosis 1+ H Target Cells 1+ H Percent Retic PT INR Sodium 128 L Potassium 3.8 Chloride 99 Carbon Dioxide 23 BUN 14 Creatinine 0.58 Estimated GFR > 60 BUN/Creatinine Ratio 24.1 H Glucose 84 Calcium 9.6 Magnesium Total Bilirubin AST ALT Alkaline Phosphatase Lactate Dehydrogenase Total Creatine Kinase Troponin I Total Protein Albumin Globulin Albumin/Globulin Ratio Lipase Blood Type Antibody Screen Crossmatch [facility] Medical History Anemia Carotid stenosis with cerebral infarction less than 8 weeks ago COPD (chronic obstructive pulmonary disease) CVA (cerebral vascular accident) History of fracture of right hip Hypertension, essential Paralysis Vision disorder Surgical History History of repair of hip fracture No pertinent past surgical history Family History Mother Diabetes mellitus Hyperthyroidism Father CAD (coronary artery disease) Social History household members: spouse and children Tobacco & Substance Use Smoking Status: Current every day smoker Tobacco: How many years used: 40 quit status: considering quitting (I'm trying ) alcohol intake: current Assessment & Plan Assessment and plan (1) Symptomatic anemia: Status: Acute Plan We reviewed the risks and benefits of EGD and colonoscopy due to profound anemia. She agrees to proceed.
[2022-12-07] MEDS: PANTOPRAZOLE 40 MG VIAL IV ×2 (10:11→20:32)
--- NOTE | 2022-12-07 10:15 | SUR.HOLD ---
Case rescheduled for tomorrow due to inadequate prep and patient not NPO. Transported patient back to room 0945.
--- NOTE | 2022-12-07 13:13 | CM.DANOTE ---
Addendum entered by WEI Benavides 12/08/22 12:15: ADD: Spoke w/patient and spouse Timmy at bedside this morning. Spouse confirms that he and his son are available to assist patient w/ADLs as needed. Spouse assists with some dressing,bathing and medication management. Son assists with cooking and some cleaning. Spouse drives. Patient would like to return home upon discharge, requests [facility] RN because this service was helpful in the past. Patient does not feel PT/OT would be helpful. F2F completed and faxed to [facility]. Email sent to Miguel Angel at [facility] discussing this new referral. Plan: Anticipate patient will discharge home w/family and [facility] RN, via private vehicle. KALYN Original Note: Initial DCP Assessment Note Pt is a 72 yo female, resident of [place], PMH includes bilateral hip fractures this year, also recent CVA (Oct 2022) presents with weakness and anemia. Patient w/suspected GI bleed, scheduled for upper and lower scope today which as been delayed until tomorrow r/t poor prep. Attempted assessment at bedside x2 today, patient off the floor and then sleeping soundly once back, no family at bedside. Will plan to try assessment tomorrow with patient and/or family. PCP: Wolf Burns Payer: Blayne SABA Reviewed chart, pt lives w/son and spouse in an apt in [place]. Patient appears fragile on paper- w/ recent hx of hip fx and CVA, patient likely needs assist w/most ADLs. Patient has hx at [facility] for rehab and [facility]. CM team will plan to follow for assessment of need and coordination of DCP. Patient may benefit from SNF stay, will follow. 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 No Advance Directives on File No History Provided By Patient,Medical Record Prior Living Arrangements House Household Members spouse,children Type of transporation used prior to Relies on Others admit Independent with ADL's No Is patient alert and oriented? Yes Needs Assistance With Bathing,Grooming,Meal Prep, Toileting,Managing Medications ,Home Chores / Shopping Comment Patient likely needs assist with most ADLs r/t her medical history and fragility Comment TBD Comment TBD Transportation Arrangement Spouse vs w/c van Additional Comment Needs TBD
[2022-12-08] VITALS (15 sets, daily range): BP systolic 78–175; BP diastolic 36–84; PULSE 71–85; RESP 15–19; TEMP 36.3–36.9; O2SAT 85–100; BMI 19.5
--- NOTE | 2022-12-08 | PATH_ITS ---
[facility] Accession Number: [id number] No. of containers..01 Tissue . 01 Material submitted: . cecum - CECAL POLYP . 01 Diagnosis: Cecal Polyp: Tubular adenoma. [facility] 12/13/2022 1122 Local . 01 Electronically signed: . Leah Wang MD, Pathologist NPI- [id number] . 01 Gross description: . CECAL POLYP: Received in formalin is 1 fragment(s) of glover, soft tissue measuring 0.5 x 0.3 x 0.3 cm submitted entirely in 1 cassette(s) /SHIELA 12/10/2022 2208 Local . 01 Pathologist provided ICD-10: K63.5 . 01 CPT . 029198 Specimen Comment: A courtesy copy of this report has been sent to [phone] Performed at: 01 [facility] [address] [place] [address] [id number] MD Kayode Ortega MD Phone: [phone]
[2022-12-08] MEDS: lisinopriL 10 MG TABLET PO (03:41)
[2022-12-08 05:24] LABS: Basophils Absolute Auto 100 /uL (0-100); Basophils Percent Auto 0.7 % (0-2); Eosinophils Absolute Auto 200 /uL (0-450); Eosinophils Percent Auto 1.8 % (2-4); Hemoglobin 10.7 g/dL (12.0-16.0); Lymphocytes Absolute Auto 2000 /uL (1100-4500); Lymphocytes Percent Auto 17.2 % (25-40); Mean Corpuscular HGB Conc 33.3 % (30-36); Mean Corpuscular Hemoglobin 26.3 PG (26-34); Mean Corpuscular Volume 78.9 fL (80-100); Monocytes Absolute Auto 700 /uL (0-900); Monocytes Percent Auto 6.2 % (3-14); Neutrophils Absolute Auto 8600 /uL (1500-7000); Neutrophils Percent Auto 74.1 % (50-75); Platelet Count 621 X10^3/uL (150-400); Red Blood Cell Count 4.08 X10^6/uL (4.0-5.2); Red Cell Distribution Width 21.2 % (11.6-14.8); White Blood Cell Count 11.7 X10^3/uL (4.5-11.0)
[2022-12-08 05:27] LABS: BUN Creatinine Ratio 16.4 (6-22); Blood Urea Nitrogen 9 mg/dL (7-17); Calcium 9.7 mg/dL (8.4-10.2); Carbon Dioxide 23 mmol/L (22-32); Chloride 97 mmol/L (98-107); Estimated Glomerular Filt Rate > 60 mL/min (>60); Glucose 71 mg/dL (80-110); HEMOLYSIS < 15 (0-50); Potassium 3.7 mmol/L (3.4-5.1); Sodium 130 mmol/L (137-145)
[2022-12-08 05:34] LABS: Add Manual Diff / Slide Review SLIDE REVIEW; Hematocrit 32.2 % (36-46)
[2022-12-08] MEDS: LACTATED RINGERS 1,000 ML 42 ML IV (08:49)
[2022-12-08 09:06] LABS: Haptoglobin 163 mg/dL (42-346)
--- NOTE | 2022-12-08 09:32 | PM.OP.EC ---
Operative Date/Time/Diagnoses Date of procedure: 12/08/22 Time of procedure: 09:32 Pre-op diagnosis: Anemia Post-op diagnosis: same Procedure & Clinicians Study performed: EGD and colonoscopy Same procedure as scheduled: Yes Surgeon: Ye Gavin Procedure Notes Procedure in detail: Surgeon: Ye Gavin MD Anesthesia: Wilbur Mars D.O. Procedure in detail: A timeout was performed. A bite blocked was placed and monitors were attached to the patient. The patient was positioned in the left lateral decubitus position. Sedation was administered. Once the patient was sedated the endoscope was inserted through the bite block and passed through the esophagus and stomach and into the duodenum. No abnormalities were seen. We then withdrew the scope into the stomach. No abnormalities were seen. The endoscope was retroflexed and a small hiatal hernia was noted but there were no ulcerations. The endoscope was straightned and withdrawn into the esophagus. No other abnormalities were seen. Findings: Small hiatal hernia without an obvious source of blood loss Next we repositioned the patient for a colonoscopy. A digital rectal exam was performed and was normal. The colonoscope was inserted and advanced to the cecum. The appendiceal orifice was identified and photographed. There was a 5 mm polyp adjacent to the appendiceal orifice removed with a cold snare and sent as ?cecal polyp?. The scope was slowly withdrawn over greater than 6 minutes. Pandiverticulosis greatest in the left colon and sigmoid colon but no obvious source of blood loss. The scope was retroflexed in the rectum and internal hemorrhoids were noted. Findings: 5 mm polyp in the cecum, pandiverticulosis and internal hemorrhoids EBL: 5 mL Scope withdrawal time: 10 minutes Sedation minutes: 27 minutes Post-procedure Disposition: PACU
--- NOTE | 2022-12-08 09:36 | DI.CT.S_ITS ---
PROCEDURE: CT CHEST ABD PEL W CON INDICATIONS: anemia TECHNIQUE: After the administration of oral and intravenous contrast, axial sections acquired from the supraclavicular neck to the pubic symphysis. Coronal and sagittal reformats were performed. For radiation dose reduction, the following was used: automated exposure control, adjustment of mA and/or kV according to patient size. COMPARISON: None. FINDINGS: Image quality: Excellent. CHEST: Lower Neck: No enlarged lymph nodes. Thyroid: Within normal limits. Axillae: No enlarged lymph nodes. Chest Wall: Unremarkable. Lungs and Airways: Moderate centrilobular emphysema. 4.5 mm solid nodule in the right upper lobe (series 5, image 76). Pleura: Small pleural effusions. Heart: Heart size is normal. No pericardial effusion. Thoracic Vessels: The aorta and pulmonary arteries demonstrate normal size. Mediastinum and Shakila: No enlarged lymph nodes. Esophagus: No wall thickening. No hiatal hernia. ABDOMEN: Liver: Scattered subcentimeter hypoattenuating lesions, too small to characterize by CT but probably small cysts. Gallbladder: Unremarkable. Biliary ducts: Unremarkable. Pancreas: Unremarkable. Spleen: Unremarkable. Adrenal Glands: Hypertrophy of the left adrenal gland. Kidneys and Ureters: Atrophy of the right kidney, with associated junctional cortical defects and nonobstructing stones. No hydronephrosis.. Stomach and Bowel: Stomach, small bowel loops, and colon are unremarkable. Peritoneum: No abnormal intraperitoneal fluid. No free air. Ventral Wall: No hernia. Abdominal Nodes: No retroperitoneal or mesenteric adenopathy by size criteria. Vessels: Aorta and inferior vena cava are normal in size. PELVIS: Pelvic Organs: Unremarkable. Bladder: Unremarkable. Pelvic Nodes: No enlarged lymph nodes. Miscellaneous: No inguinal hernias are seen. Bones: Convex right scoliosis. Degenerative disc disease. IMPRESSION: 1. No findings to explain the patient's anemia. 2. A 4.5 mm solid nodule seen in the right upper lobe. Consider 12 month follow-up if at high risk for developing lung cancer, per Fleischner Society guidelines. Dictated by: Pedro Ren M.D. on 12/08/2022 at 12:22 Approved by: Pedro Ren M.D. on 12/08/2022 at 12:24
[2022-12-08] MEDS: ALBUTEROL 2.5 MG/3 ML NEB (ADULT) INH (09:37)
--- NOTE | 2022-12-08 13:38 | PM.DS.1 ---
History of Present Illness History of Present Illness Date Patient Seen: 12/06/22 Time Patient Seen: 15:00 Chief complaint: blood count low Narrative: Ms. Jones is a 72W with PMH bilateral hip fractures this year, also recent CVA s/p TPA, carotid stenosis, active smoker, SIADH who presents to the hospital for weakness and anemia. She had a CVA with TPA at [facility] in early October 2022, she was ultimately discharged but started on dual antiplatelets as she had occlusion of her right carotid. Per notes vascular surgery recommended no surgical intervention and to do medical management. She has noted fatigue for the last few days which has worsened. She has noted no change in her stools. She has no abdominal pain. No vomiting. She does not think she every had a colonoscopy or endoscopy. She denies significant nsaids or alcohol. She denies weight loss. She was following up with her PCP who ordered a CBC and it was noted to have hemoglobin of 3.7. In the ED workup was done, vitals notable for afebrile, heart rate 70s, blood pressure 110s/50s, sats 97% on room air. Labs reviewed by me and notable for WBC 10.5, hgb 4.0, plts 906. Na 124, creatinine 0.56. MCV at 70, noted schistocytes on auto diff. Rectal showed brown stool and weakly guaiac positive. She was ordered for blood and PPI and admitted for further treatment. Discharge Providers Provider Date of admission: 12/06/22 15:24 Discharge Date: 12/08/22 Primary care physician: Wolf Burns DO Consults: 12/06/22 18:34 Consult to General Surgery Routine Comment: Consulting Provider: Juan Jose Thompson Reason for consultation: gi bleed Has provider been notified: Yes 12/08/22 12:22 Consult to Home Health Routine Comment: Reason For Exam: Home health upon discharge Discharge provider: Ross York DO Summary Hospital Course Discharge Diagnosis: 1. Acute symptomatic anemia -suspect mostly likely etiology is due to GI bleeding -possibly secondary due to recent DAPT started six weeks ago due to CVA, holding these -however no overt bleeding -initial hemoglobin of 4 -she can not recall if ever had colonoscopy -ordered for IV PPI BID -transfused 2u prbc, improved to 7 then dipped to 6.7 -another 2u prbc ordered -continue golytely prep -gen surg took for EGD/colonoscopy 12/08 -iron studies noted to have low iron levels, consider dc on iron -labs also noted to have schistocytes, unclear significant as was on auto diff -ordered for peripheral smear, pending -ldh and bili normal so less likely hemolysis, but haptoglobin pending 2. History of CVA -hold asa, plavix for now -restarted asa alone 3. Chronic hyponatremia, improving -per previous notes and records has history of SIADH -Na of 124 appears near baseline -for now is npo and on golytely prep -but after may need fluid restriction -improving to 128 with fluid restriction 4. Hypertension -hold lisinopril Hospital Course: Admitted for anemia and thought to be GI source. Had recently been put on DAPT for stroke. EGD colonoscopy showed no active bleeding but cecal polyp and pandiverticulosis. She received 4u total of PRBC and her counts finally stabilized. Her plavix was stopped and aspirin continued. Exam Vital Signs (past 8 hours): - 12/08/22 08:56 12/08/22 09:35 12/08/22 09:39 Temperature 98.1 F 98.1 F Pulse Rate 83 75 73 Respiratory Rate 16 15 19 Blood Pressure 128/65 78/36 L 95/65 Pulse Oximetry 97 85 L 100 Oxygen Delivery Method Room Air Room Air Simple Mask Oxygen Flow Rate 4 12/08/22 09:44 12/08/22 09:49 12/08/22 09:49 Temperature Pulse Rate 71 73 73 Respiratory Rate 19 17 19 Blood Pressure 87/37 L 99/48 L 99/49 L Pulse Oximetry 100 100 99 Oxygen Delivery Method Simple Mask Simple Mask Room Air Oxygen Flow Rate 4 4 12/08/22 09:55 12/08/22 10:01 12/08/22 10:04 Temperature Pulse Rate 73 73 74 Respiratory Rate 18 16 16 Blood Pressure 108/53 L 88/44 L 92/44 L Pulse Oximetry 98 94 94 Oxygen Delivery Method Room Air Room Air Room Air Oxygen Flow Rate 12/08/22 10:00 12/08/22 10:30 12/08/22 11:30 Temperature 97.3 F L Pulse Rate 76 81 71 Respiratory Rate 17 17 17 Blood Pressure 129/79 129/79 137/62 Pulse Oximetry 94 91 95 Oxygen Delivery Method Oxygen Flow Rate 0 0 0 12/08/22 12:00 Temperature Pulse Rate 81 Respiratory Rate 17 Blood Pressure 144/69 H Pulse Oximetry 95 Oxygen Delivery Method Oxygen Flow Rate 0 Oxygen Delivery Method Room Air Oxygen Flow Rate 0 Narrative Exam Narrative: GEN: no acute distress, appears older than stated age HEENT: moist mucous membranes, pale conjunctiva CV: regular rate and rhythm, PULM clear bilaterally CV: regular rate and rhythm ABD: Soft, nonteder NEURO: awake, alert, no focal deficits Objective Labs 12/08/22 05:05 12/08/22 05:05 Labs: Laboratory Results - last 24 hr 12/06/22 12/08/22 12/08/22 14:10 05:05 05:05 WBC 11.7 H RBC 4.08 Hgb 10.7 L Hct 32.2 L MCV 78.9 L MCH 26.3 MCHC 33.3 RDW 21.2 H Plt Count 621 H Neut % (Auto) 74.1 Lymph % (Auto) 17.2 L [place] % (Auto) 6.2 Eos % (Auto) 1.8 L Baso % (Auto) 0.7 Neut # (Auto) 8600 H Lymph # (Auto) 2000 [place] # (Auto) 700 Eos # (Auto) 200 Baso # (Auto) 100 RBC Morphology See below Dimorphic RBCs * Haptoglobin 163 Sodium 130 L Potassium 3.7 Chloride 97 L Carbon Dioxide 23 BUN 9 Creatinine 0.55 Estimated GFR > 60 BUN/Creatinine Ratio 16.4 Glucose 71 L Calcium 9.7 PFSH Medical History Anemia Carotid stenosis with cerebral infarction less than 8 weeks ago COPD (chronic obstructive pulmonary disease) CVA (cerebral vascular accident) History of fracture of right hip Hypertension, essential Paralysis Vision disorder Surgical History History of repair of hip fracture No pertinent past surgical history Family History Mother Diabetes mellitus Hyperthyroidism Father CAD (coronary artery disease) Social History household members: spouse and children Smoking Status: Current every day smoker Tobacco: How many years used: 40 quit status: considering quitting (I'm trying ) alcohol intake: current Discharge Plan Discharge Plan Patient Disposition: Home Health Service Provider Discharge Comment: You were admitted for severe anemia. Your scopes were normal other than hemorrhoids and diverticulosis, which may have been the source of bleeding while on aspirin and plavix. We are stopping your plavix but please continue your aspirin due to your recent stroke. Discharge orders & Medications Prescriptions: Continued aspirin 81 mg tablet,chewable 1 tab PO DAILY lisinopril 10 mg tablet 10 mg PO DAILY Qty: 90 1RF atorvastatin 40 mg tablet 40 mg PO DAILY Qty: 90 1RF Discontinued clopidogrel 75 mg tablet 75 mg PO DAILY Qty: 90 1RF Follow up/Referrals: Wolf Bruns, [Primary Care Provider] - 2 Weeks Visit Report/Discharge Packet Instructions: Lisinopril Stand Alone Forms: Patient Portal/API, Stroke Signs & Symptoms Discharge Data Primary Care Provider: Wolf Burns Discharges patient from system. Discharge Date/Time: 12/08/22 14:15 Quality VTE Deep Vein Thrombosis/Pulmonary Embolism Present on Admission: No
== END 2022-12-08 14:15 | disposition home health service (06) | DRG 393 ==
LOC: ED 14:11 → AC 15:24
PROVIDERS: Student in an Organized Health Care Education/Training Program; Surgery; Admitting Provider Internal Medicine; Emergency Provider Emergency Medicine; PCP Family Medicine; Referring Provider Emergency Medicine; Visit Provider Internal Medicine
PROC: 0DJD8ZZ Inspection of Lower Intestinal Tract, Via Natural or Artificial Opening Endoscopic (ICD-10-PCS; CPT 45378; principal; 2022-12-08 09:00)
PROC: 0DJ08ZZ Inspection of Upper Intestinal Tract, Via Natural or Artificial Opening Endoscopic (ICD-10-PCS; CPT 43235; 2022-12-08 09:00)
DX: K64.8 Other hemorrhoids (principal); K57.31 Diverticulosis of large intestine without perforation or abscess with bleeding; S72.142A Displaced intertrochanteric fracture of left femur, initial encounter for closed fracture; E87.1 Hypo-osmolality and hyponatremia; D12.0 Benign neoplasm of cecum; D64.9 Anemia, unspecified; F17.210 Nicotine dependence, cigarettes, uncomplicated; I10 Essential (primary) hypertension; Z86.73 Personal history of transient ischemic attack (TIA), and cerebral infarction without residual deficits; Z79.02 Long term (current) use of antithrombotics/antiplatelets; M79.604 Pain in right leg
CPT/HCPCS: 36415; 36430; 43235; 45385; 71260; 74177; 80048; 80053; 82272; 82550; 82607; 83010; 83540; 83550; 83615; 83690; 83735; 84484; 85007; 85025; 85027; 85045; 85610; 86850; 86900; 86901; 96374; 99231; 99284; 99285; P9016; C9113; J2704; J7613; Q9967

== ENCOUNTER → 2022-12-31 08:47 | Outpatient (CLI) | payer OTHER, SELFPAY ==
[2022-12-06 17:28] VITALS: BMI 19.5
[2022-12-31 09:58] LABS: Basophils Absolute Auto 100 /uL (0-100); Basophils Percent Auto 0.9 % (0-2); Eosinophils Absolute Auto 300 /uL (0-450); Eosinophils Percent Auto 2.8 % (2-4); Hematocrit 38.1 % (36-46); Hemoglobin 12.6 g/dL (12.0-16.0); Lymphocytes Absolute Auto 3000 /uL (1100-4500); Lymphocytes Percent Auto 24.9 % (25-40); Mean Corpuscular Hemoglobin 26.6 PG (26-34); Mean Corpuscular Volume 80.4 fL (80-100); Monocytes Absolute Auto 800 /uL (0-900); Monocytes Percent Auto 6.4 % (3-14); Neutrophils Absolute Auto 7700 /uL (1500-7000); Red Blood Cell Count 4.74 X10^6/uL (4.0-5.2); White Blood Cell Count 11.9 X10^3/uL (4.5-11.0)
[2022-12-31 10:31] LABS: Add Manual Diff / Slide Review SLIDE REVIEW; Platelet Count 974 X10^3/uL (150-400)
[2022-12-31 10:33] LABS: Anisocytosis 2+
== END ==
PROVIDERS: PCP Family Medicine; Referring Provider Physician Assistant; Visit Provider Physician Assistant
DX: D64.9 Anemia, unspecified (principal)
CPT/HCPCS: 36415; 85025

== ENCOUNTER → 2023-01-03 08:47 | Outpatient (CLI) | payer OTHER, SELFPAY ==
[2022-12-06 17:28] VITALS: BMI 19.5
[2023-01-03 10:36] LABS: Basophils Absolute Auto 100 /uL (0-100); Basophils Percent Auto 1.1 % (0-2); Eosinophils Absolute Auto 300 /uL (0-450); Eosinophils Percent Auto 2.2 % (2-4); Hematocrit 36.7 % (36-46); Lymphocytes Absolute Auto 3200 /uL (1100-4500); Mean Corpuscular HGB Conc 32.6 % (30-36); Mean Corpuscular Hemoglobin 26.6 PG (26-34); Mean Corpuscular Volume 81.6 fL (80-100); Monocytes Absolute Auto 800 /uL (0-900); Monocytes Percent Auto 6.1 % (3-14); Neutrophils Absolute Auto 8500 /uL (1500-7000); Neutrophils Percent Auto 65.6 % (50-75); White Blood Cell Count 12.9 X10^3/uL (4.5-11.0)
[2023-01-03 10:56] LABS: Add Manual Diff / Slide Review SLIDE REVIEW; Platelet Count 832 X10^3/uL (150-400)
[2023-01-03 10:57] LABS: RBC Morphology Normal Morphology
== END ==
PROVIDERS: PCP Family Medicine; Referring Provider Family Medicine; Visit Provider Family Medicine
DX: R79.89 Other specified abnormal findings of blood chemistry (principal)
CPT/HCPCS: 36415; 85025

== ENCOUNTER → 2024-01-20 08:25 | Outpatient (CLI) | payer OTHER, SELFPAY ==
[2022-12-06 17:28] VITALS: BMI 19.5
[2024-01-20 09:42] LABS: Add Manual Diff / Slide Review NO; Basophils Absolute Auto 100 /uL (0-100); Basophils Percent Auto 0.8 % (0-2); Eosinophils Absolute Auto 100 /uL (0-450); Eosinophils Percent Auto 1.7 % (2-4); Hematocrit 35.3 % (36-46); Hemoglobin 12.1 g/dL (12.0-16.0); Lymphocytes Absolute Auto 2300 /uL (1100-4500); Lymphocytes Percent Auto 28.8 % (25-40); Mean Corpuscular HGB Conc 34.1 % (30-36); Mean Corpuscular Hemoglobin 35.2 PG (26-34); Mean Corpuscular Volume 103.3 fL (80-100); Monocytes Absolute Auto 400 /uL (0-900); Monocytes Percent Auto 4.6 % (3-14); Neutrophils Absolute Auto 5000 /uL (1500-7000); Neutrophils Percent Auto 64.1 % (50-75); Platelet Count 384 X10^3/uL (150-400); Red Blood Cell Count 3.42 X10^6/uL (4.0-5.2); Red Cell Distribution Width 13.3 % (11.6-14.8); White Blood Cell Count 7.8 X10^3/uL (4.5-11.0)
[2024-01-20 09:44] LABS: Reticulocyte Count, Percent 0.9 % (1.1-2.6)
[2024-01-20 10:02] LABS: HEMOLYSIS < 15 (0-50); Iron 95 ug/dL (37-170)
[2024-01-20 10:04] LABS: Alanine Aminotransferase 22 IU/L (<35); Albumin 4.3 g/dL (3.5-5.0); Albumin Globulin Ratio 1.7 (1.0-2.8); Alkaline Phosphatase 137 U/L (38-126); Aspartate Aminotransferase 30 IU/L (14-36); BUN Creatinine Ratio 30.5 (6-22); Bilirubin Total 0.5 mg/dL (0.2-1.3); Blood Urea Nitrogen 18 mg/dL (7-17); Calcium 10.4 mg/dL (8.4-10.2); Carbon Dioxide 24 mmol/L (22-32); Chloride 90 mmol/L (98-107); Estimated Glomerular Filt Rate > 60 mL/min (>60); Globulin 2.5 g/dL (1.7-4.1); Glucose 95 mg/dL (80-110); HEMOLYSIS 18 (0-50); Potassium 4.7 mmol/L (3.4-5.1); Sodium 121 mmol/L (137-145); Total Protein 6.8 g/dL (6.3-8.2)
[2024-01-20 10:13] LABS: Percent Iron Saturation 29 % (15-50); Total Iron Binding Capacity 329 ug/dL (265-497); Transferrin 267 mg/dL (206-381)
[2024-01-20 10:48] LABS: Vitamin B12 508 pg/mL (239-931)
== END ==
PROVIDERS: PCP Family Medicine; Referring Provider Family Medicine; Visit Provider Family Medicine
DX: D64.9 Anemia, unspecified (principal); D75.839 Thrombocytosis, unspecified; I10 Essential (primary) hypertension; R53.83 Other fatigue
CPT/HCPCS: 36415; 80053; 82607; 83540; 83550; 85025; 85045

== ENCOUNTER → 2024-02-19 11:06 | Outpatient (CLI) | payer OTHER, SELFPAY ==
[2022-12-06 17:28] VITALS: BMI 19.5
[2024-02-19 11:57] LABS: Add Manual Diff / Slide Review NO; Basophils Absolute Auto 0 /uL (0-100); Basophils Percent Auto 0.5 % (0-2); Eosinophils Absolute Auto 200 /uL (0-450); Hematocrit 35.2 % (36-46); Lymphocytes Absolute Auto 1900 /uL (1100-4500); Lymphocytes Percent Auto 25.9 % (25-40); Mean Corpuscular HGB Conc 34.1 % (30-36); Mean Corpuscular Hemoglobin 35.3 PG (26-34); Mean Corpuscular Volume 103.5 fL (80-100); Monocytes Absolute Auto 500 /uL (0-900); Monocytes Percent Auto 6.4 % (3-14); Neutrophils Absolute Auto 4800 /uL (1500-7000); Neutrophils Percent Auto 64.2 % (50-75); Platelet Count 337 X10^3/uL (150-400); Red Cell Distribution Width 13.3 % (11.6-14.8); White Blood Cell Count 7.4 X10^3/uL (4.5-11.0)
[2024-02-19 12:40] LABS: Alanine Aminotransferase 27 IU/L (<35); Albumin 4.3 g/dL (3.5-5.0); Albumin Globulin Ratio 1.9 (1.0-2.8); Alkaline Phosphatase 113 U/L (38-126); Aspartate Aminotransferase 31 IU/L (14-36); BUN Creatinine Ratio 31.9 (6-22); Bilirubin Total 0.4 mg/dL (0.2-1.3); Blood Urea Nitrogen 23 mg/dL (7-17); Calcium 10.2 mg/dL (8.4-10.2); Carbon Dioxide 24 mmol/L (22-32); Chloride 92 mmol/L (98-107); Estimated Glomerular Filt Rate > 60 mL/min (>60); Globulin 2.3 g/dL (1.7-4.1); Glucose 84 mg/dL (80-110); HEMOLYSIS < 15 (0-50); Sodium 125 mmol/L (137-145); Total Protein 6.6 g/dL (6.3-8.2)
== END ==
PROVIDERS: PCP Family Medicine; Referring Provider Internal Medicine Hematology & Oncology; Visit Provider Internal Medicine Hematology & Oncology
DX: D75.839 Thrombocytosis, unspecified (principal); Z15.89 Genetic susceptibility to other disease; D47.3 Essential (hemorrhagic) thrombocythemia; Z86.73 Personal history of transient ischemic attack (TIA), and cerebral infarction without residual deficits
CPT/HCPCS: 36415; 80053; 85025

== ENCOUNTER 2024-04-30 14:24 | Inpatient (IN) | payer MEDICARE, SELFPAY ==
[2022-12-06 17:28] VITALS: BMI 19.5
[2024-04-30] VITALS (104 sets, daily range): BP systolic 46–247; BP diastolic 24–116; PULSE 35–106; RESP 11–33; TEMP 36.6; O2SAT 39–100; BMI 19.5
--- NOTE | 2024-04-30 14:35 | EKG_ITS ---
[id number] [address] Test Date: 2024-04-30 Pat Name: Sydni Jones Department: Room: Gender: Female [employer]: ELISA : 1950 Requested By: Order Number: [id number] Reading MD: Evan Pham MD Measurements Intervals [place] Rate: 77 P: 77 CA: 228 QRS: -37 QRSD: 80 T: 69 QT: 368 QTc: 416 Interpretive Statements Sinus rhythm with 1st degree AV block Possible Left atrial enlargement Left axis deviation Nonspecific ST and T wave abnormality Electronically Signed On 04-30-2024 15:15:55 PST by Evan Pham MD
--- NOTE | 2024-04-30 14:35 | DI.RAD.S_ITS ---
PROCEDURE: XR CHEST 1V INDICATIONS: chest pain TECHNIQUE: One view of the chest was acquired. COMPARISON: [facility], CR, XR CHEST 1V, 08/10/2022, 21:48. FINDINGS: Surgical changes and devices: None. Lungs and pleura: Lungs are clear. No pleural effusions or pneumothorax. Mediastinum: Mediastinal contours appear normal. Heart size is normal. Bones and chest wall: No suspicious bony lesions. Overlying soft tissues appear unremarkable. IMPRESSION: No acute cardiopulmonary pathology. Dictated by: Kory Ellsworth M.D. on 04/30/2024 at 15:18 Approved by: Kory Ellsworth M.D. on 04/30/2024 at 15:18
[2024-04-30 15:15] LABS: Add Manual Diff / Slide Review NO; Basophils Absolute Auto 0 /uL (0-100); Basophils Percent Auto 0.7 % (0-2); Eosinophils Absolute Auto 100 /uL (0-450); Eosinophils Percent Auto 1.5 % (2-4); Hematocrit 37.4 % (36-46); Hemoglobin 12.6 g/dL (12.0-16.0); Lymphocytes Absolute Auto 2500 /uL (1100-4500); Lymphocytes Percent Auto 35.1 % (25-40); Mean Corpuscular HGB Conc 33.6 % (30-36); Mean Corpuscular Volume 103.9 fL (80-100); Monocytes Absolute Auto 300 /uL (0-900); Monocytes Percent Auto 4.2 % (3-14); Neutrophils Absolute Auto 4100 /uL (1500-7000); Neutrophils Percent Auto 58.5 % (50-75); Platelet Count 337 X10^3/uL (150-400); Red Cell Distribution Width 13.4 % (11.6-14.8); White Blood Cell Count 7.1 X10^3/uL (4.5-11.0)
[2024-04-30 15:23] LABS: Alanine Aminotransferase 35 IU/L (<35); Albumin 4.4 g/dL (3.5-5.0); Albumin Globulin Ratio 1.6 (1.0-2.8); Alkaline Phosphatase 101 U/L (38-126); Aspartate Aminotransferase 53 IU/L (14-36); BUN Creatinine Ratio 30.6 (6-22); Bilirubin Total 0.8 mg/dL (0.2-1.3); Blood Urea Nitrogen 26 mg/dL (7-17); Carbon Dioxide 23 mmol/L (22-32); Chloride 84 mmol/L (98-107); Creatine Kinase 95 U/L (30-135); Estimated Glomerular Filt Rate > 60 mL/min (>60); Globulin 2.8 g/dL (1.7-4.1); Glucose 104 mg/dL (80-110); Lipase 340 U/L (23-300); Magnesium 1.5 mg/dL (1.6-2.3); Total Protein 7.2 g/dL (6.3-8.2)
[2024-04-30 15:24] LABS: HEMOLYSIS 149 (0-50)
[2024-04-30 15:27] LABS: Sodium 117 mmol/L (137-145)
[2024-04-30 15:34] LABS: NT-proBNP (BNP-Adult 18+) 587 pg/mL (<450); Troponin I 0.016 ng/mL (0.01-0.034)
[2024-04-30] MEDS: SODIUM CHLORIDE 0.9% 500 ML 1000 ML IV (15:50)
--- NOTE | 2024-04-30 16:03 | ED_ITS ---
HPI - Syncope General Chief Complaint: Syncope Stated Complaint: Syncope Time Seen by Provider: 04/30/24 15:37 Source: patient and EMS Mode of arrival: EMS History of Present Illness HPI narrative: Patient 74-year-old female history of hypertension hyperlipidemia COPD CVA presenting today with a syncopal episode. reports that whenever she sits in a recliner she tends to pass out however today the son tried to wake her and was unable to do so. At that time EMS was called and she was found to be hypotensive blood pressure in the 70s she received a 500 cc bolus. Upon arrival she promptly had a very large bowel movement. Has been denies any recent antibiotics he is sometimes difficult to understand but denies any vomiting or diarrhea for her. Patient denies any pain Related Data Home Medications Medication Instructions Recorded Confirmed aspirin 81 mg chewable tablet 1 tab PO DAILY 10/24/22 04/30/24 atorvastatin 40 mg tablet 40 mg PO DAILY 04/30/24 04/30/24 lisinopril 10 mg tablet 10 mg PO DAILY 04/30/24 04/30/24 Previous Rx's Medication Instructions Recorded lisinopril 10 mg tablet 10 mg PO DAILY #90 tabs 10/24/22 Allergies Allergy/AdvReac Type Severity Reaction Status Date / Time wool Allergy Mild Rash Verified 02/06/24 11:41 codeine AdvReac Intermediate Gastrointestinal Verified 02/06/24 11:41 Upset Patient History Medical History Anemia Hyperlipidemia Carotid stenosis Carotid stenosis with cerebral infarction less than 8 weeks ago CVA (cerebral vascular accident) History of fracture of right hip COPD (chronic obstructive pulmonary disease) Hypertension, essential Paralysis Vision disorder Surgical History History of repair of hip fracture No pertinent past surgical history Family History Mother Diabetes mellitus Hyperthyroidism Father CAD (coronary artery disease) Social History household members: spouse and children Smoking Status: Current every day smoker Tobacco: How many years used: 40 quit status: considering quitting (I'm trying ) alcohol intake: never Smoking Status: Current every day smoker tobacco type: cigarettes alcohol intake frequency: holidays/special occasions only Exam Initial Vital Signs Initial Vital Signs: Vital Signs Pulse Rate 85 04/30/24 14:20 Respiratory Rate 21 04/30/24 14:20 Blood Pressure 98/65 04/30/24 14:20 Pulse Oximetry 91 04/30/24 14:20 Oxygen Delivery Method Room Air 04/30/24 14:20 GENERAL: Alert elderly 74-year-old female appears older than stated age and in [no acute] distress. HEENT: Head atraumatic,EOMI, pupils reactive, face symmetric, [moist] mucous membranes CARDIOVASCULAR: Regular rate and rhythm without murmurs, rubs or gallops. RESPIRATORY: Breath sounds equal bilaterally, no wheezes rales or rhonchi. ABDOMEN: Soft, nontender. Normoactive bowel sounds all 4 quadrants. No guarding or rebound. EXTREMITIES: Normal range of motion, no clubbing or edema. Neurovascularly intact NEUROLOGICAL: Moving all extremities SKIN: Warm, dry, no laceration, no petechiae, no rashes or lesions. Procedures Central Line Placement Right IJ: Time Out Performed: Yes Patient Placed on Monitor/Pulse Ox: Yes MD Prep: mask, gown and gloves Central Line Prep: Chlorhexidine scrub and sterile drapes applied Local Anesthetic: lidocaine 1% Amount of anesthesia used (mL): 5 Ultrasound Used for Placement: Yes Central Line Lumen Inserted: triple Post Procedure: good blood return, all ports aspirated, flushed, capped, sterile dressing applied and line stabilization device Post Procedure X-Ray: tip of catheter in good position and no pneumothorax seen Patient Tolerated Procedure: Well and No complications Course Orders Ordered: Albuterol (Albuterol 2.5 Mg/3 Ml Neb (Adult)) 2.5 mg INH [id number] PRN PRN Reason: Shortness Of Breath Enoxaparin Sodium (Enoxaparin 40 Mg/0.4 Ml Syringe) 40 mg SUBCUT DAILY KIMBERLY NOREPINEPHRINE BITARTRATE/D5W (Levophed) 4 mg in 250 mls @ 18.188 mls/hr IV TITRATE KIMBERLY; Protocol Last Titration: 04/30/24 20:56 Dose: 0 mcg/kg/min, 0 mls/hr Documented By: Titration: 04/30/24 19:25 Dose: 0.1 mcg/kg/min, 18.188 mls/hr Documented By: Titration: 04/30/24 18:22 Dose: 0 mcg/kg/min, 0 mls/hr Documented By: Titration: 04/30/24 18:15 Dose: 0.2 mcg/kg/min, 36.375 mls/hr Documented By: Titration: 04/30/24 18:08 Dose: 0.3 mcg/kg/min, 54.563 mls/hr Documented By: Titration: 04/30/24 18:02 Dose: 0.5 mcg/kg/min, 90.938 mls/hr Documented By: Titration: 04/30/24 17:57 Dose: 0.2 mcg/kg/min, 36.375 mls/hr Documented By: DKEduardo Admin: 04/30/24 17:56 Dose: 0.1 mcg/kg/min, 18.188 mls/hr Documented By: DEVIN Sodium Chloride (Normal Saline 0.9%) 1,000 mls @ 100 mls/hr IV CONT KIMBERLY Last Admin: 04/30/24 20:45 Dose: 100 mls/hr Documented By: Azithromycin 500 mg/ Dextrose 250 mls @ 250 mls/hr IV Q24H KIMBERLY Naloxone HCl (Naloxone 0.4 Mg/Ml Vial) 0.2 mg IV Q2MIN PRN PRN Reason: Opiate Reversal Nicotine (Nicotine 21 Mg Patch) 21 mg TOP DAILY PRN PRN Reason: smoker Pantoprazole Sodium (Pantoprazole 40 Mg Vial) 40 mg IV DAILY KIMBERLY Discontinued Medications Aspirin (Aspirin 81 Mg Chew Tab) 324 mg PO NOW ONE Stop: 04/30/24 14:36 Last Admin: 04/30/24 18:08 Dose: Not Given Documented By: DEVIN Sodium Chloride (Normal Saline 0.9%) 1,000 mls @ 1,000 mls/hr IV BOLUS ONE Stop: 04/30/24 16:49 Last Admin: 04/30/24 16:03 Dose: Not Given Documented By: RB Sodium Chloride (Normal Saline 0.9%) 500 mls @ 1,000 mls/hr IV BOLUS ONE Stop: 04/30/24 16:29 Last Infusion: 04/30/24 16:30 Dose: Infused Documented By: Admin: 04/30/24 15:50 Dose: 1,000 mls/hr Documented By: RB Azithromycin 500 mg/ Dextrose 250 mls @ 250 mls/hr IV NOW ONE Stop: 04/30/24 18:50 Last Infusion: 04/30/24 20:05 Dose: Infused Documented By: Admin: 04/30/24 19:01 Dose: 250 mls/hr Documented By: UNIQUE Magnesium Sulfate (Magnesium Sulfate) 2 gm in 50 mls @ 25 mls/hr IV NOW ONE Stop: 05/01/24 00:34 Last Infusion: 05/01/24 01:24 Dose: Infused Documented By: CONRAD Co-signed By: GLORIA Admin: 04/30/24 23:16 Dose: 25 mls/hr Documented By: CONRAD Co-signed By: [place] POTASSIUM CHLORIDE IN WATER (Potassium Cl 10 Meq/100 Ml Justine) 10 meq in 100 mls @ 100 mls/hr IV Q1H KIMBERLY Stop: 05/01/24 04:44 Last Infusion: 05/01/24 06:56 Dose: Infused Documented By: Admin: 05/01/24 05:25 Dose: 100 mls/hr Documented By: Infusion: 05/01/24 04:47 Dose: Infused Documented By: Admin: 05/01/24 03:47 Dose: 100 mls/hr Documented By: Infusion: 05/01/24 03:35 Dose: Infused Documented By: Admin: 05/01/24 02:35 Dose: 100 mls/hr Documented By: Infusion: 05/01/24 02:28 Dose: Infused Documented By: Admin: 05/01/24 01:28 Dose: 100 mls/hr Documented By: Infusion: 05/01/24 01:20 Dose: Infused Documented By: Admin: 05/01/24 00:20 Dose: 100 mls/hr Documented By: Infusion: 05/01/24 00:17 Dose: Infused Documented By: Admin: 04/30/24 23:17 Dose: 100 mls/hr Documented By: CONRAD Vital Signs Vital signs: Vital Signs - 8 hr 04/30/24 14:20 04/30/24 14:25 04/30/24 14:25 Pulse Rate 85 79 Respiratory Rate 21 Blood Pressure 98/65 135/85 Pulse Oximetry 91 Oxygen Delivery Method Room Air 04/30/24 14:30 04/30/24 14:30 04/30/24 14:42 Pulse Rate 82 92 H Respiratory Rate 22 20 Blood Pressure 98/65 Pulse Oximetry 93 94 Oxygen Delivery Method Room Air 04/30/24 14:42 04/30/24 14:48 04/30/24 15:00 Pulse Rate 84 96 H Respiratory Rate 17 Blood Pressure 102/66 Pulse Oximetry 98 Oxygen Delivery Method 04/30/24 15:11 04/30/24 15:11 04/30/24 15:16 Pulse Rate 91 H 92 H Respiratory Rate 16 21 Blood Pressure 134/62 Pulse Oximetry 96 97 Oxygen Delivery Method 04/30/24 15:16 04/30/24 15:30 04/30/24 16:03 Pulse Rate 50 L Respiratory Rate 18 Blood Pressure 108/65 173/79 H Pulse Oximetry 94 Oxygen Delivery Method Room Air 04/30/24 16:03 04/30/24 16:05 04/30/24 16:06 Pulse Rate 93 H 94 H Respiratory Rate 20 22 Blood Pressure 185/78 H Pulse Oximetry 96 84 L Oxygen Delivery Method 04/30/24 16:06 04/30/24 16:09 04/30/24 16:09 Pulse Rate 93 H 93 H Respiratory Rate 12 18 Blood Pressure 181/84 H Pulse Oximetry 97 98 Oxygen Delivery Method 04/30/24 16:10 04/30/24 16:12 04/30/24 16:12 Pulse Rate 94 H 99 H Respiratory Rate 23 24 Blood Pressure 172/81 H Pulse Oximetry 99 94 Oxygen Delivery Method 04/30/24 16:15 04/30/24 16:16 04/30/24 16:16 Pulse Rate 101 H 99 H Respiratory Rate 26 H 21 Blood Pressure 177/71 H Pulse Oximetry 74 L 75 L Oxygen Delivery Method 04/30/24 16:19 04/30/24 16:19 04/30/24 16:20 Pulse Rate 94 H 95 H Respiratory Rate 21 23 Blood Pressure 186/79 H Pulse Oximetry 76 L Oxygen Delivery Method 04/30/24 16:21 04/30/24 16:21 04/30/24 16:24 Pulse Rate 96 H 92 H Respiratory Rate 29 H 20 Blood Pressure 158/73 H Pulse Oximetry 98 100 Oxygen Delivery Method 04/30/24 16:24 04/30/24 16:25 04/30/24 16:27 Pulse Rate 91 H 94 H Respiratory Rate 19 27 H Blood Pressure 154/72 H Pulse Oximetry 100 100 Oxygen Delivery Method 04/30/24 16:27 04/30/24 16:30 04/30/24 16:30 Pulse Rate 89 Respiratory Rate Blood Pressure 127/55 L 151/89 H Pulse Oximetry 100 Oxygen Delivery Method 04/30/24 16:33 04/30/24 16:33 04/30/24 16:35 Pulse Rate 90 90 Respiratory Rate 14 14 Blood Pressure 127/61 Pulse Oximetry 100 100 Oxygen Delivery Method 04/30/24 16:36 04/30/24 16:36 04/30/24 16:39 Pulse Rate 90 87 Respiratory Rate 13 23 Blood Pressure 126/60 Pulse Oximetry 100 100 Oxygen Delivery Method 04/30/24 16:39 04/30/24 16:40 04/30/24 16:42 Pulse Rate 86 90 Respiratory Rate 16 16 Blood Pressure 113/57 L Pulse Oximetry 100 100 Oxygen Delivery Method 04/30/24 16:42 04/30/24 16:45 04/30/24 16:45 Pulse Rate 86 Respiratory Rate 19 Blood Pressure 124/63 108/53 L Pulse Oximetry 100 Oxygen Delivery Method 04/30/24 16:49 04/30/24 16:49 04/30/24 16:50 Pulse Rate 55 L 50 L Respiratory Rate 22 20 Blood Pressure 70/43 L Pulse Oximetry 100 99 Oxygen Delivery Method 04/30/24 16:52 04/30/24 16:52 04/30/24 16:54 Pulse Rate 46 L 36 L Respiratory Rate 16 21 Blood Pressure 46/30 L Pulse Oximetry 99 Oxygen Delivery Method 04/30/24 16:54 04/30/24 16:55 04/30/24 16:58 Pulse Rate 35 L 45 L Respiratory Rate 21 22 Blood Pressure 53/28 L Pulse Oximetry 100 100 Oxygen Delivery Method 04/30/24 16:58 04/30/24 16:59 04/30/24 16:59 Pulse Rate 42 L Respiratory Rate 20 Blood Pressure 60/24 L 49/30 L Pulse Oximetry 100 Oxygen Delivery Method 04/30/24 17:00 04/30/24 17:05 04/30/24 17:09 Pulse Rate 79 Respiratory Rate 33 H Blood Pressure 72/44 L Pulse Oximetry 100 39 L Oxygen Delivery Method 04/30/24 17:09 04/30/24 17:10 04/30/24 17:10 Pulse Rate 51 L 52 L Respiratory Rate 17 17 Blood Pressure 72/44 L Pulse Oximetry 100 100 Oxygen Delivery Method 04/30/24 17:15 04/30/24 17:18 04/30/24 17:18 Pulse Rate 53 L 52 L Respiratory Rate 17 17 Blood Pressure 68/38 L Pulse Oximetry 100 96 Oxygen Delivery Method 04/30/24 17:20 04/30/24 17:22 04/30/24 17:22 Pulse Rate 52 L 55 L Respiratory Rate 17 20 Blood Pressure 64/39 L Pulse Oximetry 97 93 Oxygen Delivery Method 04/30/24 17:23 04/30/24 17:23 04/30/24 17:25 Pulse Rate 58 L 80 Respiratory Rate 21 22 Blood Pressure 116/57 L Pulse Oximetry 84 L 97 Oxygen Delivery Method 04/30/24 17:25 04/30/24 17:30 04/30/24 17:31 Pulse Rate 96 H 100 H Respiratory Rate 27 H 29 H Blood Pressure 114/68 Pulse Oximetry 85 L 88 L Oxygen Delivery Method 04/30/24 17:31 04/30/24 17:33 04/30/24 17:33 Pulse Rate 95 H Respiratory Rate 25 H Blood Pressure 191/93 H 192/84 H Pulse Oximetry Oxygen Delivery Method 04/30/24 17:36 04/30/24 17:36 04/30/24 17:39 Pulse Rate 92 H Respiratory Rate Blood Pressure 196/96 H 164/74 H Pulse Oximetry Oxygen Delivery Method 04/30/24 17:39 04/30/24 17:40 04/30/24 17:44 Pulse Rate 65 63 57 L Respiratory Rate 13 12 16 Blood Pressure Pulse Oximetry 100 100 100 Oxygen Delivery Method 04/30/24 17:44 04/30/24 17:45 04/30/24 17:45 Pulse Rate 54 L Respiratory Rate 14 Blood Pressure 85/46 L 78/45 L Pulse Oximetry 100 Oxygen Delivery Method 04/30/24 17:48 04/30/24 17:48 04/30/24 17:50 Pulse Rate 50 L 48 L Respiratory Rate 15 15 Blood Pressure 63/34 L Pulse Oximetry 100 100 Oxygen Delivery Method 04/30/24 17:52 04/30/24 17:52 04/30/24 17:54 Pulse Rate 42 L 45 L Respiratory Rate 18 16 Blood Pressure 60/40 L Pulse Oximetry 100 100 Oxygen Delivery Method 04/30/24 17:54 04/30/24 17:55 04/30/24 17:55 Pulse Rate 46 L Respiratory Rate 16 Blood Pressure 66/38 L 68/38 L Pulse Oximetry 100 Oxygen Delivery Method 04/30/24 17:57 04/30/24 17:57 04/30/24 17:58 Pulse Rate 42 L 46 L Respiratory Rate 16 14 Blood Pressure 63/38 L Pulse Oximetry 100 100 Oxygen Delivery Method 04/30/24 17:58 04/30/24 18:00 04/30/24 18:00 Pulse Rate 50 L Respiratory Rate 18 Blood Pressure 69/43 L 65/41 L Pulse Oximetry 100 Oxygen Delivery Method 04/30/24 18:02 04/30/24 18:02 04/30/24 18:04 Pulse Rate 47 L 48 L Respiratory Rate 17 16 Blood Pressure 66/42 L Pulse Oximetry 100 100 Oxygen Delivery Method 04/30/24 18:04 04/30/24 18:05 04/30/24 18:06 Pulse Rate 49 L Respiratory Rate 16 Blood Pressure 70/46 L 175/94 H Pulse Oximetry 100 Oxygen Delivery Method 04/30/24 18:06 04/30/24 18:08 04/30/24 18:08 Pulse Rate 74 77 Respiratory Rate 15 15 Blood Pressure 238/109 H Pulse Oximetry 100 100 Oxygen Delivery Method 04/30/24 18:10 04/30/24 18:10 04/30/24 18:12 Pulse Rate 98 H 96 H Respiratory Rate 15 12 Blood Pressure 241/111 H Pulse Oximetry 99 99 Oxygen Delivery Method 04/30/24 18:12 04/30/24 18:14 04/30/24 18:14 Pulse Rate 97 H Respiratory Rate 12 Blood Pressure 245/114 H 247/116 H Pulse Oximetry 100 Oxygen Delivery Method 04/30/24 18:15 04/30/24 18:16 04/30/24 18:16 Pulse Rate 96 H 96 H Respiratory Rate 13 11 L Blood Pressure 243/113 H Pulse Oximetry 100 99 Oxygen Delivery Method 04/30/24 18:18 04/30/24 18:18 04/30/24 18:20 Pulse Rate 96 H 96 H Respiratory Rate 11 L 13 Blood Pressure 237/111 H Pulse Oximetry 99 99 Oxygen Delivery Method 04/30/24 18:20 04/30/24 18:22 04/30/24 18:22 Pulse Rate 93 H Respiratory Rate 11 L Blood Pressure 228/99 H 234/105 H Pulse Oximetry 99 Oxygen Delivery Method 04/30/24 18:24 04/30/24 18:24 04/30/24 18:25 Pulse Rate 94 H 98 H Respiratory Rate 12 16 Blood Pressure 213/94 H Pulse Oximetry 99 99 Oxygen Delivery Method 04/30/24 18:26 04/30/24 18:26 04/30/24 18:30 Pulse Rate 96 H 92 H Respiratory Rate 11 L 12 Blood Pressure 185/81 H Pulse Oximetry 100 100 Oxygen Delivery Method 04/30/24 18:30 04/30/24 18:35 04/30/24 18:35 Pulse Rate 106 H Respiratory Rate 24 Blood Pressure 193/83 H 173/69 H Pulse Oximetry 99 Oxygen Delivery Method 04/30/24 18:40 04/30/24 18:41 04/30/24 18:41 Pulse Rate 98 H 98 H Respiratory Rate 18 20 Blood Pressure 175/77 H Pulse Oximetry 100 100 Oxygen Delivery Method 04/30/24 18:45 04/30/24 18:45 04/30/24 18:50 Pulse Rate 95 H Respiratory Rate 20 Blood Pressure 171/79 H 160/69 H Pulse Oximetry 100 Oxygen Delivery Method 04/30/24 18:50 04/30/24 18:55 04/30/24 18:55 Pulse Rate 92 H 91 H Respiratory Rate 13 16 Blood Pressure 174/75 H Pulse Oximetry 100 100 Oxygen Delivery Method 04/30/24 19:00 04/30/24 19:00 Pulse Rate 92 H Respiratory Rate 12 Blood Pressure 185/83 H Pulse Oximetry 100 Oxygen Delivery Method MDM - Syncope Lab Data 04/30/24 20:50 04/30/24 23:50 Labs: Lab Results 04/30/24 04/30/24 04/30/24 Range/Units 14:20 16:01 16:04 WBC 7.1 (4.5-11.0) X10^3/uL RBC 3.60 L (4.0-5.2) X10^6/uL Hgb 12.6 (12.0-16.0) g/dL Hct 37.4 (36-46) % MCV 103.9 H (80-100) fL MCH 35.0 H (26-34) PG MCHC 33.6 (30-36) % RDW 13.4 (11.6-14.8) % Plt Count 337 (150-400) X10^3/uL Neut % (Auto) 58.5 (50-75) % Lymph % (Auto) 35.1 (25-40) % Crockett % (Auto) 4.2 (3-14) % Eos % (Auto) 1.5 L (2-4) % Baso % (Auto) 0.7 (0-2) % Neut # (Auto) 4100 (9831-0286) /uL Lymph # (Auto) 2500 (1703-1222) /uL Crockett # (Auto) 300 (0-900) /uL Eos # (Auto) 100 (0-450) /uL Baso # (Auto) 0 (0-100) /uL PT 11.1 (9.4-12.5) SECONDS INR 1.0 (0.9-1.3) APTT 29 (25.1-36.5) SECONDS Sodium 117 L* (137-145) mmol/L Potassium 5.0 (3.4-5.1) mmol/L Chloride 84 L (98-107) mmol/L Carbon Dioxide 23 (22-32) mmol/L BUN 26 H (7-17) mg/dL Creatinine 0.85 (0.52-1.04) mg/dL Estimated GFR > 60 (>60) mL/min BUN/Creatinine Ratio 30.6 H (6-22) Glucose 104 (80-110) mg/dL Lactate 1.8 (0.7-2.1) mmol/L Calcium 10.0 (8.4-10.2) mg/dL Magnesium 1.5 L (1.6-2.3) mg/dL Total Bilirubin 0.8 (0.2-1.3) mg/dL AST 53 H (14-36) IU/L ALT 35 H (<35) IU/L Alkaline Phosphatase 101 (38-126) U/L Total Creatine Kinase 95 (30-135) U/L Troponin I 0.016 (0.01-0.034) ng/mL NT-Pro-B Natriuret Pep 587 H (<450) pg/mL Total Protein 7.2 (6.3-8.2) g/dL Albumin 4.4 (3.5-5.0) g/dL Globulin 2.8 (1.7-4.1) g/dL Albumin/Globulin Ratio 1.6 (1.0-2.8) Lipase 340 H (23-300) U/L Urine Color Urine Appearance Urine pH (4.5-8.0) Ur Specific [place] (1.000-1.035) Urine Protein (Negative) Urine Glucose (UA) (Negative) g/dL Urine Ketones (NEGATIVE) Urine Occult Blood (Negative) Urine Nitrate (Negative) Urine Bilirubin (NEGATIVE) Urine Urobilinogen (0.2) E.U./dL Ur Leukocyte Esterase (NEGATIVE) Urine RBC (0-5/HPF) Urine WBC (0-5/HPF) Ur Squamous Epith Cells (0-5/HPF) Urine Bacteria (None) Ur Culture Indicated? Vol Urine Centrifuged Stl C. cayetanensis PCR Not detected (Not Detect) Stool Rotavirus (PCR) Not detected (Not Detect) Stool Adenovirus (PCR) Not detected (Not Detect) Stool Astrovirus (PCR) Not detected (Not Detect) Stool Cryptosporidium PCR Not detected (Not Detect) Stl E.coli Shiga Tox PCR Not detected (Not Detect) St Sh/Enteroin Ecoli PCR Not detected (Not Detect) Stl Enterotoxigenic E PCR Not detected (Not Detect) Stool EPEC (PCR) Not detected (Not Detect) Stl E. histolytica PCR Not detected (Not Detect) Stool Giardia Lamblia PCR Not detected (Not Detect) Stool Sapovirus (PCR) Not detected (Not Detect) Stl P. shigelloides PCR Not detected (Not Detect) St Y.enterocolitica PCR Not detected (Not Detect) Stool Vibrio (PCR) Not detected (Not Detect) Stl Vibrio cholerae PCR Not detected (Not Detect) Stl Enteroaggr Ecoli PCR Not detected (Not Detect) Stl Norovirus GI/GII PCR Not detected (Not Detect) Campylobacter (PCR) Detected (Not Detect) C. difficile Tox (PCR) Not detected (Not Detect) Salmonella (PCR) Not detected (Not Detect) 04/30/24 04/30/24 Range/Units 16:25 18:15 WBC (4.5-11.0) X10^3/uL RBC (4.0-5.2) X10^6/uL Hgb (12.0-16.0) g/dL Hct (36-46) % MCV (80-100) fL MCH (26-34) PG MCHC (30-36) % RDW (11.6-14.8) % Plt Count (150-400) X10^3/uL Neut % (Auto) (50-75) % Lymph % (Auto) (25-40) % Crockett % (Auto) (3-14) % Eos % (Auto) (2-4) % Baso % (Auto) (0-2) % Neut # (Auto) (3750-0482) /uL Lymph # (Auto) (2627-8610) /uL Crockett # (Auto) (0-900) /uL Eos # (Auto) (0-450) /uL Baso # (Auto) (0-100) /uL PT (9.4-12.5) SECONDS INR (0.9-1.3) APTT (25.1-36.5) SECONDS Sodium 119 L* (137-145) mmol/L Potassium 3.5 D (3.4-5.1) mmol/L Chloride 90 L (98-107) mmol/L Carbon Dioxide 21 L (22-32) mmol/L BUN 29 H (7-17) mg/dL Creatinine 0.76 (0.52-1.04) mg/dL Estimated GFR > 60 (>60) mL/min BUN/Creatinine Ratio 38.2 H (6-22) Glucose 173 H (80-110) mg/dL Lactate 0.6 L (0.7-2.1) mmol/L Calcium 9.0 (8.4-10.2) mg/dL Magnesium (1.6-2.3) mg/dL Total Bilirubin (0.2-1.3) mg/dL AST (14-36) IU/L ALT (<35) IU/L Alkaline Phosphatase (38-126) U/L Total Creatine Kinase (30-135) U/L Troponin I (0.01-0.034) ng/mL NT-Pro-B Natriuret Pep (<450) pg/mL Total Protein (6.3-8.2) g/dL Albumin (3.5-5.0) g/dL Globulin (1.7-4.1) g/dL Albumin/Globulin Ratio (1.0-2.8) Lipase (23-300) U/L Urine Color Yellow Urine Appearance Clear Urine pH 6.5 (4.5-8.0) Ur Specific [place] 1.010 (1.000-1.035) Urine Protein Trace H (Negative) Urine Glucose (UA) Negative (Negative) g/dL Urine Ketones Negative (NEGATIVE) Urine Occult Blood Negative (Negative) Urine Nitrate Negative (Negative) Urine Bilirubin Negative (NEGATIVE) Urine Urobilinogen 0.2 (0.2) E.U./dL Ur Leukocyte Esterase Negative (NEGATIVE) Urine RBC 0-1/hpf (0-5/HPF) Urine WBC 0-1/hpf (0-5/HPF) Ur Squamous Epith Cells 0-1 /hpf (0-5/HPF) Urine Bacteria Few (2-10) H (None) Ur Culture Indicated? Cult not indicated Vol Urine Centrifuged 10ml (spun) Stl C. cayetanensis PCR (Not Detect) Stool Rotavirus (PCR) (Not Detect) Stool Adenovirus (PCR) (Not Detect) Stool Astrovirus (PCR) (Not Detect) Stool Cryptosporidium PCR (Not Detect) Stl E.coli Shiga Tox PCR (Not Detect) St Sh/Enteroin Ecoli PCR (Not Detect) Stl Enterotoxigenic E PCR (Not Detect) Stool EPEC (PCR) (Not Detect) Stl E. histolytica PCR (Not Detect) Stool Giardia Lamblia PCR (Not Detect) Stool Sapovirus (PCR) (Not Detect) Stl P. shigelloides PCR (Not Detect) St Y.enterocolitica PCR (Not Detect) Stool Vibrio (PCR) (Not Detect) Stl Vibrio cholerae PCR (Not Detect) Stl Enteroaggr Ecoli PCR (Not Detect) Stl Norovirus GI/GII PCR (Not Detect) Campylobacter (PCR) (Not Detect) C. difficile Tox (PCR) (Not Detect) Salmonella (PCR) (Not Detect) Imaging Data Chest x-ray: Radiologist's Impression: PROCEDURE: XR CHEST 1V INDICATIONS: chest pain TECHNIQUE: One view of the chest was acquired. COMPARISON: [facility], CR, XR CHEST 1V, 08/10/2022, 21:48. FINDINGS: Surgical changes and devices: None. Lungs and pleura: Lungs are clear. No pleural effusions or pneumothorax. Mediastinum: Mediastinal contours appear normal. Heart size is normal. Bones and chest wall: No suspicious bony lesions. Overlying soft tissues appear unremarkable. IMPRESSION: No acute cardiopulmonary pathology. Dictated by: Kory Ellsworth M.D. on 04/30/2024 at 15:18 ECG Data Attestation: I personally reviewed and interpreted this ECG as follows: Prior ECG tracings: available for review Interpretation: Sinus rhythm rate 77 PA interval 228 QRS [address] changes T-wave inversions MDM Narrative Medical decision making narrative: MDM CC: Syncope Complicating co-morbidities: CVA COPD Data collected from: Medical records reviewed: Previous PCP visit 02/06/2024 Differential considered: Orthostatics dehydration C diff norovirus Campylobacter gastroenteritis Exam documented above, pertinent findings include: Alert, confused, but ansering questions elderly 74-year-old female abdomen is soft nontender no difficulty breathing Lab Test results independently reviewed as above. Pertinent findings: Sodium 117 previously 125 and prior to that 121 Potassium 0.0 chloride 84 carbon dioxide 23 BUN 26 creatinine 0.8 WBC 7.1 hemoglobin 12.8 hematocrit 37.4 Trop 0.016, BNP 587 Lipase 340 Independently reviewed EKG as above Artifact no ischemia Imaging studies independently reviewed: Chest x-ray no acute cardiopulmonary process Repeat chest x-ray shows central line in place Consultations: Dr. Celis accepts patient Treatments: IV fluids, azithromycin Re-evaluations: 1600 called to patient room for evaluation with hypotension Discussion: Patient is a 74-year-old female history of COPD CVA presenting today with syncopal episode. She had a rather large bowel movement here upon arrival. She was found to be hyponatremic sodium 117 however her baseline sodium is low in the 120s. Her sodium did improve to 119 with 2 L of normal saline. Called to patient's room for hypotension blood pressure did respond well to IV fluids. Patient has episodes where she was very bradycardic heart rate in the 30s and hypotensive. Initially it was thought to be due to be in a puncture. However it has continued. GI panel positive for Campylobacter. Patient has had multiple episodes diarrhea and vomiting. Patient had central line placed for vasopressors as needed. She quickly rebounds it is almost as if bradycardia hypotension correlate with bowel movements. She does not need prolonged use of vasopressors. Discharge Plan Departure Patient Disposition: Admitted As Inpatient Clinical Impression: Campylobacter diarrhea, Acute hyponatremia Admit Date/Time: 04/30/24 19:06 Admit Provider: Yves Ordonez
--- NOTE | 2024-04-30 16:08 | PC.NURSE ---
Provider asked RN to grab levophed for this patient due to critically low blood pressure. This RN overrode this medication from Pyxis and hung the medication. Patient had normal saline infusing and was placed in trendelenburg and blood pressure carmel. Provider asked for medication to be held at this time.
[2024-04-30 16:23] LABS: Prothrombin Time 11.1 SECONDS (9.4-12.5)
[2024-04-30 16:26] LABS: PTT Partial Thromboplastin Tim 29 SECONDS (25.1-36.5)
[2024-04-30 16:27] LABS: Lactate (Lactic Acid) 1.8 mmol/L (0.7-2.1)
[2024-04-30 16:42] LABS: Appearance Urine UA CLEAR; Bilirubin Urine UA NEGATIVE (NEGATIVE); Color Urine UA YELLOW; Glucose Urine UA NEGATIVE (Negative); Ketones Urine UA NEGATIVE (NEGATIVE); Leukocyte Esterase Urine UA NEGATIVE (NEGATIVE); Nitrite Urine UA NEGATIVE (Negative); Occult Blood Urine UA NEGATIVE (Negative); Protein Urine UA TRACE (Negative); Urobilinogen Urine UA 0.2 E.U./dL (0.2)
[2024-04-30 16:52] LABS: pH Urine UA 6.5 (4.5-8.0)
[2024-04-30 16:55] LABS: Bacteria Urine Few (2-10); Culture Indicated Urine Cult Not Indicated; RBC Urine 0-1/HPF (0-5/HPF); Squamous Epithelial Cell Urine 0-1 /HPF (0-5/HPF); Urine Volume 10mL (spun); WBC Urine 0-1/HPF (0-5/HPF)
[2024-04-30 17:41] LABS: Adenovirus F 40/41 Not Detected (Not Detect); Astrovirus Not Detected (Not Detect); Campylobacter Detected (Not Detect); Clostridium difficile toxin AB Not Detected (Not Detect); Cryptosporidium Not Detected (Not Detect); Cyclospora cayetanensis Not Detected (Not Detect); Entamoeba histolytica Not Detected (Not Detect); Enteroaggregative E.coli Not Detected (Not Detect); Enteropathogenic E.coli Not Detected (Not Detect); Enterotoxigenic E.coli It/st Not Detected (Not Detect); Giardia lamblia Not Detected (Not Detect); Norovirus GI/GII Not Detected (Not Detect); Plesiomonsa shigelloides Not Detected (Not Detect); Rotavirus A Not Detected (Not Detect); Salmonella Not Detected (Not Detect); Sapovirus Not Detected (Not Detect); Shiga-like toxin-prod E.coli Not Detected (Not Detect); Shigella/Enteroinvasive E.coli Not Detected (Not Detect); Vibrio Not Detected (Not Detect); Vibrio cholerae Not Detected (Not Detect); Yersinia enterocolitica Not Detected (Not Detect)
[2024-04-30] MEDS: NOREPINEPHRINE BITARTRATE/D5W 4 MG/250 ML PLAST..BAG 18.188 MG IV (17:56)
--- NOTE | 2024-04-30 18:09 | DI.RAD.S_ITS ---
PROCEDURE: XR CHEST FOR PICC 1V INDICATIONS: central line placement TECHNIQUE: One view of the chest was acquired. COMPARISON: [facility], CR, XR CHEST 1V, 04/30/2024, 14:37. [facility], CR, XR CHEST 1V, 08/10/2022, 21:48. FINDINGS: Surgical changes and devices: Right-sided central venous line with the catheter tip at the lower 3rd of the SVC. External pacing pads. Catheter looped at the left neck. Lungs and pleura: Lungs are clear. No pleural effusions or pneumothorax. Mediastinum: Mediastinal contours appear unchanged. Aortic arch calcification. Heart size is normal. Bones and chest wall: No suspicious bony lesions. Overlying soft tissues appear unremarkable. IMPRESSION: Right-sided central venous line with the catheter tip at the lower 3rd of the SVC. Dictated by: Jordon Diaz M.D. on 04/30/2024 at 19:16 Approved by: Jordon Diaz M.D. on 04/30/2024 at 19:18
--- NOTE | 2024-04-30 18:18 | PC.NURSE ---
At 1804 central line placed by provider, placement confirmed with xray.
[2024-04-30 18:31] LABS: BUN Creatinine Ratio 38.2 (6-22); Blood Urea Nitrogen 29 mg/dL (7-17); Carbon Dioxide 21 mmol/L (22-32); Chloride 90 mmol/L (98-107); Estimated Glomerular Filt Rate > 60 mL/min (>60); Glucose 173 mg/dL (80-110); HEMOLYSIS < 15 (0-50); Lactate (Lactic Acid) 0.6 mmol/L (0.7-2.1); Potassium 3.5 mmol/L (3.4-5.1)
[2024-04-30 18:32] LABS: Sodium 119 mmol/L (137-145)
[2024-04-30] MEDS: AZITHROMYCIN 500 MG in DEXTROSE 5% IN WATER 250 ML 250 MG IV (19:01)
--- NOTE | 2024-04-30 19:48 | PC.NURSE ---
Pt has large foul smelling bowel movement. Lenora and owens care performed, new attends placed, repositioned and warm blanket provided.
[2024-04-30] MEDS: SODIUM CHLORIDE 0.9% 1,000 ML 100 ML IV (20:45)
[2024-04-30 21:01] LABS: Add Manual Diff / Slide Review NO; Basophils Absolute Auto 0 /uL (0-100); Basophils Percent Auto 0.2 % (0-2); Eosinophils Absolute Auto 0 /uL (0-450); Hematocrit 32.7 % (36-46); Hemoglobin 10.9 g/dL (12.0-16.0); Lymphocytes Absolute Auto 700 /uL (1100-4500); Lymphocytes Percent Auto 4.7 % (25-40); Mean Corpuscular HGB Conc 33.4 % (30-36); Mean Corpuscular Hemoglobin 34.7 PG (26-34); Monocytes Absolute Auto 600 /uL (0-900); Monocytes Percent Auto 3.7 % (3-14); Neutrophils Absolute Auto 13600 /uL (1500-7000); Neutrophils Percent Auto 91.4 % (50-75); Platelet Count 322 X10^3/uL (150-400); Red Blood Cell Count 3.14 X10^6/uL (4.0-5.2); Red Cell Distribution Width 13.3 % (11.6-14.8); White Blood Cell Count 14.9 X10^3/uL (4.5-11.0)
--- NOTE | 2024-04-30 21:15 | P.HP_ITS ---
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 EMS gave bolus of 500 cc NS for hypotension. Upon arrival to ED had diarrhea and was both hypotensive and bradycardic. She had a total of several liters of NS, central line and pressor. Lab workup showing Campylobacter, leukocytosis with Lt shift, hyponatremia of 117, hypomagnesemia, elevated BNP. EKG - NSR with 1st degree AV block and nonspecific ST changes and hypokalemia on repeated labs. Na up to 120. Patient is poor historian, doesn't volunteer any information and needs time to answer simple questions, appears encephalopathic. [facility] Medical History Anemia Hyperlipidemia Carotid stenosis Carotid stenosis with cerebral infarction less than 8 weeks ago CVA (cerebral vascular accident) History of fracture of right hip COPD (chronic obstructive pulmonary disease) Hypertension, essential Paralysis Vision disorder Surgical History History of repair of hip fracture No pertinent past surgical history Family History Mother Diabetes mellitus Hyperthyroidism Father CAD (coronary artery disease) Social History household members: spouse and children Smoking Status: Current every day smoker Tobacco: How many years used: 40 quit status: considering quitting (I'm trying ) alcohol intake: never Meds Home Medications and Allergies Home Medications Medication Instructions Recorded Confirmed Type aspirin 81 mg chewable tablet 1 tab PO DAILY 10/24/22 04/30/24 History lisinopril 10 mg tablet 10 mg PO DAILY #90 tabs 10/24/22 02/06/24 Rx atorvastatin 40 mg tablet 40 mg PO DAILY 04/30/24 04/30/24 History lisinopril 10 mg tablet 10 mg PO DAILY 04/30/24 04/30/24 History Allergies Allergy/AdvReac Type Severity Reaction Status Date / Time wool Allergy Mild Rash Verified 02/06/24 11:41 codeine AdvReac Intermediate Gastrointestinal Verified 02/06/24 11:41 Upset Review of Systems Review of Systems Narrative: Denies chest pain, abdominal pain, nausea, vomiting, fever or chills. That is the extent of obtainable ROS. Exam Vital Signs (past 8 hours): - 04/30/24 14:20 04/30/24 14:25 04/30/24 14:25 Temperature Pulse Rate 85 79 Respiratory Rate 21 Blood Pressure 98/65 135/85 Pulse Oximetry 91 Oxygen Delivery Method Room Air Oxygen Flow Rate 04/30/24 14:30 04/30/24 14:30 04/30/24 14:42 Temperature Pulse Rate 82 92 H Respiratory Rate 22 20 Blood Pressure 98/65 Pulse Oximetry 93 94 Oxygen Delivery Method Room Air Oxygen Flow Rate 04/30/24 14:42 04/30/24 14:48 04/30/24 15:00 Temperature Pulse Rate 84 96 H Respiratory Rate 17 Blood Pressure 102/66 Pulse Oximetry 98 Oxygen Delivery Method Oxygen Flow Rate 04/30/24 15:11 04/30/24 15:11 04/30/24 15:16 Temperature Pulse Rate 91 H 92 H Respiratory Rate 16 21 Blood Pressure 134/62 Pulse Oximetry 96 97 Oxygen Delivery Method Oxygen Flow Rate 04/30/24 15:16 04/30/24 15:30 04/30/24 16:03 Temperature Pulse Rate 50 L Respiratory Rate 18 Blood Pressure 108/65 173/79 H Pulse Oximetry 94 Oxygen Delivery Method Room Air Oxygen Flow Rate 04/30/24 16:03 04/30/24 16:05 04/30/24 16:06 Temperature Pulse Rate 93 H 94 H Respiratory Rate 20 22 Blood Pressure 185/78 H Pulse Oximetry 96 84 L Oxygen Delivery Method Oxygen Flow Rate 04/30/24 16:06 04/30/24 16:09 04/30/24 16:09 Temperature Pulse Rate 93 H 93 H Respiratory Rate 12 18 Blood Pressure 181/84 H Pulse Oximetry 97 98 Oxygen Delivery Method Oxygen Flow Rate 04/30/24 16:10 04/30/24 16:12 04/30/24 16:12 Temperature Pulse Rate 94 H 99 H Respiratory Rate 23 24 Blood Pressure 172/81 H Pulse Oximetry 99 94 Oxygen Delivery Method Oxygen Flow Rate 04/30/24 16:15 04/30/24 16:16 04/30/24 16:16 Temperature Pulse Rate 101 H 99 H Respiratory Rate 26 H 21 Blood Pressure 177/71 H Pulse Oximetry 74 L 75 L Oxygen Delivery Method Oxygen Flow Rate 04/30/24 16:19 04/30/24 16:19 04/30/24 16:20 Temperature Pulse Rate 94 H 95 H Respiratory Rate 21 23 Blood Pressure 186/79 H Pulse Oximetry 76 L Oxygen Delivery Method Oxygen Flow Rate 04/30/24 16:21 04/30/24 16:21 04/30/24 16:24 Temperature Pulse Rate 96 H 92 H Respiratory Rate 29 H 20 Blood Pressure 158/73 H Pulse Oximetry 98 100 Oxygen Delivery Method Oxygen Flow Rate 04/30/24 16:24 04/30/24 16:25 04/30/24 16:27 Temperature Pulse Rate 91 H 94 H Respiratory Rate 19 27 H Blood Pressure 154/72 H Pulse Oximetry 100 100 Oxygen Delivery Method Oxygen Flow Rate 04/30/24 16:27 04/30/24 16:30 04/30/24 16:30 Temperature Pulse Rate 89 Respiratory Rate Blood Pressure 127/55 L 151/89 H Pulse Oximetry 100 Oxygen Delivery Method Oxygen Flow Rate 04/30/24 16:33 04/30/24 16:33 04/30/24 16:35 Temperature Pulse Rate 90 90 Respiratory Rate 14 14 Blood Pressure 127/61 Pulse Oximetry 100 100 Oxygen Delivery Method Oxygen Flow Rate 04/30/24 16:36 04/30/24 16:36 04/30/24 16:39 Temperature Pulse Rate 90 87 Respiratory Rate 13 23 Blood Pressure 126/60 Pulse Oximetry 100 100 Oxygen Delivery Method Oxygen Flow Rate 04/30/24 16:39 04/30/24 16:40 04/30/24 16:42 Temperature Pulse Rate 86 90 Respiratory Rate 16 16 Blood Pressure 113/57 L Pulse Oximetry 100 100 Oxygen Delivery Method Oxygen Flow Rate 04/30/24 16:42 04/30/24 16:45 04/30/24 16:45 Temperature Pulse Rate 86 Respiratory Rate 19 Blood Pressure 124/63 108/53 L Pulse Oximetry 100 Oxygen Delivery Method Oxygen Flow Rate 04/30/24 16:49 04/30/24 16:49 04/30/24 16:50 Temperature Pulse Rate 55 L 50 L Respiratory Rate 22 20 Blood Pressure 70/43 L Pulse Oximetry 100 99 Oxygen Delivery Method Oxygen Flow Rate 04/30/24 16:52 04/30/24 16:52 04/30/24 16:54 Temperature Pulse Rate 46 L 36 L Respiratory Rate 16 21 Blood Pressure 46/30 L Pulse Oximetry 99 Oxygen Delivery Method Oxygen Flow Rate 04/30/24 16:54 04/30/24 16:55 04/30/24 16:58 Temperature Pulse Rate 35 L 45 L Respiratory Rate 21 22 Blood Pressure 53/28 L Pulse Oximetry 100 100 Oxygen Delivery Method Oxygen Flow Rate 04/30/24 16:58 04/30/24 16:59 04/30/24 16:59 Temperature Pulse Rate 42 L Respiratory Rate 20 Blood Pressure 60/24 L 49/30 L Pulse Oximetry 100 Oxygen Delivery Method Oxygen Flow Rate 04/30/24 17:00 04/30/24 17:05 04/30/24 17:09 Temperature Pulse Rate 79 Respiratory Rate 33 H Blood Pressure 72/44 L Pulse Oximetry 100 39 L Oxygen Delivery Method Oxygen Flow Rate 04/30/24 17:09 04/30/24 17:10 04/30/24 17:10 Temperature Pulse Rate 51 L 52 L Respiratory Rate 17 17 Blood Pressure 72/44 L Pulse Oximetry 100 100 Oxygen Delivery Method Oxygen Flow Rate 04/30/24 17:15 04/30/24 17:18 04/30/24 17:18 Temperature Pulse Rate 53 L 52 L Respiratory Rate 17 17 Blood Pressure 68/38 L Pulse Oximetry 100 96 Oxygen Delivery Method Oxygen Flow Rate 04/30/24 17:20 04/30/24 17:22 04/30/24 17:22 Temperature Pulse Rate 52 L 55 L Respiratory Rate 17 20 Blood Pressure 64/39 L Pulse Oximetry 97 93 Oxygen Delivery Method Oxygen Flow Rate 04/30/24 17:23 04/30/24 17:23 04/30/24 17:25 Temperature Pulse Rate 58 L 80 Respiratory Rate 21 22 Blood Pressure 116/57 L Pulse Oximetry 84 L 97 Oxygen Delivery Method Oxygen Flow Rate 04/30/24 17:25 04/30/24 17:30 04/30/24 17:31 Temperature Pulse Rate 96 H 100 H Respiratory Rate 27 H 29 H Blood Pressure 114/68 Pulse Oximetry 85 L 88 L Oxygen Delivery Method Oxygen Flow Rate 04/30/24 17:31 04/30/24 17:33 04/30/24 17:33 Temperature Pulse Rate 95 H Respiratory Rate 25 H Blood Pressure 191/93 H 192/84 H Pulse Oximetry Oxygen Delivery Method Oxygen Flow Rate 04/30/24 17:36 04/30/24 17:36 04/30/24 17:39 Temperature Pulse Rate 92 H Respiratory Rate Blood Pressure 196/96 H 164/74 H Pulse Oximetry Oxygen Delivery Method Oxygen Flow Rate 04/30/24 17:39 04/30/24 17:40 04/30/24 17:44 Temperature Pulse Rate 65 63 57 L Respiratory Rate 13 12 16 Blood Pressure Pulse Oximetry 100 100 100 Oxygen Delivery Method Oxygen Flow Rate 04/30/24 17:44 04/30/24 17:45 04/30/24 17:45 Temperature Pulse Rate 54 L Respiratory Rate 14 Blood Pressure 85/46 L 78/45 L Pulse Oximetry 100 Oxygen Delivery Method Oxygen Flow Rate 04/30/24 17:48 04/30/24 17:48 04/30/24 17:50 Temperature Pulse Rate 50 L 48 L Respiratory Rate 15 15 Blood Pressure 63/34 L Pulse Oximetry 100 100 Oxygen Delivery Method Oxygen Flow Rate 04/30/24 17:52 04/30/24 17:52 04/30/24 17:54 Temperature Pulse Rate 42 L 45 L Respiratory Rate 18 16 Blood Pressure 60/40 L Pulse Oximetry 100 100 Oxygen Delivery Method Oxygen Flow Rate 04/30/24 17:54 04/30/24 17:55 04/30/24 17:55 Temperature Pulse Rate 46 L Respiratory Rate 16 Blood Pressure 66/38 L 68/38 L Pulse Oximetry 100 Oxygen Delivery Method Oxygen Flow Rate 04/30/24 17:57 04/30/24 17:57 04/30/24 17:58 Temperature Pulse Rate 42 L 46 L Respiratory Rate 16 14 Blood Pressure 63/38 L Pulse Oximetry 100 100 Oxygen Delivery Method Oxygen Flow Rate 04/30/24 17:58 04/30/24 18:00 04/30/24 18:00 Temperature Pulse Rate 50 L Respiratory Rate 18 Blood Pressure 69/43 L 65/41 L Pulse Oximetry 100 Oxygen Delivery Method Oxygen Flow Rate 04/30/24 18:02 04/30/24 18:02 04/30/24 18:04 Temperature Pulse Rate 47 L 48 L Respiratory Rate 17 16 Blood Pressure 66/42 L Pulse Oximetry 100 100 Oxygen Delivery Method Oxygen Flow Rate 04/30/24 18:04 02/14/25 18:05 04/30/24 18:06 Temperature Pulse Rate 49 L Respiratory Rate 16 Blood Pressure 70/46 L 175/94 H Pulse Oximetry 100 Oxygen Delivery Method Oxygen Flow Rate 04/30/24 18:06 04/30/24 18:08 04/30/24 18:08 Temperature Pulse Rate 74 77 Respiratory Rate 15 15 Blood Pressure 238/109 H Pulse Oximetry 100 100 Oxygen Delivery Method Oxygen Flow Rate 04/30/24 18:10 04/30/24 18:10 04/30/24 18:12 Temperature Pulse Rate 98 H 96 H Respiratory Rate 15 12 Blood Pressure 241/111 H Pulse Oximetry 99 99 Oxygen Delivery Method Oxygen Flow Rate 04/30/24 18:12 04/30/24 18:14 04/30/24 18:14 Temperature Pulse Rate 97 H Respiratory Rate 12 Blood Pressure 245/114 H 247/116 H Pulse Oximetry 100 Oxygen Delivery Method Oxygen Flow Rate 04/30/24 18:15 04/30/24 18:16 04/30/24 18:16 Temperature Pulse Rate 96 H 96 H Respiratory Rate 13 11 L Blood Pressure 243/113 H Pulse Oximetry 100 99 Oxygen Delivery Method Oxygen Flow Rate 04/30/24 18:18 04/30/24 18:18 04/30/24 18:20 Temperature Pulse Rate 96 H 96 H Respiratory Rate 11 L 13 Blood Pressure 237/111 H Pulse Oximetry 99 99 Oxygen Delivery Method Oxygen Flow Rate 04/30/24 18:20 04/30/24 18:22 04/30/24 18:22 Temperature Pulse Rate 93 H Respiratory Rate 11 L Blood Pressure 228/99 H 234/105 H Pulse Oximetry 99 Oxygen Delivery Method Oxygen Flow Rate 04/30/24 18:24 04/30/24 18:24 04/30/24 18:25 Temperature Pulse Rate 94 H 98 H Respiratory Rate 12 16 Blood Pressure 213/94 H Pulse Oximetry 99 99 Oxygen Delivery Method Oxygen Flow Rate 04/30/24 18:26 04/30/24 18:26 04/30/24 18:30 Temperature Pulse Rate 96 H 92 H Respiratory Rate 11 L 12 Blood Pressure 185/81 H Pulse Oximetry 100 100 Oxygen Delivery Method Oxygen Flow Rate 04/30/24 18:30 04/30/24 18:35 04/30/24 18:35 Temperature Pulse Rate 106 H Respiratory Rate 24 Blood Pressure 193/83 H 173/69 H Pulse Oximetry 99 Oxygen Delivery Method Oxygen Flow Rate 04/30/24 18:40 04/30/24 18:41 04/30/24 18:41 Temperature Pulse Rate 98 H 98 H Respiratory Rate 18 20 Blood Pressure 175/77 H Pulse Oximetry 100 100 Oxygen Delivery Method Oxygen Flow Rate 04/30/24 18:45 04/30/24 18:45 04/30/24 18:50 Temperature Pulse Rate 95 H Respiratory Rate 20 Blood Pressure 171/79 H 160/69 H Pulse Oximetry 100 Oxygen Delivery Method Oxygen Flow Rate 04/30/24 18:50 04/30/24 18:55 04/30/24 18:55 Temperature Pulse Rate 92 H 91 H Respiratory Rate 13 16 Blood Pressure 174/75 H Pulse Oximetry 100 100 Oxygen Delivery Method Oxygen Flow Rate 04/30/24 19:00 04/30/24 19:00 04/30/24 19:05 Temperature Pulse Rate 92 H 93 H Respiratory Rate 12 16 Blood Pressure 185/83 H Pulse Oximetry 100 100 Oxygen Delivery Method Oxygen Flow Rate 04/30/24 19:05 04/30/24 19:10 04/30/24 19:10 Temperature Pulse Rate 98 H Respiratory Rate 18 Blood Pressure 177/79 H 184/81 H Pulse Oximetry 100 Oxygen Delivery Method Oxygen Flow Rate 04/30/24 19:15 04/30/24 19:16 04/30/24 19:16 Temperature Pulse Rate 91 H 86 Respiratory Rate 19 16 Blood Pressure 85/52 L Pulse Oximetry 100 100 Oxygen Delivery Method Oxygen Flow Rate 04/30/24 19:20 04/30/24 19:20 04/30/24 19:25 Temperature Pulse Rate 79 Respiratory Rate 15 Blood Pressure 81/49 L 59/42 L Pulse Oximetry 100 Oxygen Delivery Method Oxygen Flow Rate 04/30/24 19:25 04/30/24 19:30 04/30/24 19:30 Temperature Pulse Rate 62 76 Respiratory Rate 17 17 Blood Pressure 100/55 L Pulse Oximetry 100 100 Oxygen Delivery Method Oxygen Flow Rate 04/30/24 19:35 04/30/24 19:36 04/30/24 19:36 Temperature Pulse Rate 98 H 99 H Respiratory Rate 26 H 16 Blood Pressure 189/107 H Pulse Oximetry 100 100 Oxygen Delivery Method Oxygen Flow Rate 04/30/24 19:40 02/14/25 20:31 Temperature 97.8 F Pulse Rate 102 H 93 H Respiratory Rate 33 H 18 Blood Pressure 168/79 H Pulse Oximetry 100 97 Oxygen Delivery Method Oxygen Flow Rate 0 Oxygen Delivery Method Room Air Oxygen Flow Rate 0 Narrative Exam Narrative: General - in no distress, appears somnolent HR regular in 90-ies, BP 160/80, 1 hour off Levophed HEENT - atraumatic, supple neck CVS - RRR RS - normal respiratory effort GI - w/o abdominal distension Neuro - w/o focal motor or sensory deficits, appears encephalopathic, flat affect Objective ECG Impression: NSR 85 1st degree AVB Labs 04/30/24 20:50 04/30/24 20:50 Labs: Laboratory Results - last 24 hr 04/30/24 04/30/24 04/30/24 14:20 16:01 16:04 WBC 7.1 RBC 3.60 L Hgb 12.6 Hct 37.4 MCV 103.9 H MCH 35.0 H MCHC 33.6 RDW 13.4 Plt Count 337 Neut % (Auto) 58.5 Lymph % (Auto) 35.1 Gray % (Auto) 4.2 Eos % (Auto) 1.5 L Baso % (Auto) 0.7 Neut # (Auto) 4100 Lymph # (Auto) 2500 Gray # (Auto) 300 Eos # (Auto) 100 Baso # (Auto) 0 PT 11.1 INR 1.0 APTT 29 Sodium 117 L* Potassium 5.0 Chloride 84 L Carbon Dioxide 23 BUN 26 H Creatinine 0.85 Estimated GFR > 60 BUN/Creatinine Ratio 30.6 H Glucose 104 Lactate 1.8 Calcium 10.0 Magnesium 1.5 L Total Bilirubin 0.8 AST 53 H ALT 35 H Alkaline Phosphatase 101 Total Creatine Kinase 95 Troponin I 0.016 NT-Pro-B Natriuret Pep 587 H Total Protein 7.2 Albumin 4.4 Globulin 2.8 Albumin/Globulin Ratio 1.6 Lipase 340 H Urine Color Urine Appearance Urine pH Ur Specific [place] Urine Protein Urine Glucose (UA) Urine Ketones Urine Occult Blood Urine Nitrate Urine Bilirubin Urine Urobilinogen Ur Leukocyte Esterase Urine RBC Urine WBC Ur Squamous Epith Cells Urine Bacteria Ur Culture Indicated? Vol Urine Centrifuged Stl C. cayetanensis PCR Not detected Stool Rotavirus (PCR) Not detected Stool Adenovirus (PCR) Not detected Stool Astrovirus (PCR) Not detected Stool Cryptosporidium PCR Not detected Stl E.coli Shiga Tox PCR Not detected St Sh/Enteroin Ecoli PCR Not detected Stl Enterotoxigenic E PCR Not detected Stool EPEC (PCR) Not detected Stl E. histolytica PCR Not detected Stool Giardia Lamblia PCR Not detected Stool Sapovirus (PCR) Not detected Stl P. shigelloides PCR Not detected St Y.enterocolitica PCR Not detected Stool Vibrio (PCR) Not detected Stl Vibrio cholerae PCR Not detected Stl Enteroaggr Ecoli PCR Not detected Stl Norovirus GI/GII PCR Not detected Campylobacter (PCR) Detected C. difficile Tox (PCR) Not detected Salmonella (PCR) Not detected 04/30/24 04/30/24 04/30/24 16:25 18:15 20:50 WBC 14.9 H D RBC 3.14 L Hgb 10.9 L Hct 32.7 L MCV 104.0 H MCH 34.7 H MCHC 33.4 RDW 13.3 Plt Count 322 Neut % (Auto) 91.4 H D Lymph % (Auto) 4.7 L D Gray % (Auto) 3.7 Eos % (Auto) 0.0 L Baso % (Auto) 0.2 Neut # (Auto) 40996 H Lymph # (Auto) 700 L Gray # (Auto) 600 Eos # (Auto) 0 Baso # (Auto) 0 PT INR APTT Sodium 119 L* Potassium 3.5 D Chloride 90 L Carbon Dioxide 21 L BUN 29 H Creatinine 0.76 Estimated GFR > 60 BUN/Creatinine Ratio 38.2 H Glucose 173 H Lactate 0.6 L Calcium 9.0 Magnesium Total Bilirubin AST ALT Alkaline Phosphatase Total Creatine Kinase Troponin I NT-Pro-B Natriuret Pep Total Protein Albumin Globulin Albumin/Globulin Ratio Lipase Urine Color Yellow Urine Appearance Clear Urine pH 6.5 Ur Specific [place] 1.010 Urine Protein Trace H Urine Glucose (UA) Negative Urine Ketones Negative Urine Occult Blood Negative Urine Nitrate Negative Urine Bilirubin Negative Urine Urobilinogen 0.2 Ur Leukocyte Esterase Negative Urine RBC 0-1/hpf Urine WBC 0-1/hpf Ur Squamous Epith Cells 0-1 /hpf Urine Bacteria Few (2-10) H Ur Culture Indicated? Cult not indicated Vol Urine Centrifuged 10ml (spun) Stl C. cayetanensis PCR Stool Rotavirus (PCR) Stool Adenovirus (PCR) Stool Astrovirus (PCR) Stool Cryptosporidium PCR Stl E.coli Shiga Tox PCR St Sh/Enteroin Ecoli PCR Stl Enterotoxigenic E PCR Stool EPEC (PCR) Stl E. histolytica PCR Stool Giardia Lamblia PCR Stool Sapovirus (PCR) Stl P. shigelloides PCR St Y.enterocolitica PCR Stool Vibrio (PCR) Stl Vibrio cholerae PCR Stl Enteroaggr Ecoli PCR Stl Norovirus GI/GII PCR Campylobacter (PCR) C. difficile Tox (PCR) Salmonella (PCR) Assessment & Plan Assessment and plan (1) Syncope: Status: Acute (2) Enteritis due to Campylobacter species: Status: Acute (3) Hyponatremia: Problem details: Acute on chronic. TSH was normal. Given random urine Na+ of 58, suspect SIADH Status: Acute (4) Carotid stenosis: Qualifiers: Laterality: right Qualified Code(s): I65.21 - Occlusion and stenosis of right carotid artery Status: Acute (5) Hyperlipidemia: Qualifiers: Hyperlipidemia type: pure hypercholesterolemia Qualified Code(s): E 78.00 - Pure hypercholesterolemia, unspecified Status: Acute (6) HTN (hypertension): Status: Acute (7) Hypomagnesemia: Status: Acute (8) COPD (chronic obstructive pulmonary disease): Status: Acute (9) Tobacco abuse: Status: Acute (10) Anemia: Qualifiers: Anemia type: unspecified type Qualified Code(s): D64.9 - Anemia, unspecified Status: Acute Assessment & Plan narrative: Syncope / Bradycardia / Hypotension - DD - sepsis, with underlying enteritis could be vagal, 2nd to hyponatremia, T IA with Occluded Rt ICA and 70% stenotic Rt ICA - 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 Had ASA in ED. Without convincing ischemic changes on EKG, troponin pending Campylobacter Enteritis - IVFs, Zithromax, prn antiemetic Electrolyte Abnormalities Hyponatremia - acute on chronic, 117 on arrival, 120 after 3 L of NS, BMP q 4 hours Hypokalemia - 60 mEq KCl rider Hypomagnesemia - MgS 2 g Renal function preserved COPD / Smoker - albuterol and nicotine patch prn Hx of CVA / Carotid Stenosis /HTN - home Lisinopril 10 mg daily on hold - had 325 ASA in ED, at home on 81 daily and Lipitor 40 mg daily Macrocytic Anemia - chronic and stable - w/o Hx of GI bleed - checking stool guaiac GI prophylaxis - PPI DVT prophylaxis - Lovenox Time-Based Coding :: [TOTAL MINUTES] spent with patient and on the chart (including review of chart, obtaining history, exam, reviewing outside data, placing orders, documenting exam and treatment plan, and counseling patient) on [DATE].
[2024-04-30 21:18] LABS: BUN Creatinine Ratio 41.5 (6-22); Blood Urea Nitrogen 27 mg/dL (7-17); Carbon Dioxide 20 mmol/L (22-32); Chloride 91 mmol/L (98-107); Estimated Glomerular Filt Rate > 60 mL/min (>60); Glucose 166 mg/dL (80-110); HEMOLYSIS < 15 (0-50); Potassium 2.9 mmol/L (3.4-5.1); Sodium 120 mmol/L (137-145)
[2024-04-30 21:30] LABS: MRSA (Nasal) PCR NOT DETECTED (Not Detect)
[2024-04-30] MEDS: MAGNESIUM SULFATE 2 GM/50 ML PIGGYBACK IV (23:16)
[2024-04-30] MEDS: POTASSIUM CHLORIDE IN WATER 10 MEQ/100 ML PIGGYBACK 100 MEQ IV (23:17)
[2024-05-01] VITALS (183 sets, daily range): BP systolic 93–214; BP diastolic 52–96; PULSE 67–103; RESP 11–59; TEMP 36.6–37.3; O2SAT 58–100
[2024-05-01 00:12] LABS: BUN Creatinine Ratio 41.8 (6-22); Blood Urea Nitrogen 23 mg/dL (7-17); Calcium 9.1 mg/dL (8.4-10.2); Carbon Dioxide 20 mmol/L (22-32); Chloride 94 mmol/L (98-107); Estimated Glomerular Filt Rate > 60 mL/min (>60); Glucose 113 mg/dL (80-110); HEMOLYSIS < 15 (0-50); Magnesium 1.3 mg/dL (1.6-2.3); Potassium 3.1 mmol/L (3.4-5.1); Sodium 121 mmol/L (137-145)
[2024-05-01] MEDS: POTASSIUM CHLORIDE IN WATER 10 MEQ/100 ML PIGGYBACK 100 MEQ IV ×5 (00:20→05:25)
[2024-05-01 00:24] LABS: Troponin I < 0.012 ng/mL (0.01-0.034)
--- NOTE | 2024-05-01 07:43 | PM.PN.IH.1 ---
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 EMS gave bolus of 500 cc NS for hypotension. Upon arrival to ED had diarrhea and was both hypotensive and bradycardic. She had a total of several liters of NS, central line and pressor. Lab workup showing Campylobacter, leukocytosis with Lt shift, hyponatremia of 117, hypomagnesemia, elevated BNP. EKG - NSR with 1st degree AV block and nonspecific ST changes and hypokalemia on repeated labs. Na up to 120. Patient is poor historian, doesn't volunteer any information and needs time to answer simple questions, appears encephalopathic. Subjective: The patient reports feeling significantly better today, with decreased diarrhea, denying abdominal pain. She is unaware of any recent food-borne illness exposures or sick contacts. She weaned off norepinephrine infusion overnight. She has no chest pain or shortness of breath. Exam Vital Signs (past 8 hours): - 05/01/24 00:00 05/01/24 01:00 05/01/24 01:14 Pulse Rate 92 H 85 86 Respiratory Rate 22 25 H 22 Blood Pressure 153/71 H 134/71 Pulse Oximetry 99 97 97 Oxygen Flow Rate 0 0 05/01/24 01:15 05/01/24 01:20 05/01/24 01:25 Pulse Rate 84 87 92 H Respiratory Rate 27 H 26 H 26 H Blood Pressure Pulse Oximetry 98 95 97 Oxygen Flow Rate 05/01/24 01:30 05/01/24 01:35 05/01/24 01:40 Pulse Rate 91 H 95 H 86 Respiratory Rate 22 20 14 Blood Pressure Pulse Oximetry 98 98 96 Oxygen Flow Rate 05/01/24 01:45 05/01/24 01:50 05/01/24 01:55 Pulse Rate 84 82 80 Respiratory Rate 18 28 H 22 Blood Pressure Pulse Oximetry 97 97 95 Oxygen Flow Rate 05/01/24 02:00 05/01/24 02:00 05/01/24 02:00 Pulse Rate 79 79 Respiratory Rate 27 H 31 H Blood Pressure 93/53 L 93/52 L Pulse Oximetry 95 96 Oxygen Flow Rate 0 05/01/24 02:05 05/01/24 02:10 05/01/24 02:15 Pulse Rate 80 81 79 Respiratory Rate 16 23 24 Blood Pressure Pulse Oximetry 95 97 96 Oxygen Flow Rate 05/01/24 02:20 05/01/24 02:25 05/01/24 02:30 Pulse Rate 80 82 83 Respiratory Rate 21 20 24 Blood Pressure Pulse Oximetry 95 96 94 Oxygen Flow Rate 05/01/24 02:35 05/01/24 02:40 05/01/24 02:45 Pulse Rate 85 84 90 Respiratory Rate 21 22 28 H Blood Pressure Pulse Oximetry 97 96 79 L Oxygen Flow Rate 05/01/24 02:50 05/01/24 02:55 05/01/24 03:00 Pulse Rate 84 81 90 Respiratory Rate 26 H 29 H 34 H Blood Pressure 168/75 H Pulse Oximetry 98 98 99 Oxygen Flow Rate 0 05/01/24 03:00 05/01/24 03:00 05/01/24 03:05 Pulse Rate 80 80 Respiratory Rate 34 H 32 H Blood Pressure 178/79 H Pulse Oximetry 99 97 Oxygen Flow Rate 05/01/24 03:08 05/01/24 03:08 05/01/24 03:10 Pulse Rate 80 80 Respiratory Rate 51 H 59 H Blood Pressure 168/75 H Pulse Oximetry 98 98 Oxygen Flow Rate 05/01/24 03:15 05/01/24 03:20 05/01/24 03:25 Pulse Rate 80 80 80 Respiratory Rate 34 H 34 H 47 H Blood Pressure Pulse Oximetry 98 99 98 Oxygen Flow Rate 05/01/24 03:30 05/01/24 03:35 05/01/24 03:40 Pulse Rate 79 82 80 Respiratory Rate 29 H 19 38 H Blood Pressure Pulse Oximetry 98 77 L 99 Oxygen Flow Rate 05/01/24 03:45 05/01/24 03:50 05/01/24 03:55 Pulse Rate 79 88 81 Respiratory Rate 37 H 27 H 18 Blood Pressure Pulse Oximetry 98 98 98 Oxygen Flow Rate 05/01/24 04:00 05/01/24 04:00 05/01/24 04:05 Pulse Rate 79 77 Respiratory Rate 23 31 H Blood Pressure 109/54 L Pulse Oximetry 97 97 Oxygen Flow Rate 05/01/24 04:10 05/01/24 04:15 05/01/24 04:20 Pulse Rate 79 78 79 Respiratory Rate 44 H 31 H 28 H Blood Pressure Pulse Oximetry 98 98 99 Oxygen Flow Rate 05/01/24 04:25 05/01/24 04:30 05/01/24 04:35 Pulse Rate 80 80 80 Respiratory Rate 24 44 H 29 H Blood Pressure Pulse Oximetry 99 98 97 Oxygen Flow Rate 05/01/24 04:40 05/01/24 04:45 05/01/24 04:50 Pulse Rate 83 86 90 Respiratory Rate 21 45 H 19 Blood Pressure Pulse Oximetry 95 96 98 Oxygen Flow Rate 05/01/24 04:55 05/01/24 05:00 05/01/24 05:00 Pulse Rate 80 80 Respiratory Rate 27 H 30 H Blood Pressure 169/78 H Pulse Oximetry 98 98 Oxygen Flow Rate 05/01/24 05:05 05/01/24 05:10 05/01/24 05:15 Pulse Rate 79 80 79 Respiratory Rate 42 H 32 H 45 H Blood Pressure Pulse Oximetry 99 97 98 Oxygen Flow Rate 05/01/24 05:20 05/01/24 05:25 05/01/24 05:30 Pulse Rate 79 79 77 Respiratory Rate 34 H 27 H 28 H Blood Pressure Pulse Oximetry 98 98 96 Oxygen Flow Rate 05/01/24 05:35 05/01/24 05:40 05/01/24 05:45 Pulse Rate 76 81 78 Respiratory Rate 32 H 30 H 51 H Blood Pressure Pulse Oximetry 95 97 97 Oxygen Flow Rate 05/01/24 05:50 05/01/24 05:55 05/01/24 06:00 Pulse Rate 77 77 Respiratory Rate 29 H 32 H Blood Pressure 162/75 H Pulse Oximetry 98 98 Oxygen Flow Rate 05/01/24 06:00 Pulse Rate 79 Respiratory Rate 31 H Blood Pressure Pulse Oximetry 98 Oxygen Flow Rate Oxygen Delivery Method Room Air Oxygen Flow Rate 0 Narrative Exam Narrative: GENERAL: This is a well-nourished, well-developed patient, in no apparent distress. HEAD: Atraumatic. Normocephalic. No temporal or scalp tenderness. EYES: Pupils equal round and reactive. Extraocular motions intact. No scleral icterus. No injection or drainage. ENT: Mucous membranes pink and moist. NECK: Trachea midline. No JVD, bruits or lymphadenopathy. Supple, nontender, no meningeal signs. Right IJ central line in place, to be removed today. CARDIOVASCULAR: Regular rate and rhythm without murmurs, gallops, or rubs. RESPIRATORY: Clear to auscultation. GASTROINTESTINAL: Abdomen soft, non-tender, nondistended. EXTREMITIES: No clubbing, cyanosis, or edema. BACK: Nontender without deformity or crepitance. No flank tenderness. NEUROLOGIC: Alert, oriented, speech fluent, full upper and lower motor strength, no focal deficits evident. DERMATOLOGIC: No rashes or skin lesions. Objective ECG Impression: Sinus rhythm with 1st degree AV block at 77 beats per minute Possible Left atrial enlargement Left axis deviation Nonspecific ST and T wave abnormality Imaging *: Radiologist's impression: 1. Chest x-ray 04/30/2024: No acute cardiopulmonary pathology. 2. Chest x-ray 04/30/2024: Right-sided central venous line with the catheter tip at the lower 3rd of the SVC. Labs 04/30/24 20:50 04/30/24 23:50 Labs: Laboratory Results - last 24 hr 04/30/24 04/30/24 04/30/24 14:20 16:01 16:04 WBC 7.1 RBC 3.60 L Hgb 12.6 Hct 37.4 MCV 103.9 H MCH 35.0 H MCHC 33.6 RDW 13.4 Plt Count 337 Neut % (Auto) 58.5 Lymph % (Auto) 35.1 [place] % (Auto) 4.2 Eos % (Auto) 1.5 L Baso % (Auto) 0.7 Neut # (Auto) 4100 Lymph # (Auto) 2500 [place] # (Auto) 300 Eos # (Auto) 100 Baso # (Auto) 0 PT 11.1 INR 1.0 APTT 29 Sodium 117 L* Potassium 5.0 Chloride 84 L Carbon Dioxide 23 BUN 26 H Creatinine 0.85 Estimated GFR > 60 BUN/Creatinine Ratio 30.6 H Glucose 104 Lactate 1.8 Calcium 10.0 Magnesium 1.5 L Total Bilirubin 0.8 AST 53 H ALT 35 H Alkaline Phosphatase 101 Total Creatine Kinase 95 Troponin I 0.016 NT-Pro-B Natriuret Pep 587 H Total Protein 7.2 Albumin 4.4 Globulin 2.8 Albumin/Globulin Ratio 1.6 Lipase 340 H Urine Color Urine Appearance Urine pH Ur Specific [place] Urine Protein Urine Glucose (UA) Urine Ketones Urine Occult Blood Urine Nitrate Urine Bilirubin Urine Urobilinogen Ur Leukocyte Esterase Urine RBC Urine WBC Ur Squamous Epith Cells Urine Bacteria Ur Culture Indicated? Vol Urine Centrifuged Nasal Screen MRSA (PCR) Stl C. cayetanensis PCR Not detected Stool Rotavirus (PCR) Not detected Stool Adenovirus (PCR) Not detected Stool Astrovirus (PCR) Not detected Stool Cryptosporidium PCR Not detected Stl E.coli Shiga Tox PCR Not detected St Sh/Enteroin Ecoli PCR Not detected Stl Enterotoxigenic E PCR Not detected Stool EPEC (PCR) Not detected Stl E. histolytica PCR Not detected Stool Giardia Lamblia PCR Not detected Stool Sapovirus (PCR) Not detected Stl P. shigelloides PCR Not detected St Y.enterocolitica PCR Not detected Stool Vibrio (PCR) Not detected Stl Vibrio cholerae PCR Not detected Stl Enteroaggr Ecoli PCR Not detected Stl Norovirus GI/GII PCR Not detected Campylobacter (PCR) Detected C. difficile Tox (PCR) Not detected Salmonella (PCR) Not detected 04/30/24 04/30/24 04/30/24 16:25 18:15 20:00 WBC RBC Hgb Hct MCV MCH MCHC RDW Plt Count Neut % (Auto) Lymph % (Auto) [place] % (Auto) Eos % (Auto) Baso % (Auto) Neut # (Auto) Lymph # (Auto) [place] # (Auto) Eos # (Auto) Baso # (Auto) PT INR APTT Sodium 119 L* Potassium 3.5 D Chloride 90 L Carbon Dioxide 21 L BUN 29 H Creatinine 0.76 Estimated GFR > 60 BUN/Creatinine Ratio 38.2 H Glucose 173 H Lactate 0.6 L Calcium 9.0 Magnesium Total Bilirubin AST ALT Alkaline Phosphatase Total Creatine Kinase Troponin I NT-Pro-B Natriuret Pep Total Protein Albumin Globulin Albumin/Globulin Ratio Lipase Urine Color Yellow Urine Appearance Clear Urine pH 6.5 Ur Specific [place] 1.010 Urine Protein Trace H Urine Glucose (UA) Negative Urine Ketones Negative Urine Occult Blood Negative Urine Nitrate Negative Urine Bilirubin Negative Urine Urobilinogen 0.2 Ur Leukocyte Esterase Negative Urine RBC 0-1/hpf Urine WBC 0-1/hpf Ur Squamous Epith Cells 0-1 /hpf Urine Bacteria Few (2-10) H Ur Culture Indicated? Cult not indicated Vol Urine Centrifuged 10ml (spun) Nasal Screen MRSA (PCR) Not detected Stl C. cayetanensis PCR Stool Rotavirus (PCR) Stool Adenovirus (PCR) Stool Astrovirus (PCR) Stool Cryptosporidium PCR Stl E.coli Shiga Tox PCR St Sh/Enteroin Ecoli PCR Stl Enterotoxigenic E PCR Stool EPEC (PCR) Stl E. histolytica PCR Stool Giardia Lamblia PCR Stool Sapovirus (PCR) Stl P. shigelloides PCR St Y.enterocolitica PCR Stool Vibrio (PCR) Stl Vibrio cholerae PCR Stl Enteroaggr Ecoli PCR Stl Norovirus GI/GII PCR Campylobacter (PCR) C. difficile Tox (PCR) Salmonella (PCR) 04/30/24 04/30/24 20:50 23:50 WBC 14.9 H D RBC 3.14 L Hgb 10.9 L Hct 32.7 L MCV 104.0 H MCH 34.7 H MCHC 33.4 RDW 13.3 Plt Count 322 Neut % (Auto) 91.4 H D Lymph % (Auto) 4.7 L D [place] % (Auto) 3.7 Eos % (Auto) 0.0 L Baso % (Auto) 0.2 Neut # (Auto) 85791 H Lymph # (Auto) 700 L [place] # (Auto) 600 Eos # (Auto) 0 Baso # (Auto) 0 PT INR APTT Sodium 120 L 121 L Potassium 2.9 L 3.1 L Chloride 91 L 94 L Carbon Dioxide 20 L 20 L BUN 27 H 23 H Creatinine 0.65 0.55 Estimated GFR > 60 > 60 BUN/Creatinine Ratio 41.5 H 41.8 H Glucose 166 H 113 H Lactate Calcium 9.0 9.1 Magnesium 1.3 L Total Bilirubin AST ALT Alkaline Phosphatase Total Creatine Kinase Troponin I < 0.012 NT-Pro-B Natriuret Pep Total Protein Albumin Globulin Albumin/Globulin Ratio Lipase Urine Color Urine Appearance Urine pH Ur Specific [place] Urine Protein Urine Glucose (UA) Urine Ketones Urine Occult Blood Urine Nitrate Urine Bilirubin Urine Urobilinogen Ur Leukocyte Esterase Urine RBC Urine WBC Ur Squamous Epith Cells Urine Bacteria Ur Culture Indicated? Vol Urine Centrifuged Nasal Screen MRSA (PCR) Stl C. cayetanensis PCR Stool Rotavirus (PCR) Stool Adenovirus (PCR) Stool Astrovirus (PCR) Stool Cryptosporidium PCR Stl E.coli Shiga Tox PCR St Sh/Enteroin Ecoli PCR Stl Enterotoxigenic E PCR Stool EPEC (PCR) Stl E. histolytica PCR Stool Giardia Lamblia PCR Stool Sapovirus (PCR) Stl P. shigelloides PCR St Y.enterocolitica PCR Stool Vibrio (PCR) Stl Vibrio cholerae PCR Stl Enteroaggr Ecoli PCR Stl Norovirus GI/GII PCR Campylobacter (PCR) C. difficile Tox (PCR) Salmonella (PCR) [facility] Medical History Anemia Carotid stenosis Carotid stenosis with cerebral infarction less than 8 weeks ago COPD (chronic obstructive pulmonary disease) CVA (cerebral vascular accident) History of fracture of right hip Hyperlipidemia Hypertension, essential Paralysis Vision disorder Surgical History History of repair of hip fracture No pertinent past surgical history Family History Mother Diabetes mellitus Hyperthyroidism Father CAD (coronary artery disease) Social History household members: spouse and children Smoking Status: Current every day smoker Tobacco: How many years used: 40 quit status: considering quitting (I'm trying ) alcohol intake: never Assessment & Plan Assessment & Plan narrative: 1. Syncope / Bradycardia / Hypotension - DD - sepsis, with underlying enteritis could be vagal, 2nd to hyponatremia, TIA with Occluded Rt ICA and 70% stenotic Rt ICA - cardiac rehab nurse 2. Campylobacter Enteritis - IVFs, Zithromax, prn antiemetic 3. Electrolyte Abnormalities Hyponatremia - acute on chronic, 117 on arrival, 121 today, continue to monitor Hypokalemia - IV rider. Hypomagnesemia -IV rider. Renal function stable in preserved 4. Leukocytosis, likely due to Campylobacter infection. -monitor 5. COPD / Smoker - albuterol and nicotine patch prn 6. Hx of CVA / Carotid Stenosis /HTN - home Lisinopril 10 mg daily on hold - had 325 ASA in ED, at home on 81 daily and Lipitor 40 mg daily 7. Macrocytic Anemia - chronic and stable - w/o Hx of GI bleed - checking stool guaiac GI prophylaxis - PPI DVT prophylaxis - Lovenox Plan: -transitioned to medical floor status -replete electrolytes -cancel echocardiogram -remove central venous catheter -continue azithromycin GIN: 1-2 days IH PROFEE Emergency Room Technician Document charge(s): No Charge Codes Subsequent inpatient/observation care: [id number]
[2024-05-01] MEDS: ENOXAPARIN 40 MG/0.4 ML SYRINGE SUBCUT (08:41)
[2024-05-01] MEDS: PANTOPRAZOLE 40 MG VIAL IV (08:41)
[2024-05-01] MEDS: SODIUM CHLORIDE 0.9% 1,000 ML 100 ML IV (12:01)
[2024-05-01 12:15] LABS: Blood Urea Nitrogen 13 mg/dL (7-17); Carbon Dioxide 19 mmol/L (22-32); Chloride 98 mmol/L (98-107); Estimated Glomerular Filt Rate > 60 mL/min (>60); Glucose 85 mg/dL (80-110); HEMOLYSIS < 15 (0-50); Magnesium 1.8 mg/dL (1.6-2.3); Sodium 121 mmol/L (137-145)
--- NOTE | 2024-05-01 13:39 | DI.ECHO.S_ITS ---
[place] [facility]---------+ [facility] : : [address] 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 Left ventricular systolic function is mildly reduced. The ejection fraction is estimated to be 45-50%. There is mild global hypokinesis of the left ventricle. Diastolic parameters suggest a relaxation abnormality of the left ventricle, consistent with probable normal filling pressures. The right ventricle is normal in size and function. The right ventricular systolic pressure is estimated to be at least 35 mmHg based on an estimated right atrial pressure of 3 mm Hg. The left atrial size is normal. There is no significant valvular heart disease. The aortic arch could not be visualized. But, the aortic arch appears to have a moderate size calcified mass on the inferior portion of aortic arch. Consider a CT chest angiogram for further delineation. Procedure: A two-dimensional transthoracic echocardiogram with color flow and Doppler was performed. The study quality was technically adequate. Images from the parasternal window were difficult to obtain and are suboptimal in quality. There is no prior echocardiogram noted for this patient. The patient was in normal sinus rhythm during the exam. Left Ventricle: The left ventricle is normal in size and wall thickness. There is no thrombus. There is no ventricular septal defect visualized. Left ventricular systolic function is mildly reduced. The ejection fraction is estimated to be 45-50%. There is mild global hypokinesis of the left ventricle. Diastolic parameters suggest a relaxation abnormality of the left ventricle, consistent with probable normal filling pressures. Right Ventricle: The right ventricle is normal in size and function. Atria: The left atrial size is normal. The right atrium is normal in size. There is no Doppler evidence for an interatrial shunt. Mitral Valve: The mitral valve leaflets appear mildly thickened, but open well. The mitral valve leaflets are mildly calcified. There is no mitral valve stenosis. There is trace mitral regurgitation. Aortic Valve: The aortic valve is trileaflet. The aortic valve opens well. The aortic valve is mildly calcified. Best seen subcostally. There is no aortic valve stenosis. There is trace aortic regurgitation. Tricuspid Valve: The tricuspid valve leaflets are thin and pliable. There is trace tricuspid regurgitation. The right ventricular systolic pressure is estimated to be at least 35 mmHg based on an estimated right atrial pressure of 3 mm Hg. Pulmonic Valve: The pulmonic valve leaflets are thin and pliable; valve motion is normal. Best seen from subcostal. There is no pulmonic valvular regurgitation. There is no significant valvular heart disease. Great Vessels: The aortic root is normal size. The ascending aorta could not be visualized. The aortic arch could not be visualized. But, the aortic arch appears to have a moderate size calcified mass on the inferior portion of aortic arch. Consider a CT chest angiogram for further delineation. The IVC is of normal diameter and collapses greater than 50% with a sniff. This suggests a low right atrial pressure of 3 mm Hg. Pericardium/ Pleura There is no pericardial effusion. There is no pleural effusion. MMode/2D Measurements & Calculations LVIDd: 4.8 cm LVOT diam: 2.0 cm LVIDs: 3.4 cm Ao root diam: 3.6 cm FS: 28.7 % EPSS: 0.95 cm IVSd: 0.70 cm LVPWd: 0.50 cm LV elizabeth. diameter/BSA (cm/m^2): 3.3 LV sys. diameter/BSA (cm/m^2): 2.3 LA A2 area: 14.2 cm2 RA long axis: 4.4 cm LA A4 area: 9.7 cm2 RA area: 10.1 cm2 LA length (vol): 3.9 cm RA vol: 19.4 ml LA vol: 29.6 ml RA : 13.3 ml/m2 LA vol index: 20.3 ml/m2 IVC diam: 1.4 cm RVD1 (basal): 3.1 cm TAPSE: 2.4 cm Doppler Measurements & Calculations Ao V2 max: 116.5 cm/sec LVOT Max Gasper: 102.1 cm/sec Ao V2 mean: 75.0 cm/sec LV V1 max P.2 mmHg Ao max P.4 mmHg LV V1 VTI: 18.3 cm Ao mean P.5 mmHg RAD(I,D): 2.7 cm2 Ao V2 VTI: 20.8 cm RAD(V,D): 2.7 cm2 sev ratio: 0.88 RAD indexed to BSA (cm^2/m^2): 1.9 MV E max gasper: 73.1 cm/sec TR max gasper: 280.8 cm/sec MV A max gasper: 113.1 cm/sec TR max P.5 mmHg MV E/A: 0.65 PA V2 max: 112.4 cm/sec Med Peak E' Gasper: 5.7 cm/sec PA V2 mean: 78.0 cm/sec E/E' med: 12.8 PA mean P.6 mmHg Lat Peak E' Gasper: 7.9 cm/sec PA pr(Accel): 45.6 mmHg E/E' lat: 9.3 E/e' average: 11.0 MV dec time: 0.21 sec SV(LVOT): 56.4 ml Reading Physician:04:57 PM
--- NOTE | 2024-05-01 17:36 | PC.NURSE ---
Pt stable throughout shift. CVC, owens catheter removed. Downgraded from ICU status. 2 episodes of diarrhea, guiac positive, provider notified. Up to BSC x1 assist. visited bedside, requested home medication list. No complaints of pain.
[2024-05-01] MEDS: AZITHROMYCIN 500 MG in DEXTROSE 5% IN WATER 250 ML 250 MG IV (19:55)
[2024-05-01] MEDS: lisinopriL 10 MG TABLET PO (21:09)
[2024-05-01] MEDS: HYDRALAZINE 20 MG/ML VIAL 10 MG IV (22:51)
[2024-05-02] VITALS (138 sets, daily range): BP systolic 85–186; BP diastolic 48–89; PULSE 70–90; RESP 11–40; TEMP 36.6–36.8; O2SAT 90–100
[2024-05-02 04:35] LABS: Add Manual Diff / Slide Review NO; Basophils Absolute Auto 100 /uL (0-100); Basophils Percent Auto 0.9 % (0-2); Eosinophils Absolute Auto 100 /uL (0-450); Eosinophils Percent Auto 1.3 % (2-4); Hematocrit 30.2 % (36-46); Hemoglobin 10.4 g/dL (12.0-16.0); Lymphocytes Absolute Auto 1900 /uL (1100-4500); Lymphocytes Percent Auto 21.8 % (25-40); Mean Corpuscular HGB Conc 34.4 % (30-36); Mean Corpuscular Hemoglobin 35.6 PG (26-34); Mean Corpuscular Volume 103.5 fL (80-100); Monocytes Absolute Auto 500 /uL (0-900); Monocytes Percent Auto 5.6 % (3-14); Neutrophils Absolute Auto 6100 /uL (1500-7000); Neutrophils Percent Auto 70.4 % (50-75); Platelet Count 252 X10^3/uL (150-400); Red Blood Cell Count 2.92 X10^6/uL (4.0-5.2); Red Cell Distribution Width 13.9 % (11.6-14.8); White Blood Cell Count 8.6 X10^3/uL (4.5-11.0)
[2024-05-02 05:02] LABS: Magnesium 1.5 mg/dL (1.6-2.3)
[2024-05-02 05:03] LABS: Alanine Aminotransferase 20 IU/L (<35); Albumin 3.1 g/dL (3.5-5.0); Albumin Globulin Ratio 1.5 (1.0-2.8); Alkaline Phosphatase 82 U/L (38-126); Aspartate Aminotransferase 30 IU/L (14-36); BUN Creatinine Ratio 16.3 (6-22); Bilirubin Total 0.4 mg/dL (0.2-1.3); Blood Urea Nitrogen 7 mg/dL (7-17); Calcium 9.4 mg/dL (8.4-10.2); Carbon Dioxide 21 mmol/L (22-32); Chloride 97 mmol/L (98-107); Estimated Glomerular Filt Rate > 60 mL/min (>60); Globulin 2.1 g/dL (1.7-4.1); Glucose 81 mg/dL (80-110); HEMOLYSIS 19 (0-50); Potassium 3.6 mmol/L (3.4-5.1); Sodium 125 mmol/L (137-145); Total Protein 5.2 g/dL (6.3-8.2)
[2024-05-02] MEDS: HYDRALAZINE 20 MG/ML VIAL 10 MG IV (05:35)
[2024-05-02] MEDS: ENOXAPARIN 40 MG/0.4 ML SYRINGE SUBCUT (08:22)
[2024-05-02] MEDS: PANTOPRAZOLE 40 MG VIAL IV (08:22)
[2024-05-02] MEDS: AZITHROMYCIN 250 MG TABLET 500 MG PO (08:22)
[2024-05-02] MEDS: MAGNESIUM SULFATE 2 GM/50 ML PIGGYBACK IV (10:40)
--- NOTE | 2024-05-02 11:51 | CM.DANOTE ---
Initial DCP Assessment Note Pt is a 74 yo female, resident of [place] , arrives after a syncopal event at home. Patient admitted for management of acute and chronic conditions including Enteritis due to Campylobacter species, electrolyte abnormality, hyponatremia, HTN, COPD, anemia. PCP: Wolf Burns Payer: [facility] MCR Reviewed chart, pt discussed in multidisciplinary rounds this morning. Patient has been discharged home. Back to cognitive and functional baseline. Met w/patient, provided IMM, patient eager to return home, spouse to transport. Patient denies any needs from this CM team. No barriers identified at this time to patient's safe discharge home w/family to assist; close outpatient f/u recommended. CM team will plan to follow clinical course closely in case any DC needs or concerns arise. PCP office has been alterted of patient's discharge. WEI Garcia Discharge Planning/Care Management CM Discharge Assessment Start: 05/02/24 11:46 Freq: Status: Active Protocol: Document 05/02/24 11:46 KALYN (Rec: 05/02/24 11:50 KALYN [id number]) Discharge Planning Assessment Assigned Weapons Officer WEI Webb DPOA/Assigned Designee Name Timmy Jones, spouse Contact Information [phone] Advance Directives? No Advance Directives on File No History Provided By Patient,Medical Record Prior Living Arrangements Apartment/Condo Comment ground floor Household Members spouse,children Type of transporation used prior to Relies on Others admit Independent with ADL's Yes Is patient alert and oriented? Yes Needs Assistance With Meal Prep,Home Chores / Shopping Comment Poor activity tolerance Barriers to Discharge No Transportation Arrangement Spouse
--- NOTE | 2024-05-02 12:12 | P.DS_ITS ---
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 EMS gave bolus of 500 cc NS for hypotension. Upon arrival to ED had diarrhea and was both hypotensive and bradycardic. She had a total of several liters of NS, central line and pressor. Lab workup showing Campylobacter, leukocytosis with Lt shift, hyponatremia of 117, hypomagnesemia, elevated BNP. EKG - NSR with 1st degree AV block and nonspecific ST changes and hypokalemia on repeated labs. Na up to 120. Patient is poor historian, doesn't volunteer any information and needs time to answer simple questions, appears encephalopathic. Discharge Providers Provider Date of admission: 04/30/24 19:06 Discharge Date: 05/02/24 Primary care physician: Wolf Burns DO Consults: 04/30/24 20:36 Consult to Dietitian, Adult Routine Comment: Reason For Exam: dentures Discharge provider: Abdulaziz Garnica MD Summary Hospital Course Discharge Diagnosis: 1. Campylobacter gastroenteritis. 2. Syncope with bradycardia and hypotension due to volume depletion due to 1. 3. Hyponatremia, acute on chronic 4. Hypokalemia 5. Hypomagnesemia 6. Leukocytosis 7. COPD 8. History of stroke 9. Hypertension 10. Macrocytic anemia Hospital Course: The patient was admitted and placed in the ICU on a norepinephrine infusion. A right internal jugular central venous catheter was placed in the emergency department due to poor IV access, removed on the 1st hospital day as patient was significantly improved. She was able to tolerate orals and had complete resolution of diarrhea. She was treated with 3 days of azithromycin. She was able to get up and walk without assistance and feeling much better. Sodium improved from 117 to 125. She was interested in discharge home with outpatient follow-up. No other issues arose. Status at Discharge Cognitive/behavioral status at discharge: oriented Functional status at discharge: independent ambulation Overall status at discharge: patient is back to baseline Time Spent with Patient Time spent: Less than 30 minutes Exam Vital Signs (past 8 hours): - 05/02/24 04:15 05/02/24 04:20 05/02/24 04:25 Temperature Pulse Rate 82 84 76 Respiratory Rate 33 H 23 17 Blood Pressure Pulse Oximetry 95 Oxygen Delivery Method 05/02/24 04:27 05/02/24 04:27 05/02/24 04:30 Temperature Pulse Rate 77 73 Respiratory Rate 18 14 Blood Pressure 141/89 H Pulse Oximetry 94 96 Oxygen Delivery Method 05/02/24 04:30 05/02/24 04:30 05/02/24 04:35 Temperature 98 F Pulse Rate 73 72 Respiratory Rate 14 15 Blood Pressure 139/65 Pulse Oximetry 96 96 Oxygen Delivery Method 05/02/24 04:40 05/02/24 04:45 05/02/24 04:50 Temperature Pulse Rate 72 70 78 Respiratory Rate 13 11 L 26 H Blood Pressure Pulse Oximetry 95 97 99 Oxygen Delivery Method 05/02/24 05:20 05/02/24 05:25 05/02/24 05:30 Temperature Pulse Rate 75 73 72 Respiratory Rate 22 17 15 Blood Pressure Pulse Oximetry 99 100 100 Oxygen Delivery Method 05/02/24 05:31 05/02/24 05:31 05/02/24 05:35 Temperature Pulse Rate 70 73 Respiratory Rate 18 Blood Pressure 185/87 H 186/87 H Pulse Oximetry 100 Oxygen Delivery Method 05/02/24 05:35 05/02/24 05:40 05/02/24 05:42 Temperature Pulse Rate 75 76 75 Respiratory Rate 12 17 17 Blood Pressure Pulse Oximetry 100 99 99 Oxygen Delivery Method 05/02/24 05:42 05/02/24 05:45 05/02/24 05:50 Temperature Pulse Rate 74 76 Respiratory Rate 12 14 Blood Pressure 150/63 H Pulse Oximetry 98 97 Oxygen Delivery Method 05/02/24 05:55 05/02/24 06:00 05/02/24 06:00 Temperature Pulse Rate 74 75 Respiratory Rate 13 14 Blood Pressure 139/63 Pulse Oximetry 98 98 Oxygen Delivery Method 05/02/24 06:03 05/02/24 06:05 05/02/24 06:10 Temperature Pulse Rate 70 77 79 Respiratory Rate 15 12 Blood Pressure 139/63 Pulse Oximetry 98 94 Oxygen Delivery Method 05/02/24 06:15 05/02/24 06:20 05/02/24 06:25 Temperature Pulse Rate 83 81 81 Respiratory Rate 17 17 17 Blood Pressure Pulse Oximetry 90 L 97 99 Oxygen Delivery Method 05/02/24 06:30 05/02/24 06:30 05/02/24 06:35 Temperature Pulse Rate 80 81 Respiratory Rate 17 13 Blood Pressure 126/60 Pulse Oximetry 97 96 Oxygen Delivery Method 05/02/24 06:40 05/02/24 06:45 05/02/24 06:50 Temperature Pulse Rate 79 78 85 Respiratory Rate 15 14 14 Blood Pressure Pulse Oximetry 97 98 98 Oxygen Delivery Method 05/02/24 06:55 05/02/24 07:00 05/02/24 07:00 Temperature 98.2 F Pulse Rate 79 79 Respiratory Rate 19 16 Blood Pressure Pulse Oximetry 97 95 Oxygen Delivery Method 05/02/24 07:00 05/02/24 07:00 05/02/24 07:05 Temperature Pulse Rate 79 Respiratory Rate 21 Blood Pressure 122/56 L Pulse Oximetry 94 Oxygen Delivery Method Room Air 05/02/24 07:10 05/02/24 07:15 05/02/24 07:20 Temperature Pulse Rate 76 73 83 Respiratory Rate 13 11 L 23 Blood Pressure Pulse Oximetry 93 93 96 Oxygen Delivery Method 05/02/24 07:25 05/02/24 07:30 05/02/24 07:30 Temperature Pulse Rate 79 76 Respiratory Rate 17 17 Blood Pressure 97/55 L Pulse Oximetry 96 97 Oxygen Delivery Method 05/02/24 07:35 05/02/24 07:40 05/02/24 07:45 Temperature Pulse Rate 78 74 73 Respiratory Rate 20 15 14 Blood Pressure Pulse Oximetry 97 94 95 Oxygen Delivery Method 05/02/24 07:50 05/02/24 07:55 05/02/24 08:00 Temperature Pulse Rate 76 77 Respiratory Rate 16 18 Blood Pressure 87/55 L Pulse Oximetry 98 96 Oxygen Delivery Method 05/02/24 08:00 05/02/24 08:01 05/02/24 08:01 Temperature Pulse Rate 71 70 Respiratory Rate 17 16 Blood Pressure 85/48 L Pulse Oximetry 97 96 Oxygen Delivery Method 05/02/24 08:05 05/02/24 08:10 05/02/24 08:15 Temperature Pulse Rate 78 82 81 Respiratory Rate 25 H 22 14 Blood Pressure Pulse Oximetry 96 97 98 Oxygen Delivery Method 05/02/24 08:20 05/02/24 08:25 05/02/24 08:30 Temperature Pulse Rate 84 84 85 Respiratory Rate 24 28 H 40 H Blood Pressure Pulse Oximetry 98 97 Oxygen Delivery Method 05/02/24 08:35 05/02/24 08:40 05/02/24 08:45 Temperature Pulse Rate 84 85 82 Respiratory Rate 22 26 H 18 Blood Pressure Pulse Oximetry 98 98 98 Oxygen Delivery Method 05/02/24 08:50 05/02/24 08:55 05/02/24 09:00 Temperature Pulse Rate 83 82 76 Respiratory Rate 22 18 15 Blood Pressure Pulse Oximetry 98 98 98 Oxygen Delivery Method 05/02/24 09:00 05/02/24 09:05 05/02/24 09:10 Temperature Pulse Rate 75 79 Respiratory Rate 14 17 Blood Pressure 91/50 L Pulse Oximetry 98 98 Oxygen Delivery Method 05/02/24 09:15 05/02/24 09:20 05/02/24 09:25 Temperature Pulse Rate 78 74 75 Respiratory Rate 16 12 16 Blood Pressure Pulse Oximetry 99 98 100 Oxygen Delivery Method 05/02/24 09:30 05/02/24 09:30 05/02/24 09:35 Temperature Pulse Rate 71 72 Respiratory Rate 14 15 Blood Pressure 92/51 L Pulse Oximetry 99 99 Oxygen Delivery Method 05/02/24 09:40 05/02/24 09:45 05/02/24 09:48 Temperature Pulse Rate 71 70 Respiratory Rate 14 15 Blood Pressure 92/51 L Pulse Oximetry 99 99 Oxygen Delivery Method 05/02/24 09:50 05/02/24 09:55 05/02/24 10:00 Temperature Pulse Rate 70 72 73 Respiratory Rate 13 15 17 Blood Pressure Pulse Oximetry 99 98 99 Oxygen Delivery Method 05/02/24 10:00 05/02/24 10:05 05/02/24 10:10 Temperature Pulse Rate 75 74 Respiratory Rate 15 16 Blood Pressure 113/57 L Pulse Oximetry 98 99 Oxygen Delivery Method 05/02/24 10:15 05/02/24 10:20 05/02/24 10:25 Temperature Pulse Rate 74 76 75 Respiratory Rate 15 15 15 Blood Pressure Pulse Oximetry 99 99 98 Oxygen Delivery Method 05/02/24 10:30 05/02/24 10:30 05/02/24 10:35 Temperature Pulse Rate 79 77 Respiratory Rate 24 14 Blood Pressure 114/53 L Pulse Oximetry 99 98 Oxygen Delivery Method 05/02/24 10:40 05/02/24 10:45 05/02/24 10:50 Temperature Pulse Rate 78 80 84 Respiratory Rate 16 18 22 Blood Pressure Pulse Oximetry 97 98 96 Oxygen Delivery Method 05/02/24 10:55 05/02/24 11:00 05/02/24 11:00 Temperature Pulse Rate 79 78 Respiratory Rate 14 15 Blood Pressure 97/50 L Pulse Oximetry 96 96 Oxygen Delivery Method 05/02/24 11:05 05/02/24 11:10 05/02/24 11:15 Temperature Pulse Rate 80 80 79 Respiratory Rate 15 16 13 Blood Pressure Pulse Oximetry 96 97 95 Oxygen Delivery Method 05/02/24 11:20 05/02/24 11:25 05/02/24 11:30 Temperature Pulse Rate 90 88 80 Respiratory Rate 22 37 H 15 Blood Pressure Pulse Oximetry 97 98 Oxygen Delivery Method 05/02/24 11:30 05/02/24 11:35 05/02/24 11:40 Temperature Pulse Rate 76 78 Respiratory Rate 13 18 Blood Pressure 107/55 L Pulse Oximetry 97 98 Oxygen Delivery Method 05/02/24 11:45 05/02/24 11:50 05/02/24 11:55 Temperature Pulse Rate 76 77 78 Respiratory Rate 14 15 16 Blood Pressure Pulse Oximetry 96 95 97 Oxygen Delivery Method 05/02/24 12:00 05/02/24 12:00 Temperature Pulse Rate 77 Respiratory Rate 15 Blood Pressure 121/62 Pulse Oximetry 98 Oxygen Delivery Method Oxygen Delivery Method Room Air Oxygen Flow Rate 0 Narrative Exam Narrative: GENERAL: This is a well-nourished, well-developed patient, in no apparent distress. EYES: Pupils equal round and reactive. Extraocular motions intact. No scleral icterus. No injection or drainage. ENT: Mucous membranes pink and moist. NECK: Trachea midline. No JVD, bruits or lymphadenopathy. Supple, nontender, no meningeal signs CARDIOVASCULAR: Regular rate and rhythm without murmurs, gallops, or rubs. RESPIRATORY: Clear to auscultation. GASTROINTESTINAL: Abdomen soft, non-tender, nondistended. EXTREMITIES: No clubbing, cyanosis, or edema. NEUROLOGIC: Alert, oriented, speech fluent, full upper and lower motor strength, no focal deficits evident. DERMATOLOGIC: No rashes or skin lesions. Objective ECG Impression: Sinus rhythm with 1st degree AV block at 77 beats per minute Possible Left atrial enlargement Left axis deviation Nonspecific ST and T wave abnormality Imaging *: Radiologist's impression: 1. Chest x-ray 04/30/2024: No acute cardiopulmonary pathology. 2. Chest x-ray 04/30/2024: Right-sided central venous line with the catheter tip at the lower 3rd of the SVC. Labs 05/02/24 04:25 05/02/24 04:25 Labs: Laboratory Results - last 24 hr 05/01/24 05/02/24 11:48 04:25 WBC 8.6 RBC 2.92 L Hgb 10.4 L Hct 30.2 L MCV 103.5 H MCH 35.6 H MCHC 34.4 RDW 13.9 Plt Count 252 Neut % (Auto) 70.4 D Lymph % (Auto) 21.8 L [place] % (Auto) 5.6 Eos % (Auto) 1.3 L Baso % (Auto) 0.9 Neut # (Auto) 6100 Lymph # (Auto) 1900 [place] # (Auto) 500 Eos # (Auto) 100 Baso # (Auto) 100 Sodium 121 L 125 L Potassium 4.0 3.6 Chloride 98 97 L Carbon Dioxide 19 L 21 L BUN 13 7 Creatinine 0.50 L 0.43 L Estimated GFR > 60 > 60 BUN/Creatinine Ratio 26.0 H 16.3 Glucose 85 81 Calcium 9.0 9.4 Magnesium 1.8 1.5 L Total Bilirubin 0.4 AST 30 ALT 20 Alkaline Phosphatase 82 Total Protein 5.2 L Albumin 3.1 L Globulin 2.1 Albumin/Globulin Ratio 1.5 PFSH Medical History Anemia Carotid stenosis Carotid stenosis with cerebral infarction less than 8 weeks ago COPD (chronic obstructive pulmonary disease) CVA (cerebral vascular accident) History of fracture of right hip Hyperlipidemia Hypertension, essential Paralysis Vision disorder Surgical History History of repair of hip fracture No pertinent past surgical history Family History Mother Diabetes mellitus Hyperthyroidism Father CAD (coronary artery disease) Social History household members: spouse and children Smoking Status: Current every day smoker Tobacco: How many years used: 40 quit status: considering quitting (I'm trying ) alcohol intake: never Discharge Plan Discharge Plan Patient Disposition: Home Provider Discharge Comment: Followup with Dr. Burns 1 week Discharge orders & Medications Prescriptions: Continued aspirin 81 mg tablet,chewable 1 tab PO DAILY atorvastatin 40 mg tablet 40 mg PO DAILY lisinopril 10 mg tablet 10 mg PO DAILY hydroxyurea 500 mg capsule 500 mg PO QAM Follow up/Referrals: Wolf Burns, [Primary Care Provider] - Visit Report/Discharge Packet Stand Alone Forms: Patient Portal/API, Stroke Signs & Symptoms Discharge Data Primary Care Provider: Wolf Burns Quality MIPS - Admit I confirm the patient?s Advance Care Plan is present, Code status is documented, Surrogate decision maker is in patient?s record [If Yes, STOP here]: Yes MIPS - Meds 'Current medications' to include all prescriptions, [id number] products, herbals, cannabis/cannabidiol products, and vitamin/mineral/dietary (nutritional) supplements. I have utilized all available resources to obtain, update, or review the patient?s current medications. [If Yes, STOP here]: Yes MIPS - DC The patient has a history of heart transplant or Left Ventricular Assist Device (LVAD). If yes, STOP here.: No The patient has current or prior documentation of left ventricular ejection fraction (LVEF) less than or equal to 40%, or moderate or severely depressed left ventricular systolic function.: No A. The patient was prescribed or already taking an Angiotensin-Converting Enzyme (OLESYA) Inhibitor, or Angiotensin Receptor Brenda (ARB).: Yes B. The patient was prescribed or already taking a beta-brenda. [If Yes to Both A & B, STOP here]: No Patient not prescribed/taking OLESYA or ARB, no reason given.: No Patient not prescribed/taking beta-brenda, no reason given.: No PROFEE Charge Codes Discharge inpatient/observation: [id number]
--- NOTE | 2024-05-02 13:42 | PC.NURSE ---
Discharge Note Patient A&O, VSS, RA, no complaints of pain/discomfort. Discharge packet reviewed with patient, all questions/concerns addressed. PIV/TELE discontinued. Patient able to dress self and pack all belongings with assistance. Patient taken down via wheelchair to POV.
== END 2024-05-02 13:30 | disposition home or self-care (01) | DRG 372 ==
LOC: ED 19:07 → AC 19:07 → ICU 19:28
PROVIDERS: Internal Medicine; Admitting Provider Internal Medicine; Emergency Provider Emergency Medicine; PCP Family Medicine; Referring Provider Emergency Medicine; Visit Provider Internal Medicine
DX: A04.5 Campylobacter enteritis (principal); E87.1 Hypo-osmolality and hyponatremia; G45.9 Transient cerebral ischemic attack, unspecified; I95.9 Hypotension, unspecified; R00.1 Bradycardia, unspecified; E87.6 Hypokalemia; I44.0 Atrioventricular block, first degree; F17.200 Nicotine dependence, unspecified, uncomplicated; R55 Syncope and collapse; E78.00 Pure hypercholesterolemia, unspecified; I10 Essential (primary) hypertension; E83.42 Hypomagnesemia; J44.9 Chronic obstructive pulmonary disease, unspecified; D53.9 Nutritional anemia, unspecified; E86.9 Volume depletion, unspecified; Z86.73 Personal history of transient ischemic attack (TIA), and cerebral infarction without residual deficits
CPT/HCPCS: 36415; 36556; 71045; 80048; 80053; 81001; 82550; 83605; 83690; 83735; 83880; 84484; 85025; 85610; 85730; 87040; 87507; 87797; 93005; 93010; 93306; 96361; 96365; 96367; 96368; 99284; 99285; J0360; J1650; J2470; J3475

== ENCOUNTER → 2024-09-16 09:12 | Outpatient (CLI) | payer MEDICARE, SELFPAY ==
[2024-09-16 10:07] LABS: Add Manual Diff / Slide Review NO; Hematocrit 31.3 % (36-46); Hemoglobin 10.8 g/dL (12.0-16.0); Lymphocytes Absolute Auto 1400 /uL (1100-4500); Mean Corpuscular HGB Conc 34.5 % (30-36); Mean Corpuscular Hemoglobin 37.4 PG (26-34); Mean Corpuscular Volume 108.4 fL (80-100); Platelet Count 354 X10^3/uL (150-400)
[2024-09-16 10:29] LABS: HEMOLYSIS < 15 (0-50); Iron 81 ug/dL (37-170)
[2024-09-16 10:40] LABS: Percent Iron Saturation 23 % (15-50); Total Iron Binding Capacity 359 ug/dL (265-497); Transferrin 297 mg/dL (206-381)
[2024-09-16 11:15] LABS: Alanine Aminotransferase 21 IU/L (<35); Albumin 4.1 g/dL (3.5-5.0); Albumin Globulin Ratio 1.6 (1.0-2.8); Alkaline Phosphatase 127 U/L (38-126); Blood Urea Nitrogen 19 mg/dL (7-17); Calcium 10.1 mg/dL (8.4-10.2); Carbon Dioxide 23 mmol/L (22-32); Chloride 90 mmol/L (98-107); Estimated Glomerular Filt Rate > 60 mL/min (>60); Globulin 2.5 g/dL (1.7-4.1); Glucose 80 mg/dL (70-99); HEMOLYSIS < 15 (0-50); Magnesium 1.5 mg/dL (1.6-2.3); Potassium 4.4 mmol/L (3.4-5.1); Sodium 123 mmol/L (137-145); Total Protein 6.6 g/dL (6.3-8.2)
[2024-09-16 11:18] LABS: Vitamin B12 > 1000 pg/mL (239-931)
[2024-09-16 11:25] LABS: NT-proBNP (BNP-Adult 18+) 788 pg/mL (<450)
== END ==
PROVIDERS: PCP Family Medicine; Referring Provider Family Medicine; Visit Provider Family Medicine
DX: D64.9 Anemia, unspecified (principal); E83.42 Hypomagnesemia; E87.1 Hypo-osmolality and hyponatremia; I10 Essential (primary) hypertension
CPT/HCPCS: 36415; 80053; 82607; 83540; 83550; 83735; 83880; 85025